=== PATIENT | female | born 1940 | race Caucasian/White ===

== ENCOUNTER 2022-01-04 16:37 | Outpatient (REF) | payer MEDICARE, SELFPAY ==
[2022-01-04 18:22] LABS: Abs Immature Grans 0.08 10^3/uL (0.0-0.06); Absolute Basophil Count 0.04 10^3/uL (0.0-0.2); Absolute Eosinophil Count 0.14 10^3/uL (0.0-0.7); Absolute Lymphocyte Count 1.03 10^3/uL (1.2-3.4); Absolute Monocyte Count 0.69 10^3/uL (0.1-0.8); Absolute Neutrophil Count 10.49 10^3/uL (1.2-6.7); Basophils % 0.3; Eosinophils % 1.1; HCT 37.5 % (36.0-46.0); HGB 12.2 g/dL (11.2-15.7); Immature Grans % 0.6; Lymphocytes % 8.3; MCH 29.6 pg (27.0-33.0); MCHC 32.5 % (32.0-36.0); MCV 91 fL (80-95); MPV 11.2 fL (8.0-11.0); Monocytes % 5.5; Neutrophils % 84.2; Platelet Count 265 10^3/uL (130-400); RBC 4.12 10^6/uL (3.93-5.22); RDW 16.1 % (11.7-14.6); RDW-SD 53.1 fL; WBC 12.46 10^3/uL (4.4-10.8)
[2022-01-04 18:30] LABS: Iron 32 ug/dL (50-170); Total Iron Binding Capacity 216 ug/dL (250-450); Transferrin Sat 15 % (15-50)
[2022-01-04 18:41] LABS: ALT 24 U/L (14-59); AST 17 U/L (15-37); Albumin 3.3 g/dL (3.4-5.0); Alkaline Phosphatase 97 U/L (46-116); Anion Gap 7.5 mmol/L (3-11); BUN 16 mg/dL (7-18); Bilirubin, Total 0.4 mg/dL (0.2-1.0); C-Reactive Protein 0.36 mg/dL (0.0-0.3); CO2 29.5 mmol/L (21.0-32.0); Calcium 9.1 mg/dL (8.5-10.1); Chloride 100 mmol/L (98-107); Estimated GFR 53.08 (mL/min/1.73m2); Glucose 255 mg/dL (74-106); Magnesium 1.6 mg/dL (1.8-2.4); NT-proBNP 364 pg/mL (<300); Potassium 4.6 mmol/L (3.5-5.1); Sodium 137 mmol/L (136-145); TSH (W/Ref FT4) 2.44 uIU/mL (0.36-3.74); Total Protein 6.8 g/dL (6.4-8.2)
[2022-01-04 19:07] LABS: Vitamin D 25 Total 26.4 ng/mL (30-100)
[2022-01-04 19:15] LABS: Bilirubin Negative (Negative); Blood Negative (Negative); Clarity Cloudy (Clear); Glucose Negative (Negative); Ketones Negative (Negative); Leukocyte Esterase Moderate (Negative); Nitrite Positive (Negative); Urobilinogen 0.2 EU/dL (Up TO 0.2); pH 5.5 (5-8)
[2022-01-04 19:16] LABS: Hemoglobin A1C 6.9 % (<5.7)
[2022-01-04 19:18] LABS: Calculated LDL 58 mg/dL (<100); Cholesterol 140 mg/dL (<200); Ferritin 212 ng/mL (8-252); Folate > 20.0 ng/mL (8.6-20.0); HDL Cholesterol 40 mg/dL (40-60); Triglyceride 210 mg/dL (<150); Vitamin B12 353 pg/mL (193-986)
[2022-01-04 19:33] LABS: Bacteria Packed HPF (Negative); C & S Indicated? C&S Done As Ordered; Crystals Negative HPF (Negative); Epithelial Cells Moderate HPF (Negative); Mucus Negative (Negative); RBC 0-2 HPF (0-2); WBC >50 HPF (0-5)
== END 2022-01-04 16:38 | disposition home or self-care (01) ==
LOC: LBN 16:37
PROVIDERS: Visit Provider Nurse Practitioner Gerontology
DX: Z02.89 Encounter for other administrative examinations; R53.83 Other fatigue; R68.89 Other general symptoms and signs; R73.09 Other abnormal glucose; D64.9 Anemia, unspecified; E55.9 Vitamin D deficiency, unspecified; R79.82 Elevated C-reactive protein (CRP); R82.998 Other abnormal findings in urine; E78.1 Pure hyperglyceridemia; R06.9 Unspecified abnormalities of breathing
CPT/HCPCS: 80053; 80061; 82306; 87077; 81003; 81015; 82607; 82728; 82746; 83036; 83540; 83550; 83735; 83880; 84443; 84550; 85025; 86140; 87086; 87186

== ENCOUNTER 2022-01-24 22:43 | Outpatient (REF) | payer MEDICARE, SELFPAY ==
[2022-01-25 00:38] LABS: Bilirubin Negative (Negative); Blood Negative (Negative); Clarity Clear (Clear); Glucose 100 mg/dL (Negative); Ketones Negative (Negative); Leukocyte Esterase Trace (Negative); Nitrite Negative (Negative); Urobilinogen 0.2 EU/dL (Up TO 0.2)
[2022-01-25 00:39] LABS: Bacteria Rare HPF (Negative); C & S Indicated? C&S Done As Ordered; Crystals Rare Amorphous HPF (Negative); Epithelial Cells Moderate HPF (Negative); Mucus Trace (Negative); RBC Negative HPF (0-2)
== END 2022-01-24 22:44 | disposition home or self-care (01) ==
LOC: LBN 22:43
PROVIDERS: Visit Provider Nurse Practitioner Gerontology
DX: F03.90 Unspecified dementia, unspecified severity, without behavioral disturbance, psychotic disturbance, mood disturbance, and anxiety (principal); R82.998 Other abnormal findings in urine
CPT/HCPCS: 87077; 81003; 81015; 87086; 87186

== ENCOUNTER 2022-02-15 15:07 | Outpatient (REF) | payer MEDICARE, SELFPAY ==
[2022-02-15 15:14] LABS: Abs Immature Grans 0.07 10^3/uL (0.0-0.06); Absolute Basophil Count 0.04 10^3/uL (0.0-0.2); Absolute Eosinophil Count 0.39 10^3/uL (0.0-0.7); Absolute Lymphocyte Count 0.83 10^3/uL (1.2-3.4); Absolute Monocyte Count 0.82 10^3/uL (0.1-0.8); Absolute Neutrophil Count 8.93 10^3/uL (1.2-6.7); Basophils % 0.4; Eosinophils % 3.5; HCT 34.4 % (36.0-46.0); Immature Grans % 0.6; Lymphocytes % 7.5; MCH 29.6 pg (27.0-33.0); MCV 93 fL (80-95); MPV 11.6 fL (8.0-11.0); Monocytes % 7.4; Neutrophils % 80.6; Platelet Count 239 10^3/uL (130-400); RBC 3.71 10^6/uL (3.93-5.22); RDW 15.3 % (11.7-14.6); RDW-SD 52.1 fL; WBC 11.08 10^3/uL (4.4-10.8)
[2022-02-15 15:26] LABS: ALT 21 U/L (14-59); AST 25 U/L (15-37); Albumin 3.3 g/dL (3.4-5.0); Alkaline Phosphatase 87 U/L (46-116); Anion Gap 6.2 mmol/L (3-11); BUN 20 mg/dL (7-18); Bilirubin, Total 0.5 mg/dL (0.2-1.0); CO2 30.8 mmol/L (21.0-32.0); Calcium 9.1 mg/dL (8.5-10.1); Chloride 98 mmol/L (98-107); Estimated GFR 56.25 (mL/min/1.73m2); Glucose 138 mg/dL (74-106); Potassium 4.7 mmol/L (3.5-5.1); Sodium 135 mmol/L (136-145); Total Protein 6.9 g/dL (6.4-8.2)
[2022-02-16 10:28] LABS: NT-proBNP 1391 pg/mL (<300)
== END 2022-02-15 15:08 | disposition home or self-care (01) ==
LOC: LBN 15:07
PROVIDERS: Visit Provider Nurse Practitioner Gerontology
DX: I11.0 Hypertensive heart disease with heart failure (principal); I50.9 Heart failure, unspecified; M62.81 Muscle weakness (generalized); D64.9 Anemia, unspecified; R68.89 Other general symptoms and signs; E11.9 Type 2 diabetes mellitus without complications
CPT/HCPCS: 80053; 83880; 85025

== ENCOUNTER 2022-02-20 12:43 | Outpatient (REF) | payer MEDICARE, SELFPAY ==
[2022-02-20 14:41] LABS: BUN 28 mg/dL (7-18); CREATININE 1.1 mg/dL (0.55-1.02); Calcium 9.2 mg/dL (8.5-10.1); Chloride 97 mmol/L (98-107); Estimated GFR 50.17 (mL/min/1.73m2); Glucose 225 mg/dL (74-106); NT-proBNP 517 pg/mL (<300); Potassium 4.7 mmol/L (3.5-5.1); Sodium 136 mmol/L (136-145)
== END 2022-02-20 12:44 | disposition home or self-care (01) ==
LOC: LBN 12:43
PROVIDERS: Visit Provider Nurse Practitioner Gerontology
DX: M62.81 Muscle weakness (generalized) (principal); I48.0 Paroxysmal atrial fibrillation; N32.81 Overactive bladder; M06.9 Rheumatoid arthritis, unspecified; N39.0 Urinary tract infection, site not specified; E11.8 Type 2 diabetes mellitus with unspecified complications; I10 Essential (primary) hypertension; F03.90 Unspecified dementia, unspecified severity, without behavioral disturbance, psychotic disturbance, mood disturbance, and anxiety; Z79.4 Long term (current) use of insulin
CPT/HCPCS: 80048; 83880

== ENCOUNTER 2022-02-26 18:03 | Outpatient (REF) | payer MEDICARE, SELFPAY ==
[2022-02-26 18:37] LABS: ALT 27 U/L (14-59); AST 24 U/L (15-37); Albumin 3.5 g/dL (3.4-5.0); Alkaline Phosphatase 103 U/L (46-116); Anion Gap 4.4 mmol/L (3-11); BUN 22 mg/dL (7-18); Bilirubin, Total 0.4 mg/dL (0.2-1.0); CO2 33.6 mmol/L (21.0-32.0); CREATININE 1.2 mg/dL (0.55-1.02); Calcium 9.4 mg/dL (8.5-10.1); Chloride 98 mmol/L (98-107); Estimated GFR 45.19 (mL/min/1.73m2); Glucose 217 mg/dL (74-106); Potassium 4.7 mmol/L (3.5-5.1); Sodium 136 mmol/L (136-145); Total Protein 7.4 g/dL (6.4-8.2)
[2022-02-26 18:52] LABS: Vitamin D 25 Total 47.5 ng/mL (30-100)
== END 2022-02-26 18:04 | disposition home or self-care (01) ==
LOC: LBN 18:03
PROVIDERS: Visit Provider Nurse Practitioner Gerontology
DX: E11.8 Type 2 diabetes mellitus with unspecified complications (principal); I10 Essential (primary) hypertension; M62.81 Muscle weakness (generalized); Z79.4 Long term (current) use of insulin
CPT/HCPCS: 80053; 82306

== ENCOUNTER 2022-03-01 06:23 | Emergency (ER) | payer MEDICARE, SELFPAY ==
--- NOTE | 2022-03-01 06:15 | DI.CT_ITS ---
Exam(s) CT HEAD CERV SPINE FACIAL WO EXAM: CT HEAD CERV SPINE FACIAL WO CLINICAL HISTORY: fell, hit face, altered, left brow swelling. TECHNIQUE: Imaging Protocol: Axial computed tomography images with coronal and sagittal reformatted images were created and reviewed COMPARISON: No exams were available for comparison FINDINGS: The examination is limited due to patient motion artifact. CT Head: Ventricles and Extra axial spaces: Normal in size and morphology for the patient's age. Hemorrhage: None. Cerebral parenchyma: No acute territorial infarct is present. There are areas of decreased attenuati on in the white matter most consistent with small vessel ischemic disease. Midline shift: None. Brainstem/Cerebellum: Normal. Calvarium: Normal. Visualized Paranasal sinuses/Mastoids: Clear. Soft Tissues: There is a large left periorbital and left forehead soft tissue hematoma. CT Face: Facial Bones: No definite fracture is noted in facial bones. Sinuses and Mastoids: Unremarkable. Globes, extraocular muscles, optic nerves and retrobulbar fat: Normal. Upper aerodigestive tract: Normal. Mandible and bilateral temporomandibular joints: Normal. Soft tissues: There is a large left periorbital and left forehead soft tissue hematoma. CT Cervical Spine: Bones: No acute fracture or subluxation. Moderate cervical spondylosis. Soft Tissues: Unremarkable. Lung Apices: Clear. IMPRESSION: 1. No acute intracranial process. 2. No acute fracture or subluxation in the cervical spine. 3. No acute facial fracture. 4. Large left periorbital and left forehead soft tissue hematoma. RADIATION DOSE DELIVERED: 2,023.62mGy.cm Total DLP DATA REPOSITORY: All CT scans at this facility are submitted to the National Radiology Data Registry (NRDR) Dose Index Registry (DIR) with the [employer] (ACR). RADIATION OPTIMIZATION: All CT scans at this facility use at least one of these dose optimization te chniques: automated exposure control; mA and/or kV adjustment per patient size (includes targeted exa ms where dose is matched to clinical indication); or iterative reconstruction.
--- NOTE | 2022-03-01 06:15 | RT.EKG_ITS ---
APPROVED REPORT Exam: Resting ECG Reason for Exam: fall vs syncope Patient Location: E HR:57 bpm ECG Measurements Heart Rate 57 AXIS TN 170 P 65 QRSd 85 QRS 33 QT 486 T 55 QTc 474 Conclusion Sinus bradycardia...rate< 60 Low voltage, precordial leads...precordial leads <1.0mV PHysician: no stemi
[2022-03-01 06:21] VITALS: BP 214/91; PULSE 54; RESP 20; TEMP 36.2; O2SAT 97
--- NOTE | 2022-03-01 06:36 | ED.GENADUL_ITS ---
Discharge Plan Disposition Patient Disposition: ICF (LEVEL 2) [facility] Condition: Stable Discharge Details Chief Complaint: Trauma Clinical Impression: Fall, Hematoma of left orbit Primary Care Provider: Unknown,Unknown ED Provider: Viral Arias Home Meds and New Rx's Prescriptions: No Action levothyroxine 100 mcg Tablet 100 mcg PO .QHS furosemide [Lasix] 20 mg Tablet 20 mg PO DAILY insulin glargine 100 unit/mL (3 mL) Insulin Pen 34 unit SUBCUT DAILY Myrbetriq 50 mg Tablet Extended Release 24 Hr 50 mg PO DAILY Discharge Instructions Additional Instructions: At this time the CT scan shows no evidence of break/fracture, or bleed. You do have a large hematoma over your left brow. Please ice this area frequently. Please monitor the area closely for any worsening of swelling or new symptoms. Please keep the patient on neurochecks for the next 24 to 48 hours to monitor closely for any change in symptomatology. If you notice any worsening of your symptoms, or any new symptoms such as vomiting, diarrhea, fever, chills, shortness of breath, chest pain, numbness, weakness, or fainting , please return immediately to the emergency department for reevaluation. Please follow up with your primary care provider as soon as possible for reassessment and reevaluation. As always, it was a pleasure participating in your medical care today. Medical Decision Making This is an 81-year-old female with a past medical history of dementia, diabetes, hypothyroidism, who does take Lasix, who resides at the [facility], who speaks Serbian and Macedonian, and is full code. She presents today after a fall. Nursing staff at the [facility] states that the patient fell forward face first and hit her face and head on the ground. There did not specify what caused the event. She has no loss of consciousness per EMS and the parents. She is not on blood thinners. She was brought to the ER for further management and evaluation. Patient has no complaints at this time. Notable swelling was present on the left eye upon arrival. Exam demonstrates notable swelling over the left brow for the upper and lower component. Unable to visualize to the left eye secondary to the notable amount of swelling. Does not appear to be evidence of clear proptosis though. Right eye is unremarkable. No other signs of significant trauma on exam. No tenderness for cervical thoracic or lumbar spine, however history is limited. C-collar was placed on the patient here in the ED. We will get CT scan of the head neck and face to evaluate for trauma. No other evidence of traumatic process on the rest of the body acutely. GCS is 15. No indication for intubation currently. 7:[address] scan results demonstrate no evidence of intracranial bleed or fracture. Notable hematoma is present over the. Patient's mental status remained stable. She responds all commands, GCS is 15. She remains ANO x1. This may be her baseline. We will continue to observe the patient for the time being and seek for further discussion with the practitioner at the [facility] for dispositioning. And 7:37 AM I spoke with Natali Sanz who is a medical provider at the [facility]. We discussed the patient's case in depth. I also spoke with the patient's son Fabrizio and discussed the case. Of note the patient is on chronic Macrobid to prevent UTIs. 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 The patient remains neurovascularly intact on my reassessment. Upon discussion with family and the medical provider the patient appears to be at her baseline. With no evidence of bleed or other significant abnormality, with laboratory work-up stable, I do feel that the patient can be discharged back to the [facility]. I had a long discussion with Natali, and the patient will be kept on neurochecks for the next 24 to 48 hours. I discussed concerning red flags that would be indicative of return and reassessment. I have extensively reviewed the treatment plan and discharge instructions with the patient and their family. I have addressed all patient concerns at this time. The patient and family was made aware of what symptoms to monitor for that would warrant a return to the emergency department. Discussed the plan with the patient and family, they demonstrate verbal understanding and agreement with our assessment and plan at this time. The documentation in this chart was dictated using Meile[employer] dictation software. Please excuse any dictation errors. FINDINGS: Brain: Diffuse involutional changes and white matter hypodensities consistent with age. These findings are most likely due to atrophy and small vessel disease. No acute hemorrhage or acute terratorial infarct. Vascular calcifications at the lower [place] of [place]. Cerebral ventricles: No gross venticulomegaly. Paranasal sinuses: No significant opacity or air fluid levels. Mastoid air cells: Mastoids: No significant abnormality. Orbital cavities: No acute abnormality. Prior operative intervention on both globes. Bones/joints: No acute fracture. Soft tissues: Moderate-sized left frontal scalp, periorbital, and left facial hematoma. IMPRESSION: 1. No acute intracranial abnormality 2. Soft tissue hematoma on the left without acutely displaced skull fracture. FINDINGS: Orbital cavities: Orbits are normal. Globes are unremarkable. Bones/joints: No acute fracture. Paranasal sinuses: Normal. No air-fluid levels. Soft tissues: Moderate-sized hematoma in the left frontal scalp, periorbital space, and left face. Dental: There may be some dental disease and carries formation in the right maxillary teeth. IMPRESSION: Soft tissue hematoma without acute fracture. FINDINGS: Bones/joints: Age appropraite degenerative changes are present without acute fracture, worrisome malalignment, or significan compression deformity. Congenitally unfused posterior arch of C1 should not be mistaken fo a r fracture. Limited retrolisthesis of C3 on C4 and C4 on C5 probably degenerative. Disc spaces: Degenerative changes multilevel central stenosis most pronounced at C2-C3 and C3- C4 where it is moderate. Spinal epidural space: No epidural fluid. Prevertebral and retropharyngeal spaces: No prevertebral soft tissue swelling. Lungs: Lung apices are normal. Vasculature: Calcified carotid artery plaques bilaterally. Follow-up non- emergent ultrasound recommended. Soft tissues: Unremarkable. IMPRESSION: Degenerative changes without acute fracture. Thank you for allowing us to participate in the care of your patient. Dictated and Authenticated by: Young Billings MD 03/01/2022 6:59 AM Eastern Time ([place] & [place]) HPI General Date/Time Provider Initiated Documentation: 03/01/22 06:27 . HPI Narrative: This is an 81-year-old female with a past medical history of dementia, diabetes, hypothyroidism, who does take Lasix, who resides at the [facility], who speaks Serbian and Macedonian, and is full code. She presents today after a fall. Nursing staff at the [facility] states that the patient fell forward face first and hit her face and head on the ground. There did not specify what caused the event. She has no loss of consciousness per EMS and the parents. She is not on blood thinners. She was brought to the ER for further management and evaluation. Patient has no complaints at this time. Notable swelling was present on the left eye upon arrival. Related Data Home Medications Medication Instructions Recorded Confirmed furosemide 20 mg tablet (Lasix) 20 mg PO DAILY 03/01/22 03/01/22 insulin glargine 100 unit/mL (3 34 unit subcut DAILY 03/01/22 03/01/22 mL) subcutaneous pen levothyroxine 100 mcg tablet 100 mcg PO .QHS 03/01/22 03/01/22 mirabegron 50 mg tablet,extended 50 mg PO DAILY 03/01/22 03/01/22 release 24 hr (Myrbetriq) Allergies Allergy/AdvReac Type Severity Reaction Status Date / Time No Known Allergies Allergy Unverified 03/01/22 06:31 General Stated Complaint: Trauma MARGARETH: 2 Review of Systems All systems reviewed & are unremarkable except as noted in HPI and below PFSH All Active Problems (Updated 03/01/22 @ 07:40 by Viral Arias DO) Fall (Acute) Hematoma of left orbit (Acute) Social History Smoking risk assessment performed?: No Exam Narrative Exam Narrative: 1.Const: Well-nourished, Well-developed, appearing stated age 2.Eyes: Unable to visualize left eye secondary to swelling. Unable to fully retract lids. Right eye demonstrates no evidence of hyphema, pupils are reactive. Left eye brow demonstrates severe swelling over the superior orbit and mild swelling over the inferior orbit. No active bleeding. 3.ENT: Atraumatic external nose and ears. Moist MM. Neck: Symmetric, trachea midline, No thyromegaly. No evidence of hemotympanum on the left or the right. No evidence of nasal septal hematoma. No evidence of cranial crepitus or raccoon eyes. Fluid drainage from the nose. 4.CVS: +S1/S2, No murmurs or gallops. Peripheral pulses 2+ and equal in all extremities. Brisk capillary refill in all extremities. 5.RESP: Unlabored respiratory effort. Clear to auscultation bilaterally. No wheezes rales or rhonchi 6.GI: Soft, Nontender/Nondistended, No hepatosplenomegaly. No guarding or rebound. 7.MSK: Normocephalic, Extremities w/o deformity or ttp. Patient was able to stand and pivot. Mild bruising over the shins, but no tenderness or deformity of all the upper or lower extremities bilaterally. No cyanosis or clubbing, Normal movement of all extremities 8.Skin: Notable bruising over the left brow, minimal small old bruises over the shins bilaterally. 9.Neuro: Patient's speech damage. ironmolder II-XII grossly intact except for the ability to evaluate the left eye. Sensation grossly intact, patient does move all 4 extremities, no clear focal neurologic deficits. 10.Psych: (AAO) x1, uncertain if this is baseline. Patient does respond to Serbian language questions To some degree. Course Vital Signs Vital signs: Vital Signs Temperature 36.2 C L 03/01/22 06:21 Pulse 54 L 03/01/22 06:21 Respiratory Rate 20 03/01/22 06:21 Blood Pressure 214/91 H 03/01/22 06:21 Pulse Oximetry 97 03/01/22 06:21 Temperature 36.2 C L 03/01/22 06:21 Temperature Source Skin 03/01/22 06:21 Pulse 54 L 03/01/22 06:21 Respiratory Rate 20 03/01/22 06:21 Respiratory Effort 03/01/22 06:21 Blood Pressure 214/91 H 03/01/22 06:21 Pulse Oximetry 97 03/01/22 06:21 Oxygen Delivery Method Room Air 03/01/22 06:21 Oxygen Flow Rate 0 03/01/22 06:21 Pain Level 8 03/01/22 06:21
[2022-03-01] MEDS: Ondansetron O.D.T. 4 MG TABEF PO (06:37)
--- NOTE | 2022-03-01 06:59 | DI.VRAD_ITS ---
PROCEDURE INFORMATION: Exam: CT Head Without Contrast Exam date and time: 03/01/2022 6:35 AM Age: 81 years old Clinical indication: Injury or trauma; Fall; Blunt trauma (contusions or hematomas) and concussion/head injury; Consciousness not specified; Eyelid and forehead and orbit/periorbital; Upper left; Bleeding/hemorrhage; Injury date: 03/01/22; Injury details: Fell, hit face, altered, left brow swelling TECHNIQUE: Imaging protocol: Computed tomography of the head without contrast. Radiation optimization: All CT scans at this facility use at least one of these dose optimization techniques: automated exposure control; mA and/or kV adjustment per patient size (includes targeted exams where dose is matched to clinical indication); or iterative reconstruction. COMPARISON: No relevant prior studies available. FINDINGS: Brain: Diffuse involutional changes and white matter hypodensities consistent with age. These findings are most likely due to atrophy and small vessel disease. No acute hemorrhage or acute terratorial infarct. Vascular calcifications at the [place] of [place]. Cerebral ventricles: No gross venticulomegaly. Paranasal sinuses: No significant opacity or air fluid levels. Mastoid air cells: Mastoids: No significant abnormality. Orbital cavities: No acute abnormality. Prior operative intervention on both globes. Bones/joints: No acute fracture. Soft tissues: Moderate-sized left frontal scalp, periorbital, and left facial hematoma. IMPRESSION: 1. No acute intracranial abnormality. 2. Soft tissue hematoma on the left without acutely displaced skull fracture. PROCEDURE INFORMATION: Exam: CT Maxillofacial Without Contrast Exam date and time: 03/01/2022 6:35 AM Age: 81 years old Clinical indication: Injury or trauma; Fall; Blunt trauma (contusions or hematomas) and concussion/head injury; Consciousness not specified; Eyelid and forehead and orbit/periorbital; Upper left; Bleeding/hemorrhage; Injury date: 03/01/22; Injury details: Fell, hit face, altered, left brow swelling TECHNIQUE: Imaging protocol: Computed tomography of the of the face without contrast. Radiation optimization: All CT scans at this facility use at least one of these dose optimization techniques: automated exposure control; mA and/or kV adjustment per patient size (includes targeted exams where dose is matched to clinical indication); or iterative reconstruction. COMPARISON: No relevant prior studies available. FINDINGS: Orbital cavities: Orbits are normal. Globes are unremarkable. Bones/joints: No acute fracture. Paranasal sinuses: Normal. No air-fluid levels. Soft tissues: Moderate-sized hematoma in the left frontal scalp, periorbital space, and left face. Dental: There may be some dental disease and carries formation in the right maxillary teeth. IMPRESSION: Soft tissue hematoma without acute fracture. PROCEDURE INFORMATION: Exam: CT Cervical Spine Without Contrast Exam date and time: 03/01/2022 6:35 AM Age: 81 years old Clinical indication: Injury or trauma; Fall; Blunt trauma (contusions or hematomas) and concussion/head injury; Consciousness not specified; Eyelid and forehead and orbit/periorbital; Upper left; Bleeding/hemorrhage; Injury date: 03/01/22; Injury details: Fell, hit face, altered, left brow swelling TECHNIQUE: Imaging protocol: Computed tomography of the cervical spine without contrast. Radiation optimization: All CT scans at this facility use at least one of these dose optimization techniques: automated exposure control; mA and/or kV adjustment per patient size (includes targeted exams where dose is matched to clinical indication); or iterative reconstruction. COMPARISON: No relevant prior studies available. FINDINGS: Bones/joints: Age appropraite degenerative changes are present without acute fracture, worrisome malalignment, or significan compression deformity. Congenitally unfused posterior arch of C1 should not be mistaken fo a r fracture. Limited retrolisthesis of C3 on C4 and C4 on C5 probably degenerative. Disc spaces: Degenerative changes multilevel central stenosis most pronounced at C2-C3 and C3-C4 where it is moderate. Spinal epidural space: No epidural fluid. Prevertebral and retropharyngeal spaces: No prevertebral soft tissue swelling. Lungs: Lung apices are normal. Vasculature: Calcified carotid artery plaques bilaterally. Follow-up non-emergent ultrasound recommended. Soft tissues: Unremarkable. IMPRESSION: Degenerative changes without acute fracture. Dictated and Authenticated by: Young Billings MD. Ordering:GEORGE Stratton MD
[2022-03-01 07:03] LABS: Abs Immature Grans 0.06 10^3/uL (0.0-0.06); Absolute Basophil Count 0.08 10^3/uL (0.0-0.2); Absolute Eosinophil Count 0.46 10^3/uL (0.0-0.7); Absolute Lymphocyte Count 2.26 10^3/uL (1.2-3.4); Basophils % 0.7; Eosinophils % 3.9; HCT 36.8 % (36.0-46.0); HGB 12.1 g/dL (11.2-15.7); Immature Grans % 0.5; Lymphocytes % 19.2; MCH 29.1 pg (27.0-33.0); MCHC 32.9 % (32.0-36.0); MCV 89 fL (80-95); MPV 10.2 fL (8.0-11.0); Monocytes % 7.1; Neutrophils % 68.6; Platelet Count 289 10^3/uL (130-400); RBC 4.16 10^6/uL (3.93-5.22); RDW-SD 45.1 fL; WBC 11.75 10^3/uL (4.4-10.8)
[2022-03-01 07:18] LABS: PTT Activated 22.1 sec (21.0-27.5); Prothrombin Time 10.3 sec (9.3-11.0)
[2022-03-01 07:22] LABS: Absolute Monocyte Count 0.83 10^3/uL (0.1-0.8); Absolute Neutrophil Count 8.06 10^3/uL (1.2-6.7)
[2022-03-01 07:32] LABS: ALT 23 U/L (14-59); AST 19 U/L (15-37); Albumin 3.3 g/dL (3.4-5.0); Alkaline Phosphatase 110 U/L (46-116); Anion Gap 6.3 mmol/L (3-11); BUN 21 mg/dL (7-18); Bilirubin, Total 0.5 mg/dL (0.2-1.0); CO2 32.7 mmol/L (21.0-32.0); CREATININE 0.9 mg/dL (0.55-1.02); Calcium 9.1 mg/dL (8.5-10.1); Chloride 100 mmol/L (98-107); Estimated GFR 63.83 (mL/min/1.73m2); Glucose 179 mg/dL (74-106); Potassium 3.5 mmol/L (3.5-5.1); Sodium 139 mmol/L (136-145); Total Protein 7.4 g/dL (6.4-8.2)
== END 2022-03-01 08:34 | disposition intermediate care facility (04) ==
PROVIDERS: Emergency Provider Student in an Organized Health Care Education/Training Program
DX: S05.12XA Contusion of eyeball and orbital tissues, left eye, initial encounter (principal); E11.9 Type 2 diabetes mellitus without complications; Z79.4 Long term (current) use of insulin; W18.30XA Fall on same level, unspecified, initial encounter; W22.8XXA Striking against or struck by other objects, initial encounter
CPT/HCPCS: 80053; 93005; 99284; 70450; 70486; 72125; 85025; 85610; 85730; 93010

== ENCOUNTER 2022-03-15 17:18 | Outpatient (REF) | payer MEDICARE, SELFPAY ==
[2022-03-15 18:15] LABS: Bilirubin Negative (Negative); Blood Negative (Negative); Clarity Sl Cloudy (Clear); Glucose Negative (Negative); Ketones Negative (Negative); Leukocyte Esterase Negative (Negative); Nitrite Negative (Negative); Specific Gravity 1.025 (1.005-1.025); Urobilinogen 0.2 EU/dL (Up TO 0.2)
== END 2022-03-15 17:19 | disposition home or self-care (01) ==
LOC: LBN 17:18
PROVIDERS: PCP Family Medicine; Visit Provider Nurse Practitioner Gerontology
DX: N39.0 Urinary tract infection, site not specified (principal); R53.83 Other fatigue
CPT/HCPCS: 81003; 87086

== ENCOUNTER 2022-03-16 16:57 | Outpatient (REF) | payer MEDICARE, SELFPAY ==
[2022-03-16 17:57] LABS: Abs Immature Grans 0.03 10^3/uL (0.0-0.06); Absolute Basophil Count 0.05 10^3/uL (0.0-0.2); Absolute Eosinophil Count 0.13 10^3/uL (0.0-0.7); Absolute Lymphocyte Count 1.14 10^3/uL (1.2-3.4); Absolute Monocyte Count 0.43 10^3/uL (0.1-0.8); Absolute Neutrophil Count 6.93 10^3/uL (1.2-6.7); Basophils % 0.6; Eosinophils % 1.5; HCT 33.8 % (36.0-46.0); HGB 10.9 g/dL (11.2-15.7); Immature Grans % 0.3; Lymphocytes % 13.1; MCH 29.9 pg (27.0-33.0); MCHC 32.2 % (32.0-36.0); MCV 93 fL (80-95); MPV 11.6 fL (8.0-11.0); Monocytes % 4.9; Neutrophils % 79.6; Platelet Count 238 10^3/uL (130-400); RBC 3.64 10^6/uL (3.93-5.22); RDW-SD 47.6 fL; WBC 8.71 10^3/uL (4.4-10.8)
[2022-03-16 18:25] LABS: ALT 24 U/L (14-59); AST 29 U/L (15-37); Albumin 3.1 g/dL (3.4-5.0); Alkaline Phosphatase 100 U/L (46-116); Anion Gap 7.6 mmol/L (3-11); BUN 22 mg/dL (7-18); Bilirubin, Total 0.2 mg/dL (0.2-1.0); CO2 31.4 mmol/L (21.0-32.0); CREATININE 1.3 mg/dL (0.55-1.02); Calcium 8.8 mg/dL (8.5-10.1); Chloride 99 mmol/L (98-107); Estimated GFR 41.06 (mL/min/1.73m2); Glucose 339 mg/dL (74-106); NT-proBNP 551 pg/mL (<300); Potassium 4.4 mmol/L (3.5-5.1); Sodium 138 mmol/L (136-145); Total Protein 6.7 g/dL (6.4-8.2)
== END 2022-03-16 16:58 | disposition home or self-care (01) ==
LOC: LBN 16:57
PROVIDERS: PCP Family Medicine; Visit Provider Nurse Practitioner Gerontology
DX: I50.20 Unspecified systolic (congestive) heart failure (principal); E03.9 Hypothyroidism, unspecified; D52.9 Folate deficiency anemia, unspecified; N39.0 Urinary tract infection, site not specified; R53.1 Weakness; E11.8 Type 2 diabetes mellitus with unspecified complications; D64.9 Anemia, unspecified
CPT/HCPCS: 80053; 83880; 85025

== ENCOUNTER 2022-03-28 16:31 | Outpatient (REF) | payer MEDICARE, SELFPAY ==
[2022-03-28 18:10] LABS: Magnesium 1.7 mg/dL (1.8-2.4); Vitamin B12 400 pg/mL (193-986)
== END 2022-03-28 16:32 | disposition home or self-care (01) ==
LOC: LBN 16:31
PROVIDERS: PCP Family Medicine; Visit Provider Nurse Practitioner Gerontology
DX: D51.9 Vitamin B12 deficiency anemia, unspecified (principal); D52.9 Folate deficiency anemia, unspecified; R68.89 Other general symptoms and signs; E78.49 Other hyperlipidemia
CPT/HCPCS: 82607; 83735

== ENCOUNTER 2022-03-30 16:41 | Outpatient (REF) | payer MEDICARE, SELFPAY ==
[2022-03-30 18:20] LABS: Bilirubin Negative (Negative); Blood Negative (Negative); Clarity Clear (Clear); Glucose Negative (Negative); Ketones Negative (Negative); Leukocyte Esterase Negative (Negative); Nitrite Negative (Negative); Specific Gravity 1.025 (1.005-1.025); Urobilinogen 0.2 EU/dL (Up TO 0.2)
== END 2022-03-30 16:42 | disposition home or self-care (01) ==
LOC: LBN 16:41
PROVIDERS: PCP Family Medicine; Visit Provider Nurse Practitioner Gerontology
DX: N39.0 Urinary tract infection, site not specified (principal); R53.1 Weakness
CPT/HCPCS: 81003; 87086

== ENCOUNTER 2022-05-15 18:10 | Outpatient (REF) | payer MEDICARE, SELFPAY ==
[2022-05-15 19:10] LABS: Abs Immature Grans 0.05 10^3/uL (0.0-0.06); Absolute Basophil Count 0.04 10^3/uL (0.0-0.2); Absolute Eosinophil Count 0.24 10^3/uL (0.0-0.7); Absolute Lymphocyte Count 1.04 10^3/uL (1.2-3.4); Absolute Monocyte Count 0.45 10^3/uL (0.1-0.8); Absolute Neutrophil Count 7.03 10^3/uL (1.2-6.7); Basophils % 0.5; Eosinophils % 2.7; HCT 32.4 % (36.0-46.0); HGB 10.4 g/dL (11.2-15.7); Immature Grans % 0.6; Lymphocytes % 11.8; MCH 28.7 pg (27.0-33.0); MCHC 32.1 % (32.0-36.0); MCV 90 fL (80-95); MPV 11.5 fL (8.0-11.0); Monocytes % 5.1; Neutrophils % 79.3; Platelet Count 253 10^3/uL (130-400); RBC 3.62 10^6/uL (3.93-5.22); RDW 14.5 % (11.7-14.6); RDW-SD 46.8 fL; WBC 8.85 10^3/uL (4.4-10.8)
[2022-05-15 19:25] LABS: ALT 33 U/L (14-59); AST 26 U/L (15-37); Albumin 3.3 g/dL (3.4-5.0); Alkaline Phosphatase 101 U/L (46-116); Anion Gap 8.6 mmol/L (3-11); BUN 22 mg/dL (7-18); Bilirubin, Total 0.3 mg/dL (0.2-1.0); CO2 28.4 mmol/L (21.0-32.0); CREATININE 1.4 mg/dL (0.55-1.02); Calcium 8.6 mg/dL (8.5-10.1); Chloride 98 mmol/L (98-107); Estimated GFR 37.56 (mL/min/1.73m2); Glucose 423 mg/dL (74-106); Magnesium 1.4 mg/dL (1.8-2.4); NT-proBNP 623 pg/mL (<300); Potassium 4.2 mmol/L (3.5-5.1); Sodium 135 mmol/L (136-145); TSH (W/Ref FT4) 7.39 uIU/mL (0.36-3.74); Total Protein 7.2 g/dL (6.4-8.2)
[2022-05-15 19:41] LABS: FREE T4 0.88 ng/dL (0.76-1.46)
== END 2022-05-15 18:11 | disposition home or self-care (01) ==
LOC: LBN 18:10
PROVIDERS: PCP Family Medicine; Visit Provider Nurse Practitioner Gerontology
DX: R68.89 Other general symptoms and signs (principal)
CPT/HCPCS: 80053; 83036; 83735; 83880; 84439; 84443; 85025

== ENCOUNTER 2022-06-05 20:06 | Outpatient (REF) | payer MEDICARE, SELFPAY ==
[2022-06-05 18:22] LABS: Abs Immature Grans 0.03 10^3/uL (0.0-0.06); Absolute Basophil Count 0.04 10^3/uL (0.0-0.2); Absolute Lymphocyte Count 1.87 10^3/uL (1.2-3.4); Absolute Monocyte Count 0.25 10^3/uL (0.1-0.8); Absolute Neutrophil Count 4.62 10^3/uL (1.2-6.7); Basophils % 0.6; Eosinophils % 5.5; HCT 31.2 % (36.0-46.0); Immature Grans % 0.4; Lymphocytes % 25.9; MCH 28.3 pg (27.0-33.0); MCHC 32.1 % (32.0-36.0); MCV 88 fL (80-95); MPV 11.2 fL (8.0-11.0); Monocytes % 3.5; Neutrophils % 64.1; Platelet Count 211 10^3/uL (130-400); RBC 3.53 10^6/uL (3.93-5.22); RDW 14.7 % (11.7-14.6); RDW-SD 46.6 fL; WBC 7.21 10^3/uL (4.4-10.8)
[2022-06-05 18:28] LABS: Bilirubin Negative (Negative); Blood Negative (Negative); Clarity Clear (Clear); Glucose Negative (Negative); Ketones Negative (Negative); Leukocyte Esterase Negative (Negative); Nitrite Negative (Negative); Specific Gravity 1.015 (1.005-1.025); Urobilinogen 0.2 EU/dL (Up TO 0.2)
[2022-06-05 18:33] LABS: Iron 52 ug/dL (50-170); Total Iron Binding Capacity 171 ug/dL (250-450); Transferrin Sat 30 % (15-50)
[2022-06-05 18:57] LABS: Vitamin D 25 Total 36.2 ng/mL (30-100)
[2022-06-05 19:00] LABS: ALT 37 U/L (14-59); AST 34 U/L (15-37); Albumin 3.1 g/dL (3.4-5.0); Alkaline Phosphatase 101 U/L (46-116); Anion Gap 4.7 mmol/L (3-11); BUN 19 mg/dL (7-18); Bilirubin, Total 0.4 mg/dL (0.2-1.0); CO2 33.3 mmol/L (21.0-32.0); CREATININE 1.1 mg/dL (0.55-1.02); Chloride 100 mmol/L (98-107); Estimated GFR 49.86 (mL/min/1.73m2); Ferritin 327 ng/mL (8-252); Glucose 124 mg/dL (74-106); Potassium 3.7 mmol/L (3.5-5.1); Sodium 138 mmol/L (136-145); TSH (W/Ref FT4) 6.23 uIU/mL (0.36-3.74); Total Protein 6.8 g/dL (6.4-8.2); Vitamin B12 377 pg/mL (193-986)
[2022-06-05 19:06] LABS: Folate > 20.0 ng/mL (8.6-20.0)
[2022-06-05 19:27] LABS: FREE T4 0.87 ng/dL (0.76-1.46); NT-proBNP 665 pg/mL (<300)
[2022-06-07 14:30] LABS: Hemoglobin A1C 8.8 % (<5.7)
== END 2022-06-05 20:07 | disposition home or self-care (01) ==
LOC: LBN 20:06
PROVIDERS: PCP Family Medicine; Visit Provider Nurse Practitioner Gerontology
DX: E11.8 Type 2 diabetes mellitus with unspecified complications (principal); E03.9 Hypothyroidism, unspecified; I50.20 Unspecified systolic (congestive) heart failure; D52.9 Folate deficiency anemia, unspecified; D51.9 Vitamin B12 deficiency anemia, unspecified; R82.998 Other abnormal findings in urine; F03.C3 Unspecified dementia, severe, with mood disturbance; E55.9 Vitamin D deficiency, unspecified
CPT/HCPCS: 80053; 82306; 87077; 81003; 82607; 82728; 82746; 83036; 83540; 83550; 83880; 84439; 84443; 85025; 87086; 87186

== ENCOUNTER 2022-07-31 16:51 | Outpatient (REF) | payer MEDICARE, SELFPAY ==
[2022-07-31 17:24] LABS: Magnesium 2.1 mg/dL (1.8-2.4)
== END 2022-07-31 16:52 | disposition home or self-care (01) ==
LOC: LBN 16:51
PROVIDERS: PCP Family Medicine; Visit Provider Nurse Practitioner Gerontology
DX: E11.9 Type 2 diabetes mellitus without complications (principal); E03.9 Hypothyroidism, unspecified; D51.9 Vitamin B12 deficiency anemia, unspecified; R68.89 Other general symptoms and signs
CPT/HCPCS: 83036; 83735; 84443

== ENCOUNTER 2022-10-29 19:05 | Outpatient (REF) | payer MEDICARE, SELFPAY ==
[2022-10-29 19:55] LABS: Abs Immature Grans 0.03 10^3/uL (0.0-0.06); Absolute Basophil Count 0.05 10^3/uL (0.0-0.2); Absolute Eosinophil Count 0.25 10^3/uL (0.0-0.7); Absolute Lymphocyte Count 1.59 10^3/uL (1.2-3.4); Absolute Monocyte Count 0.73 10^3/uL (0.1-0.8); Basophils % 0.9; Eosinophils % 4.3; HCT 28.9 % (36.0-46.0); HGB 9.4 g/dL (11.2-15.7); Immature Grans % 0.5; Lymphocytes % 27.7; MCH 30.1 pg (27.0-33.0); MCHC 32.5 % (32.0-36.0); MCV 93 fL (80-95); MPV 10.5 fL (8.0-11.0); Monocytes % 12.7; Neutrophils % 53.9; Platelet Count 219 10^3/uL (130-400); RBC 3.12 10^6/uL (3.93-5.22); RDW 15.5 % (11.7-14.6); RDW-SD 51.9 fL; WBC 5.75 10^3/uL (4.4-10.8)
[2022-10-29 20:17] LABS: ALT 20 U/L (14-59); AST 17 U/L (15-37); Alkaline Phosphatase 99 U/L (46-116); Anion Gap 6.7 mmol/L (3-11); BUN 25 mg/dL (7-18); Bilirubin, Total 0.3 mg/dL (0.2-1.0); CO2 29.3 mmol/L (21.0-32.0); CREATININE 1.2 mg/dL (0.55-1.02); Calcium 8.4 mg/dL (8.5-10.1); Chloride 102 mmol/L (98-107); Estimated GFR 44.91 (mL/min/1.73m2); Glucose 167 mg/dL (74-106); NT-proBNP 916 pg/mL (<300); Potassium 4.1 mmol/L (3.5-5.1); Sodium 138 mmol/L (136-145); Total Protein 6.3 g/dL (6.4-8.2)
[2022-10-29 20:41] LABS: Hemoglobin A1C 8.2 % (<5.7)
== END 2022-10-29 19:06 | disposition home or self-care (01) ==
LOC: LBN 19:05
PROVIDERS: PCP Family Medicine; Visit Provider Nurse Practitioner Gerontology
DX: E11.8 Type 2 diabetes mellitus with unspecified complications (principal); D51.9 Vitamin B12 deficiency anemia, unspecified; D52.9 Folate deficiency anemia, unspecified; E03.9 Hypothyroidism, unspecified; I50.20 Unspecified systolic (congestive) heart failure
CPT/HCPCS: 80053; 83036; 83880; 85025

== ENCOUNTER 2022-11-22 10:38 | Emergency (ER) | payer MEDICARE, MEDICAID, SELFPAY ==
[2022-11-22] VITALS (15 sets, daily range): BP systolic 88–121; BP diastolic 28–72; PULSE 59–74; RESP 11–18; TEMP 36.9
--- NOTE | 2022-11-22 10:50 | DI.CT_ITS ---
Exam(s) CT HEAD CERVICAL SPINE WO EXAM: CT HEAD CERVICAL SPINE WO CLINICAL HISTORY: fatigue, ams. TECHNIQUE: Imaging Protocol: Axial computed tomography images with coronal and sagittal reformatted images were created and reviewed COMPARISON: CT CT HEAD CERV SPINE FACIAL WO from 03/01/2022 FINDINGS: Head CT Ventricles and Extra axial spaces: Normal in size and morphology for the patient's age. Hemorrhage: None. Cerebral parenchyma: Atrophy, stable. No visible infarct or mass. Midline shift: None. Brainstem/Cerebellum: Normal. Calvarium: Normal. Visualized Paranasal sinuses/Mastoids: Clear. Cervical Spine CT BONES: Vertebral body heights are maintained. Alignment is normal. There is no evidence of acute frac ture. Degenerative disc changes and facet degenerative changes are seen . SOFT TISSUES: No paraspinal hematoma. The airway appears intact. No pneumothorax is seen at the lung apices. IMPRESSION: Head CT: No acute abnormality. C-spine CT: Degenerative changes, no acute abnormality. RADIATION DOSE DELIVERED: 1,573.03mGy.cm Total DLP DATA REPOSITORY: All CT scans at this facility are submitted to the National Radiology Data Registry (NRDR) Dose Index Registry (DIR) with the [employer] (ACR). RADIATION OPTIMIZATION: All CT scans at this facility use at least one of these dose optimization te chniques: automated exposure control; mA and/or kV adjustment per patient size (includes targeted exa ms where dose is matched to clinical indication); or iterative reconstruction.
--- NOTE | 2022-11-22 10:51 | DI.RAD_ITS ---
Exam(s) XR CHEST 1V IN DI DEPT EXAM: XR CHEST 1V IN DI DEPT CLINICAL HISTORY: fatigue, hypotension TECHNIQUE: 2D digital imaging was performed. COMPARISON: No exams were available for comparison FINDINGS: The exam is limited by poor pulmonary inflation and leads overlying the chest as well as patient bod y habitus. LUNGS: Grossly clear. No pleural abnormality seen. HEART: Normal size. AORTA: Normal diameter. BONES: Unremarkable for age. Soft tissues: Unremarkable. IMPRESSION: Limited exam. No acute findings. DATA REPOSITORY: RADIATION DOSE DELIVERED:
--- NOTE | 2022-11-22 10:54 | ED.GENADUL_ITS ---
Discharge Plan Disposition Patient Disposition: Home Condition: Improving Discharge Details Chief Complaint: GenMedical Clinical Impression: Fall Primary Care Provider: Atif Bustillo ED Provider: Young Sotelo Home Meds and New Rx's Prescriptions: No Action atorvastatin 40 mg Tablet 40 mg PO DAILY nitrofurantoin macrocrystal 50 mg Capsule 50 mg PO DAILY Rx Instructions: must administer with a meal/food sertraline 100 mg Tablet 200 mg PO DAILY prednisone 5 mg Tablet 5 mg PO DAILY travoprost 0.004 % Drops 1 drp ophthalmic (eye) DAILY Rx Instructions: administer in left eye for glaucoma clopidogrel 75 mg Tablet 75 mg PO DAILY quetiapine 100 mg Tablet 100 mg PO BID methotrexate sodium [Methotrexate (Anti-Rheumatic)] 2.5 mg Tablet 2.5 mg PO QWEEK Rx Instructions: given on saturday pantoprazole 40 mg Tablet,Delayed Release (Dr/Ec) 40 mg PO DAILY lisinopril 30 mg Tablet 30 mg PO DAILY docusate sodium 100 mg Capsule 200 mg PO BID folic acid 1 mg Tablet 1 mg PO DAILY mirtazapine 15 mg Tablet,Disintegrating 15 mg PO QHS timolol maleate 0.5 % Drops 1 drp OPHTHALMIC (EYE) DAILY Rx Instructions: administer in left eye for glaucoma nebivolol 5 mg Tablet 5 mg PO DAILY Systane Gel 0.4-0.3 % Drops,Gel 1 drp OPHTHALMIC (EYE) Q4H Rx Instructions: while awake magnesium oxide 400 mg magnesium Tablet 400 mg PO BID levothyroxine 100 mcg Tablet 112 mcg PO .QHS furosemide [Lasix] 20 mg Tablet 20 mg PO DAILY insulin glargine 100 unit/mL (3 mL) Insulin Pen 33 unit SUBCUT DAILY Myrbetriq 50 mg Tablet Extended Release 24 Hr 50 mg PO DAILY Discharge Instructions Instructions: Fall Prevention (ED) Medical Decision Making 82-year-old female history of diabetes hypothyroidism referred in for evaluation after possible fall 2 days ago, ecchymosis to left brow/periorbital region, cloudy/hazy left conjunctiva, no discharge, induration erythema to dorsal aspect of bilateral hands involving second third and fourth proximal phalanx and MCP joints, range of motion of digits intact, warm well perfused sensate extremities. Noted to be relatively hypotensive on arrival. Fatigued however arousable and interactive following commands. No abdominal pain nausea vomiting no chest pain or shortness of breath. Consider traumatic injury such as intracranial process from fall versus corneal abrasion versus corneal ulceration versus orbital fracture low suspicion for spinal cord injury given no neck discomfort and normal neurologic examination, consider inflammatory versus traumatic injury to bilateral hands versus viral syndrome versus tickborne illness versus less likely polyarthritis related to bacterial source such as gonococcal infection must also consider bacteremia although afebrile versus UTI versus electrolyte abnormalities. Screening labs CT head CT neck, chest x-ray, urinalysis, x-ray bilateral hands, will stain conjunctiva with tetracaine and fluorescein. Disposition pending reassessment. We will start with fluid bolus 14: 53 Labs and imaging unremarkable. Fluorescein stain of left eye negative for acute process. 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 Ecchymosis around her brow has been there for a couple of weeks per granddaughter. Patient is alert feeling much better after fluids. No signs of infection. Will be discharged back to care facility HPI General Date/Time Provider Initiated Documentation: 11/22/22 10:43 . HPI Narrative: 82-year-old female history of diabetes, hypothyroidism, presents brought in by EMS for evaluation of painful rash to bilateral hands and bruising near left ey e, unclear trauma history however collateral information from EMS states that patient fell 2 days ago. Related Data Home Medications Medication Instructions Recorded Confirmed furosemide 20 mg tablet (Lasix) 20 mg PO DAILY 03/01/22 11/22/22 insulin glargine 100 unit/mL (3 33 unit subcut DAILY 03/01/22 11/22/22 mL) subcutaneous pen levothyroxine 100 mcg tablet 112 mcg PO .QHS 03/01/22 11/22/22 mirabegron 50 mg tablet,extended 50 mg PO DAILY 03/01/22 11/22/22 release 24 hr (Myrbetriq) atorvastatin 40 mg tablet 40 mg PO DAILY 11/22/22 11/22/22 clopidogrel 75 mg tablet 75 mg PO DAILY 11/22/22 11/22/22 docusate sodium 100 mg capsule 200 mg PO BID 11/22/22 11/22/22 folic acid 1 mg tablet 1 mg PO DAILY 11/22/22 11/22/22 lisinopril 30 mg tablet 30 mg PO DAILY 11/22/22 11/22/22 magnesium oxide 400 mg PO BID 11/22/22 11/22/22 methotrexate sodium 2.5 mg tablet 2.5 mg PO QWEEK 11/22/22 11/22/22 mirtazapine 15 mg disintegrating 15 mg PO QHS 11/22/22 11/22/22 tablet nebivolol 5 mg tablet 5 mg PO DAILY 11/22/22 11/22/22 nitrofurantoin macrocrystal 50 mg 50 mg PO DAILY 11/22/22 11/22/22 capsule pantoprazole 40 mg tablet,delayed 40 mg PO DAILY 11/22/22 11/22/22 release peg 400-propylene glycol 0.4 %-0.3 1 drp ophthalmic (eye) Q4H 11/22/22 11/22/22 % eye gel drops (Systane Gel) prednisone 5 mg tablet 5 mg PO DAILY 11/22/22 11/22/22 quetiapine 100 mg tablet 100 mg PO BID 11/22/22 11/22/22 sertraline 100 mg tablet 200 mg PO DAILY 11/22/22 11/22/22 timolol maleate 0.5 % eye drops 1 drp ophthalmic (eye) DAILY 11/22/22 11/22/22 travoprost 0.004 % eye drops 1 drp ophthalmic (eye) DAILY 11/22/22 11/22/22 Allergies Allergy/AdvReac Type Severity Reaction Status Date / Time No Known Allergies Allergy Unverified 03/01/22 06:31 General Stated Complaint: GenMedical MARGARETH: 2 Review of Systems Narrative: Review of Systems Constitutional: Fatigue Eyes: Bruising your eye ENT: negative Cardiovascular: negative Respiratory: negative Gastrointestinal: negative : negative Musculoskeletal: negative Skin: Hand pain, rash Neurologic: negative Psych: negative PFSH All Active Problems (Updated 11/22/22 @ 14:54 by Young Sotelo MD) Fall (Acute) Social History Smoking/Tobacco Use Status: Never Smoking risk assessment performed?: Yes Housing: senior living Exam Narrative Exam Narrative: Physical Examination General: Fatigued, however interactive HEENT: normocephalic, subacute appearing ecchymosis to left brow/periorbital region; PERRL, EOM intact, hazy/cloudy conjunctiva left eye no discharge; no nasal discharge; moist mucous membranes, oral and pharyngeal mucosa normal, tolerating secretions Neck: supple, trachea midline; full ROM Chest: normal to inspection Respiratory: normal respiratory effort, speaking in full sentences, clear to auscultation, no wheezing, rales or rhonchi Cardiac: regular rate, regular rhythm, S1S2 intact, no murmurs rubs or gallops GI: abdomen soft, non-tender, non-distended; no palpable mass or hepatosplenomegaly Skin: Erythema and induration overlying proximal phalanges and MCP joint of second third and fourth digit of bilateral hands, no palmar rash Neuro: AAOx3, normal speech, moving all extremities Extremities: Range of motion intact flexion extension and hand sensation intact, soft compartments warm well perfused Psych: Appropriate mood and affect Course Vital Signs Vital signs: Vital Signs Temperature 36.9 C 11/22/22 10:43 Pulse 72 11/22/22 10:43 Respiratory Rate 15 11/22/22 10:43 Blood Pressure 88/28 L 11/22/22 10:43 Temperature 36.9 C 11/22/22 10:43 Temperature Source Temporal Artery Scan 11/22/22 10:43 Pulse 72 11/22/22 10:43 Respiratory Rate 15 11/22/22 10:43 Respiratory Effort Normal 11/22/22 10:51 Blood Pressure 88/28 L 11/22/22 10:43 Blood Pressure Position Supine 11/22/22 10:43 Oxygen Delivery Method Room Air 11/22/22 10:43 Oxygen Flow Rate 0 11/22/22 10:43 Lab/Test Results Lab/Test Results: 11/22/22 10:50 Blood Blood Culture - Pending 11/22/22 10:50 Blood Blood Culture - Pending
--- NOTE | 2022-11-22 11:00 | DI.RAD_ITS ---
Exam(s) XR HAND RT COMPLETE XR HAND LT COMPLETE EXAM: XR HAND LT COMPLETE CLINICAL HISTORY: swelling, redenss dorsum MCPs. TECHNIQUE: 2D digital imaging was performed. Three views. COMPARISON: CR XR HAND RT COMPLETE from 11/22/2022 FINDINGS: BONES: No acute fracture is present. No bony destructive lesion is seen. Bones appear osteoporotic. JOINTS: No dislocation present. Degenerative changes greatest at the carpal metacarpal joints. SOFT TISSUE: Swelling over the dorsal aspect of the metacarpophalangeal joints as well as fingers. V ascular calcifications.. IMPRESSION: Soft tissue swelling. No evidence of fracture. DATA REPOSITORY: RADIATION DOSE DELIVERED:
[2022-11-22 11:04] LABS: Abs Immature Grans 0.05 10^3/uL (0.0-0.06); Absolute Basophil Count 0.03 10^3/uL (0.0-0.2); Absolute Eosinophil Count 0.17 10^3/uL (0.0-0.7); Absolute Lymphocyte Count 0.85 10^3/uL (1.2-3.4); Absolute Monocyte Count 0.32 10^3/uL (0.1-0.8); Absolute Neutrophil Count 7.35 10^3/uL (1.2-6.7); Basophils % 0.3; Eosinophils % 1.9; HCT 29.3 % (36.0-46.0); HGB 9.9 g/dL (11.2-15.7); Immature Grans % 0.6; Lymphocytes % 9.7; MCH 29.6 pg (27.0-33.0); MCHC 33.8 % (32.0-36.0); MCV 88 fL (80-95); MPV 10.2 fL (8.0-11.0); Monocytes % 3.6; Neutrophils % 83.9; Platelet Count 256 10^3/uL (130-400); RBC 3.34 10^6/uL (3.93-5.22); RDW 13.4 % (11.7-14.6); RDW-SD 42.7 fL; WBC 8.77 10^3/uL (4.4-10.8)
[2022-11-22 11:06] LABS: BE (Venous) 3 mmol/L (-2-3); HCO3 (Venous) 28 mmol/L (23-28); O2 Sat (Venous) 77 %; TCO2 (Venous) 27 mmol/L (24-29); pCO2 (Venous) 47 mmHg (41-51); pH (Venous) 7.39 (7.31-7.41); pO2 (Venous) 41 mmHg
[2022-11-22 11:18] LABS: Prothrombin Time 10.4 sec (9.3-11.0)
[2022-11-22 11:32] LABS: ALT 10 U/L (14-59); AST 13 U/L (15-37); Albumin 2.9 g/dL (3.4-5.0); Alkaline Phosphatase 91 U/L (46-116); Anion Gap 9.5 mmol/L (3-11); BUN 19 mg/dL (7-18); Bilirubin, Total 0.6 mg/dL (0.2-1.0); CO2 27.5 mmol/L (21.0-32.0); CREATININE 1.4 mg/dL (0.55-1.02); Calcium 8.9 mg/dL (8.5-10.1); Chloride 98 mmol/L (98-107); Creatine Kinase 22 U/L (26-192); Estimated GFR 37.33 (mL/min/1.73m2); Glucose 256 mg/dL (74-106); Lipase 20 U/L (16-77); Magnesium 1.5 mg/dL (1.8-2.4); Potassium 4.5 mmol/L (3.5-5.1); Sodium 135 mmol/L (136-145); TSH (W/Ref FT4) 1.82 uIU/mL (0.36-3.74); Total Protein 7.7 g/dL (6.4-8.2); Troponin I < 50 ng/L (<or=60)
[2022-11-22] MEDS: Normal Saline 1,000 ML 1000 ML IV (11:36)
[2022-11-22 14:36] LABS: Bilirubin Negative (Negative); Blood Negative (Negative); Clarity Clear (Clear); Glucose Negative (Negative); Ketones Negative (Negative); Leukocyte Esterase Negative (Negative); Nitrite Negative (Negative); Urobilinogen 0.2 mg/dL (Up to 0.2); pH 5.5 (5-8)
[2022-11-22 14:56] LABS: COVID-19 PCR Negative (Negative); Influenza A PCR Negative (Negative); Influenza B PCR Negative (Negative); RSV PCR Negative (Negative)
[2022-11-22 14:57] LABS: Source Nasopharynx
[2022-11-22] MEDS: Fluorescein STRIPS 100/BOX 1 MG OP (15:11)
[2022-11-22] MEDS: Tetracaine 0.5% 4 ML BTL OP (15:11)
--- NOTE | 2022-11-22 15:17 | NUR.NOTE ---
Called report into [facility] at this time.
[2022-11-23 11:19] LABS: Lyme Ab w Rflx to Lyme Confirm Negative (Negative)
[2022-11-25 16:58] LABS: Anaplasma phagocytophilum Negative (Negative); B. miyamotoi PCR Negative (Negative); Babesia divergens/MO-1 Negative (Negative); Babesia duncani Negative (Negative); Babesia microti Negative (Negative); Ehrlichia chaffeensis Negative (Negative); Ehrlichia ewingii/canis Negative (Negative); Ehrlichia muris eauclairensis Negative (Negative)
== END 2022-11-22 15:31 | disposition home or self-care (01) ==
PROVIDERS: Emergency Provider Emergency Medicine; PCP Family Medicine
DX: R21 Rash and other nonspecific skin eruption (principal); E11.9 Type 2 diabetes mellitus without complications; E03.9 Hypothyroidism, unspecified; Z91.81 History of falling; R23.3 Spontaneous ecchymoses
CPT/HCPCS: 36410; 80053; 82550; 82805; 83690; 87040; 87637; 87798; 96360; 96361; 99284; 70450; 71045; 72125; 73130; 81003; 83735; 84443; 84484; 85025; 85610; 85730; 86618

== ENCOUNTER 2023-01-05 10:54 | Emergency (ER) | payer MEDICARE, MEDICAID, SELFPAY ==
[2023-01-05] VITALS (25 sets, daily range): BP systolic 109–160; BP diastolic 44–71; PULSE 60–77; RESP 10–18; TEMP 36.5; O2SAT 93–99
--- NOTE | 2023-01-05 11:00 | RT.EKG_ITS ---
APPROVED REPORT Exam: Resting ECG Reason for Exam: [facility] Patient Location: E HR:65 bpm ECG Measurements Heart Rate 65 AXIS DC 167 P 73 QRSd 86 QRS 52 QT 451 T 71 QTc 469 Conclusion Sinus rhythm...normal P axis, V-rate 60- 99 Low voltage, extremity and precordial leads...extremity<0.5mV, precordial<1.0mV sinus rhtyhm, normal axis, normal intervals, non ischemic
[2023-01-05 11:24] LABS: Abs Immature Grans 0.04 10^3/uL (0.0-0.06); Absolute Basophil Count 0.04 10^3/uL (0.0-0.2); Absolute Eosinophil Count 0.29 10^3/uL (0.0-0.7); Absolute Lymphocyte Count 0.81 10^3/uL (1.2-3.4); Absolute Monocyte Count 0.44 10^3/uL (0.1-0.8); Absolute Neutrophil Count 4.72 10^3/uL (1.2-6.7); Basophils % 0.6; Eosinophils % 4.6; HCT 29.4 % (36.0-46.0); HGB 9.8 g/dL (11.2-15.7); Immature Grans % 0.6; Lymphocytes % 12.8; MCH 28.6 pg (27.0-33.0); MCHC 33.3 % (32.0-36.0); MCV 86 fL (80-95); MPV 9.4 fL (8.0-11.0); Monocytes % 6.9; Neutrophils % 74.5; Platelet Count 227 10^3/uL (130-400); RBC 3.43 10^6/uL (3.93-5.22); RDW 14.4 % (11.7-14.6); RDW-SD 43.5 fL; WBC 6.34 10^3/uL (4.4-10.8)
--- NOTE | 2023-01-05 11:26 | W.ED.GENAD ---
Discharge Plan Disposition Patient Disposition: [facility] Facility(SNF) Condition: Stable Discharge Details Clinical Impression: Acute UTI, Hypomagnesemia Primary Care Provider: Atif Bustillo ED Provider: Denice Patrick [place] Meds and New Rx's Prescriptions: New levofloxacin 250 mg tablet 250 mg PO DAILY Qty: 2 0RF Continued atorvastatin 40 mg Tablet 40 mg PO DAILY sertraline 100 mg Tablet 200 mg PO DAILY prednisone 5 mg Tablet 5 mg PO DAILY travoprost 0.004 % Drops 1 drp ophthalmic (eye) DAILY Rx Instructions: administer in left eye for glaucoma clopidogrel 75 mg Tablet 75 mg PO DAILY quetiapine 100 mg Tablet 100 mg PO BID methotrexate sodium 2.5 mg Tablet 2.5 mg PO QWEEK Rx Instructions: given on saturday pantoprazole 40 mg Tablet,Delayed Release (Dr/Ec) 40 mg PO DAILY lisinopril 30 mg Tablet 30 mg PO DAILY docusate sodium 100 mg Capsule 200 mg PO BID folic acid 1 mg Tablet 1 mg PO DAILY mirtazapine 15 mg Tablet,Disintegrating 15 mg PO QHS timolol maleate 0.5 % Drops 1 drp OPHTHALMIC (EYE) DAILY Rx Instructions: administer in left eye for glaucoma nebivolol 5 mg Tablet 5 mg PO DAILY Systane Gel 0.4-0.3 % Drops,Gel 1 drp OPHTHALMIC (EYE) Q4H Rx Instructions: while awake magnesium oxide 400 mg magnesium Tablet 400 mg PO BID levothyroxine 100 mcg Tablet 112 mcg PO .QHS furosemide [Lasix] 20 mg Tablet 20 mg PO DAILY insulin glargine 100 unit/mL (3 mL) Insulin Pen 33 unit SUBCUT DAILY Myrbetriq 50 mg Tablet Extended Release 24 Hr 50 mg PO DAILY Discontinued nitrofurantoin macrocrystal 50 mg Capsule 50 mg PO DAILY Rx Instructions: must administer with a meal/food Discharge Instructions Instructions: Urinary Tract Infection in Women (ED), Hypomagnesemia (ED) Additional Instructions: Imaging of Samia's brain were reassuring with no acute bleeding. Labs are concerning for urinary tract infection. I do not see evidence of septicemia at this time. Her magnesium was slightly low and we replenished this with IV supplementation. I recommend holding off on the nitrofurantoin at this time and continuing with the 250 mg of levofloxacin for total of 3 days. Dosing was given here this morning. Please continue to encourage hydration. If you develop fever/chills, inability stay hydrated or any new/worsening symptoms please seek care urgently once again. Otherwise, please follow-up with primary care in 1 week for reevaluation. Referrals: Atif Bustillo [Primary Care Provider] - Discharge Data Discharge Date/Time-TO BE ENTERED AT DEPARTURE: 01/05/23 14:33 Medical Decision Making Patient is a pleasant 82 year old female, brought if by EMS from [facility], with c/c of AMS. EMS advised that per [facility], she has hx of dementia but acute change this AM. They check glucose which was normal, hemodynamically stable. Language line used initially during my discussion with the patient. This was stopped when patient was [id number] all questions and patient/language line were speaking over each other. She does not know where she is. [facility] does not know why she is here. She states she has no pain or complaints. Denies SAUNDERS. States she is tired, falls asleep frequently. No pain or palable fracture with scalp palpation. Left eye appears cloudy with pupilary defect, unclear if this is new or not. Will speak with staff at [facility]. She does not have pain over this eye but could be glaucoma. Lungs have diffuse crackles, considered CHF. She has no LE edema, 2+ distal pulses in all extremities. No pain with palpation of c-spine, chest, abdomen. Spoke with nursing staff. They advised that she woke and was normal this AM, had breakfast. Later, was being assisted to the bathroom and went limp 2 hrs prior to arrival. They advised this occurred during coughing fit. Then had episode of emeiss a little while later. Had clinically improved after this episode. Has hx of UTI. Bruising is from fall in November. They felt like she may have had CVA but they did not note unilateral symptoms. Rather, like I am seeing here, they noted generalized weakness and confusion. They advised that the right eye typically opens normally but left eye has not since being with them. They report hx of glaucoma but are not sure which eye or how severe. IOP 4.4, on further review, it sounds like she has had surgery to this eye. Physician that has seen her previously, advises that this appearance is baseline for her. Wide differential, considered CVA although I find this less liekly. Will obtain CT. Considered UTI. Also considered CHF with her BLE edema and crackles. Unclear what is badeline. No cough per [facility] repot to suggest pneumonia. No fever. Spoke with son, he advised he thinks this is dehydration and UTI. He advised she has been admitted for this historically. She is on Nitrofurantoin for prevention. Based on her GFR and age, I am concerned that this is not appropriate choice at this time, although it may have been when first started. Son now at bed side. He reports she chronically has BLE weakness, does not walk and has not for some time. He states she has baseline confusion. She often does not speak with staff, she has had limited interaction with nursing staff but has been answering my questions well, although sometimes confused. Labs reviewed, no leukocytosis. Baseline anemia. Magnesium low at 1.5, will replenish. BNP elevated at 500 but this is not signficant based on previous visits. Urine concerning for UTI, will give Levofloxacin, no previous micro for comparison. Spoke with nursing staff, they advised that in previous urinary micro they have, patient has grown out e.coli. Considered imaging, as this sounds to be exactly like her previous UTIs, I do not see need for this at this time. We will trial oral abx to ensure she can take these will plan to transition her back to the [facility]. Their staff is agreeable to taking her, hoping this will help encourage her taking her medications. She took it here for staff well. Patient and her son agreeable to going back as change in environment can make her more confused. Return precautions discussed. All of their qeustions and concerns were addressed, they are in agreement with this plan. HPI General Date/Time Provider Initiated Documentation: 01/05/23 11:06. Limitations to Documentation: altered mental status (unclear how changed from baseline, has hx of dementia). Information obtained by: patient, family, RN/MD (called the [facility], spoke with nursing staff), EMS and RN notes reviewed. History of Present Illness 82 year old F presents to the emergency department with the chief complaint of AMS, weakness, episode of emesis, described as similar to prior episodes (per son, she has had similar episodes in the past), with intensity rated at 1 (denies any pain at this time). Patient started experiencing this hour(s) (per [facility] staff, began this AM) Related Data Home Medications Medication Instructions Recorded Confirmed furosemide 20 mg tablet (Lasix) 20 mg PO DAILY 03/01/22 01/05/23 insulin glargine 100 unit/mL (3 33 unit subcut DAILY 03/01/22 01/05/23 mL) subcutaneous pen levothyroxine 100 mcg tablet 112 mcg PO .QHS 03/01/22 01/05/23 mirabegron 50 mg tablet,extended 50 mg PO DAILY 03/01/22 01/05/23 release 24 hr (Myrbetriq) atorvastatin 40 mg tablet 40 mg PO DAILY 11/22/22 01/05/23 clopidogrel 75 mg tablet 75 mg PO DAILY 11/22/22 01/05/23 docusate sodium 100 mg capsule 200 mg PO BID 11/22/22 01/05/23 folic acid 1 mg tablet 1 mg PO DAILY 11/22/22 01/05/23 lisinopril 30 mg tablet 30 mg PO DAILY 11/22/22 01/05/23 magnesium oxide 400 mg PO BID 11/22/22 01/05/23 methotrexate sodium 2.5 mg tablet 2.5 mg PO QWEEK 11/22/22 01/05/23 mirtazapine 15 mg disintegrating 15 mg PO QHS 11/22/22 01/05/23 tablet nebivolol 5 mg tablet 5 mg PO DAILY 11/22/22 01/05/23 pantoprazole 40 mg tablet,delayed 40 mg PO DAILY 11/22/22 01/05/23 release peg 400-propylene glycol 0.4 %-0.3 1 drp ophthalmic (eye) Q4H 11/22/22 11/22/22 % eye gel drops (Systane Gel) prednisone 5 mg tablet 5 mg PO DAILY 11/22/22 01/05/23 quetiapine 100 mg tablet 100 mg PO BID 11/22/22 01/05/23 sertraline 100 mg tablet 200 mg PO DAILY 11/22/22 01/05/23 timolol maleate 0.5 % eye drops 1 drp ophthalmic (eye) DAILY 11/22/22 01/05/23 travoprost 0.004 % eye drops 1 drp ophthalmic (eye) DAILY 11/22/22 01/05/23 levofloxacin 250 mg tablet 250 mg PO DAILY #2 tabs 01/05/23 Previous Rx's Medication Instructions Recorded levofloxacin 250 mg tablet 250 mg PO DAILY #2 tabs 01/05/23 Allergies Allergy/AdvReac Type Severity Reaction Status Date / Time No Known Allergies Allergy Unverified 03/01/22 06:31 General Stated Complaint: AMS/LOC MARGARETH: 3 Review of Systems Narrative: ROS limited secondary to pateint mental status PFSH All Active Problems (Updated 01/05/23 @ 14:04 by PALAK Quinones) Acute UTI (Acute) Hypomagnesemia (Acute) Social History Smoking/Tobacco Use Status: Never Smoking risk assessment performed?: Yes Housing: prison Exam Const General: cooperative, comfortable, no acute distress, well developed and ill appearing chronically Nutritional Appearance: overweight Orientation: alert, awake, oriented to person, not oriented to place, not oriented to time and confused HENTN Head: normal to inspection, no palpable skull fracture, normocephalic, atraumatic, no raccoon eyes and no scalp tenderness Mouth: oral mucosae normal Eyes General: appearance abnormal, both eyes (right normal, left fading ecchymosis, sunken pupil, cloudy appearing, close) Neck Neck: normal visual inspection, no lymphadenopathy and no meningeal signs Chest Chest: normal inspection of the chest and no tenderness Resp Effort & Inspection: normal respiratory effort and no respiratory distress Auscultation: crackles (diffuse, maximal at bilateral bases) and no wheezes Cardio Rate: regular rate Rhythm: regular rhythm Heart Sounds: S1 normal and S2 normal GI Inspection: normal to inspection Palpation: soft, no hepatosplenomegaly, no guarding, not rigid and nontender Back/Spine/Pelvis Back: no CVA tenderness Skin General skin exam: ecchymosis (yellowed ecchymosis left eye) Neuro General: patient alert, patient awake, not oriented x3, gait abnormal (non-ambulatory at baseline), tone abnormal and moves all extremities (weak but equal in BUE, very limited in BLE, equal bilaterally) Extrem General: no calf tenderness and edema Laterality: bilateral Course Vital Signs Vital signs: Vital Signs Temperature 36.5 C 01/05/23 11:01 Pulse 68 01/05/23 11:01 Respiratory Rate 18 01/05/23 11:01 Blood Pressure 115/71 01/05/23 11:01 Pulse Oximetry 93 01/05/23 11:01 Temperature 36.5 C 01/05/23 11:01 Temperature Source Oral 01/05/23 11:01 Pulse 68 01/05/23 11:01 Respiratory Rate 18 01/05/23 11:01 Blood Pressure 115/71 01/05/23 11:01 Blood Pressure Position Supine 01/05/23 11:01 Pulse Oximetry 93 01/05/23 11:01 Oxygen Delivery Method Room Air 01/05/23 11:01 Oxygen Flow Rate 0 01/05/23 11:01 Pain Level 0 01/05/23 11:01 Lab/Test Results Lab/Test Results: Laboratory Tests Range/Units 01/05/23 11:20 WBC (4.4-10.8) 10^3/uL 6.34 RBC (3.93-5.22) 10^6/uL 3.43 L Hgb (11.2-15.7) g/dL 9.8 L Hct (36.0-46.0) % 29.4 L MCV (80-95) fL 86 MCH (27.0-33.0) pg 28.6 MCHC (32.0-36.0) % 33.3 RDW (11.7-14.6) % 14.4 Plt Count (130-400) 10^3/uL 227 MPV (8.0-11.0) fL 9.4 Immature Gran % 0.6 Neutrophils % 74.5 Lymphocytes % 12.8 Monocytes % 6.9 Eosinophils % 4.6 Basophils % 0.6 Nucleated RBC % (0.0-0.3) % 0.0 Absolute Neutrophils (1.2-6.7) 10^3/uL 4.72 Absolute Lymphocytes (1.2-3.4) 10^3/uL 0.81 L Absolute Monocytes (0.1-0.8) 10^3/uL 0.44 Absolute Eosinophils (0.0-0.7) 10^3/uL 0.29 Absolute Basophils (0.0-0.2) 10^3/uL 0.04
[2023-01-05 11:52] LABS: ALT 14 U/L (14-59); AST 15 U/L (15-37); Albumin 2.9 g/dL (3.4-5.0); Alkaline Phosphatase 119 U/L (46-116); Anion Gap 7.7 mmol/L (3-11); BUN 7 mg/dL (7-18); Bilirubin, Total 0.5 mg/dL (0.2-1.0); CO2 28.3 mmol/L (21.0-32.0); Calcium 9.3 mg/dL (8.5-10.1); Chloride 98 mmol/L (98-107); Glucose 158 mg/dL (74-106); Magnesium 1.5 mg/dL (1.8-2.4); Potassium 4.2 mmol/L (3.5-5.1); Sodium 134 mmol/L (136-145); TSH (W/Ref FT4) 1.55 uIU/mL (0.36-3.74); Total Protein 7.4 g/dL (6.4-8.2); Troponin I < 50 ng/L (<or=60)
--- NOTE | 2023-01-05 11:58 | DI.CT_ITS ---
Exam(s) CT HEAD WO EXAM: CT HEAD WO CLINICAL HISTORY: AMS. TECHNIQUE: Imaging Protocol: Axial computed tomography images with coronal and sagittal reformatted images were created and reviewed COMPARISON: CT CT HEAD CERVICAL SPINE WO from 11/22/2022 FINDINGS: There are no skull fractures. There is no fluid in the visualized paranasal sinuses. There is no evidence of intracranial hemorrhage, mass effect, or shift of midline structures. There are no extra-axial fluid collections. The ventricles are not enlarged or shifted and there is no blo od within the ventricular system nor within the basal cisterns. Symmetrical atrophy is again noted. Ventricular size is prominent but again noted to be commensurate with the size of the overlying cortical sulci. IMPRESSION: No acute intracranial findings on this noninfused CT scan of the brain. Atrophy again noted. RADIATION DOSE DELIVERED: 662.49mGy.cm Total DLP DATA REPOSITORY: All CT scans at this facility are submitted to the National Radiology Data Registry (NRDR) Dose Index Registry (DIR) with the [employer] ([employer]). RADIATION OPTIMIZATION: All CT scans at this facility use at least one of these dose optimization te chniques: automated exposure control; mA and/or kV adjustment per patient size (includes targeted exa ms where dose is matched to clinical indication); or iterative reconstruction.
--- NOTE | 2023-01-05 12:06 | DI.RAD_ITS ---
Exam(s) XR CHEST 2V PA LATERAL EXAM: XR CHEST 2V PA LATERAL CLINICAL HISTORY: AMS. TECHNIQUE: 2D digital imaging was performed. COMPARISON: CR XR CHEST 1V IN DI DEPT from 11/22/2022 FINDINGS: 2 views: Less than optimal inspiration. Heart size is normal. The mediastinum is not widened. There increased interstitial markings throughout both lung melton which are probably exaggerated by t he suboptimal inspiratory effort. No pleural effusions. No pneumothorax. IMPRESSION: As above. Recommend nonportable PA and lateral views when clinically possible. DATA REPOSITORY: RADIATION DOSE DELIVERED:
[2023-01-05] MEDS: MAGNESIUM SULFATE 1 GM/100 ML BAG IVPB (12:11)
[2023-01-05 12:14] LABS: NT-proBNP 502 pg/mL (<300)
--- NOTE | 2023-01-05 12:19 | DI.VRAD_ITS ---
PROCEDURE INFORMATION: Exam: XR Chest Exam date and time: 01/05/2023 12:06 PM Age: 82 years old Clinical indication: Other: AMS TECHNIQUE: Imaging protocol: Radiologic exam of the chest. Views: 2 views. COMPARISON: CR XR CHEST 1V IN DI DEPT 11/22/2022 11:57 AM FINDINGS: Tubes, catheters and devices: There are electrocardiographic leads on the thorax. Lungs: The lung volumes are diminished. There is accentuation of the interstitial markings especially in the left lower lobe that could be normal at full inspiration excluding interstitial pneumonia not possible. Pleural spaces: Unremarkable. No pleural effusion. No pneumothorax. Heart/Mediastinum: The heart and aorta are normal in size and configuration. Bones/joints: Unremarkable. IMPRESSION: Hypoventilation with increase in the interstitial markings in the left lower lobe that could be normal on a standard examination in the department. Excluding left lower lobe interstitial pneumonia is not possible. Dictated and Authenticated by: Michel Huitron MD. Ordering:ALFONSO Galdamez MD
--- NOTE | 2023-01-05 12:21 | DI.VRAD_ITS ---
PROCEDURE INFORMATION: Exam: CT Head Without Contrast Exam date and time: 01/05/2023 11:59 AM Age: 82 years old Clinical indication: Altered mental status/memory loss; Other: AMS TECHNIQUE: Imaging protocol: Computed tomography of the head without contrast. Radiation optimization: All CT scans at this facility use at least one of these dose optimization techniques: automated exposure control; mA and/or kV adjustment per patient size (includes targeted exams where dose is matched to clinical indication); or iterative reconstruction. COMPARISON: CT HEAD CERVICAL SPINE WO 11/22/2022 11:48 AM FINDINGS: Brain: No evidence of acute infarct. No intraparenchymal hemorrhage. No midline shift or mass effect. No extra-axial fluid collections or hemorrhage. Cerebral ventricles: Symmetric enlargement of the lateral ventricles cisterns and sulci are unchanged. Paranasal sinuses: Visualized sinuses are unremarkable. No fluid levels. Mastoid air cells: Visualized mastoid air cells are well aerated. Bones/joints: Unremarkable. No acute fracture. Soft tissues: Unremarkable. IMPRESSION: No acute intracranial abnormality. Dictated and Authenticated by: Michel Huitron MD. Ordering:ALFONSO Galdamez MD
[2023-01-05 12:32] LABS: Bilirubin Negative (Negative); Blood Small (Negative); Clarity Cloudy (Clear); Glucose Negative (Negative); Ketones Negative (Negative); Leukocyte Esterase Large (Negative); Nitrite Negative (Negative)
[2023-01-05 12:42] LABS: WBC >50 HPF (0-5)
[2023-01-05 12:43] LABS: C & S Indicated? Yes
[2023-01-05 13:22] LABS: Lactate 1.5 mmol/L (0.6-1.4)
[2023-01-05] MEDS: Normal Saline 1,000 ML 200 ML IV (13:29)
[2023-01-05] MEDS: levoFLOXacin 250 MG TAB PO (13:43)
--- NOTE | 2023-01-07 15:19 | NUR.NOTE ---
lOOKED UP ANTIBIOTIC ON CHARTNursing Note:
== END 2023-01-05 14:33 | disposition skilled nursing facility (03) ==
PROVIDERS: Emergency Provider Physician Assistant; PCP Family Medicine
DX: R41.82 Altered mental status, unspecified (principal); E87.6 Hypokalemia; N39.0 Urinary tract infection, site not specified; R06.02 Shortness of breath; F03.90 Unspecified dementia, unspecified severity, without behavioral disturbance, psychotic disturbance, mood disturbance, and anxiety
CPT/HCPCS: 80053; 87040; 87077; 93005; 96365; 99284; 70450; 71046; 81003; 81015; 83605; 83735; 83880; 84443; 84484; 85025; 87086; 87186; 93010; J3475

== ENCOUNTER 2023-01-22 20:14 | Outpatient (REF) | payer MEDICARE, SELFPAY ==
[2023-01-22 19:21] LABS: Hemoglobin A1C 8.4 % (<5.7)
== END 2023-01-22 20:15 | disposition home or self-care (01) ==
LOC: LBN 20:14
PROVIDERS: PCP Family Medicine; Visit Provider Nurse Practitioner Gerontology
DX: E11.8 Type 2 diabetes mellitus with unspecified complications (principal)
CPT/HCPCS: 83036

== ENCOUNTER 2023-05-18 09:40 | Observation (INO) | payer MEDICARE, MEDICAID, SELFPAY ==
[2023-05-18] VITALS (119 sets, daily range): BP systolic 101–257; BP diastolic 24–172; PULSE 56–83; RESP 9–26; TEMP 36.3–37; O2SAT 94–100
--- NOTE | 2023-05-18 10:00 | RT.EKG_ITS ---
APPROVED REPORT Exam: Resting ECG Reason for Exam: weakness Patient Location: E HR:58 bpm ECG Measurements Heart Rate 58 AXIS TN 175 P 36 QRSd 81 QRS 10 QT 485 T 40 QTc 475 Conclusion Sinus bradycardia...rate< 60 Probable left atrial enlargement...P >50mS, <-0.10mV V1 sinus bradycardia, normal axis, normal intervals, non ischemic
--- NOTE | 2023-05-18 10:00 | DI.CT_ITS ---
Exam(s) CT HEAD WO EXAM: CT HEAD WO CLINICAL HISTORY: confusion. TECHNIQUE: Imaging Protocol: Axial computed tomography images with coronal and sagittal reformatted images were created and reviewed COMPARISON: CT CT HEAD WO from 01/05/2023 FINDINGS: Ventricles and Extra axial spaces: Normal in size and morphology for the patient's age. Hemorrhage: None. Cerebral parenchyma: No evidence of acute infarct or mass. Atrophy. Midline shift: None. Brainstem/Cerebellum: Normal. Calvarium: Normal. Visualized Paranasal sinuses/Mastoids: Clear. Soft Tissues: Unremarkable. IMPRESSION: No acute intracranial process. RADIATION DOSE DELIVERED: Total DLP DATA REPOSITORY: All CT scans at this facility are submitted to the National Radiology Data Registry (NRDR) Dose Index Registry (DIR) with the [employer] ([employer]). RADIATION OPTIMIZATION: All CT scans at this facility use at least one of these dose optimization te chniques: automated exposure control; mA and/or kV adjustment per patient size (includes targeted exa ms where dose is matched to clinical indication); or iterative reconstruction.
[2023-05-18 11:29] LABS: COVID-19 PCR Negative (Negative); Influenza A PCR Negative (Negative); Influenza B PCR Negative (Negative); RSV PCR Negative (Negative)
[2023-05-18 11:30] LABS: Source Nasopharynx
[2023-05-18] MEDS: Normal Saline 1,000 ML 1000 ML IV (11:32)
[2023-05-18] MEDS: Prochlorperazine 10 MG/2 ML VIAL 5 MG IVP (11:33)
[2023-05-18 11:34] LABS: Abs Immature Grans 0.09 10^3/uL (0.0-0.06); Absolute Basophil Count 0.07 10^3/uL (0.0-0.2); Absolute Eosinophil Count 0.09 10^3/uL (0.0-0.7); Absolute Lymphocyte Count 1.37 10^3/uL (1.2-3.4); Absolute Monocyte Count 0.86 10^3/uL (0.1-0.8); Basophils % 0.8; HCT 32.2 % (36.0-46.0); Lymphocytes % 15.8; MCH 28.3 pg (27.0-33.0); MCHC 34.2 % (32.0-36.0); MCV 83 fL (80-95); MPV 9.5 fL (8.0-11.0); Monocytes % 9.9; Neutrophils % 71.5; Platelet Count 385 10^3/uL (130-400); RBC 3.89 10^6/uL (3.93-5.22); RDW-SD 41.3 fL; WBC 8.68 10^3/uL (4.4-10.8)
--- NOTE | 2023-05-18 11:38 | DI.VRAD_ITS ---
PROCEDURE INFORMATION: Exam: CT Head Without Contrast Exam date and time: 05/18/2023 10:51 AM Age: 82 years old Clinical indication: Other: Confusion TECHNIQUE: Imaging protocol: Computed tomography of the head without contrast. Radiation optimization: All CT scans at this facility use at least one of these dose optimization techniques: automated exposure control; mA and/or kV adjustment per patient size (includes targeted exams where dose is matched to clinical indication); or iterative reconstruction. COMPARISON: CT HEAD WO 01/05/2023 11:59 AM FINDINGS: Brain: Atrophy. No hemorrhage. No acute white matter changes. No mass effect. Cerebral ventricles: Stable ventricular enlargement likely secondary to atrophy. Paranasal sinuses: Visualized sinuses are unremarkable. No fluid levels. Mastoid air cells: Visualized mastoid air cells are well aerated. Bones/joints: Unremarkable. No acute fracture. Soft tissues: Unremarkable. IMPRESSION: No acute intracranial abnormality. Dictated and Authenticated by: Eugene Bhakta MD. Ordering:SAUNDRA Napier MD
[2023-05-18 11:52] LABS: ALT 15 U/L (14-59); AST 13 U/L (15-37); Albumin 2.9 g/dL (3.4-5.0); Alkaline Phosphatase 109 U/L (46-116); Anion Gap 6.7 mmol/L (3-11); BUN 15 mg/dL (7-18); Bilirubin, Total 0.4 mg/dL (0.2-1.0); CO2 27.3 mmol/L (21.0-32.0); CREATININE 0.9 mg/dL (0.55-1.02); Calcium 8.9 mg/dL (8.5-10.1); Chloride 93 mmol/L (98-107); Estimated GFR 63.43 (mL/min/1.73m2); Glucose 313 mg/dL (74-106); Magnesium 1.5 mg/dL (1.8-2.4); Potassium 4.2 mmol/L (3.5-5.1); Sodium 127 mmol/L (136-145); Total Protein 8.3 g/dL (6.4-8.2); Troponin I 55 ng/L (<or=60)
[2023-05-18 12:20] LABS: Bilirubin Negative (Negative); Blood Negative (Negative); Clarity Clear (Clear); Glucose >=1000 mg/dL (Negative); Ketones Negative (Negative); Leukocyte Esterase Negative (Negative); Nitrite Negative (Negative); pH 6.5 (5-8)
[2023-05-18 12:28] LABS: Bacteria Few HPF (Negative); Epithelial Cells Few HPF (Negative)
[2023-05-18 12:29] LABS: C & S Indicated? Yes; Casts 0-2 Hyaline LPF (Negative); Crystals Negative HPF (Negative); Mucus Negative (Negative); Other Cells Few Transitional (Negative)
--- NOTE | 2023-05-18 12:45 | ED.GENADUL_ITS ---
Discharge Plan Disposition Patient Disposition: Admit to [facility] Condition: Stable Discharge Details Clinical Impression: Elevated troponin I level, Non-ST elevation CO (NSTEMI) Admit Date/Time: 05/18/23 20:04 Admit Provider: Jonny Crocker Attending Provider: Jonny Crocker Primary Care Provider: Atif Bustillo ED Provider: Ashley Zamora Discharge Data Discharge Date/Time-TO BE ENTERED AT DEPARTURE: 05/18/23 21:11 Medical Decision Making <PALAK Garcia - Last Filed: 05/20/23 15:56> 82-year-old female, alert and oriented x 2, able to follow basic commands, CT head was ordered for further evaluation which does not show evidence of acute abnormality Blood pressure was initially had a significantly widened pulse pressure and with manual assessment it was 180/60, she did not receive any of her medications aside from her Lantus today reportedly after confirming with [place] [facility], so blood pressure medications were administered, we did not have the nebivolol and this I did administer patient's lisinopril and 10 mg of hydralazine as her repeat blood pressure was actually 199/86 and while initial troponin was negative, repeat troponin was 92, EKG is nonischemic per my entire presentation, please see my attendings documentation regarding read official, will repeat an EKG and troponin and likely discharge this patient home showed her troponin remained the same or improved She remains asymptomatic, she is alert, oriented, she spoke with her son and he feels like she is at her baseline Her glucose was quite elevated initially at 313, recheck is 230 no evidence of diabetic ketoacidosis, she did have hyponatremia, suspect this is pseudohyponatremia from hyperglycemia and this is also improving with fluid hydration At this time, we will repeat a troponin at 1545 and 6 as long as this stays the same or improves, I think patient will be stable for discharge home She will need to continue on all of her prescribed medications She does have 10-20 white blood cells in her urine, she is on chronic therapy for Macrobid, I will not add additional antibiotics at this time is nitrate and leukocyte esterase are negative, we will send her urine for culture for further assessment We did use language line interpretation, Setswana as Tuvaluan is patient's second language to obtain information Fabrizio will be arriving here between 430 and 5 likely, driving up from [place] to be involved in final decision regarding disposition repeat troponin was drawn at 1545 and aspirin initiated repeat EKG non-ischemic and pt asymptomatic at time of reassessment <Ashley Zamora NP - Last Filed: 05/18/23 19:57> Medical Records Medical records narrative: 1604: Care assumed from provider (Quyen Chandler.) Please see their initial HPI, PE, and documentation. Discussed patient details and case and pending workup and disposition. Patient is hemodynamically stable, and ANO x 2 which is her reported baseline. At the time of signout blood pressure is 183/87 heart rate 60 O2 sat 99%. At the time of signout awaiting repeat troponin patient re- evaluated. Is in no acute distress, no complaints at this time. Vital signs stable, breathing eupneic. Disposition. Family member who is son and POA is also ongoing. 1623: Third troponin is more elevated at 129 which is up from 94, 1653: Patient's and son are at the bedside will discuss plan of care with patient and family. They do wish for full code status and interventions if needed. 1659: [facility] transfer center paged, for transfer for NSTEMI and to speak with cardiology transfer center states that they are currently listing for tomorrow however they will get cardiology on the phone for me. 1706: PT PTT added onto labs and stat fingerstick glucose. Patient continues to deny any chest pain she is complaining of some lower back pain which she has a chronic issue of per her family. P-BNP added onto labs, no BLE edema noted, no increased WOB. 1713: BGL 188 per staff physical therapy assistant. 1743: Dr. Grajeda with CARDIOLOGY he recommends CTA to rule out Aneurysm, he recommends further eval for HTN management. He does not recommend urgent or emergent transfer for cath at this time. He also states that if troponin continues to escalate over 300 or patient begins to become symptomatic to call and request urgent/emergent transfer. CTA chest/Abd/pelvis ordered. 1752: Will plan on speaking with hospitalist for admission. 1859: Hospitalist paged, patient returns from CT, no obvious aneurysm noted. 192: Spoke with Dr. Luke who agrees to accept patient for admission. Informed family of POC. 1926: Hospitalist at . This text was generated using Nuance dictation system, please disregard any oddities of phrase or misspellings. Imaging Data Radiologic Study: Imaging: X-Ray Radiologist's impression: TECHNIQUE: Imaging protocol: Radiologic exam of the chest. Views: 1 view. COMPARISON: CR XR CHEST 2V PA LATERAL 01/05/2023 12:06 PM FINDINGS: Lungs: Low lung volumes. No lung consolidation. Pleural spaces: Unremarkable. No pleural effusion. No pneumothorax. Heart/Mediastinum: Unremarkable. No cardiomegaly. Bones/joints: Unremarkable. IMPRESSION: No acute changes. Thank you for allowing us to participate in the care of your patient. Dictated and Authenticated by: Eugene Bhakta MD Radiologic Study #2: Imaging: CT Scan Radiologist's impression: FINDINGS: Mildly limited due to respiratory motion artifact VASCULATURE: Pulmonary arteries: No pulmonary emboli. Aorta: No aortic aneurysm. No aortic dissection. Celiac trunk and mesenteric arteries: No occlusion or significant stenosis. Renal arteries: No occlusion or significant stenosis. Right iliac arteries: No occlusion or significant stenosis. Left iliac arteries: No occlusion or significant stenosis. Lungs: Minimal subsegmental atelectasis No consolidation. No masses. Pleural spaces: Unremarkable. No pneumothorax. No pleural effusion. Heart: Coronary calcifications. No cardiomegaly. No pericardial effusion. Chronic T11 compression deformity ABDOMEN AND PELVIS: Liver: No mass. Fatty infiltration Gallbladder and bile ducts: Unremarkable. No calcified stones. No ductal dilation. Pancreas: Unremarkable. No mass. No ductal dilation. Spleen: Unremarkable. No splenomegaly. Adrenal glands: Unremarkable. No mass. Kidneys and ureters: Unremarkable. No solid mass. No hydronephrosis. Stomach and bowel: Moderate to large stool in the rectal vault No obstruction. No mucosal thickening. Appendix: No evidence of appendicitis. Intraperitoneal space: Minimal right paracolic/pararenal fluid. No free air. No significant fluid collection. Urinary bladder: Unremarkable. No mass. Reproductive: Unremarkable as visualized. Lymph nodes: Unremarkable. No enlarged lymph nodes. Bones/joints: Unremarkable. No acute fracture. Soft tissues: Unremarkable. IMPRESSION: Unremarkable CTA chest, abdomen, and pelvis. No aortic aneurysm or dissection. No hemodynamically significant stenosis Minimal fluid on the right as noted which is nonspecific Thank you for allowing us to participate in the care of your patient. Dictated and Authenticated by: Avery Diego MD Lab Data Lab results reviewed: Yes I reviewed the patient's lab results. Labs: 05/18/23 12:06 Urine - Reflex from Ua Urine Culture - Pending Laboratory Tests Range/Units 05/18/23 05/18/23 05/18/23 10:35 11:15 11:15 WBC (4.4-10.8) 10^3/uL 8.68 RBC (3.93-5.22) 10^6/uL 3.89 L Hgb (11.2-15.7) g/dL 11.0 L Hct (36.0-46.0) % 32.2 L MCV (80-95) fL 83 MCH (27.0-33.0) pg 28.3 MCHC (32.0-36.0) % 34.2 RDW (11.7-14.6) % 14.0 Plt Count (130-400) 10^3/uL 385 MPV (8.0-11.0) fL 9.5 Immature Gran % 1.0 Neutrophils % 71.5 Lymphocytes % 15.8 Monocytes % 9.9 Eosinophils % 1.0 Basophils % 0.8 Nucleated RBC % (0.0-0.3) % 0.0 Absolute Neutrophils (1.2-6.7) 10^3/uL 6.20 Absolute Lymphocytes (1.2-3.4) 10^3/uL 1.37 Absolute Monocytes (0.1-0.8) 10^3/uL 0.86 H Absolute Eosinophils (0.0-0.7) 10^3/uL 0.09 Absolute Basophils (0.0-0.2) 10^3/uL 0.07 Sodium (136-145) mmol/L 127 L Cancelled Potassium (3.5-5.1) mmol/L 4.2 Chloride (98-107) mmol/L Carbon Dioxide (21.0-32.0) mmol/L Anion Gap (3-11) mmol/L BUN (7-18) mg/dL Creatinine (0.55-1.02) mg/dL Est GFR (CKD-EPI 2020) (mL/min/1.73m2) Glucose (74-106) mg/dL Calcium (8.5-10.1) mg/dL Magnesium (1.8-2.4) mg/dL Total Bilirubin (0.2-1.0) mg/dL AST (15-37) U/L ALT (14-59) U/L Alkaline Phosphatase (46-116) U/L Troponin I (<or=60) ng/L Total Protein (6.4-8.2) g/dL Albumin (3.4-5.0) g/dL TSH (0.36-3.74) uIU/mL Urine Color (Yellow) Urine Clarity (Clear) Urine pH (5-8) Ur Specific [place] (1.005-1.025) Urine Protein (Negative) mg/dL Urine Ketones (Negative) mg/dL Urine Blood (Negative) Urine Nitrite (Negative) Urine Bilirubin (Negative) Urine Urobilinogen (Up to 0.2) mg/dL Ur Leukocyte Esterase (Negative) Urine RBC (0-2) HPF Urine WBC (0-5) HPF Ur Epithelial Cells (Negative) HPF Urine Crystals (Negative) HPF Urine Bacteria (Negative) HPF Urine Casts (Negative) LPF Urine Mucus (Negative) Urine Other (Negative) Ur Culture Indicated? Urine Glucose (Negative) mg/dL COVID-19 Source Nasopharynx SARS-CoV-2 (PCR) (Negative) Negative Influenza Type A (PCR) (Negative) Negative Influenza Type B (PCR) (Negative) Negative RSV (PCR) (Negative) Negative Range/Units 05/18/23 05/18/23 05/18/23 11:15 11:15 11:15 WBC (4.4-10.8) 10^3/uL RBC (3.93-5.22) 10^6/uL Hgb (11.2-15.7) g/dL Hct (36.0-46.0) % MCV (80-95) fL MCH (27.0-33.0) pg MCHC (32.0-36.0) % RDW (11.7-14.6) % Plt Count (130-400) 10^3/uL MPV (8.0-11.0) fL Immature Gran % Neutrophils % Lymphocytes % Monocytes % Eosinophils % Basophils % Nucleated RBC % (0.0-0.3) % Absolute Neutrophils (1.2-6.7) 10^3/uL Absolute Lymphocytes (1.2-3.4) 10^3/uL Absolute Monocytes (0.1-0.8) 10^3/uL Absolute Eosinophils (0.0-0.7) 10^3/uL Absolute Basophils (0.0-0.2) 10^3/uL Sodium (136-145) mmol/L Potassium (3.5-5.1) mmol/L Cancelled Chloride (98-107) mmol/L 93 L Cancelled Carbon Dioxide (21.0-32.0) mmol/L 27.3 Cancelled Anion Gap (3-11) mmol/L 6.7 BUN (7-18) mg/dL Creatinine (0.55-1.02) mg/dL Est GFR (CKD-EPI 2020) (mL/min/1.73m2) Glucose (74-106) mg/dL Calcium (8.5-10.1) mg/dL Magnesium (1.8-2.4) mg/dL Total Bilirubin (0.2-1.0) mg/dL AST (15-37) U/L ALT (14-59) U/L Alkaline Phosphatase (46-116) U/L Troponin I (<or=60) ng/L Total Protein (6.4-8.2) g/dL Albumin (3.4-5.0) g/dL TSH (0.36-3.74) uIU/mL Urine Color (Yellow) Urine Clarity (Clear) Urine pH (5-8) Ur Specific [place] (1.005-1.025) Urine Protein (Negative) mg/dL Urine Ketones (Negative) mg/dL Urine Blood (Negative) Urine Nitrite (Negative) Urine Bilirubin (Negative) Urine Urobilinogen (Up to 0.2) mg/dL Ur Leukocyte Esterase (Negative) Urine RBC (0-2) HPF Urine WBC (0-5) HPF Ur Epithelial Cells (Negative) HPF Urine Crystals (Negative) HPF Urine Bacteria (Negative) HPF Urine Casts (Negative) LPF Urine Mucus (Negative) Urine Other (Negative) Ur Culture Indicated? Urine Glucose (Negative) mg/dL COVID-19 Source SARS-CoV-2 (PCR) (Negative) Influenza Type A (PCR) (Negative) Influenza Type B (PCR) (Negative) RSV (PCR) (Negative) Range/Units 05/18/23 05/18/23 05/18/23 11:15 11:15 11:15 WBC (4.4-10.8) 10^3/uL RBC (3.93-5.22) 10^6/uL Hgb (11.2-15.7) g/dL Hct (36.0-46.0) % MCV (80-95) fL MCH (27.0-33.0) pg MCHC (32.0-36.0) % RDW (11.7-14.6) % Plt Count (130-400) 10^3/uL MPV (8.0-11.0) fL Immature Gran % Neutrophils % Lymphocytes % Monocytes % Eosinophils % Basophils % Nucleated RBC % (0.0-0.3) % Absolute Neutrophils (1.2-6.7) 10^3/uL Absolute Lymphocytes (1.2-3.4) 10^3/uL Absolute Monocytes (0.1-0.8) 10^3/uL Absolute Eosinophils (0.0-0.7) 10^3/uL Absolute Basophils (0.0-0.2) 10^3/uL Sodium (136-145) mmol/L Potassium (3.5-5.1) mmol/L Chloride (98-107) mmol/L Carbon Dioxide (21.0-32.0) mmol/L Anion Gap (3-11) mmol/L Cancelled BUN (7-18) mg/dL 15 Cancelled Creatinine (0.55-1.02) mg/dL 0.9 Cancelled Est GFR (CKD-EPI 2020) (mL/min/1.73m2) 63.43 Glucose (74-106) mg/dL Calcium (8.5-10.1) mg/dL Magnesium (1.8-2.4) mg/dL Total Bilirubin (0.2-1.0) mg/dL AST (15-37) U/L ALT (14-59) U/L Alkaline Phosphatase (46-116) U/L Troponin I (<or=60) ng/L Total Protein (6.4-8.2) g/dL Albumin (3.4-5.0) g/dL TSH (0.36-3.74) uIU/mL Urine Color (Yellow) Urine Clarity (Clear) Urine pH (5-8) Ur Specific [place] (1.005-1.025) Urine Protein (Negative) mg/dL Urine Ketones (Negative) mg/dL Urine Blood (Negative) Urine Nitrite (Negative) Urine Bilirubin (Negative) Urine Urobilinogen (Up to 0.2) mg/dL Ur Leukocyte Esterase (Negative) Urine RBC (0-2) HPF Urine WBC (0-5) HPF Ur Epithelial Cells (Negative) HPF Urine Crystals (Negative) HPF Urine Bacteria (Negative) HPF Urine Casts (Negative) LPF Urine Mucus (Negative) Urine Other (Negative) Ur Culture Indicated? Urine Glucose (Negative) mg/dL COVID-19 Source SARS-CoV-2 (PCR) (Negative) Influenza Type A (PCR) (Negative) Influenza Type B (PCR) (Negative) RSV (PCR) (Negative) Range/Units 05/18/23 05/18/23 05/18/23 11:15 11:15 11:15 WBC (4.4-10.8) 10^3/uL RBC (3.93-5.22) 10^6/uL Hgb (11.2-15.7) g/dL Hct (36.0-46.0) % MCV (80-95) fL MCH (27.0-33.0) pg MCHC (32.0-36.0) % RDW (11.7-14.6) % Plt Count (130-400) 10^3/uL MPV (8.0-11.0) fL Immature Gran % Neutrophils % Lymphocytes % Monocytes % Eosinophils % Basophils % Nucleated RBC % (0.0-0.3) % Absolute Neutrophils (1.2-6.7) 10^3/uL Absolute Lymphocytes (1.2-3.4) 10^3/uL Absolute Monocytes (0.1-0.8) 10^3/uL Absolute Eosinophils (0.0-0.7) 10^3/uL Absolute Basophils (0.0-0.2) 10^3/uL Sodium (136-145) mmol/L Potassium (3.5-5.1) mmol/L Chloride (98-107) mmol/L Carbon Dioxide (21.0-32.0) mmol/L Anion Gap (3-11) mmol/L BUN (7-18) mg/dL Creatinine (0.55-1.02) mg/dL Est GFR (CKD-EPI 2020) (mL/min/1.73m2) Cancelled Glucose (74-106) mg/dL 313 H Cancelled Calcium (8.5-10.1) mg/dL 8.9 Cancelled Magnesium (1.8-2.4) mg/dL 1.5 L Total Bilirubin (0.2-1.0) mg/dL AST (15-37) U/L ALT (14-59) U/L Alkaline Phosphatase (46-116) U/L Troponin I (<or=60) ng/L Total Protein (6.4-8.2) g/dL Albumin (3.4-5.0) g/dL TSH (0.36-3.74) uIU/mL Urine Color (Yellow) Urine Clarity (Clear) Urine pH (5-8) Ur Specific [place] (1.005-1.025) Urine Protein (Negative) mg/dL Urine Ketones (Negative) mg/dL Urine Blood (Negative) Urine Nitrite (Negative) Urine Bilirubin (Negative) Urine Urobilinogen (Up to 0.2) mg/dL Ur Leukocyte Esterase (Negative) Urine RBC (0-2) HPF Urine WBC (0-5) HPF Ur Epithelial Cells (Negative) HPF Urine Crystals (Negative) HPF Urine Bacteria (Negative) HPF Urine Casts (Negative) LPF Urine Mucus (Negative) Urine Other (Negative) Ur Culture Indicated? Urine Glucose (Negative) mg/dL COVID-19 Source SARS-CoV-2 (PCR) (Negative) Influenza Type A (PCR) (Negative) Influenza Type B (PCR) (Negative) RSV (PCR) (Negative) Range/Units 05/18/23 05/18/23 05/18/23 11:15 11:15 11:15 WBC (4.4-10.8) 10^3/uL RBC (3.93-5.22) 10^6/uL Hgb (11.2-15.7) g/dL Hct (36.0-46.0) % MCV (80-95) fL MCH (27.0-33.0) pg MCHC (32.0-36.0) % RDW (11.7-14.6) % Plt Count (130-400) 10^3/uL MPV (8.0-11.0) fL Immature Gran % Neutrophils % Lymphocytes % Monocytes % Eosinophils % Basophils % Nucleated RBC % (0.0-0.3) % Absolute Neutrophils (1.2-6.7) 10^3/uL Absolute Lymphocytes (1.2-3.4) 10^3/uL Absolute Monocytes (0.1-0.8) 10^3/uL Absolute Eosinophils (0.0-0.7) 10^3/uL Absolute Basophils (0.0-0.2) 10^3/uL Sodium (136-145) mmol/L Potassium (3.5-5.1) mmol/L Chloride (98-107) mmol/L Carbon Dioxide (21.0-32.0) mmol/L Anion Gap (3-11) mmol/L BUN (7-18) mg/dL Creatinine (0.55-1.02) mg/dL Est GFR (CKD-EPI 2020) (mL/min/1.73m2) Glucose (74-106) mg/dL Calcium (8.5-10.1) mg/dL Magnesium (1.8-2.4) mg/dL Cancelled Total Bilirubin (0.2-1.0) mg/dL 0.4 Cancelled AST (15-37) U/L 13 L Cancelled ALT (14-59) U/L 15 Alkaline Phosphatase (46-116) U/L Troponin I (<or=60) ng/L Total Protein (6.4-8.2) g/dL Albumin (3.4-5.0) g/dL TSH (0.36-3.74) uIU/mL Urine Color (Yellow) Urine Clarity (Clear) Urine pH (5-8) Ur Specific [place] (1.005-1.025) Urine Protein (Negative) mg/dL Urine Ketones (Negative) mg/dL Urine Blood (Negative) Urine Nitrite (Negative) Urine Bilirubin (Negative) Urine Urobilinogen (Up to 0.2) mg/dL Ur Leukocyte Esterase (Negative) Urine RBC (0-2) HPF Urine WBC (0-5) HPF Ur Epithelial Cells (Negative) HPF Urine Crystals (Negative) HPF Urine Bacteria (Negative) HPF Urine Casts (Negative) LPF Urine Mucus (Negative) Urine Other (Negative) Ur Culture Indicated? Urine Glucose (Negative) mg/dL COVID-19 Source SARS-CoV-2 (PCR) (Negative) Influenza Type A (PCR) (Negative) Influenza Type B (PCR) (Negative) RSV (PCR) (Negative) Range/Units 05/18/23 05/18/23 05/18/23 11:15 11:15 11:15 WBC (4.4-10.8) 10^3/uL RBC (3.93-5.22) 10^6/uL Hgb (11.2-15.7) g/dL Hct (36.0-46.0) % MCV (80-95) fL MCH (27.0-33.0) pg MCHC (32.0-36.0) % RDW (11.7-14.6) % Plt Count (130-400) 10^3/uL MPV (8.0-11.0) fL Immature Gran % Neutrophils % Lymphocytes % Monocytes % Eosinophils % Basophils % Nucleated RBC % (0.0-0.3) % Absolute Neutrophils (1.2-6.7) 10^3/uL Absolute Lymphocytes (1.2-3.4) 10^3/uL Absolute Monocytes (0.1-0.8) 10^3/uL Absolute Eosinophils (0.0-0.7) 10^3/uL Absolute Basophils (0.0-0.2) 10^3/uL Sodium (136-145) mmol/L Potassium (3.5-5.1) mmol/L Chloride (98-107) mmol/L Carbon Dioxide (21.0-32.0) mmol/L Anion Gap (3-11) mmol/L BUN (7-18) mg/dL Creatinine (0.55-1.02) mg/dL Est GFR (CKD-EPI 2020) (mL/min/1.73m2) Glucose (74-106) mg/dL Calcium (8.5-10.1) mg/dL Magnesium (1.8-2.4) mg/dL Total Bilirubin (0.2-1.0) mg/dL AST (15-37) U/L ALT (14-59) U/L Cancelled Alkaline Phosphatase (46-116) U/L 109 Cancelled Troponin I (<or=60) ng/L 55 Total Protein (6.4-8.2) g/dL 8.3 H Cancelled Albumin (3.4-5.0) g/dL 2.9 L TSH (0.36-3.74) uIU/mL Urine Color (Yellow) Urine Clarity (Clear) Urine pH (5-8) Ur Specific [place] (1.005-1.025) Urine Protein (Negative) mg/dL Urine Ketones (Negative) mg/dL Urine Blood (Negative) Urine Nitrite (Negative) Urine Bilirubin (Negative) Urine Urobilinogen (Up to 0.2) mg/dL Ur Leukocyte Esterase (Negative) Urine RBC (0-2) HPF Urine WBC (0-5) HPF Ur Epithelial Cells (Negative) HPF Urine Crystals (Negative) HPF Urine Bacteria (Negative) HPF Urine Casts (Negative) LPF Urine Mucus (Negative) Urine Other (Negative) Ur Culture Indicated? Urine Glucose (Negative) mg/dL COVID-19 Source SARS-CoV-2 (PCR) (Negative) Influenza Type A (PCR) (Negative) Influenza Type B (PCR) (Negative) RSV (PCR) (Negative) Range/Units 05/18/23 05/18/23 05/18/23 11:15 12:06 12:44 WBC (4.4-10.8) 10^3/uL RBC (3.93-5.22) 10^6/uL Hgb (11.2-15.7) g/dL Hct (36.0-46.0) % MCV (80-95) fL MCH (27.0-33.0) pg MCHC (32.0-36.0) % RDW (11.7-14.6) % Plt Count (130-400) 10^3/uL MPV (8.0-11.0) fL Immature Gran % Neutrophils % Lymphocytes % Monocytes % Eosinophils % Basophils % Nucleated RBC % (0.0-0.3) % Absolute Neutrophils (1.2-6.7) 10^3/uL Absolute Lymphocytes (1.2-3.4) 10^3/uL Absolute Monocytes (0.1-0.8) 10^3/uL Absolute Eosinophils (0.0-0.7) 10^3/uL Absolute Basophils (0.0-0.2) 10^3/uL Sodium (136-145) mmol/L Cancelled Potassium (3.5-5.1) mmol/L Cancelled Chloride (98-107) mmol/L Cancelled Carbon Dioxide (21.0-32.0) mmol/L Cancelled Anion Gap (3-11) mmol/L Cancelled BUN (7-18) mg/dL Cancelled Creatinine (0.55-1.02) mg/dL Cancelled Est GFR (CKD-EPI 2020) (mL/min/1.73m2) Cancelled Glucose (74-106) mg/dL Cancelled Calcium (8.5-10.1) mg/dL Cancelled Magnesium (1.8-2.4) mg/dL Total Bilirubin (0.2-1.0) mg/dL AST (15-37) U/L ALT (14-59) U/L Alkaline Phosphatase (46-116) U/L Troponin I (<or=60) ng/L Total Protein (6.4-8.2) g/dL Albumin (3.4-5.0) g/dL Cancelled TSH (0.36-3.74) uIU/mL 1.60 Urine Color (Yellow) Yellow Urine Clarity (Clear) Clear Urine pH (5-8) 6.5 Ur Specific [place] (1.005-1.025) 1.020 Urine Protein (Negative) mg/dL 100 H Urine Ketones (Negative) mg/dL Negative Urine Blood (Negative) Negative Urine Nitrite (Negative) Negative Urine Bilirubin (Negative) Negative Urine Urobilinogen (Up to 0.2) mg/dL 1.0 H Ur Leukocyte Esterase (Negative) Negative Urine RBC (0-2) HPF 5-10 H Urine WBC (0-5) HPF 10-20 H Ur Epithelial Cells (Negative) HPF Few Urine Crystals (Negative) HPF Negative Urine Bacteria (Negative) HPF Few Urine Casts (Negative) LPF 0-2 Hyaline Urine Mucus (Negative) Negative Urine Other (Negative) Few Transitional Ur Culture Indicated? Yes Urine Glucose (Negative) mg/dL >=1000 H COVID-19 Source SARS-CoV-2 (PCR) (Negative) Influenza Type A (PCR) (Negative) Influenza Type B (PCR) (Negative) RSV (PCR) (Negative) Range/Units 05/18/23 05/18/23 12:45 13:31 WBC (4.4-10.8) 10^3/uL RBC (3.93-5.22) 10^6/uL Hgb (11.2-15.7) g/dL Hct (36.0-46.0) % MCV (80-95) fL MCH (27.0-33.0) pg MCHC (32.0-36.0) % RDW (11.7-14.6) % Plt Count (130-400) 10^3/uL MPV (8.0-11.0) fL Immature Gran % Neutrophils % Lymphocytes % Monocytes % Eosinophils % Basophils % Nucleated RBC % (0.0-0.3) % Absolute Neutrophils (1.2-6.7) 10^3/uL Absolute Lymphocytes (1.2-3.4) 10^3/uL Absolute Monocytes (0.1-0.8) 10^3/uL Absolute Eosinophils (0.0-0.7) 10^3/uL Absolute Basophils (0.0-0.2) 10^3/uL Sodium (136-145) mmol/L 130 L Potassium (3.5-5.1) mmol/L 4.2 Chloride (98-107) mmol/L 95 L Carbon Dioxide (21.0-32.0) mmol/L 27.0 Anion Gap (3-11) mmol/L 8.0 BUN (7-18) mg/dL 14 Creatinine (0.55-1.02) mg/dL 0.8 Est GFR (CKD-EPI 2020) (mL/min/1.73m2) 73.06 Glucose (74-106) mg/dL 234 H Calcium (8.5-10.1) mg/dL 8.5 Magnesium (1.8-2.4) mg/dL Total Bilirubin (0.2-1.0) mg/dL AST (15-37) U/L ALT (14-59) U/L Alkaline Phosphatase (46-116) U/L Troponin I (<or=60) ng/L 94 H* Total Protein (6.4-8.2) g/dL Albumin (3.4-5.0) g/dL TSH (0.36-3.74) uIU/mL Urine Color (Yellow) Urine Clarity (Clear) Urine pH (5-8) Ur Specific [place] (1.005-1.025) Urine Protein (Negative) mg/dL Urine Ketones (Negative) mg/dL Urine Blood (Negative) Urine Nitrite (Negative) Urine Bilirubin (Negative) Urine Urobilinogen (Up to 0.2) mg/dL Ur Leukocyte Esterase (Negative) Urine RBC (0-2) HPF Urine WBC (0-5) HPF Ur Epithelial Cells (Negative) HPF Urine Crystals (Negative) HPF Urine Bacteria (Negative) HPF Urine Casts (Negative) LPF Urine Mucus (Negative) Urine Other (Negative) Ur Culture Indicated? Urine Glucose (Negative) mg/dL COVID-19 Source SARS-CoV-2 (PCR) (Negative) Influenza Type A (PCR) (Negative) Influenza Type B (PCR) (Negative) RSV (PCR) (Negative) Core Measures Measure exclusions: not indicated HPI <PALAK Garcia - Last Filed: 05/20/23 15:56> General Date/Time Provider Initiated Documentation: 05/18/23 09:56 . HPI Narrative: This 82-year-old female with history of diabetes, hypertension, hyperlipidemia presents with report of confusion this morning. When asked regarding this, patient states that she simply did not sleep last night as there was a alliance party. She states that she is hungry and would like to be discharged home. She denies any pain complaints. She denies any fever or chills. She repeatedly asked to be discharged home . Patient's son is her [employer], Fabrizio, I asked him regarding patient's baseline mentation and he states that she does have dementia and she is at her reported baseline. She denies any pain complaints, Related Data Home Medications Medication Instructions Recorded Confirmed furosemide 20 mg tablet (Lasix) 20 mg PO DAILY 03/01/22 05/18/23 insulin glargine 100 unit/mL (3 33 unit subcut DAILY 03/01/22 05/18/23 mL) subcutaneous pen mirabegron 50 mg tablet,extended 50 mg PO DAILY 03/01/22 05/18/23 release 24 hr (Myrbetriq) atorvastatin 40 mg tablet 40 mg PO DAILY 11/22/22 05/18/23 clopidogrel 75 mg tablet 75 mg PO DAILY 11/22/22 05/18/23 docusate sodium 100 mg capsule 200 mg PO BID 11/22/22 05/18/23 folic acid 1 mg tablet 1 mg PO DAILY 11/22/22 05/18/23 magnesium oxide 400 mg PO BID 11/22/22 05/18/23 methotrexate sodium 2.5 mg tablet 2.5 mg PO QWEEK 11/22/22 05/18/23 mirtazapine 15 mg disintegrating 15 mg PO QHS 11/22/22 05/18/23 tablet pantoprazole 40 mg tablet,delayed 40 mg PO DAILY 11/22/22 05/18/23 release peg 400-propylene glycol 0.4 %-0.3 1 drp ophthalmic (eye) Q4H 11/22/22 05/18/23 % eye gel drops (Systane Gel) prednisone 5 mg tablet 5 mg PO DAILY 11/22/22 05/18/23 quetiapine 100 mg tablet 100 mg PO BID 11/22/22 05/18/23 sertraline 100 mg tablet 200 mg PO DAILY 11/22/22 05/18/23 timolol maleate 0.5 % eye drops 1 drp ophthalmic (eye) DAILY 11/22/22 05/18/23 travoprost 0.004 % eye drops 1 drp ophthalmic (eye) DAILY 11/22/22 05/18/23 levofloxacin 250 mg tablet 250 mg PO DAILY #2 tabs 01/05/23 05/18/23 hydralazine 25 mg tablet 25 mg PO TID #1 tab 05/20/23 insulin aspart U-100 100 unit/mL 0 unit (0 mL) subcut 05/20/23 (3 mL) subcutaneous pen 0700,1200,1700 #0 mL levothyroxine 100 mcg tablet 112 mcg (1.12 x 100 mcg) PO .QHS 05/20/23 05/18/23 #0 tabs lisinopril 30 mg tablet 30 mg PO DAILY #0 tabs 05/20/23 05/18/23 nebivolol 10 mg tablet 10 mg PO DAILY #30 tabs 05/20/23 Previous Rx's Medication Instructions Recorded levofloxacin 250 mg tablet 250 mg PO DAILY #2 tabs 01/05/23 hydralazine 25 mg tablet 25 mg PO TID #1 tab 05/20/23 insulin aspart U-100 100 unit/mL 0 unit (0 mL) subcut 05/20/23 (3 mL) subcutaneous pen 0700,1200,1700 #0 mL levothyroxine 100 mcg tablet 112 mcg (1.12 x 100 mcg) PO .QHS 05/20/23 #0 tabs lisinopril 30 mg tablet 30 mg PO DAILY #0 tabs 05/20/23 nebivolol 10 mg tablet 10 mg PO DAILY #30 tabs 05/20/23 Allergies Allergy/AdvReac Type Severity Reaction Status Date / Time No Known Allergies Allergy Unverified 05/18/23 11:28 General Stated Complaint: AMS/LOC MARGARETH: 2 PFSH <PALAK Garcia - Last Filed: 05/20/23 15:56> All Active Problems (Updated 05/18/23 @ 20:58 by Jonny Crocker MD) Hyponatremia (Acute) Chronic UTI (Acute) Overactive bladder (Acute) Paroxysmal atrial fibrillation (Acute) Dementia (Chronic) Depression (Chronic) Hypertension (Chronic) Rheumatoid arthritis (Chronic) Diabetes (Chronic) Elevated troponin (Acute) Altered mental status (Acute) Non-ST elevation CO (NSTEMI) (Acute) Elevated troponin I level (Acute) Social History Smoking/Tobacco Use Status: Never Smoking risk assessment performed?: Yes Details: Unable to obtain Housing: [facility] Course <PALAK Garcia - Last Filed: 05/20/23 15:56> Vital Signs Vital signs: Vital Signs Temperature 36.3 C L 05/18/23 09:45 Pulse 59 L 05/18/23 09:45 Respiratory Rate 11 L 05/18/23 09:45 Blood Pressure 251/61 H 05/18/23 09:45 Pulse Oximetry 99 05/18/23 09:45 Temperature 36.3 C L 05/18/23 10:45 Temperature Source Oral 05/18/23 10:45 Pulse 57 L 05/18/23 11:43 Pulse 58 L 05/18/23 11:43 Respiratory Rate 15 05/18/23 11:43 Respiratory Effort Normal, Non-Labored 05/18/23 10:43 Respiratory Depth Normal 05/18/23 10:43 Respiratory Pattern Normal 05/18/23 10:43 Blood Pressure 182/62 H 05/18/23 12:20 Blood Pressure Mean 97 05/18/23 11:43 Blood Pressure Position Supine 05/18/23 10:45 Pulse Oximetry 97 05/18/23 11:43 Oxygen Delivery Method Room Air 05/18/23 10:45 Oxygen Flow Rate 0 05/18/23 10:45 Pain Level 0 05/18/23 10:45 Lab/Test Results Lab/Test Results: 05/18/23 12:06 Urine - Reflex from Ua Urine Culture - Pending Laboratory Tests Range/Units 05/18/23 05/18/23 05/18/23 10:35 11:15 11:15 WBC (4.4-10.8) 10^3/uL 8.68 RBC (3.93-5.22) 10^6/uL 3.89 L Hgb (11.2-15.7) g/dL 11.0 L Hct (36.0-46.0) % 32.2 L MCV (80-95) fL 83 MCH (27.0-33.0) pg 28.3 MCHC (32.0-36.0) % 34.2 RDW (11.7-14.6) % 14.0 Plt Count (130-400) 10^3/uL 385 MPV (8.0-11.0) fL 9.5 Immature Gran % 1.0 Neutrophils % 71.5 Lymphocytes % 15.8 Monocytes % 9.9 Eosinophils % 1.0 Basophils % 0.8 Nucleated RBC % (0.0-0.3) % 0.0 Absolute Neutrophils (1.2-6.7) 10^3/uL 6.20 Absolute Lymphocytes (1.2-3.4) 10^3/uL 1.37 Absolute Monocytes (0.1-0.8) 10^3/uL 0.86 H Absolute Eosinophils (0.0-0.7) 10^3/uL 0.09 Absolute Basophils (0.0-0.2) 10^3/uL 0.07 Sodium (136-145) mmol/L 127 L Cancelled Potassium (3.5-5.1) mmol/L 4.2 Chloride (98-107) mmol/L Carbon Dioxide (21.0-32.0) mmol/L Anion Gap (3-11) mmol/L BUN (7-18) mg/dL Creatinine (0.55-1.02) mg/dL Est GFR (CKD-EPI 2020) (mL/min/1.73m2) Glucose (74-106) mg/dL Calcium (8.5-10.1) mg/dL Magnesium (1.8-2.4) mg/dL Total Bilirubin (0.2-1.0) mg/dL AST (15-37) U/L ALT (14-59) U/L Alkaline Phosphatase (46-116) U/L Troponin I (<or=60) ng/L Total Protein (6.4-8.2) g/dL Albumin (3.4-5.0) g/dL TSH (0.36-3.74) uIU/mL Urine Color (Yellow) Urine Clarity (Clear) Urine pH (5-8) Ur Specific [place] (1.005-1.025) Urine Protein (Negative) mg/dL Urine Ketones (Negative) mg/dL Urine Blood (Negative) Urine Nitrite (Negative) Urine Bilirubin (Negative) Urine Urobilinogen (Up to 0.2) mg/dL Ur Leukocyte Esterase (Negative) Urine RBC (0-2) HPF Urine WBC (0-5) HPF Ur Epithelial Cells (Negative) HPF Urine Crystals (Negative) HPF Urine Bacteria (Negative) HPF Urine Casts (Negative) LPF Urine Mucus (Negative) Urine Other (Negative) Ur Culture Indicated? Urine Glucose (Negative) mg/dL COVID-19 Source Nasopharynx SARS-CoV-2 (PCR) (Negative) Negative Influenza Type A (PCR) (Negative) Negative Influenza Type B (PCR) (Negative) Negative RSV (PCR) (Negative) Negative Range/Units 05/18/23 05/18/23 05/18/23 11:15 11:15 11:15 WBC (4.4-10.8) 10^3/uL RBC (3.93-5.22) 10^6/uL Hgb (11.2-15.7) g/dL Hct (36.0-46.0) % MCV (80-95) fL MCH (27.0-33.0) pg MCHC (32.0-36.0) % RDW (11.7-14.6) % Plt Count (130-400) 10^3/uL MPV (8.0-11.0) fL Immature Gran % Neutrophils % Lymphocytes % Monocytes % Eosinophils % Basophils % Nucleated RBC % (0.0-0.3) % Absolute Neutrophils (1.2-6.7) 10^3/uL Absolute Lymphocytes (1.2-3.4) 10^3/uL Absolute Monocytes (0.1-0.8) 10^3/uL Absolute Eosinophils (0.0-0.7) 10^3/uL Absolute Basophils (0.0-0.2) 10^3/uL Sodium (136-145) mmol/L Potassium (3.5-5.1) mmol/L Cancelled Chloride (98-107) mmol/L 93 L Cancelled Carbon Dioxide (21.0-32.0) mmol/L 27.3 Cancelled Anion Gap (3-11) mmol/L 6.7 BUN (7-18) mg/dL Creatinine (0.55-1.02) mg/dL Est GFR (CKD-EPI 2020) (mL/min/1.73m2) Glucose (74-106) mg/dL Calcium (8.5-10.1) mg/dL Magnesium (1.8-2.4) mg/dL Total Bilirubin (0.2-1.0) mg/dL AST (15-37) U/L ALT (14-59) U/L Alkaline Phosphatase (46-116) U/L Troponin I (<or=60) ng/L Total Protein (6.4-8.2) g/dL Albumin (3.4-5.0) g/dL TSH (0.36-3.74) uIU/mL Urine Color (Yellow) Urine Clarity (Clear) Urine pH (5-8) Ur Specific [place] (1.005-1.025) Urine Protein (Negative) mg/dL Urine Ketones (Negative) mg/dL Urine Blood (Negative) Urine Nitrite (Negative) Urine Bilirubin (Negative) Urine Urobilinogen (Up to 0.2) mg/dL Ur Leukocyte Esterase (Negative) Urine RBC (0-2) HPF Urine WBC (0-5) HPF Ur Epithelial Cells (Negative) HPF Urine Crystals (Negative) HPF Urine Bacteria (Negative) HPF Urine Casts (Negative) LPF Urine Mucus (Negative) Urine Other (Negative) Ur Culture Indicated? Urine Glucose (Negative) mg/dL COVID-19 Source SARS-CoV-2 (PCR) (Negative) Influenza Type A (PCR) (Negative) Influenza Type B (PCR) (Negative) RSV (PCR) (Negative) Range/Units 05/18/23 05/18/23 05/18/23 11:15 11:15 11:15 WBC (4.4-10.8) 10^3/uL RBC (3.93-5.22) 10^6/uL Hgb (11.2-15.7) g/dL Hct (36.0-46.0) % MCV (80-95) fL MCH (27.0-33.0) pg MCHC (32.0-36.0) % RDW (11.7-14.6) % Plt Count (130-400) 10^3/uL MPV (8.0-11.0) fL Immature Gran % Neutrophils % Lymphocytes % Monocytes % Eosinophils % Basophils % Nucleated RBC % (0.0-0.3) % Absolute Neutrophils (1.2-6.7) 10^3/uL Absolute Lymphocytes (1.2-3.4) 10^3/uL Absolute Monocytes (0.1-0.8) 10^3/uL Absolute Eosinophils (0.0-0.7) 10^3/uL Absolute Basophils (0.0-0.2) 10^3/uL Sodium (136-145) mmol/L Potassium (3.5-5.1) mmol/L Chloride (98-107) mmol/L Carbon Dioxide (21.0-32.0) mmol/L Anion Gap (3-11) mmol/L Cancelled BUN (7-18) mg/dL 15 Cancelled Creatinine (0.55-1.02) mg/dL 0.9 Cancelled Est GFR (CKD-EPI 2020) (mL/min/1.73m2) 63.43 Glucose (74-106) mg/dL Calcium (8.5-10.1) mg/dL Magnesium (1.8-2.4) mg/dL Total Bilirubin (0.2-1.0) mg/dL AST (15-37) U/L ALT (14-59) U/L Alkaline Phosphatase (46-116) U/L Troponin I (<or=60) ng/L Total Protein (6.4-8.2) g/dL Albumin (3.4-5.0) g/dL TSH (0.36-3.74) uIU/mL Urine Color (Yellow) Urine Clarity (Clear) Urine pH (5-8) Ur Specific [place] (1.005-1.025) Urine Protein (Negative) mg/dL Urine Ketones (Negative) mg/dL Urine Blood (Negative) Urine Nitrite (Negative) Urine Bilirubin (Negative) Urine Urobilinogen (Up to 0.2) mg/dL Ur Leukocyte Esterase (Negative) Urine RBC (0-2) HPF Urine WBC (0-5) HPF Ur Epithelial Cells (Negative) HPF Urine Crystals (Negative) HPF Urine Bacteria (Negative) HPF Urine Casts (Negative) LPF Urine Mucus (Negative) Urine Other (Negative) Ur Culture Indicated? Urine Glucose (Negative) mg/dL COVID-19 Source SARS-CoV-2 (PCR) (Negative) Influenza Type A (PCR) (Negative) Influenza Type B (PCR) (Negative) RSV (PCR) (Negative) Range/Units 05/18/23 05/18/23 05/18/23 11:15 11:15 11:15 WBC (4.4-10.8) 10^3/uL RBC (3.93-5.22) 10^6/uL Hgb (11.2-15.7) g/dL Hct (36.0-46.0) % MCV (80-95) fL MCH (27.0-33.0) pg MCHC (32.0-36.0) % RDW (11.7-14.6) % Plt Count (130-400) 10^3/uL MPV (8.0-11.0) fL Immature Gran % Neutrophils % Lymphocytes % Monocytes % Eosinophils % Basophils % Nucleated RBC % (0.0-0.3) % Absolute Neutrophils (1.2-6.7) 10^3/uL Absolute Lymphocytes (1.2-3.4) 10^3/uL Absolute Monocytes (0.1-0.8) 10^3/uL Absolute Eosinophils (0.0-0.7) 10^3/uL Absolute Basophils (0.0-0.2) 10^3/uL Sodium (136-145) mmol/L Potassium (3.5-5.1) mmol/L Chloride (98-107) mmol/L Carbon Dioxide (21.0-32.0) mmol/L Anion Gap (3-11) mmol/L BUN (7-18) mg/dL Creatinine (0.55-1.02) mg/dL Est GFR (CKD-EPI 2020) (mL/min/1.73m2) Cancelled Glucose (74-106) mg/dL 313 H Cancelled Calcium (8.5-10.1) mg/dL 8.9 Cancelled Magnesium (1.8-2.4) mg/dL 1.5 L Total Bilirubin (0.2-1.0) mg/dL AST (15-37) U/L ALT (14-59) U/L Alkaline Phosphatase (46-116) U/L Troponin I (<or=60) ng/L Total Protein (6.4-8.2) g/dL Albumin (3.4-5.0) g/dL TSH (0.36-3.74) uIU/mL Urine Color (Yellow) Urine Clarity (Clear) Urine pH (5-8) Ur Specific [place] (1.005-1.025) Urine Protein (Negative) mg/dL Urine Ketones (Negative) mg/dL Urine Blood (Negative) Urine Nitrite (Negative) Urine Bilirubin (Negative) Urine Urobilinogen (Up to 0.2) mg/dL Ur Leukocyte Esterase (Negative) Urine RBC (0-2) HPF Urine WBC (0-5) HPF Ur Epithelial Cells (Negative) HPF Urine Crystals (Negative) HPF Urine Bacteria (Negative) HPF Urine Casts (Negative) LPF Urine Mucus (Negative) Urine Other (Negative) Ur Culture Indicated? Urine Glucose (Negative) mg/dL COVID-19 Source SARS-CoV-2 (PCR) (Negative) Influenza Type A (PCR) (Negative) Influenza Type B (PCR) (Negative) RSV (PCR) (Negative) Range/Units 05/18/23 05/18/23 05/18/23 11:15 11:15 11:15 WBC (4.4-10.8) 10^3/uL RBC (3.93-5.22) 10^6/uL Hgb (11.2-15.7) g/dL Hct (36.0-46.0) % MCV (80-95) fL MCH (27.0-33.0) pg MCHC (32.0-36.0) % RDW (11.7-14.6) % Plt Count (130-400) 10^3/uL MPV (8.0-11.0) fL Immature Gran % Neutrophils % Lymphocytes % Monocytes % Eosinophils % Basophils % Nucleated RBC % (0.0-0.3) % Absolute Neutrophils (1.2-6.7) 10^3/uL Absolute Lymphocytes (1.2-3.4) 10^3/uL Absolute Monocytes (0.1-0.8) 10^3/uL Absolute Eosinophils (0.0-0.7) 10^3/uL Absolute Basophils (0.0-0.2) 10^3/uL Sodium (136-145) mmol/L Potassium (3.5-5.1) mmol/L Chloride (98-107) mmol/L Carbon Dioxide (21.0-32.0) mmol/L Anion Gap (3-11) mmol/L BUN (7-18) mg/dL Creatinine (0.55-1.02) mg/dL Est GFR (CKD-EPI 2020) (mL/min/1.73m2) Glucose (74-106) mg/dL Calcium (8.5-10.1) mg/dL Magnesium (1.8-2.4) mg/dL Cancelled Total Bilirubin (0.2-1.0) mg/dL 0.4 Cancelled AST (15-37) U/L 13 L Cancelled ALT (14-59) U/L 15 Alkaline Phosphatase (46-116) U/L Troponin I (<or=60) ng/L Total Protein (6.4-8.2) g/dL Albumin (3.4-5.0) g/dL TSH (0.36-3.74) uIU/mL Urine Color (Yellow) Urine Clarity (Clear) Urine pH (5-8) Ur Specific [place] (1.005-1.025) Urine Protein (Negative) mg/dL Urine Ketones (Negative) mg/dL Urine Blood (Negative) Urine Nitrite (Negative) Urine Bilirubin (Negative) Urine Urobilinogen (Up to 0.2) mg/dL Ur Leukocyte Esterase (Negative) Urine RBC (0-2) HPF Urine WBC (0-5) HPF Ur Epithelial Cells (Negative) HPF Urine Crystals (Negative) HPF Urine Bacteria (Negative) HPF Urine Casts (Negative) LPF Urine Mucus (Negative) Urine Other (Negative) Ur Culture Indicated? Urine Glucose (Negative) mg/dL COVID-19 Source SARS-CoV-2 (PCR) (Negative) Influenza Type A (PCR) (Negative) Influenza Type B (PCR) (Negative) RSV (PCR) (Negative) Range/Units 05/18/23 05/18/23 05/18/23 11:15 11:15 11:15 WBC (4.4-10.8) 10^3/uL RBC (3.93-5.22) 10^6/uL Hgb (11.2-15.7) g/dL Hct (36.0-46.0) % MCV (80-95) fL MCH (27.0-33.0) pg MCHC (32.0-36.0) % RDW (11.7-14.6) % Plt Count (130-400) 10^3/uL MPV (8.0-11.0) fL Immature Gran % Neutrophils % Lymphocytes % Monocytes % Eosinophils % Basophils % Nucleated RBC % (0.0-0.3) % Absolute Neutrophils (1.2-6.7) 10^3/uL Absolute Lymphocytes (1.2-3.4) 10^3/uL Absolute Monocytes (0.1-0.8) 10^3/uL Absolute Eosinophils (0.0-0.7) 10^3/uL Absolute Basophils (0.0-0.2) 10^3/uL Sodium (136-145) mmol/L Potassium (3.5-5.1) mmol/L Chloride (98-107) mmol/L Carbon Dioxide (21.0-32.0) mmol/L Anion Gap (3-11) mmol/L BUN (7-18) mg/dL Creatinine (0.55-1.02) mg/dL Est GFR (CKD-EPI 2020) (mL/min/1.73m2) Glucose (74-106) mg/dL Calcium (8.5-10.1) mg/dL Magnesium (1.8-2.4) mg/dL Total Bilirubin (0.2-1.0) mg/dL AST (15-37) U/L ALT (14-59) U/L Cancelled Alkaline Phosphatase (46-116) U/L 109 Cancelled Troponin I (<or=60) ng/L 55 Total Protein (6.4-8.2) g/dL 8.3 H Cancelled Albumin (3.4-5.0) g/dL 2.9 L TSH (0.36-3.74) uIU/mL Urine Color (Yellow) Urine Clarity (Clear) Urine pH (5-8) Ur Specific [place] (1.005-1.025) Urine Protein (Negative) mg/dL Urine Ketones (Negative) mg/dL Urine Blood (Negative) Urine Nitrite (Negative) Urine Bilirubin (Negative) Urine Urobilinogen (Up to 0.2) mg/dL Ur Leukocyte Esterase (Negative) Urine RBC (0-2) HPF Urine WBC (0-5) HPF Ur Epithelial Cells (Negative) HPF Urine Crystals (Negative) HPF Urine Bacteria (Negative) HPF Urine Casts (Negative) LPF Urine Mucus (Negative) Urine Other (Negative) Ur Culture Indicated? Urine Glucose (Negative) mg/dL COVID-19 Source SARS-CoV-2 (PCR) (Negative) Influenza Type A (PCR) (Negative) Influenza Type B (PCR) (Negative) RSV (PCR) (Negative) Range/Units 05/18/23 05/18/23 11:15 12:06 WBC (4.4-10.8) 10^3/uL RBC (3.93-5.22) 10^6/uL Hgb (11.2-15.7) g/dL Hct (36.0-46.0) % MCV (80-95) fL MCH (27.0-33.0) pg MCHC (32.0-36.0) % RDW (11.7-14.6) % Plt Count (130-400) 10^3/uL MPV (8.0-11.0) fL Immature Gran % Neutrophils % Lymphocytes % Monocytes % Eosinophils % Basophils % Nucleated RBC % (0.0-0.3) % Absolute Neutrophils (1.2-6.7) 10^3/uL Absolute Lymphocytes (1.2-3.4) 10^3/uL Absolute Monocytes (0.1-0.8) 10^3/uL Absolute Eosinophils (0.0-0.7) 10^3/uL Absolute Basophils (0.0-0.2) 10^3/uL Sodium (136-145) mmol/L Potassium (3.5-5.1) mmol/L Chloride (98-107) mmol/L Carbon Dioxide (21.0-32.0) mmol/L Anion Gap (3-11) mmol/L BUN (7-18) mg/dL Creatinine (0.55-1.02) mg/dL Est GFR (CKD-EPI 2020) (mL/min/1.73m2) Glucose (74-106) mg/dL Calcium (8.5-10.1) mg/dL Magnesium (1.8-2.4) mg/dL Total Bilirubin (0.2-1.0) mg/dL AST (15-37) U/L ALT (14-59) U/L Alkaline Phosphatase (46-116) U/L Troponin I (<or=60) ng/L Total Protein (6.4-8.2) g/dL Albumin (3.4-5.0) g/dL Cancelled TSH (0.36-3.74) uIU/mL 1.60 Urine Color (Yellow) Yellow Urine Clarity (Clear) Clear Urine pH (5-8) 6.5 Ur Specific [place] (1.005-1.025) 1.020 Urine Protein (Negative) mg/dL 100 H Urine Ketones (Negative) mg/dL Negative Urine Blood (Negative) Negative Urine Nitrite (Negative) Negative Urine Bilirubin (Negative) Negative Urine Urobilinogen (Up to 0.2) mg/dL 1.0 H Ur Leukocyte Esterase (Negative) Negative Urine RBC (0-2) HPF 5-10 H Urine WBC (0-5) HPF 10-20 H Ur Epithelial Cells (Negative) HPF Few Urine Crystals (Negative) HPF Negative Urine Bacteria (Negative) HPF Few Urine Casts (Negative) LPF 0-2 Hyaline Urine Mucus (Negative) Negative Urine Other (Negative) Few Transitional Ur Culture Indicated? Yes Urine Glucose (Negative) mg/dL >=1000 H COVID-19 Source SARS-CoV-2 (PCR) (Negative) Influenza Type A (PCR) (Negative) Influenza Type B (PCR) (Negative) RSV (PCR) (Negative) Sign Out <PALAK Garcia - Last Filed: 05/20/23 15:56> Sign Out Data: Sign Out Comment: pending repeat troponin, reassessment, and disposition Last updated by Quyen Chandler PA at 05/18/23 16:01
[2023-05-18 13:13] LABS: Troponin I 94 ng/L (<or=60)
[2023-05-18] MEDS: Magnesium Oxide 400 MG TAB 800 MG PO (13:13)
[2023-05-18 13:49] LABS: BUN 14 mg/dL (7-18); CREATININE 0.8 mg/dL (0.55-1.02); Calcium 8.5 mg/dL (8.5-10.1); Chloride 95 mmol/L (98-107); Estimated GFR 73.06 (mL/min/1.73m2); Glucose 234 mg/dL (74-106); Potassium 4.2 mmol/L (3.5-5.1); Sodium 130 mmol/L (136-145)
[2023-05-18] MEDS: Lisinopril 10 MG TAB 30 MG PO (14:15)
[2023-05-18] MEDS: hydrALAZINE 20 MG/ML VIAL 10 MG IVP (14:26)
--- NOTE | 2023-05-18 15:15 | RT.EKG_ITS ---
APPROVED REPORT Exam: Resting ECG Reason for Exam: elevated troponin Patient Location: E HR:62 bpm ECG Measurements Heart Rate 62 AXIS TX 167 P 55 QRSd 84 QRS 8 QT 498 T 28 QTc 504 Conclusion Sinus rhythm...normal P axis, V-rate 60- 99 Prolonged QT interval...QTc >500mS sinus rhythm, normal axis, non ischemic
--- NOTE | 2023-05-18 15:45 | DI.RAD_ITS ---
Exam(s) XR PORTABLE CHEST AP EXAM: XR PORTABLE CHEST AP CLINICAL HISTORY: AMS TECHNIQUE: 2D digital imaging was performed. COMPARISON: CR,XR XR CHEST 2V PA LATERAL from 01/05/2023 FINDINGS: Exam limited by overlying monitoring leads. LUNGS: Interstitial changes. No focal infiltrate. No pleural abnormality seen. HEART: Normal size. AORTA: Mildly tortuous BONES: Unremarkable for age. Soft tissues: Unremarkable. IMPRESSION: No acute findings. DATA REPOSITORY: RADIATION DOSE DELIVERED:
[2023-05-18] MEDS: Aspirin 325 MG TAB PO (16:00)
--- NOTE | 2023-05-18 16:18 | DI.VRAD_ITS ---
PROCEDURE INFORMATION: Exam: XR Chest Exam date and time: 05/18/2023 4:11 PM Age: 82 years old Clinical indication: Other: AMS TECHNIQUE: Imaging protocol: Radiologic exam of the chest. Views: 1 view. COMPARISON: CR XR CHEST 2V PA LATERAL 01/05/2023 12:06 PM FINDINGS: Lungs: Low lung volumes. No lung consolidation. Pleural spaces: Unremarkable. No pleural effusion. No pneumothorax. Heart/Mediastinum: Unremarkable. No cardiomegaly. Bones/joints: Unremarkable. IMPRESSION: No acute changes. Dictated and Authenticated by: Eugene Bhakta MD. Ordering:ELIE Ramirez MD
[2023-05-18 16:23] LABS: Troponin I 129 ng/L (<or=60)
[2023-05-18 17:37] LABS: NT-proBNP 4577 pg/mL (<300)
--- NOTE | 2023-05-18 17:45 | DI.CT_ITS ---
Exam(s) CT THORAX ABD/PEL CTA EXAM: CT THORAX ABD/PEL CTA CLINICAL HISTORY: Rule out aneurysm. TECHNIQUE: Imaging Protocol: Axial CT angiography was performed with multi-slice acquisition and mu lti-planar and/or 3D reconstructions. CONTRAST MATERIAL: Intravenous: Omnipaque 350 Contrast volume:100 ml COMPARISON: No exams were available for comparison FINDINGS: CHEST: Mildly limited by respiratory motion. Pulmonary Arteries: No evidence of filling defects to suggest pulmonary emboli. Tracheobronchial tree: No bronchiectasis or mucus plugging. Mediastinum and Kirsty: No dominant adenopathy or fluid collection. Pulmonary parenchyma: Mild dependent atelectasis. No consolidation or dominant measurable mass. Pleura: No effusion. No pneumothorax. Heart: The heart is mildlydilated. Coronary artery calcifications are seen. Aorta: Thoracic aorta non-dilated. Bones: Degenerative changes. Mild T11 compression fracture. Old right T11 rib fracture. Tubes, Catheters, and Lines: None. ABDOMEN and PELVIS: Liver: Normal size. Fatty infiltration. No suspicious measurable mass. Portal, Superior Mesenteric, and Splenic Veins: Unremarkable. Gallbladder and Biliary Tract: No radiodense calculus. No biliary dilatation. Pancreas: Normal density, no abnormal calcifications or inflammatory process. Spleen: Normal. Adrenals: No masses seen. Kidneys: Normal size, contour and axis. No radiodense stones. No obstructive uropathy. No masses seen . Vasculature: Abdominal aorta non-dilated. Moderate atherosclerotic changes. Band branch vessels pat ent without significant stenosis. Bowel: Large quantity of stool in rectum. Moderate quantity of stool elsewhere. No obstruction or b owel wall thickening. Appendix is unremarkable. Peritoneal Cavity: No ascites, collection or mesenteric inflammatory response. Lymph Nodes: Within normal limits. Soft Tissues: Unremarkable. Bladder: Symmetric distention, no gross wall thickening. Reproductive Organs: Unremarkable as visualized. Lymph Nodes: Within normal limits. Bones: Degenerative changes. IMPRESSION: 1. No evidence of pulmonary embolism or other acute abnormality in the chest. No evidence of aneurys m.. 2. No acute abdominal or pelvic process. No evidence of aneurysm. RADIATION DOSE DELIVERED: Total DLP DATA REPOSITORY: All CT scans at this facility are submitted to the National Radiology Data Registry (NRDR) Dose Index Registry (DIR) with the [employer] (ACR). RADIATION OPTIMIZATION: All CT scans at this facility use at least one of these dose optimization te chniques: automated exposure control; mA and/or kV adjustment per patient size (includes targeted exa ms where dose is matched to clinical indication); or iterative reconstruction.
[2023-05-18 18:07] LABS: INR 1.1 (0.9-1.1); Lab Add On Test DONE
[2023-05-18] MEDS: Normal Saline - Diluent 50 ML VIAL IJ (18:15)
[2023-05-18] MEDS: Omnipaque 350 MG/ML 100 ML BTL IJ (18:16)
--- NOTE | 2023-05-18 19:50 | DI.VRAD_ITS ---
PROCEDURE INFORMATION: Exam: CTA Chest With Contrast CTA Abdomen and Pelvis With Contrast Exam date and time: 05/18/2023 6:26 PM Age: 82 years old Clinical indication: Screening exam; Other screening; Purpose: R/O aneursym TECHNIQUE: Imaging protocol: Computed tomographic angiography of the chest with contrast. Exam focused on the arteries. Computed tomographic angiography of the abdomen and pelvis with contrast. Exam focused on the arteries. 3D rendering (Not supervised by radiologist): MIP and/or 3D reconstructed images were created by the technologist. Contrast material: OMNIPAQUE; Contrast volume: 100 ml; Contrast route: INTRAVENOUS (IV); COMPARISON: CR XR PORTABLE CHEST AP 05/18/2023 4:11 PM FINDINGS: Mildly limited due to respiratory motion artifact VASCULATURE: Pulmonary arteries: No pulmonary emboli. Aorta: No aortic aneurysm. No aortic dissection. Celiac trunk and mesenteric arteries: No occlusion or significant stenosis. Renal arteries: No occlusion or significant stenosis. Right iliac arteries: No occlusion or significant stenosis. Left iliac arteries: No occlusion or significant stenosis. CHEST: Lungs: Minimal subsegmental atelectasis No consolidation. No masses. Pleural spaces: Unremarkable. No pneumothorax. No pleural effusion. Heart: Coronary calcifications. No cardiomegaly. No pericardial effusion. Chronic T11 compression deformity ABDOMEN AND PELVIS: Liver: No mass. Fatty infiltration Gallbladder and bile ducts: Unremarkable. No calcified stones. No ductal dilation. Pancreas: Unremarkable. No mass. No ductal dilation. Spleen: Unremarkable. No splenomegaly. Adrenal glands: Unremarkable. No mass. Kidneys and ureters: Unremarkable. No solid mass. No hydronephrosis. Stomach and bowel: Moderate to large stool in the rectal vault No obstruction. No mucosal thickening. Appendix: No evidence of appendicitis. Intraperitoneal space: Minimal right paracolic/pararenal fluid. No free air. No significant fluid collection. Urinary bladder: Unremarkable. No mass. Reproductive: Unremarkable as visualized. Lymph nodes: Unremarkable. No enlarged lymph nodes. Bones/joints: Unremarkable. No acute fracture. Soft tissues: Unremarkable. IMPRESSION: Unremarkable CTA chest, abdomen, and pelvis. No aortic aneurysm or dissection. No hemodynamically significant stenosis Minimal fluid on the right as noted which is nonspecific Dictated and Authenticated by: Avery Diego MD. Ordering:ELIE Ramirez MD
--- NOTE | 2023-05-18 20:11 | HPE_ITS ---
Date of service: 05/18/23 Time of Service: 20:11 Assessment and Plan Assessment and plan (1) Altered mental status: Start date: 05/18/23 Start time: 20:43 Status: Acute Assessment and plan: The patient is transferred from the [facility] to the ER today due to an episode of unresponsiveness and concern for altered mental status. She is primarily Upper Sorbian speaking but can speak a bit of Serbian. The son is conversing with her in Upper Sorbian and reports that she is answering our questions appropriately and is not confused. At baseline she is conversational but has severe physical limitations with being bed and wheelchair bound due to severe deconditioning. The son, Fabrizio, notes that she can be very stubborn and does not take her medications regularly. She has no active symptoms at this time. Her vital signs are normal w/ her temp being very mininally low at 36.3C. She has no leukocytosis and stable anemia. Her sodium is low which is most likely due to dehydration. Her UA is negative for LE or nitrites makes UTI less likely. Her troponis is elevated at 129 but she has no active symptoms of chest pain/palpitations. A COVID 19, Influenza and RSV panel are negative. At this time her AMS has significantly improved and I recommend we continue to observe and re-evaluate in the morning. -Cont to monitor the patient and re-evaluate labs in the AM -She seems to be back to her baseline -Follow hsTroponin repeat (2) Elevated troponin: Start date: 05/18/23 Start time: 20:52 Status: Acute Assessment and plan: Her troponin has trended upward from 55->94->129. On her HPI she has no active cardiopulmonary complaints. Her vitals are stable w/ normal heart rate, oxygen saturation and there are no signs of volume overload. Her EKG shows normal sinus rhythm without any ST/Twave deviations. On arrival her SBP was 200 which I suspect is most likely resulting in her elevated troponin. The son notes that she does not take her BP medications on a regular basis while at the [facility] -Repeat hsTrop -If her Troponin continues to increase consider Echo w/ BNP 4577 -Monitor BP (3) Diabetes: Start date: 05/18/23 Status: Chronic Assessment and plan: -Cont w/ Lantus 33 unit sq qhs -ISS w/ sliding scale (4) Rheumatoid arthritis: Start date: 05/18/23 Start time: 21:00 Status: Chronic Assessment and plan: -Cont w/ Prednisone 5mg daily -Cont w/ MTX 15mg weekly on Saturday -Recommend to follow up outpatient to see if she can discontinue Prednisone 5mg daily which would assist w/ her hyperglycemia (5) Hypertension: Start date: 05/18/23 Start time: 21:01 Status: Chronic Assessment and plan: -Cont w/ Lisinopril 30mg daily -Cont w/ Nebivolol 5mg daily -Consider prn w/ IV Hydralazine for prn >150/90 (6) Depression: Start date: 05/18/23 Start time: 21:03 Status: Chronic Assessment and plan: -Cont w/ Mirtazapine 15mg daily -Cont w/ Sertraline 200mg daily (7) Dementia: Start date: 05/18/23 Start time: 21:04 Status: Chronic Assessment and plan: -Cont w/ Seroquel 100mg bid (8) Paroxysmal atrial fibrillation: Start date: 05/18/23 Start time: 21:04 Status: Acute Assessment and plan: -She is currently in NSR -Cont w/ Plavix 75mg daily -Cont w/ Nebivolol 5mg daily for rate control (9) Overactive bladder: Start date: 05/18/23 Start time: 21:05 Status: Acute Assessment and plan: -Cont w/ [id number] daily (10) Chronic UTI: Start date: 05/18/23 Start time: 21:06 Status: Acute Assessment and plan: -On Macribid daily (11) Hyponatremia: Start date: 05/18/23 Start time: 20:58 Status: Acute Assessment and plan: Suspect this is most likely due to hypovolemia and dehydration. She does have an elevated BNP but clinically there is no evidence of volume overload -Cont w/ NS and repeat BMP in AM to follow Na History of Present Illness History of Present Illness Chief Complaint: Altered Mental Status Narrative: The patient is a 82 y/o Upper Sorbian speaking F w/ PMH dementia, DM , HTN and AFIB who is brought in from the local [facility] ([facility]) due to altered mental status. On my evaluation tonight the son and were present at the bedside. The son notes that he was called by the facility as she was not responsive and was advised that the patient was going to the ER. At baseline she is conversational in Upper Sorbian with a bit of Serbian. She is also bed bound and wheelchair bound for many years. The son notes that currently she is answering questions appropriately. She has no fever, chills or night sweats. She denies any chest pain, palpitations, coughing, wheezing or dyspnea. She has no abdominal pain, nausea, vomiting or diarrhea. She has no symptoms of dysuria or hematuria. ON her chart review she has a history of chronic UTI and is on Macrobid. 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 Review of Systems Constitutional Constitutional: Denies chills, Reports fatigue, Denies headache(s) and Reports poor appetite Eyes Eyes: Denies change in vision, Denies loss of vision and Denies eye pain ENT Ears, Nose, Mouth, and Throat: Denies abnormal hearing, Denies dysphagia, Denies dizziness, Denies otalgia, Denies headache(s), Denies neck pain and Denies sore throat Cardiovascular Cardiovascular: Denies chest pain, Denies chest pain at rest, Denies rapid heart rate, Denies irregular heart rhythm, Denies leg edema and Denies dyspnea Respiratory Respiratory: Denies cough, Denies dyspnea, Denies stridor and Denies wheezing Gastrointestinal Gastrointestinal: Denies abdominal pain, Denies hematochezia, Denies dysphagia, Denies diarrhea and Denies vomiting Genitourinary Genitourinary: Denies hematuria and Reports other (Negative hematuria) Musculoskeletal Musculoskeletal: Denies myalgias, Denies neck pain and Denies numbness Neurologic Neurologic: Denies abnormal hearing, Denies abnormal speech, Denies confusion, Denies dizziness, Denies headache(s), Denies loss of vision and Denies numbness Psychiatric Psychiatric: Denies anxiety, Denies confusion and Denies irritability Endocrine Endocrine: Reports fatigue Allergic/Immunologic Allergic/Immunologic: Denies wheezing PFSH All Active Problems (Updated 05/18/23 @ 20:58 by Jonny Crocker MD) Hyponatremia (Acute) Chronic UTI (Acute) Overactive bladder (Acute) Paroxysmal atrial fibrillation (Acute) Dementia (Chronic) Depression (Chronic) Hypertension (Chronic) Rheumatoid arthritis (Chronic) Diabetes (Chronic) Elevated troponin (Acute) Altered mental status (Acute) Non-ST elevation OK (NSTEMI) (Acute) Elevated troponin I level (Acute) Social History Smoking/Tobacco Use Status: Never Smoking risk assessment performed?: Yes Details: Unable to obtain Housing: [facility] Meds Allergies and Home Medications Allergies Allergy/AdvReac Type Severity Reaction Status Date / Time No Known Allergies Allergy Unverified 05/18/23 11:28 Home Medications Medication Instructions Recorded Confirmed Type furosemide 20 mg tablet (Lasix) 20 mg PO DAILY 03/01/22 05/18/23 History insulin glargine 100 unit/mL (3 33 unit subcut DAILY 03/01/22 05/18/23 History mL) subcutaneous pen levothyroxine 100 mcg tablet 112 mcg PO .QHS 03/01/22 05/18/23 History mirabegron 50 mg tablet,extended 50 mg PO DAILY 03/01/22 05/18/23 History release 24 hr (Myrbetriq) atorvastatin 40 mg tablet 40 mg PO DAILY 11/22/22 05/18/23 History clopidogrel 75 mg tablet 75 mg PO DAILY 11/22/22 05/18/23 History docusate sodium 100 mg capsule 200 mg PO BID 11/22/22 05/18/23 History folic acid 1 mg tablet 1 mg PO DAILY 11/22/22 05/18/23 History lisinopril 30 mg tablet 30 mg PO DAILY 11/22/22 05/18/23 History magnesium oxide 400 mg PO BID 11/22/22 05/18/23 History methotrexate sodium 2.5 mg tablet 2.5 mg PO QWEEK 11/22/22 05/18/23 History mirtazapine 15 mg disintegrating 15 mg PO QHS 11/22/22 05/18/23 History tablet nebivolol 5 mg tablet 5 mg PO DAILY 11/22/22 05/18/23 History pantoprazole 40 mg tablet,delayed 40 mg PO DAILY 11/22/22 05/18/23 History release peg 400-propylene glycol 0.4 %-0.3 1 drp ophthalmic (eye) Q4H 11/22/22 05/18/23 History % eye gel drops (Systane Gel) prednisone 5 mg tablet 5 mg PO DAILY 11/22/22 05/18/23 History quetiapine 100 mg tablet 100 mg PO BID 11/22/22 05/18/23 History sertraline 100 mg tablet 200 mg PO DAILY 11/22/22 05/18/23 History timolol maleate 0.5 % eye drops 1 drp ophthalmic (eye) DAILY 11/22/22 05/18/23 History travoprost 0.004 % eye drops 1 drp ophthalmic (eye) DAILY 11/22/22 05/18/23 History levofloxacin 250 mg tablet 250 mg PO DAILY #2 tabs 01/05/23 05/18/23 Rx Exam Const General: cooperative, comfortable, no acute distress and well developed Orientation: alert, awake, oriented to person and oriented to place Limitations: mental status not altered HENUT Head: normocephalic, atraumatic and periorbital ecchymosis (L Chronic) Ears: hearing grossly normal bilaterally and external ears normal General nose exam: external nose normal and nares normal Face and sinus: normal facial exam and face symmetric Mouth: oral mucosae normal and lip normal Eyes General: appearance normal, both eyes and all related structures (L Orbit w/ chronic ecchymoses) Neck Neck: normal visual inspection, full ROM and no lymphadenopathy Chest Chest: normal inspection of the chest and normal palpation of entire chest wall Resp Effort & Inspection: normal respiratory effort, able to speak in complete sentences, no audible wheezes, no stridor, not tachypneic, no tracheal deviation and no use of accessory muscles Cardio Rate: regular rate Rhythm: regular rhythm Heart Sounds: S1 normal and S2 normal Pulses: radial pulses present GI Inspection: normal to inspection Palpation: soft Percussion: normal to percussion Auscultation: normal bowel sounds Skin General skin exam: no rashes or lesions noted, turgor normal and ecchymosis (L chronic orbit) Neuro Speech: speech normal Motor: muscle tone normal throughout Other: RUE proximal 5/5 RUE distal 5/5 LUE proximal 5/5 LUE distal 5/5 RLE proximal 4/5 RLE distal 4/5 LLE proximal 4/5 LLE distal 4/5 Results Imaging Imaging Studies: CT Head - no acute intracranial abnormality. Stable ventricular enlargement CXR - low lung volumes but no acute changes CT Abdomen/Pelvis - unremarkable Chest CTA chest, abdomen and pelvis Labs 05/18/23 11:15 05/18/23 13:31 Labs: Laboratory Results - last 24 hr 05/18/23 05/18/23 05/18/23 10:35 11:15 11:15 WBC 8.68 RBC 3.89 L Hgb 11.0 L Hct 32.2 L MCV 83 MCH 28.3 MCHC 34.2 RDW 14.0 Plt Count 385 MPV 9.5 Immature Gran % 1.0 Neutrophils % 71.5 Lymphocytes % 15.8 Monocytes % 9.9 Eosinophils % 1.0 Basophils % 0.8 Nucleated RBC % 0.0 Absolute Neutrophils 6.20 Absolute Lymphocytes 1.37 Absolute Monocytes 0.86 H Absolute Eosinophils 0.09 Absolute Basophils 0.07 PT INR APTT Sodium 127 L Cancelled Potassium 4.2 Chloride Carbon Dioxide Anion Gap BUN Creatinine Est GFR (CKD-EPI 2020) Glucose Calcium Magnesium Total Bilirubin AST ALT Alkaline Phosphatase Troponin I NT-Pro-B Natriuret Pep Total Protein Albumin TSH Urine Color Urine Clarity Urine pH Ur Specific [place] Urine Protein Urine Ketones Urine Blood Urine Nitrite Urine Bilirubin Urine Urobilinogen Ur Leukocyte Esterase Urine RBC Urine WBC Ur Epithelial Cells Urine Crystals Urine Bacteria Urine Casts Urine Mucus Urine Other Ur Culture Indicated? Urine Glucose COVID-19 Source Nasopharynx SARS-CoV-2 (PCR) Negative Influenza Type A (PCR) Negative Influenza Type B (PCR) Negative RSV (PCR) Negative Add-On Test Request 05/18/23 05/18/23 05/18/23 11:15 11:15 11:15 WBC RBC Hgb Hct MCV MCH MCHC RDW Plt Count MPV Immature Gran % Neutrophils % Lymphocytes % Monocytes % Eosinophils % Basophils % Nucleated RBC % Absolute Neutrophils Absolute Lymphocytes Absolute Monocytes Absolute Eosinophils Absolute Basophils PT INR APTT Sodium Potassium Cancelled Chloride 93 L Cancelled Carbon Dioxide 27.3 Cancelled Anion Gap 6.7 BUN Creatinine Est GFR (CKD-EPI 2020) Glucose Calcium Magnesium Total Bilirubin AST ALT Alkaline Phosphatase Troponin I NT-Pro-B Natriuret Pep Total Protein Albumin TSH Urine Color Urine Clarity Urine pH Ur Specific [place] Urine Protein Urine Ketones Urine Blood Urine Nitrite Urine Bilirubin Urine Urobilinogen Ur Leukocyte Esterase Urine RBC Urine WBC Ur Epithelial Cells Urine Crystals Urine Bacteria Urine Casts Urine Mucus Urine Other Ur Culture Indicated? Urine Glucose COVID-19 Source SARS-CoV-2 (PCR) Influenza Type A (PCR) Influenza Type B (PCR) RSV (PCR) Add-On Test Request 05/18/23 05/18/23 05/18/23 11:15 11:15 11:15 WBC RBC Hgb Hct MCV MCH MCHC RDW Plt Count MPV Immature Gran % Neutrophils % Lymphocytes % Monocytes % Eosinophils % Basophils % Nucleated RBC % Absolute Neutrophils Absolute Lymphocytes Absolute Monocytes Absolute Eosinophils Absolute Basophils PT INR APTT Sodium Potassium Chloride Carbon Dioxide Anion Gap Cancelled BUN 15 Cancelled Creatinine 0.9 Cancelled Est GFR (CKD-EPI 2020) 63.43 Glucose Calcium Magnesium Total Bilirubin AST ALT Alkaline Phosphatase Troponin I NT-Pro-B Natriuret Pep Total Protein Albumin TSH Urine Color Urine Clarity Urine pH Ur Specific [place] Urine Protein Urine Ketones Urine Blood Urine Nitrite Urine Bilirubin Urine Urobilinogen Ur Leukocyte Esterase Urine RBC Urine WBC Ur Epithelial Cells Urine Crystals Urine Bacteria Urine Casts Urine Mucus Urine Other Ur Culture Indicated? Urine Glucose COVID-19 Source SARS-CoV-2 (PCR) Influenza Type A (PCR) Influenza Type B (PCR) RSV (PCR) Add-On Test Request 05/18/23 05/18/23 05/18/23 11:15 11:15 11:15 WBC RBC Hgb Hct MCV MCH MCHC RDW Plt Count MPV Immature Gran % Neutrophils % Lymphocytes % Monocytes % Eosinophils % Basophils % Nucleated RBC % Absolute Neutrophils Absolute Lymphocytes Absolute Monocytes Absolute Eosinophils Absolute Basophils PT INR APTT Sodium Potassium Chloride Carbon Dioxide Anion Gap BUN Creatinine Est GFR (CKD-EPI 2020) Cancelled Glucose 313 H Cancelled Calcium 8.9 Cancelled Magnesium 1.5 L Total Bilirubin AST ALT Alkaline Phosphatase Troponin I NT-Pro-B Natriuret Pep Total Protein Albumin TSH Urine Color Urine Clarity Urine pH Ur Specific [place] Urine Protein Urine Ketones Urine Blood Urine Nitrite Urine Bilirubin Urine Urobilinogen Ur Leukocyte Esterase Urine RBC Urine WBC Ur Epithelial Cells Urine Crystals Urine Bacteria Urine Casts Urine Mucus Urine Other Ur Culture Indicated? Urine Glucose COVID-19 Source SARS-CoV-2 (PCR) Influenza Type A (PCR) Influenza Type B (PCR) RSV (PCR) Add-On Test Request 05/18/23 05/18/23 05/18/23 11:15 11:15 11:15 WBC RBC Hgb Hct MCV MCH MCHC RDW Plt Count MPV Immature Gran % Neutrophils % Lymphocytes % Monocytes % Eosinophils % Basophils % Nucleated RBC % Absolute Neutrophils Absolute Lymphocytes Absolute Monocytes Absolute Eosinophils Absolute Basophils PT INR APTT Sodium Potassium Chloride Carbon Dioxide Anion Gap BUN Creatinine Est GFR (CKD-EPI 2020) Glucose Calcium Magnesium Cancelled Total Bilirubin 0.4 Cancelled AST 13 L Cancelled ALT 15 Alkaline Phosphatase Troponin I NT-Pro-B Natriuret Pep Total Protein Albumin TSH Urine Color Urine Clarity Urine pH Ur Specific [place] Urine Protein Urine Ketones Urine Blood Urine Nitrite Urine Bilirubin Urine Urobilinogen Ur Leukocyte Esterase Urine RBC Urine WBC Ur Epithelial Cells Urine Crystals Urine Bacteria Urine Casts Urine Mucus Urine Other Ur Culture Indicated? Urine Glucose COVID-19 Source SARS-CoV-2 (PCR) Influenza Type A (PCR) Influenza Type B (PCR) RSV (PCR) Add-On Test Request 05/18/23 05/18/23 05/18/23 11:15 11:15 11:15 WBC RBC Hgb Hct MCV MCH MCHC RDW Plt Count MPV Immature Gran % Neutrophils % Lymphocytes % Monocytes % Eosinophils % Basophils % Nucleated RBC % Absolute Neutrophils Absolute Lymphocytes Absolute Monocytes Absolute Eosinophils Absolute Basophils PT INR APTT Sodium Potassium Chloride Carbon Dioxide Anion Gap BUN Creatinine Est GFR (CKD-EPI 2020) Glucose Calcium Magnesium Total Bilirubin AST ALT Cancelled Alkaline Phosphatase 109 Cancelled Troponin I 55 NT-Pro-B Natriuret Pep Total Protein 8.3 H Cancelled Albumin 2.9 L TSH Urine Color Urine Clarity Urine pH Ur Specific [place] Urine Protein Urine Ketones Urine Blood Urine Nitrite Urine Bilirubin Urine Urobilinogen Ur Leukocyte Esterase Urine RBC Urine WBC Ur Epithelial Cells Urine Crystals Urine Bacteria Urine Casts Urine Mucus Urine Other Ur Culture Indicated? Urine Glucose COVID-19 Source SARS-CoV-2 (PCR) Influenza Type A (PCR) Influenza Type B (PCR) RSV (PCR) Add-On Test Request 05/18/23 05/18/23 05/18/23 11:15 12:06 12:44 WBC RBC Hgb Hct MCV MCH MCHC RDW Plt Count MPV Immature Gran % Neutrophils % Lymphocytes % Monocytes % Eosinophils % Basophils % Nucleated RBC % Absolute Neutrophils Absolute Lymphocytes Absolute Monocytes Absolute Eosinophils Absolute Basophils PT INR APTT Sodium Cancelled Potassium Cancelled Chloride Cancelled Carbon Dioxide Cancelled Anion Gap Cancelled BUN Cancelled Creatinine Cancelled Est GFR (CKD-EPI 2020) Cancelled Glucose Cancelled Calcium Cancelled Magnesium Total Bilirubin AST ALT Alkaline Phosphatase Troponin I NT-Pro-B Natriuret Pep Total Protein Albumin Cancelled TSH 1.60 Urine Color Yellow Urine Clarity Clear Urine pH 6.5 Ur Specific [place] 1.020 Urine Protein 100 H Urine Ketones Negative Urine Blood Negative Urine Nitrite Negative Urine Bilirubin Negative Urine Urobilinogen 1.0 H Ur Leukocyte Esterase Negative Urine RBC 5-10 H Urine WBC 10-20 H Ur Epithelial Cells Few Urine Crystals Negative Urine Bacteria Few Urine Casts 0-2 Hyaline Urine Mucus Negative Urine Other Few Transitional Ur Culture Indicated? Yes Urine Glucose >=1000 H COVID-19 Source SARS-CoV-2 (PCR) Influenza Type A (PCR) Influenza Type B (PCR) RSV (PCR) Add-On Test Request 05/18/23 05/18/23 05/18/23 12:45 13:31 15:53 WBC RBC Hgb Hct MCV MCH MCHC RDW Plt Count MPV Immature Gran % Neutrophils % Lymphocytes % Monocytes % Eosinophils % Basophils % Nucleated RBC % Absolute Neutrophils Absolute Lymphocytes Absolute Monocytes Absolute Eosinophils Absolute Basophils PT INR APTT Sodium 130 L Potassium 4.2 Chloride 95 L Carbon Dioxide 27.0 Anion Gap 8.0 BUN 14 Creatinine 0.8 Est GFR (CKD-EPI 2020) 73.06 Glucose 234 H Calcium 8.5 Magnesium Total Bilirubin AST ALT Alkaline Phosphatase Troponin I 94 H* 129 H* NT-Pro-B Natriuret Pep 4577 H Total Protein Albumin TSH Urine Color Urine Clarity Urine pH Ur Specific [place] Urine Protein Urine Ketones Urine Blood Urine Nitrite Urine Bilirubin Urine Urobilinogen Ur Leukocyte Esterase Urine RBC Urine WBC Ur Epithelial Cells Urine Crystals Urine Bacteria Urine Casts Urine Mucus Urine Other Ur Culture Indicated? Urine Glucose COVID-19 Source SARS-CoV-2 (PCR) Influenza Type A (PCR) Influenza Type B (PCR) RSV (PCR) Add-On Test Request 05/18/23 17:43 WBC RBC Hgb Hct MCV MCH MCHC RDW Plt Count MPV Immature Gran % Neutrophils % Lymphocytes % Monocytes % Eosinophils % Basophils % Nucleated RBC % Absolute Neutrophils Absolute Lymphocytes Absolute Monocytes Absolute Eosinophils Absolute Basophils PT 11.0 INR 1.1 APTT 23.0 L Sodium Potassium Chloride Carbon Dioxide Anion Gap BUN Creatinine Est GFR (CKD-EPI 2020) Glucose Calcium Magnesium Total Bilirubin AST ALT Alkaline Phosphatase Troponin I NT-Pro-B Natriuret Pep Total Protein Albumin TSH Urine Color Urine Clarity Urine pH Ur Specific [place] Urine Protein Urine Ketones Urine Blood Urine Nitrite Urine Bilirubin Urine Urobilinogen Ur Leukocyte Esterase Urine RBC Urine WBC Ur Epithelial Cells Urine Crystals Urine Bacteria Urine Casts Urine Mucus Urine Other Ur Culture Indicated? Urine Glucose COVID-19 Source SARS-CoV-2 (PCR) Influenza Type A (PCR) Influenza Type B (PCR) RSV (PCR) Add-On Test Request DONE Last Vital Signs Temp 36.3 C L 05/18/23 10:45 Pulse 64 05/18/23 19:46 Resp 15 05/18/23 19:50 BP 150/65 H 05/18/23 19:46 Pulse Ox 99 05/18/23 19:50 Time Spent Time spent with Patient: <40 minutes Time was spent: preparing to see the patient(eg.review tests), obtaining and/or reviewing separately otained hiistory, ordering medications,tests, procedures and indepentently interpreting results
[2023-05-18 22:15] LABS: Methotrexate <0.05 umol/L (See Note)
[2023-05-18] MEDS: Docusate Sodium 100 MG CAP 200 MG PO (22:38)
[2023-05-18] MEDS: Enoxaparin 40 MG/0.4 ML SYR SC (22:38)
[2023-05-18] MEDS: QUEtiapine 100 MG TAB PO (22:38)
[2023-05-18] MEDS: MAGNESIUM SULFATE 1 GM/100 ML BAG IVPB (22:38)
[2023-05-18] MEDS: Mirtazapine 15 MG TAB PO (22:38)
[2023-05-18] MEDS: Normal Saline 1,000 ML 100 ML IV (22:39)
[2023-05-19 03:23] VITALS: BP 159/70; PULSE 60; RESP 16; TEMP 36.7; O2SAT 97
[2023-05-19 06:42] LABS: Abs Immature Grans 0.08 10^3/uL (0.0-0.06); Absolute Basophil Count 0.04 10^3/uL (0.0-0.2); Absolute Eosinophil Count 0.19 10^3/uL (0.0-0.7); Absolute Lymphocyte Count 2.45 10^3/uL (1.2-3.4); Absolute Monocyte Count 1.11 10^3/uL (0.1-0.8); Absolute Neutrophil Count 5.21 10^3/uL (1.2-6.7); Basophils % 0.4; Eosinophils % 2.1; HCT 28.3 % (36.0-46.0); HGB 9.7 g/dL (11.2-15.7); Immature Grans % 0.9; MCH 29.2 pg (27.0-33.0); MCHC 34.3 % (32.0-36.0); MCV 85 fL (80-95); MPV 9.8 fL (8.0-11.0); Monocytes % 12.2; Neutrophils % 57.4; Platelet Count 307 10^3/uL (130-400); RBC 3.32 10^6/uL (3.93-5.22); RDW 14.6 % (11.7-14.6); RDW-SD 44.6 fL; WBC 9.08 10^3/uL (4.4-10.8)
[2023-05-19 06:54] LABS: Prothrombin Time 10.4 sec (9.1-11.1)
[2023-05-19 07:02] LABS: Anion Gap 6.1 mmol/L (3-11); BUN 15 mg/dL (7-18); CO2 28.9 mmol/L (21.0-32.0); CREATININE 0.7 mg/dL (0.55-1.02); Calcium 8.5 mg/dL (8.5-10.1); Chloride 97 mmol/L (98-107); Estimated GFR 85.76 (mL/min/1.73m2); Glucose 97 mg/dL (74-106); Potassium 3.9 mmol/L (3.5-5.1); Sodium 132 mmol/L (136-145); Troponin I < 50 ng/L (<or=60)
[2023-05-19 07:20] VITALS: BP 121/60; PULSE 61; RESP 16; TEMP 36.1; O2SAT 98
[2023-05-19] MEDS: Timolol 0.5% 5 ML BTL OP (08:14)
[2023-05-19] MEDS: Normal Saline Flush 10 ML SYR IVP (08:15)
[2023-05-19] MEDS: Docusate Sodium 100 MG CAP 200 MG PO (08:17)
[2023-05-19] MEDS: Folic Acid 1 MG TAB PO (08:17)
[2023-05-19] MEDS: QUEtiapine 100 MG TAB PO (08:17)
[2023-05-19] MEDS: Magnesium Oxide 400 MG TAB PO (08:18)
[2023-05-19] MEDS: Clopidogrel 75 MG TAB PO (08:18)
[2023-05-19] MEDS: Metoprolol 50 MG TAB PO (08:18)
[2023-05-19] MEDS: predniSONE 5 MG TAB PO (08:18)
[2023-05-19] MEDS: Sertraline 100 MG TAB 200 MG PO (08:18)
[2023-05-19] MEDS: Mirabegron 50 MG TABCR PO (08:18)
[2023-05-19 10:57] VITALS: BP 146/76; PULSE 52; RESP 17; TEMP 35.9; O2SAT 98
--- NOTE | 2023-05-19 11:29 | PGE_ITS ---
Date of Service Date of service: 05/19/23 Time of Service: 11:29 Assessment and Plan Assessment and plan (1) Altered mental status: Status: Acute Assessment and plan: at baseline with no further episodes -Cont to monitor the patient and labs -continues to be back to her baseline -Follow hsTroponin repeat (2) Elevated troponin: Status: Acute Assessment and plan: Her troponin has trended upward from 55->94->129. Continues to have no active cardiopulmonary complaints. Her vitals are stable w/ normal heart rate, oxygen saturation and there are no signs of volume overload. Her EKG shows normal sinus rhythm without any ST/Twave changes. Hypertensive presentation suspected to be etiology of elevated troponin. -Repeat hsTrop is now < 50 -consider Echo w/ BNP 4577 when available, likely will be outpatient -Monitor BP (3) Diabetes: Status: Chronic Assessment and plan: -Cont w/ Lantus 33 unit sq qhs -ISS w/ sliding scale (4) Rheumatoid arthritis: Status: Chronic Assessment and plan: -Cont w/ Prednisone 5mg daily -Cont w/ MTX 15mg weekly on Saturday -Recommend to follow up outpatient to see if she can discontinue Prednisone 5mg daily which would assist w/ her hyperglycemia (5) Hypertension: Status: Chronic Assessment and plan: -Cont w/ Lisinopril 30mg daily -Cont w/ Nebivolol 5mg daily -Consider prn w/ IV Hydralazine for prn >150/90 (6) Depression: Status: Chronic Assessment and plan: -Cont w/ Mirtazapine 15mg daily -Cont w/ Sertraline 200mg daily (7) Dementia: Status: Chronic Assessment and plan: -Cont w/ Seroquel 100mg bid (8) Paroxysmal atrial fibrillation: Status: Acute Assessment and plan: -She is currently in NSR -Cont w/ Plavix 75mg daily -Cont w/ Nebivolol 5mg daily for rate control (9) Overactive bladder: Status: Acute Assessment and plan: -Cont w/ [id number] daily (10) Chronic UTI: Status: Acute Assessment and plan: -On Macribid daily (11) Hyponatremia: Status: Acute Assessment and plan: Suspect this is most likely due to hypovolemia and dehydration. She does have an elevated BNP but clinically there is no evidence of volume overload stop NS and repeat BMP in AM to follow discussed with DR Noe Subjective Subjective Interval history since last seen: Patient denies any complaints of pain shortness of breath or other complaint. According to the son she appears at her baseline. She did refuse breakfast which she states is typical for her but she is taking her medications and pudding with no difficulty Exam Narrative Exam Narrative: Frail elderly woman appearing younger than stated age in no acute distress head is atraumatic EOMs are intact oral mucosa is moist responding with short 1 answer responses that seem appropriate. Neck full range of motion respirations even and unlabored breath sounds are diminished throughout cardiovascular regular rate and rhythm abdomen is benign extremities without edema Objective Last Vital Signs Temp 35.9 C L 05/19/23 10:57 Pulse 52 L 05/19/23 10:57 Resp 17 05/19/23 10:57 BP 146/76 H 05/19/23 10:57 Pulse Ox 98 05/19/23 10:57 Laboratory Results - last 24 hr 05/18/23 05/18/23 05/18/23 10:35 11:15 11:15 WBC 8.68 RBC 3.89 L Hgb 11.0 L Hct 32.2 L MCV 83 MCH 28.3 MCHC 34.2 RDW 14.0 Plt Count 385 MPV 9.5 Immature Gran % 1.0 Neutrophils % 71.5 Lymphocytes % 15.8 Monocytes % 9.9 Eosinophils % 1.0 Basophils % 0.8 Nucleated RBC % 0.0 Absolute Neutrophils 6.20 Absolute Lymphocytes 1.37 Absolute Monocytes 0.86 H Absolute Eosinophils 0.09 Absolute Basophils 0.07 PT INR APTT Sodium 127 L Cancelled Potassium 4.2 Chloride Carbon Dioxide Anion Gap BUN Creatinine Est GFR (CKD-EPI 2020) Glucose Calcium Magnesium Total Bilirubin AST ALT Alkaline Phosphatase Troponin I NT-Pro-B Natriuret Pep Total Protein Albumin TSH Urine Color Urine Clarity Urine pH Ur Specific Clifford Urine Protein Urine Ketones Urine Blood Urine Nitrite Urine Bilirubin Urine Urobilinogen Ur Leukocyte Esterase Urine RBC Urine WBC Ur Epithelial Cells Urine Crystals Urine Bacteria Urine Casts Urine Mucus Urine Other Ur Culture Indicated? Urine Glucose Methotrexate COVID-19 Source Nasopharynx SARS-CoV-2 (PCR) Negative Influenza Type A (PCR) Negative Influenza Type B (PCR) Negative RSV (PCR) Negative Add-On Test Request 05/18/23 05/18/23 05/18/23 11:15 11:15 11:15 WBC RBC Hgb Hct MCV MCH MCHC RDW Plt Count MPV Immature Gran % Neutrophils % Lymphocytes % Monocytes % Eosinophils % Basophils % Nucleated RBC % Absolute Neutrophils Absolute Lymphocytes Absolute Monocytes Absolute Eosinophils Absolute Basophils PT INR APTT Sodium Potassium Cancelled Chloride 93 L Cancelled Carbon Dioxide 27.3 Cancelled Anion Gap 6.7 BUN Creatinine Est GFR (CKD-EPI 2020) Glucose Calcium Magnesium Total Bilirubin AST ALT Alkaline Phosphatase Troponin I NT-Pro-B Natriuret Pep Total Protein Albumin TSH Urine Color Urine Clarity Urine pH Ur Specific Clifford Urine Protein Urine Ketones Urine Blood Urine Nitrite Urine Bilirubin Urine Urobilinogen Ur Leukocyte Esterase Urine RBC Urine WBC Ur Epithelial Cells Urine Crystals Urine Bacteria Urine Casts Urine Mucus Urine Other Ur Culture Indicated? Urine Glucose Methotrexate COVID-19 Source SARS-CoV-2 (PCR) Influenza Type A (PCR) Influenza Type B (PCR) RSV (PCR) Add-On Test Request 05/18/23 05/18/23 05/18/23 11:15 11:15 11:15 WBC RBC Hgb Hct MCV MCH MCHC RDW Plt Count MPV Immature Gran % Neutrophils % Lymphocytes % Monocytes % Eosinophils % Basophils % Nucleated RBC % Absolute Neutrophils Absolute Lymphocytes Absolute Monocytes Absolute Eosinophils Absolute Basophils PT INR APTT Sodium Potassium Chloride Carbon Dioxide Anion Gap Cancelled BUN 15 Cancelled Creatinine 0.9 Cancelled Est GFR (CKD-EPI 2020) 63.43 Glucose Calcium Magnesium Total Bilirubin AST ALT Alkaline Phosphatase Troponin I NT-Pro-B Natriuret Pep Total Protein Albumin TSH Urine Color Urine Clarity Urine pH Ur Specific Clifford Urine Protein Urine Ketones Urine Blood Urine Nitrite Urine Bilirubin Urine Urobilinogen Ur Leukocyte Esterase Urine RBC Urine WBC Ur Epithelial Cells Urine Crystals Urine Bacteria Urine Casts Urine Mucus Urine Other Ur Culture Indicated? Urine Glucose Methotrexate COVID-19 Source SARS-CoV-2 (PCR) Influenza Type A (PCR) Influenza Type B (PCR) RSV (PCR) Add-On Test Request 05/18/23 05/18/23 05/18/23 11:15 11:15 11:15 WBC RBC Hgb Hct MCV MCH MCHC RDW Plt Count MPV Immature Gran % Neutrophils % Lymphocytes % Monocytes % Eosinophils % Basophils % Nucleated RBC % Absolute Neutrophils Absolute Lymphocytes Absolute Monocytes Absolute Eosinophils Absolute Basophils PT INR APTT Sodium Potassium Chloride Carbon Dioxide Anion Gap BUN Creatinine Est GFR (CKD-EPI 2020) Cancelled Glucose 313 H Cancelled Calcium 8.9 Cancelled Magnesium 1.5 L Total Bilirubin AST ALT Alkaline Phosphatase Troponin I NT-Pro-B Natriuret Pep Total Protein Albumin TSH Urine Color Urine Clarity Urine pH Ur Specific Clifford Urine Protein Urine Ketones Urine Blood Urine Nitrite Urine Bilirubin Urine Urobilinogen Ur Leukocyte Esterase Urine RBC Urine WBC Ur Epithelial Cells Urine Crystals Urine Bacteria Urine Casts Urine Mucus Urine Other Ur Culture Indicated? Urine Glucose Methotrexate COVID-19 Source SARS-CoV-2 (PCR) Influenza Type A (PCR) Influenza Type B (PCR) RSV (PCR) Add-On Test Request 05/18/23 05/18/23 05/18/23 11:15 11:15 11:15 WBC RBC Hgb Hct MCV MCH MCHC RDW Plt Count MPV Immature Gran % Neutrophils % Lymphocytes % Monocytes % Eosinophils % Basophils % Nucleated RBC % Absolute Neutrophils Absolute Lymphocytes Absolute Monocytes Absolute Eosinophils Absolute Basophils PT INR APTT Sodium Potassium Chloride Carbon Dioxide Anion Gap BUN Creatinine Est GFR (CKD-EPI 2020) Glucose Calcium Magnesium Cancelled Total Bilirubin 0.4 Cancelled AST 13 L Cancelled ALT 15 Alkaline Phosphatase Troponin I NT-Pro-B Natriuret Pep Total Protein Albumin TSH Urine Color Urine Clarity Urine pH Ur Specific Clifford Urine Protein Urine Ketones Urine Blood Urine Nitrite Urine Bilirubin Urine Urobilinogen Ur Leukocyte Esterase Urine RBC Urine WBC Ur Epithelial Cells Urine Crystals Urine Bacteria Urine Casts Urine Mucus Urine Other Ur Culture Indicated? Urine Glucose Methotrexate COVID-19 Source SARS-CoV-2 (PCR) Influenza Type A (PCR) Influenza Type B (PCR) RSV (PCR) Add-On Test Request 05/18/23 05/18/23 05/18/23 11:15 11:15 11:15 WBC RBC Hgb Hct MCV MCH MCHC RDW Plt Count MPV Immature Gran % Neutrophils % Lymphocytes % Monocytes % Eosinophils % Basophils % Nucleated RBC % Absolute Neutrophils Absolute Lymphocytes Absolute Monocytes Absolute Eosinophils Absolute Basophils PT INR APTT Sodium Potassium Chloride Carbon Dioxide Anion Gap BUN Creatinine Est GFR (CKD-EPI 2020) Glucose Calcium Magnesium Total Bilirubin AST ALT Cancelled Alkaline Phosphatase 109 Cancelled Troponin I 55 NT-Pro-B Natriuret Pep Total Protein 8.3 H Cancelled Albumin 2.9 L TSH Urine Color Urine Clarity Urine pH Ur Specific Clifford Urine Protein Urine Ketones Urine Blood Urine Nitrite Urine Bilirubin Urine Urobilinogen Ur Leukocyte Esterase Urine RBC Urine WBC Ur Epithelial Cells Urine Crystals Urine Bacteria Urine Casts Urine Mucus Urine Other Ur Culture Indicated? Urine Glucose Methotrexate COVID-19 Source SARS-CoV-2 (PCR) Influenza Type A (PCR) Influenza Type B (PCR) RSV (PCR) Add-On Test Request 05/18/23 05/18/23 05/18/23 11:15 12:06 12:44 WBC RBC Hgb Hct MCV MCH MCHC RDW Plt Count MPV Immature Gran % Neutrophils % Lymphocytes % Monocytes % Eosinophils % Basophils % Nucleated RBC % Absolute Neutrophils Absolute Lymphocytes Absolute Monocytes Absolute Eosinophils Absolute Basophils PT INR APTT Sodium Cancelled Potassium Cancelled Chloride Cancelled Carbon Dioxide Cancelled Anion Gap Cancelled BUN Cancelled Creatinine Cancelled Est GFR (CKD-EPI 2020) Cancelled Glucose Cancelled Calcium Cancelled Magnesium Total Bilirubin AST ALT Alkaline Phosphatase Troponin I NT-Pro-B Natriuret Pep Total Protein Albumin Cancelled TSH 1.60 Urine Color Yellow Urine Clarity Clear Urine pH 6.5 Ur Specific Clifford 1.020 Urine Protein 100 H Urine Ketones Negative Urine Blood Negative Urine Nitrite Negative Urine Bilirubin Negative Urine Urobilinogen 1.0 H Ur Leukocyte Esterase Negative Urine RBC 5-10 H Urine WBC 10-20 H Ur Epithelial Cells Few Urine Crystals Negative Urine Bacteria Few Urine Casts 0-2 Hyaline Urine Mucus Negative Urine Other Few Transitional Ur Culture Indicated? Yes Urine Glucose >=1000 H Methotrexate <0.05 COVID-19 Source SARS-CoV-2 (PCR) Influenza Type A (PCR) Influenza Type B (PCR) RSV (PCR) Add-On Test Request 05/18/23 05/18/23 05/18/23 12:45 13:31 15:53 WBC RBC Hgb Hct MCV MCH MCHC RDW Plt Count MPV Immature Gran % Neutrophils % Lymphocytes % Monocytes % Eosinophils % Basophils % Nucleated RBC % Absolute Neutrophils Absolute Lymphocytes Absolute Monocytes Absolute Eosinophils Absolute Basophils PT INR APTT Sodium 130 L Potassium 4.2 Chloride 95 L Carbon Dioxide 27.0 Anion Gap 8.0 BUN 14 Creatinine 0.8 Est GFR (CKD-EPI 2020) 73.06 Glucose 234 H Calcium 8.5 Magnesium Total Bilirubin AST ALT Alkaline Phosphatase Troponin I 94 H* 129 H* NT-Pro-B Natriuret Pep 4577 H Total Protein Albumin TSH Urine Color Urine Clarity Urine pH Ur Specific Clifford Urine Protein Urine Ketones Urine Blood Urine Nitrite Urine Bilirubin Urine Urobilinogen Ur Leukocyte Esterase Urine RBC Urine WBC Ur Epithelial Cells Urine Crystals Urine Bacteria Urine Casts Urine Mucus Urine Other Ur Culture Indicated? Urine Glucose Methotrexate COVID-19 Source SARS-CoV-2 (PCR) Influenza Type A (PCR) Influenza Type B (PCR) RSV (PCR) Add-On Test Request 05/18/23 05/19/23 17:43 05:48 WBC 9.08 RBC 3.32 L Hgb 9.7 L Hct 28.3 L MCV 85 MCH 29.2 MCHC 34.3 RDW 14.6 Plt Count 307 MPV 9.8 Immature Gran % 0.9 Neutrophils % 57.4 Lymphocytes % 27.0 Monocytes % 12.2 Eosinophils % 2.1 Basophils % 0.4 Nucleated RBC % 0.0 Absolute Neutrophils 5.21 Absolute Lymphocytes 2.45 Absolute Monocytes 1.11 H Absolute Eosinophils 0.19 Absolute Basophils 0.04 PT 11.0 10.4 INR 1.1 1.0 APTT 23.0 L Sodium 132 L Potassium 3.9 Chloride 97 L Carbon Dioxide 28.9 Anion Gap 6.1 BUN 15 Creatinine 0.7 Est GFR (CKD-EPI 2020) 85.76 Glucose 97 Calcium 8.5 Magnesium Total Bilirubin AST ALT Alkaline Phosphatase Troponin I < 50 NT-Pro-B Natriuret Pep Total Protein Albumin TSH Urine Color Urine Clarity Urine pH Ur Specific Clifford Urine Protein Urine Ketones Urine Blood Urine Nitrite Urine Bilirubin Urine Urobilinogen Ur Leukocyte Esterase Urine RBC Urine WBC Ur Epithelial Cells Urine Crystals Urine Bacteria Urine Casts Urine Mucus Urine Other Ur Culture Indicated? Urine Glucose Methotrexate COVID-19 Source SARS-CoV-2 (PCR) Influenza Type A (PCR) Influenza Type B (PCR) RSV (PCR) Add-On Test Request DONE Time Spent with Patient Time Spent with Patient: 25-34 minutes Time was spent: preparing to see the patient(eg.review tests), obtaining and/or reviewing separately otained hiistory, ordering medications,tests, procedures and indepentently interpreting results
[2023-05-19] MEDS: Normal Saline 1,000 ML 100 ML IV (13:47)
--- NOTE | 2023-05-19 14:21 | PHA.REVIEW2 ---
Pharmacy Admission Review Admission Clinical Review Admission Pharmacy Review: (Updated 05/18/23 @ 20:58 by Jonny Crocker MD) Hyponatremia (Acute) Chronic UTI (Acute) Overactive bladder (Acute) Paroxysmal atrial fibrillation (Acute) Elevated troponin (Acute) Altered mental status (Acute) Non-ST elevation [place] (NSTEMI) (Acute) Elevated troponin I level (Acute) No Known Allergies Allergy (Unverified 05/18/23 11:28) Resuscitation Status Full Code Height 5 ft 1 in Weight 75.4 kg Pharmacy Admission Review Renal Dosing Renal Dosing: BUN 15 mg/dL (7-18) 05/19/23 05:48 Creatinine 0.7 mg/dL (0.55-1.02) 05/19/23 05:48 Medications needing adjustments: Reviewed (crcl ~ 39) List of meds needing interventions: currently no adjustments needed, monitor for changes in renal function/addition of new meds that may need adjusting Anticoagulation Anticoagulation: Hgb 9.7 g/dL (11.2-15.7) L 05/19/23 05:48 Hct 28.3 % (36.0-46.0) L 05/19/23 05:48 Plt Count 307 10^3/uL (130-400) 05/19/23 05:48 INR 1.0 (0.9-1.1) 05/19/23 05:48 Creatinine 0.7 mg/dL (0.55-1.02) 05/19/23 05:48 DVT Prophylaxis: Reviewed Medications: Enoxaparin (40 mg daily) Therapeutic Anticoagulation: N/A Opiate Usage Evaluate Pain Scale/Pains Meds: N/A (not on opiates) Relevant Labs Relevant Labs: Sodium 132 mmol/L (136-145) L 05/19/23 05:48 Potassium 3.9 mmol/L (3.5-5.1) 05/19/23 05:48 Chloride 97 mmol/L (98-107) L 05/19/23 05:48 Magnesium 1.5 mg/dL (1.8-2.4) L 05/18/23 11:15 Magnesium Cancelled 05/18/23 11:15 DM Control DM Control: Reviewed (sliding scale insulin w/meals + lantus) Insulin Dosing, Diabetic Medication: insulin aspart 2-18 units with meals (so far has not required any) + lantus 33 units daily Cardiac Review Cardiac Review: Troponin I < 50 ng/L (<or=60) 05/19/23 05:48 NT-Pro-B Natriuret Pep 4577 pg/mL (<300) H 05/18/23 15:53 BP, HR, EF%: Reviewed QTc Review QTc: Not Reviewed (EKG done 05/18, not yet able to view in chart) IV to PO Switch IV Medications: Reviewed (hydralazine q6h prn for elevated BP, appropriate to continue) Home Meds Home Med List reviewed: Reviewed Relevent Home Meds Not ordered & why?: takes nebivolol at home - resident of the [facility] so med is not able to be brought in, hospitalist has ordered metoprolol tartrate 50 mg BID (with prn hydralazine). Travoprost eye drops also not available, therapeutic sub to latanoprost Current Meds Current Medication Order Review: Reviewed
--- NOTE | 2023-05-19 14:51 | INITIAL_ITS ---
Date of service: 05/19/23 Time of Service: 14:51 Care Management Initial Assmt Initial Assessment REASON FOR HOSPITALIZATION:: Altered Mental Status PREVIOUS FUNCTIONAL STATUS/SOCIAL/FAMILY SUPPORTS:: Samia resides at the [facility]. Her son, Fabrizio, lives in [place], and is very supportive. Samia is dependent on the care that she receives at the [facility]. CURRENT FUNCTIONAL STATUS:: Samia was sleeping when CM attempted to meet with her. CM called her son, Fabrizio, and discussed Samia's discharge plan. Per provider, Samia will likely be ready to return to the [facility] tomorrow, after a period of observation. Fabrizio expressed concern about her high blood pressure and her high blood sugar. CM relayed these concerns to the RN CC as well as the provider; they are both being closely monitored. CM contacted the [facility] today, and spoke with Samia's RN, who stated that the [facility] will be able to take Samia back tomorrow, on , if she is medically ready. If Samia is ready to return to the [facility] tomorrow, RN supervisor food checkers and cashiers will coordinate EMS transport, and her RN will call the [facility] to inform them of the discharge and provide RN to RN report. CM will continue to follow. ADVANCE DIRECTIVES:: [facility] on file; Fabrizio listed as [facility]. Has patient been provided with info about the portal/API?: Yes Did the patient sign up for the portal?: No CODE STATUS:: Full Code INSURANCE COVERAGE / FINANCIAL ISSUES:: [facility] MCR replacement CURRENT HOME/COMMUNITY SERVICES/EQUIPMENT:: Samia resides at the [facility], where she receives all necessary care. PRIMARY CARE PHYSICIAN:: Atif Bustillo POTENTIAL DISCHARGE NEEDS:: Coordinated return to the [facility], follow up with facility provider. PATIENT/FAMILY EDUCATION NEEDS:: Review discharge instructions and limitations, discussion of self care needs including ask me three. ANTICIPATED BARRIERS TO DISCHARGE:: None. TRANSPORTATION:: Via EMS PLAN:: Anticipate Samia will return to the [facility] when medically cleared. She will transport via EMS, coordinated by CM vs RN supervisor food checkers and cashiers. She will follow up with facility providers and her discharge plan of care. CM will continue to follow. PFSH All Active Problems (Updated 05/18/23 @ 20:58 by Jonny Crocker MD) Hyponatremia (Acute) Chronic UTI (Acute) Overactive bladder (Acute) Paroxysmal atrial fibrillation (Acute) Dementia (Chronic) Depression (Chronic) Hypertension (Chronic) Rheumatoid arthritis (Chronic) Diabetes (Chronic) Elevated troponin (Acute) Altered mental status (Acute) Non-ST elevation [place] (NSTEMI) (Acute) Elevated troponin I level (Acute) Social History Smoking/Tobacco Use Status: Never Smoking risk assessment performed?: Yes Details: Unable to obtain Housing: senior living
[2023-05-19 15:04] VITALS: BP 118/70; PULSE 55; RESP 17; TEMP 36.5; O2SAT 98
[2023-05-19] MEDS: Insulin Aspart 300 UNITS/3 ML PEN SC (16:48)
[2023-05-19 19:53] VITALS: BP 167/63; PULSE 58; RESP 18; TEMP 36.3; O2SAT 97
--- NOTE | 2023-05-19 21:13 | NUR.NOTE ---
Nursing Note: Pt refused HS medications for this medical underwriter and Sarah Banks, JEY. Patient states the doctor didn't talk to her about the medications so she is not taking them. Offered to have Dr. Emerson come speak to her about medications and patient refused. SMASHER came in to get blood sugar and patient refused intervention at this time as well. Will attempt again later.
[2023-05-20 07:34] VITALS: BP 178/77; PULSE 58; RESP 16; TEMP 36; O2SAT 98
--- NOTE | 2023-05-20 11:21 | DSE_ITS ---
Date of service: 05/20/23 Time of Service: 11:21 DS: Diagnosis Discharge Diagnosis (1) Altered mental status: Status: Acute (2) Elevated troponin: Status: Acute (3) Diabetes: Status: Chronic (4) Rheumatoid arthritis: Status: Chronic (5) Hypertension: Status: Chronic (6) Depression: Status: Chronic (7) Dementia: Status: Chronic (8) Paroxysmal atrial fibrillation: Status: Acute (9) Overactive bladder: Status: Acute (10) Chronic UTI: Status: Acute (11) Hyponatremia: Status: Acute Discharge Plan Disposition Patient Disposition: Swing Bed(Skilled,SB1) Condition: Stable Discharge Details Reason For Visit: Altered Mental Status Admit Date/Time: 05/18/23 20:04 Admit Provider: Jonny Crocker Attending Provider: Jonny Crocker Primary Care Provider: Atif Bustillo Hospital Course Hospital Course: This is an 82-year-old female patient primarily Mauritian-speaking but does speak a bit of Portuguese who presented to the emergency department from the [facility] after reported episode of unresponsiveness. On arrival she was at baseline but noted to be hypertensive with a systolic of over 200. Her workup in the emergency department also did show elevated troponin which peaked at 129 and sodium level of 130. She was observed on med/surg and remained at baseline. Troponin normalized. blood pressure remained elevated at times but directed associated with medication compliance. Blood pressure should be closely monitored and hydralazine can be used as needed if found to be persistently elevated. Echocardiogram not available during hospitalization and can be considered outpatient by primary care team. she is stable, at baseline and ready for discharge back to assisted. discussed with DR Kusum Short Meds and New Rx's Prescriptions: New insulin aspart U-100 100 unit/mL (3 mL) Insulin Pen 0 unit subcut 0700,1200,1700 Qty: 0 0RF hydralazine 25 mg tablet 25 mg PO TID Qty: 1 0RF nebivolol 10 mg tablet 10 mg PO DAILY Qty: 30 0RF Continued sertraline 100 mg Tablet 200 mg PO DAILY prednisone 5 mg Tablet 5 mg PO DAILY travoprost 0.004 % Drops 1 drp ophthalmic (eye) DAILY Rx Instructions: administer in left eye for glaucoma clopidogrel 75 mg Tablet 75 mg PO DAILY quetiapine 100 mg Tablet 100 mg PO BID methotrexate sodium 2.5 mg Tablet 2.5 mg PO QWEEK Rx Instructions: given on saturday pantoprazole 40 mg Tablet,Delayed Release (Dr/Ec) 40 mg PO DAILY docusate sodium 100 mg Capsule 200 mg PO BID folic acid 1 mg Tablet 1 mg PO DAILY mirtazapine 15 mg Tablet,Disintegrating 15 mg PO QHS timolol maleate 0.5 % Drops 1 drp OPHTHALMIC (EYE) DAILY Rx Instructions: administer in left eye for glaucoma magnesium oxide 400 mg magnesium Tablet 400 mg PO BID insulin glargine 100 unit/mL (3 mL) Insulin Pen 33 unit SUBCUT DAILY Myrbetriq 50 mg Tablet Extended Release 24 Hr 50 mg PO DAILY levothyroxine 100 mcg Tablet 112 mcg PO .QHS Qty: 0 0RF lisinopril 30 mg Tablet 30 mg PO DAILY Qty: 0 0RF Discontinued nebivolol 5 mg Tablet 5 mg PO DAILY No Action atorvastatin 40 mg Tablet 40 mg PO DAILY Systane Gel 0.4-0.3 % Drops,Gel 1 drp OPHTHALMIC (EYE) Q4H Rx Instructions: while awake levofloxacin 250 mg tablet 250 mg PO DAILY Qty: 2 0RF furosemide [Lasix] 20 mg Tablet 20 mg PO DAILY Discharge Instructions Instructions: Hypertension and Diabetes (DC) Additional Instructions: check blood pressure daily and adjust medication per outpatient medical team. Some blood pressures in the hospital still remained elevated but patient was not compliant with taking all of her medications as scheduled which accounts for the high readings this should be closely monitored on the outpatient side. continue blood sugar checks 2 times daily and as needed or per outpatient team. It was thought that your elevated troponin was due to high blood pressure on arrival to the ED, further outpatient cardiac work up per primary care provider. Stand Alone Forms: Nursing Discharge Form Referrals: Atif Bustillo [Primary Care Provider] - (Please call Saturday and jonathan an appointment in the next 1-2 weeks ) Activity:: Activity as Tolerated Equipment/Supplies:: No Equipment Needed Diet:: Carb Counting Discharge Orders Discharge Orders: Discharge Order (Routine); Ordered 05/20/23 Ordered By: Marline Deleon DS: Summary Time Spent with Patient providing and/or coordinating discharge services: Greater than 30 minutes Status at Discharge Functional status at discharge: uses cane/walker Overall status at discharge: patient is progressing back to baseline Mental Status: other Speech and Movement: speech and movement normal Mood: congruent mood and other Affect: normal affect Exam Narrative Exam Narrative: Frail elderly woman appearing younger than stated age in no acute distress head is atraumatic EOMs are intact oral mucosa is moist responding with short 1 answer responses that seem appropriate. Neck full range of motion respirations even and unlabored breath sounds are diminished throughout cardiovascular regular rate and rhythm abdomen is benign extremities without edema Psych Mental Status: other Speech and Movement: speech and movement normal Mood: congruent mood and other Affect: normal affect DS: Data Vitals/I&O Vitals and I&O: Vital Signs Temperature 36.0 C L 05/20/23 07:34 Temperature Source Tympanic 05/20/23 07:34 Pulse 58 L 05/20/23 07:34 Pulse Rhythm Irregular 05/20/23 10:14 Pulse 65 05/18/23 20:30 Respiratory Rate 16 05/20/23 07:34 Respiratory Effort Normal 05/20/23 10:14 Respiratory Depth Normal 05/20/23 10:14 Respiratory Pattern Normal 05/20/23 10:14 Blood Pressure 178/77 H 05/20/23 07:34 Blood Pressure Mean 100 05/18/23 20:00 Blood Pressure Position Supine 05/18/23 10:45 Pulse Oximetry 98 05/20/23 07:34 Oxygen Delivery Method Room Air 05/20/23 07:34 Oxygen Flow Rate 0 05/20/23 07:34 Pain Level 3 05/20/23 07:34 Comment pt refused vitals. 05/19/23 23:46 Intake & Output 05/19/23 05/19/23 05/20/23 11:59 23:59 11:59 Intake Total 1100 / 1221.667 121.667 / 1221.667 0 / 0 Output Total 300 / 300 Balance 1100 / 921.667 -178.333 / 921.667 0 / 0 Intake: IV 1000 / 1021.667 21.667 / 1021.667 0 / 0 Oral 100 / 200 100 / 200 Output: Urine 300 / 300 Other: Urine Color Light Felicia Urine Appearance Clear Clear Clear Comment Checked pT and she is dry. Offered bed ceballos and commode to pT after bladder scanning pT. pT has refused both. Stool Size Moderate Stool Characteristics Soft Brown Voiding Methods Diaper Incontinent Data Completed and Pending Labs on day of discharge: Labs from last 24 hours 05/20/23 05:35 WBC Pending RBC Pending Hgb Pending Hct Pending MCV Pending MCH Pending MCHC Pending RDW Pending Plt Count Pending MPV Pending Immature Gran % Pending Neutrophils % Pending Lymphocytes % Pending Monocytes % Pending Eosinophils % Pending Basophils % Pending Absolute Neutrophils Pending Absolute Lymphocytes Pending Absolute Monocytes Pending Absolute Eosinophils Pending Absolute Basophils Pending Sodium Pending Potassium Pending Chloride Pending Carbon Dioxide Pending Anion Gap Pending BUN Pending Creatinine Pending Est GFR (CKD-EPI 2020) Pending Glucose Pending Calcium Pending Magnesium Pending PFSH All Active Problems (Updated 05/18/23 @ 20:58 by Jonny Crocker MD) Hyponatremia (Acute) Chronic UTI (Acute) Overactive bladder (Acute) Paroxysmal atrial fibrillation (Acute) Dementia (Chronic) Depression (Chronic) Hypertension (Chronic) Rheumatoid arthritis (Chronic) Diabetes (Chronic) Elevated troponin (Acute) Altered mental status (Acute) Non-ST elevation NM (NSTEMI) (Acute) Elevated troponin I level (Acute) Social History Smoking/Tobacco Use Status: Never Smoking risk assessment performed?: Yes Details: Unable to obtain Housing: assisted Time Spent with Patient Time Spent with Patient: 45-69 minutes Time was spent: preparing to see the patient(eg.review tests), obtaining and/or reviewing separately otained hiistory, ordering medications,tests, procedures, indepentently interpreting results, counseling the patient (speaking with son) and care coordination
[2023-05-20 11:23] VITALS: BP 195/70; PULSE 58; RESP 16; TEMP 36.5; O2SAT 98
[2023-05-20] MEDS: Docusate Sodium 100 MG CAP 200 MG PO (11:45)
[2023-05-20] MEDS: QUEtiapine 100 MG TAB PO (11:45)
[2023-05-20] MEDS: Mirabegron 50 MG TABCR PO (11:45)
[2023-05-20] MEDS: Folic Acid 1 MG TAB PO (11:45)
[2023-05-20] MEDS: Metoprolol 50 MG TAB PO (11:45)
[2023-05-20] MEDS: predniSONE 5 MG TAB PO (11:45)
--- NOTE | 2023-05-20 12:01 | NUR.NOTE ---
Gave report to Manuela at the [facility][1] for transfer back there. Nursing Note:
[2023-05-20] MEDS: Lisinopril 10 MG TAB 30 MG PO (12:09)
== END 2023-05-20 13:16 | disposition swing bed (61) ==
LOC: ER 20:17 → MS 21:01
PROVIDERS: Physician Assistant; Admitting Provider Student in an Organized Health Care Education/Training Program; Emergency Provider Registered Nurse Emergency; PCP Family Medicine; Visit Provider Student in an Organized Health Care Education/Training Program
DX: R41.82 Altered mental status, unspecified (principal); E87.1 Hypo-osmolality and hyponatremia; D64.9 Anemia, unspecified; R74.8 Abnormal levels of other serum enzymes; E11.9 Type 2 diabetes mellitus without complications; Z79.4 Long term (current) use of insulin; M06.9 Rheumatoid arthritis, unspecified; I10 Essential (primary) hypertension; F32.A Depression, unspecified; F03.90 Unspecified dementia, unspecified severity, without behavioral disturbance, psychotic disturbance, mood disturbance, and anxiety; I48.0 Paroxysmal atrial fibrillation
CPT/HCPCS: 00123; 36415; 36416; 71275; 80048; 80053; 82962; 87637; 93005; 96361; 96365; 96374; 96375; 99285; J1650; 70450; 71045; 74174; 81003; 81015; 83520; 83735; 83880; 84443; 84484; 85025; 85610; 85730; 87086; 93010; 99222; 99233; 99239; G0378; J0360; J0780; J1815; J3475; J3490; J7512; J8610

== ENCOUNTER 2023-05-23 20:06 | Emergency (ER) | payer MEDICARE, MEDICAID, SELFPAY ==
[2023-05-23 20:05] VITALS: PULSE 57; RESP 18; TEMP 36.7; O2SAT 98
--- NOTE | 2023-05-23 20:15 | DI.RAD_ITS ---
Exam(s) XR PELVIS AP EXAM: XR PELVIS AP CLINICAL HISTORY: fall from wheelchair. TECHNIQUE: 2D digital imaging was performed. Single AP view. COMPARISON: No exams were available for comparison FINDINGS: BONES: Exam limited by large amount of overlying stool and bowel gas. No acute fracture is present. No bony destructive lesion is seen. JOINTS: No dislocation present. No joint space narrowing is present. Mild degenerative changes in the hips. Degenerative changes also present in the SI joints. SOFT TISSUE: Vascular calcifications. IMPRESSION: No acute abnormality DATA REPOSITORY: RADIATION DOSE DELIVERED:
--- NOTE | 2023-05-23 20:15 | DI.CT_ITS ---
Exam(s) CT HEAD WO EXAM: CT HEAD WO CLINICAL HISTORY: fall from wheelchair. TECHNIQUE: Imaging Protocol: Axial computed tomography images with coronal and sagittal reformatted images were created and reviewed COMPARISON: CT CT HEAD WO from 05/18/2023 FINDINGS: Ventricles and Extra axial spaces: Unchanged in size. Hemorrhage: None. Cerebral parenchyma: No evidence of acute infarct or mass. Emyr-it-ssfpulgx atrophy. Midline shift: None. Brainstem/Cerebellum: Normal. Calvarium: Normal. Visualized Paranasal sinuses/Mastoids: Clear. Soft Tissues: Mild left periorbital swelling. IMPRESSION: No acute intracranial process. RADIATION DOSE DELIVERED: !Error Total DLP DATA REPOSITORY: All CT scans at this facility are submitted to the National Radiology Data Registry (NRDR) Dose Index Registry (DIR) with the [employer] [place] [employer] (A[employer]). RADIATION OPTIMIZATION: All CT scans at this facility use at least one of these dose optimization te chniques: automated exposure control; mA and/or kV adjustment per patient size (includes targeted exa ms where dose is matched to clinical indication); or iterative reconstruction.
--- NOTE | 2023-05-23 20:15 | DI.RAD_ITS ---
Exam(s) XR SHOULDER RT COMPLETE 2+V EXAM: XR SHOULDER RT COMPLETE 2+V CLINICAL HISTORY: fall from wheelchair. TECHNIQUE: 2D digital imaging was performed. Five views. COMPARISON: CT CT THORAX ABD/PEL CTA from 05/18/2023 CR,XR XR PORTABLE CHEST AP from 05/18/2023 FINDINGS: BONES: No acute fracture is present. No bony destructive lesion is seen. JOINTS: No dislocation present. Mild degenerative changes glenohumeral joint. SOFT TISSUE: Chronic calcification at tip of scapula. IMPRESSION: No acute abnormality. DATA REPOSITORY: RADIATION DOSE DELIVERED:
--- NOTE | 2023-05-23 20:15 | DI.RAD_ITS ---
Exam(s) XR CHEST 1V IN DI DEPT EXAM: XR CHEST 1V IN DI DEPT CLINICAL HISTORY: fall from wheelchair TECHNIQUE: 2D digital imaging was performed. COMPARISON: CR,XR XR PORTABLE CHEST AP from 05/18/2023 FINDINGS: Exam limited by poor pulmonary inflation. LUNGS: Underlying fibrotic changes. No pleural abnormality seen. HEART: Normal size. AORTA: Normal diameter. BONES: Unremarkable for age. Soft tissues: Unremarkable. IMPRESSION: No acute findings. DATA REPOSITORY: RADIATION DOSE DELIVERED:
--- NOTE | 2023-05-23 20:28 | ED.GENADUL_ITS ---
HPI General Stated Complaint: Fall/Non TraumaCriteria MARGARETH: 3 Date/Time Provider Initiated Documentation: 05/23/23 20:09. HPI Narrative: 42-year-old female presents after fall while transferring from wheelchair to chair, complaining of right shoulder pain. No loss of consciousness. However per care staff she may have hit her head. Related Data Home Medications Medication Instructions Recorded Confirmed furosemide 20 mg tablet (Lasix) 20 mg PO DAILY 03/01/22 05/23/23 insulin glargine 100 unit/mL (3 33 unit subcut DAILY 03/01/22 05/18/23 mL) subcutaneous pen mirabegron 50 mg tablet,extended 50 mg PO DAILY 03/01/22 05/23/23 release 24 hr (Myrbetriq) atorvastatin 40 mg tablet 40 mg PO DAILY 11/22/22 05/23/23 clopidogrel 75 mg tablet 75 mg PO DAILY 11/22/22 05/23/23 docusate sodium 100 mg capsule 200 mg PO BID 11/22/22 05/23/23 folic acid 1 mg tablet 1 mg PO DAILY 11/22/22 05/23/23 magnesium oxide 400 mg PO BID 11/22/22 05/23/23 methotrexate sodium 2.5 mg tablet 2.5 mg PO QWEEK 11/22/22 05/23/23 mirtazapine 15 mg disintegrating 15 mg PO QHS 11/22/22 05/23/23 tablet pantoprazole 40 mg tablet,delayed 40 mg PO DAILY 11/22/22 05/23/23 release peg 400-propylene glycol 0.4 %-0.3 1 drp ophthalmic (eye) Q4H 11/22/22 05/23/23 % eye gel drops (Systane Gel) prednisone 5 mg tablet 5 mg PO DAILY 11/22/22 05/23/23 quetiapine 100 mg tablet 100 mg PO BID 11/22/22 05/23/23 sertraline 100 mg tablet 200 mg PO DAILY 11/22/22 05/23/23 timolol maleate 0.5 % eye drops 1 drp ophthalmic (eye) DAILY 11/22/22 05/23/23 travoprost 0.004 % eye drops 1 drp ophthalmic (eye) DAILY 11/22/22 05/23/23 levofloxacin 250 mg tablet 250 mg PO DAILY #2 tabs 01/05/23 05/23/23 hydralazine 25 mg tablet 25 mg PO TID #1 tab 05/20/23 05/23/23 insulin aspart U-100 100 unit/mL 0 unit (0 mL) subcut 05/20/23 05/23/23 (3 mL) subcutaneous pen 0700,1200,1700 #0 mL levothyroxine 100 mcg tablet 112 mcg (1.12 x 100 mcg) PO .QHS 05/20/23 05/23/23 #0 tabs lisinopril 30 mg tablet 30 mg PO DAILY #0 tabs 05/20/23 05/23/23 nebivolol 10 mg tablet 10 mg PO DAILY #30 tabs 05/20/23 05/23/23 Previous Rx's Medication Instructions Recorded levofloxacin 250 mg tablet 250 mg PO DAILY #2 tabs 01/05/23 hydralazine 25 mg tablet 25 mg PO TID #1 tab 05/20/23 insulin aspart U-100 100 unit/mL 0 unit (0 mL) subcut 05/20/23 (3 mL) subcutaneous pen 0700,1200,1700 #0 mL levothyroxine 100 mcg tablet 112 mcg (1.12 x 100 mcg) PO .QHS 05/20/23 #0 tabs lisinopril 30 mg tablet 30 mg PO DAILY #0 tabs 05/20/23 nebivolol 10 mg tablet 10 mg PO DAILY #30 tabs 05/20/23 Allergies Allergy/AdvReac Type Severity Reaction Status Date / Time No Known Allergies Allergy Unverified 05/23/23 20:09 Review of Systems Narrative: Review of Systems Constitutional: negative Eyes: negative ENT: negative Cardiovascular: negative Respiratory: negative Gastrointestinal: negative : negative Musculoskeletal: Shoulder pain Skin: negative Neurologic: negative Psych: negative PFSH All Active Problems (Updated 05/23/23 @ 21:38 by Young Sotelo MD) Fall (Acute) Hyponatremia (Acute) Chronic UTI (Acute) Overactive bladder (Acute) Paroxysmal atrial fibrillation (Acute) Dementia (Chronic) Depression (Chronic) Hypertension (Chronic) Rheumatoid arthritis (Chronic) Diabetes (Chronic) Elevated troponin (Acute) Altered mental status (Acute) Non-ST elevation [place] (NSTEMI) (Acute) Elevated troponin I level (Acute) Social History Smoking/Tobacco Use Status: Never Smoking risk assessment performed?: Yes Alcohol Intake: never Details: Unable to obtain Housing: alf Exam Narrative Exam Narrative: Physical Examination General: alert, awake, cooperative, resting comfortably, no acute distress HEENT: normocephalic, atraumatic; PERRL, EOM intact, conjunctiva normal; no nasal discharge; moist mucous membranes, oral and pharyngeal mucosa normal, tolerating secretions Neck: supple, trachea midline; full ROM Chest: normal to inspection Respiratory: normal respiratory effort, speaking in full sentences Cardiac: regular rate, regular rhythm, S1S2 intact, no murmurs rubs or gallops GI: abdomen soft, non-tender, non-distended; no palpable mass or hepatosplenomegaly Skin: no lesions, rashes or trauma appreciated Neuro: Interactive following commands no deficits Extremities: Pelvis stable, moving all extremities, no deficits, no deformity step-off or crepitus. Warm well-perfused extremities. Course Vital Signs Vital signs: Vital Signs Temperature 36.7 C 05/23/23 20:05 Pulse 57 L 05/23/23 20:05 Respiratory Rate 18 05/23/23 20:05 Pulse Oximetry 98 05/23/23 20:05 Temperature 36.7 C 05/23/23 20:05 Temperature Source Oral 05/23/23 20:05 Pulse 57 L 05/23/23 20:05 Respiratory Rate 18 05/23/23 20:05 Respiratory Effort Normal 05/23/23 20:09 Blood Pressure Position Supine 05/23/23 20:05 Pulse Oximetry 98 05/23/23 20:05 Oxygen Delivery Method Room Air 05/23/23 20:05 Oxygen Flow Rate 0 05/23/23 20:05 Medical Decision Making 2-year-old female presents after fall while transferring from wheelchair to chair, complaining of right shoulder discomfort. Per collateral information she may have hit her head although there was no loss of consciousness. No deformity step-off or crepitus on examination, patient is neurologically intact interactive following commands. Hemodynamically stable. No respiratory symptoms. Pelvis stable. Consider contusion versus proximal humerus fracture versus less likely dislocation. Given patient's age and unclear full mechanism of injury will obtain CT head, screening chest x-ray, x-ray pelvis, x-ray right shoulder. 21: 38 imaging unremarkable. Patient resting comfortably. Quality:[facility] Related Social Needs: No Data to Display Discharge Plan Disposition Patient Disposition: Home Condition: Improving Discharge Details Chief Complaint: Fall/Non TraumaCriteria Clinical Impression: Fall Primary Care Provider: Atif Bustillo ED Provider: Young Sotelo Home Meds and New Rx's Prescriptions: No Action atorvastatin 40 mg Tablet 40 mg PO DAILY sertraline 100 mg Tablet 200 mg PO DAILY prednisone 5 mg Tablet 5 mg PO DAILY travoprost 0.004 % Drops 1 drp ophthalmic (eye) DAILY Rx Instructions: administer in left eye for glaucoma clopidogrel 75 mg Tablet 75 mg PO DAILY quetiapine 100 mg Tablet 100 mg PO BID methotrexate sodium 2.5 mg Tablet 2.5 mg PO QWEEK Rx Instructions: given on saturday pantoprazole 40 mg Tablet,Delayed Release (Dr/Ec) 40 mg PO DAILY docusate sodium 100 mg Capsule 200 mg PO BID folic acid 1 mg Tablet 1 mg PO DAILY mirtazapine 15 mg Tablet,Disintegrating 15 mg PO QHS timolol maleate 0.5 % Drops 1 drp OPHTHALMIC (EYE) DAILY Rx Instructions: administer in left eye for glaucoma Systane Gel 0.4-0.3 % Drops,Gel 1 drp OPHTHALMIC (EYE) Q4H Rx Instructions: while awake magnesium oxide 400 mg magnesium Tablet 400 mg PO BID levofloxacin 250 mg tablet 250 mg PO DAILY Qty: 2 0RF furosemide [Lasix] 20 mg Tablet 20 mg PO DAILY insulin glargine 100 unit/mL (3 mL) Insulin Pen 33 unit SUBCUT DAILY Myrbetriq 50 mg Tablet Extended Release 24 Hr 50 mg PO DAILY insulin aspart U-100 100 unit/mL (3 mL) Insulin Pen 0 unit subcut 0700,1200,1700 Qty: 0 0RF levothyroxine 100 mcg Tablet 112 mcg PO .QHS Qty: 0 0RF hydralazine 25 mg tablet 25 mg PO TID Qty: 1 0RF nebivolol 10 mg tablet 10 mg PO DAILY Qty: 30 0RF lisinopril 30 mg Tablet 30 mg PO DAILY Qty: 0 0RF Discharge Instructions Instructions: Fall Prevention (ED)
[2023-05-23 21:24] VITALS: PULSE 52; RESP 12; O2SAT 97
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
[2023-05-23 21:27] VITALS: BP 178/52; PULSE 52; RESP 18; O2SAT 99
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
[2023-05-23 22:09] VITALS: PULSE 51; RESP 18; O2SAT 98
== END 2023-05-23 22:31 | disposition home or self-care (01) ==
PROVIDERS: Emergency Provider Emergency Medicine; PCP Family Medicine
DX: M25.511 Pain in right shoulder (principal); W05.0XXA Fall from non-moving wheelchair, initial encounter; Y92.129 Unspecified place in nursing home as the place of occurrence of the external cause
CPT/HCPCS: 99284; 70450; 71045; 72170; 73030; 99283

== ENCOUNTER → 2023-06-19 01:09 | Outpatient (CLI) | payer MEDICARE, MEDICAID, SELFPAY ==
--- NOTE | 2023-06-19 14:26 | DI.RAD_ITS ---
Exam(s) XR LUMBAR SPINE COMPLETE EXAM: XR LUMBAR SPINE COMPLETE CLINICAL HISTORY: S/P FALL, NEW ONSET BACK PAIN. TECHNIQUE: 2D digital imaging was performed of the lumbar spine. Seven images were obtained. AP, l ateral, right oblique, left oblique and L5-S1 spot views were obtained. COMPARISON: CT CT THORAX ABD/PEL CTA from 05/18/2023 FINDINGS: BONES: There is new mild compression of the superior endplate of L1 which was not present on the CT s can from 05/18/2023. The remaining vertebral body heights in the lumbar spine are well maintained. The bones are osteopenic. Degenerative facet arthropathy seen in the lower lumbar spine. DISKS: There is disc space narrowing at L4-5 and L5-S1. There is a vacuum disc at L4-L5. ALIGNMENT: Lumbar spinal alignment is within normal limits. No spondylolysis or spondylolisthesis. SOFT TISSUE: Extensive vascular calcification is present. There is a moderate amount of stool in the colon suggesting constipation. IMPRESSION: 1. New mild superior endplate compression of L1 since 05/18/2023. (Less than 10 percent). 2. Multilevel degenerative changes in the lumbar spine. 3. Constipation. DATA REPOSITORY: RADIATION DOSE DELIVERED:
--- NOTE | 2023-06-19 14:26 | DI.RAD_ITS ---
Exam(s) XR THORACIC SPINE COMPLETE EXAM: XR THORACIC SPINE COMPLETE CLINICAL HISTORY: S/P FALL, NEW ONSET BACK PAIN. TECHNIQUE: 2D digital imaging was performed of the thoracic spine. Three views were obtained. AP, swimmer's and lateral views were obtained. COMPARISON: CR,XR XR PORTABLE CHEST AP from 05/18/2023 CR,XR XR CHEST 1V IN DI DEPT from 05/23/2023 FINDINGS: BONES: There is an old T11 compression fracture deformity. The bones are osteopenic. No new ronan itzel fracture is seen. The vertebral bodies and posterior elements are unremarkable. DISKS:Alignment is within normal limits. Degenerative changes are seen throughout the thoracic spine. SOFT TISSUE: Visualized lungs are clear. IMPRESSION: Stable T11 compression fracture deformity. No acute abnormality. DATA REPOSITORY: RADIATION DOSE DELIVERED:
== END ==
PROVIDERS: PCP Family Medicine; Visit Provider Nurse Practitioner Gerontology
DX: S22.089A Unspecified fracture of T11-T12 vertebra, initial encounter for closed fracture (principal); K59.00 Constipation, unspecified; M47.816 Spondylosis without myelopathy or radiculopathy, lumbar region; S32.019A Unspecified fracture of first lumbar vertebra, initial encounter for closed fracture; W19.XXXA Unspecified fall, initial encounter
CPT/HCPCS: 72072; 72110

== ENCOUNTER 2023-08-27 17:58 | Outpatient (REF) | payer MEDICARE, MEDICAID, SELFPAY ==
[2023-08-27 19:17] LABS: ALT 15 U/L (14-59); AST 15 U/L (15-37); Albumin 3.3 g/dL (3.4-5.0); Alkaline Phosphatase 131 U/L (46-116); Anion Gap 9.7 mmol/L (3-11); BUN 17 mg/dL (7-18); Bilirubin, Total 0.3 mg/dL (0.2-1.0); CO2 26.3 mmol/L (21.0-32.0); CREATININE 0.9 mg/dL (0.55-1.02); Calcium 8.6 mg/dL (8.5-10.1); Chloride 92 mmol/L (98-107); Estimated GFR 63.04 (mL/min/1.73m2); Glucose 115 mg/dL (74-106); Hemoglobin A1C 7.2 % (<5.7); Potassium 5.1 mmol/L (3.5-5.1); Sodium 128 mmol/L (136-145); TSH (W/Ref FT4) 13.69 uIU/mL (0.36-3.74); Total Protein 7.2 g/dL (6.4-8.2)
[2023-08-27 19:34] LABS: FREE T4 0.73 ng/dL (0.76-1.46)
== END 2023-08-27 17:59 | disposition home or self-care (01) ==
LOC: LBN 17:58
PROVIDERS: PCP Family Medicine; Visit Provider Nurse Practitioner Gerontology
DX: E11.8 Type 2 diabetes mellitus with unspecified complications (principal); F03.90 Unspecified dementia, unspecified severity, without behavioral disturbance, psychotic disturbance, mood disturbance, and anxiety; G89.4 Chronic pain syndrome; E83.42 Hypomagnesemia
CPT/HCPCS: 80053; 83036; 83735; 84439; 84443

== ENCOUNTER 2023-09-29 20:50 | Emergency (ER) | payer MEDICARE, MEDICAID, SELFPAY ==
[2023-09-29] VITALS (21 sets, daily range): BP systolic 140–211; BP diastolic 45–96; PULSE 61–70; RESP 14; TEMP 36.6; O2SAT 96–100
--- NOTE | 2023-09-29 21:00 | DI.CT_ITS ---
Exam(s) CT HEAD CERVICAL SPINE WO EXAM: CT HEAD CERVICAL SPINE WO CLINICAL HISTORY: fall, on plavix, unreliable. TECHNIQUE: Imaging Protocol: Axial computed tomography images with coronal and sagittal reformatted images were created and reviewed COMPARISON: CT CT HEAD CERVICAL SPINE WO from 11/22/[address] HEAD WO from 01/05/[address] HEAD WO from 05/18/[address] HEAD WO from 05/23/2023 FINDINGS: The examination is limited due to patient motion artifact. CT Head: Ventricles and Extra axial spaces: Normal in size and morphology for the patient's age. Hemorrhage: None. Cerebral parenchyma: There are areas of decreased attenuation in the white matter most consistent wit h chronic microvascular ischemic disease. Midline shift: None. Brainstem/Cerebellum: Normal. Calvarium: Normal. Visualized Paranasal sinuses/Mastoids: Clear. Soft Tissues: Unremarkable. CT Cervical Spine: Bones: No acute fracture or subluxation. There are degenerative changes seen in the cervical spine. There is straightening of the normal cervical lordosis. This may be due to muscle spasm or patient p ositioning. There is stable alignment of the C1-C2 junction compared to the prior examinations. Soft Tissues: Unremarkable. Lung Apices: Clear. IMPRESSION: 1. No acute intracranial process. 2. No acute fracture or subluxation in the cervical spine. RADIATION DOSE DELIVERED: 1,449.53mGy.cm Total DLP DATA REPOSITORY: All CT scans at this facility are submitted to the National Radiology Data Registry (NRDR) Dose Index Registry (DIR) with the [employer] (A[employer]). RADIATION OPTIMIZATION: All CT scans at this facility use at least one of these dose optimization te chniques: automated exposure control; mA and/or kV adjustment per patient size (includes targeted exa ms where dose is matched to clinical indication); or iterative reconstruction.
--- NOTE | 2023-09-29 21:11 | W.ED.GENAD ---
Discharge Plan Discharge Details Chief Complaint: Trauma Primary Care Provider: Atif Bustillo ED Provider: Viral Laura Home Meds and New Rx's Prescriptions: No Action sertraline 100 mg Tablet 100 mg PO DAILY prednisone 5 mg Tablet 5 mg PO DAILY travoprost 0.004 % Drops 1 drp ophthalmic (eye) DAILY Rx Instructions: administer in left eye for glaucoma clopidogrel 75 mg Tablet 75 mg PO DAILY methotrexate sodium 2.5 mg Tablet 2.5 mg PO QWEEK Rx Instructions: given on saturday pantoprazole 40 mg Tablet,Delayed Release (Dr/Ec) 40 mg PO DAILY mirtazapine 15 mg Tablet,Disintegrating 15 mg PO QHS timolol maleate 0.5 % Drops 1 drp OPHTHALMIC (EYE) DAILY Rx Instructions: administer in left eye for glaucoma Systane Gel 0.4-0.3 % Drops,Gel 1 drp OPHTHALMIC (EYE) Q4H Rx Instructions: while awake acetaminophen 500 mg tablet 1,000 mg PO TID PRN bisacodyl [Dulcolax (bisacodyl)] 5 mg tablet,delayed release (DR/EC) 5 mg PO BID nitrofurantoin 50 mg capsule 50 mg PO .qd quetiapine 25 mg tablet 75 mg PO QHS cyclobenzaprine 5 mg tablet 5 mg PO BID levothyroxine 100 mcg Tablet 125 mcg PO .QHS mirabegron [Myrbetriq] 50 mg Tablet Extended Release 24 Hr 50 mg PO DAILY lisinopril 30 mg Tablet 30 mg PO DAILY Qty: 0 0RF HPI General Date/Time Provider Initiated Documentation: 09/29/23 20:56. HPI Narrative: 83 year-old female presents to ED today by EMS with a chief complaint of fall with headstrike on Plavix at the [facility] in [place]- has bruising to face, likely multiple falls over time with onset unknown- most recent one today. Quality described as unable to describe- severe dementia, no radiation to facial droop, fever, tachycardia, abdominal rigidty. Severity is described as unable to quantify. Palliating factors include nothing specific. Provoking factors include nothing specific. Events leading up to the incident/Associated Symptoms: Patient is FULL CODE. Patient not anticoagulated, is on DAPT therapy. Related Data Home Medications Medication Instructions Recorded Confirmed mirabegron 50 mg tablet,extended 50 mg PO DAILY 03/01/22 09/29/23 release 24 hr (Myrbetriq) clopidogrel 75 mg tablet 75 mg PO DAILY 11/22/22 09/29/23 methotrexate sodium 2.5 mg tablet 2.5 mg PO QWEEK 11/22/22 09/29/23 mirtazapine 15 mg disintegrating 15 mg PO QHS 11/22/22 09/29/23 tablet pantoprazole 40 mg tablet,delayed 40 mg PO DAILY 11/22/22 09/29/23 release peg 400-propylene glycol 0.4 %-0.3 1 drp ophthalmic (eye) Q4H 11/22/22 09/29/23 % eye gel drops (Systane Gel) prednisone 5 mg tablet 5 mg PO DAILY 11/22/22 09/29/23 sertraline 100 mg tablet 100 mg PO DAILY 11/22/22 09/29/23 timolol maleate 0.5 % eye drops 1 drp ophthalmic (eye) DAILY 11/22/22 09/29/23 travoprost 0.004 % eye drops 1 drp ophthalmic (eye) DAILY 11/22/22 09/29/23 lisinopril 30 mg tablet 30 mg PO DAILY #0 tabs 05/20/23 09/29/23 acetaminophen 500 mg tablet 1,000 mg PO TID PRN 09/29/23 09/29/23 bisacodyl 5 mg tablet,delayed 5 mg PO BID 09/29/23 09/29/23 release (Dulcolax (bisacodyl)) cyclobenzaprine 5 mg tablet 5 mg PO BID 09/29/23 09/29/23 levothyroxine 100 mcg tablet 125 mcg PO .QHS 09/29/23 09/29/23 nitrofurantoin 50 mg capsule 50 mg PO .qd 09/29/23 09/29/23 quetiapine 25 mg tablet 75 mg PO QHS 09/29/23 09/29/23 Previous Rx's Medication Instructions Recorded lisinopril 30 mg tablet 30 mg PO DAILY #0 tabs 05/20/23 Allergies Allergy/AdvReac Type Severity Reaction Status Date / Time No Known Allergies Allergy Unverified 05/23/23 20:09 General Stated Complaint: Trauma MARGARETH: 3 Review of Systems All systems reviewed & are unremarkable except as noted in HPI and below Exam Narrative Exam Narrative: GENERAL APPEARANCE: Well-nourished, non-toxic, awake and alert, atraumatic, no acute distress. SKIN: Warm, pink, dry, irregular 3cm wound above the R eye, smaller dried scalp abrasion posterior scalp HEAD: Normocephalic, no Walter's sign, no large scalp hematomas, +periorbital ecchymosis bilaterally, normal hair distribution for gender/age. EYES: Pupils PERRLA, EOMs intact without nystagmus, normal conjunctiva, no exudates on lids/lashes- has likely chronic change to L cornea, rough appearance, no globe rupture ENT: Nares patent, no circumoral cyanosis, able to range jaw NECK: Supple, trachea midline, painless cervical ROM, no midline vertebral crepitus/step-offs. LUNGS/CHEST: Lungs CTA bilaterally- no rhonchi/rales/wheezes diffusely, non-labored respirations, normal A/P diameter, symmetrical expansion, no chest wall deformity, no flail segment, no paradoxical motion HEART (CV/PV): Regular rate and rhythm without murmur, no peripheral edema, no JVD. ABDOMEN: Soft, non-distended, no guarding, no tenderness, no ecchymosis. MSK: Normal ROM, no swelling/deformity to bilateral UEs or LEs, moving all extremities without weakness, no cyanosis, spine midline without tenderness, normal curvature. NEURO: Mental Status severe dementia, knows name- no other events/dates/places No facial droop, no forehead involvement. Motor: No focal weakness - strength 5/5 in bilateral UEs and LEs, proximal and distal, symmetric. Sensory: sensation intact to light touch globally. Gait NT. PSYCH: euthymic, cooperative, pleasant, appropriate speech Course Vital Signs Vital signs: Vital Signs Temperature 36.6 C 09/29/23 20:49 Pulse 62 09/29/23 20:49 Respiratory Rate 14 09/29/23 20:49 Blood Pressure 208/80 H 09/29/23 20:49 Pulse Oximetry 100 09/29/23 20:49 Temperature 36.6 C 09/29/23 20:49 Temperature Source Oral 09/29/23 20:49 Pulse 62 09/29/23 20:49 Respiratory Rate 14 09/29/23 20:49 Blood Pressure 208/80 H 09/29/23 20:49 Blood Pressure Position Supine 09/29/23 20:49 Pulse Oximetry 100 09/29/23 20:49 Oxygen Delivery Method Room Air 09/29/23 20:49 Oxygen Flow Rate 0 09/29/23 20:49 Procedures Laceration Laceration 1: Site: face Side (If applicable): right Size (cm): 3 Description: irregular and clean Local Anesthetic: Lidocaine 1% Amount of anesthesia used (mL): 4 Pre-repair: wound explored, irrigated extensively and deep structures intact Skin layer closed with: nylon Size (cm): 6-0 Number of sutures: 4 Technique: simple, interrupted Medical Decision Making This dictation utilizes [id number] dictation software and may contain unedited grammatical errors. 83 y/o F presents to ED today with a chief complaint of multiple falls at SNF, severe dementia- impossible historian- staff state no LOC- patient is acting her baseline, suffered a R eyebrow laceration but appears to have various bruises from prior falls to face. Patients' medical history: Hyponatremia, atrial fibrillation, dementia, hypertension, history of [place], diabetes. Family and social history: lives at SNF, cannot provide other history. Pertinent exam findings / vital signs include 3 cm laceration above right eye, periorbital ecchymosis, no vertebral tenderness, no tenderness to palpation of the thorax or abdomen, no apparent pain response to hip palpation. HTN too 208/80 on arrival- rechecking by manual Differential / pathologies of concern include intracranial hemorrhage, concussion, debility, laceration, electrolyte derangement, cardiac cause of fall. Diagnostic studies of: -CBC, CMP, Serial Trop I, BNP, UA, Magnesium, TSH, Lactate, CRP/ESR, VBG, Lipase, EKG, CT Head and C-spine wo Contrast, Portable CXR -CBC shows no leukocytosis, baseline anemia -CRP mildly elevated at 1.75, ESR mildly elevated at 46 -Lactate 1.6, do not suspect sepsis -Magnesium mildly low at 1.6 will replete -BNP slightly elevated at 720 -Initial troponin negative, rpt trop pending 0015 -Lipase within normal limits -EKG shows sinus rhythm with low voltage, P waves followed by narrow complex QRS with normal axis, no ST changes of ischemia, normal QT QTc -CT Head & C-Spine show no ICH by my read, signed out with official read pending Interventions of: -Suture repair of laceration #4 sutures 6-0 ethilon. -Consulted with Hospitalist Dr. Emerson prior to shift change, chronic issues no likely admisison warranted for hyponatremia of 128. ED Course/Assessment/Plan: 83-year-old female sent from the [facility] for fall with head strike, had a laceration that was repaired by myself with 4 sutures of 6-0 Ethilon. Her EKG shows sinus rhythm, her initial troponin is negative repeat is pending at time of signout, she has mild low magnesium which I repleted, markers of sepsis not elevated no leukocytosis, baseline anemia, chronic hyponatremia. No likely admittable diagnosis per consult with hospitalist, patient signed out to oncoming provider Dr. Arias at shift change. Findings not consistent with intracranial hemorrhage, alteration from baseline, severe electrolyte abnormality, trauma criteria. Disposition of Multiple Falls, Facial Laceration. Patient verbalized understanding of the plan and return to ED criteria and engaged in shared decision making. Medical Records Medical records reviewed: Yes I reviewed the patient's medical records. Imaging Data Radiologic Study: Attestation: I personally reviewed and interpreted this imaging study as follows: Imaging: CT Scan My impression: No ICH Radiologic Study #2: Imaging: X-Ray My impression: Pending at sign-out Lab Data Lab results reviewed: Yes I reviewed the patient's lab results. Labs: Laboratory Tests Range/Units 09/29/23 21:15 WBC (4.4-10.8) 10^3/uL 8.03 RBC (3.93-5.22) 10^6/uL 3.53 L Hgb (11.2-15.7) g/dL 10.8 L Hct (36.0-46.0) % 31.4 L MCV (80-95) fL 89 MCH (27.0-33.0) pg 30.6 MCHC (32.0-36.0) % 34.4 RDW (11.7-14.6) % 13.9 Plt Count (130-400) 10^3/uL 375 MPV (8.0-11.0) fL Immature Gran % % 1.0 Neutrophils % % 67.4 Lymphocytes % % 17.1 Monocytes % % 9.7 Eosinophils % % 4.2 Basophils % % 0.6 Nucleated RBC % (0.0-0.3) % 0.0 Absolute Neutrophils (1.2-6.7) 10^3/uL 5.41 Absolute Lymphocytes (1.2-3.4) 10^3/uL 1.37 Absolute Monocytes (0.1-0.8) 10^3/uL 0.78 Absolute Eosinophils (0.0-0.7) 10^3/uL 0.34 Absolute Basophils (0.0-0.2) 10^3/uL 0.05 ESR (0-30) mm/hr 46 H VBG pH (7.31-7.41) 7.40 VBG pCO2 (41-51) mmHg 47 VBG pO2 mmHg 42 VBG HCO3 (23-28) mmol/L 29 H VBG Total CO2 (24-29) mmol/L 27 VBG O2 Saturation % 76 VBG Base Excess (-2-3) mmol/L 4 H VBG Lactate (0.6-1.4) mmol/L 1.6 H Sodium (136-145) mmol/L 128 L Potassium (3.5-5.1) mmol/L 4.4 Chloride (98-107) mmol/L 91 L Carbon Dioxide (21.0-32.0) mmol/L 28.5 Anion Gap (3-11) mmol/L 8.5 BUN (7-18) mg/dL 11 Creatinine (0.55-1.02) mg/dL 0.9 Est GFR (CKD-EPI 2020) (mL/min/1.73m2) 63.04 Glucose (74-106) mg/dL 139 H Calcium (8.5-10.1) mg/dL 9.1 Magnesium (1.8-2.4) mg/dL 1.6 L Total Bilirubin (0.2-1.0) mg/dL 0.4 AST (15-37) U/L 17 ALT (14-59) U/L 17 Alkaline Phosphatase (46-116) U/L 115 Troponin I (< or =60) ng/L < 50 C-Reactive Protein (<or=0.5) mg/dL 1.75 H NT-Pro-B Natriuret Pep (<300) pg/mL 720 H Total Protein (6.4-8.2) g/dL 8.0 Albumin (3.4-5.0) g/dL 3.3 L Lipase (16-77) U/L 20 Quality:SDOH Health Related Social Needs: No Data to Display PFSH All Active Problems (Updated 06/23/23 @ 00:03 by GABRIEL LEE) Hyponatremia (Acute) Chronic UTI (Acute) Overactive bladder (Acute) Paroxysmal atrial fibrillation (Acute) Dementia (Chronic) Depression (Chronic) Hypertension (Chronic) Rheumatoid arthritis (Chronic) Diabetes (Chronic) Elevated troponin (Acute) Altered mental status (Acute) Non-ST elevation [place] (NSTEMI) (Acute) Elevated troponin I level (Acute) Social History Smoking/Tobacco Use Status: Never Smoking risk assessment performed?: Yes Alcohol Intake: never Details: Unable to obtain [facility] Sign Out Sign Out Data: Sign Out Comment: 83-year-old female suffered a fall with head strike while at SNF, has some bruising to the face, had a laceration above the right eyebrow that was repaired by suture, CT of the head and C-spine showed no intracranial hemorrhage, patient has no pain response to other palpation diffusely. Has chronic hyponatremia, low magnesium that was repleted, mildly elevated BNP, EKG shows sinus rhythm, initial troponin negative. Consulted with hospitalist Dr. Emerson who does not see a reason for admission at this time. Patient signed out to oncoming provider Dr. Arias at shift change with repeat troponin pending for 12:15 AM Last updated by Viral Laura PA at 09/29/23 23:05
[2023-09-29 21:29] LABS: BE (Venous) 4 mmol/L (-2-3); HCO3 (Venous) 29 mmol/L (23-28); O2 Sat (Venous) 76 %; TCO2 (Venous) 27 mmol/L (24-29); pCO2 (Venous) 47 mmHg (41-51); pO2 (Venous) 42 mmHg
[2023-09-29 21:31] LABS: Lactate 1.6 mmol/L (0.6-1.4)
[2023-09-29 21:34] LABS: Abs Immature Grans 0.08 10^3/uL (0.0-0.06); Absolute Basophil Count 0.05 10^3/uL (0.0-0.2); Absolute Eosinophil Count 0.34 10^3/uL (0.0-0.7); Absolute Lymphocyte Count 1.37 10^3/uL (1.2-3.4); Absolute Monocyte Count 0.78 10^3/uL (0.1-0.8); Absolute Neutrophil Count 5.41 10^3/uL (1.2-6.7); Basophils % 0.6 %; Eosinophils % 4.2 %; HCT 31.4 % (36.0-46.0); HGB 10.8 g/dL (11.2-15.7); Lymphocytes % 17.1 %; MCH 30.6 pg (27.0-33.0); MCHC 34.4 % (32.0-36.0); MCV 89 fL (80-95); Monocytes % 9.7 %; Neutrophils % 67.4 %; RBC 3.53 10^6/uL (3.93-5.22); RDW 13.9 % (11.7-14.6); RDW-SD 44.8 fL; WBC 8.03 10^3/uL (4.4-10.8)
[2023-09-29 21:36] LABS: ESR 46 mm/hr (0-30)
[2023-09-29 21:54] LABS: Platelet Count 375 10^3/uL (130-400)
[2023-09-29] MEDS: Lidocaine/Epinephri/Tetracaine Topical Gel 3 ML TP (21:57)
[2023-09-29 22:02] LABS: ALT 17 U/L (14-59); AST 17 U/L (15-37); Albumin 3.3 g/dL (3.4-5.0); Alkaline Phosphatase 115 U/L (46-116); Anion Gap 8.5 mmol/L (3-11); BUN 11 mg/dL (7-18); Bilirubin, Total 0.4 mg/dL (0.2-1.0); C-Reactive Protein 1.75 mg/dL (<or=0.5); CO2 28.5 mmol/L (21.0-32.0); CREATININE 0.9 mg/dL (0.55-1.02); Calcium 9.1 mg/dL (8.5-10.1); Chloride 91 mmol/L (98-107); Estimated GFR 63.04 (mL/min/1.73m2); Glucose 139 mg/dL (74-106); Lipase 20 U/L (16-77); Magnesium 1.6 mg/dL (1.8-2.4); NT-proBNP 720 pg/mL (<300); Potassium 4.4 mmol/L (3.5-5.1); Sodium 128 mmol/L (136-145); Troponin I < 50 ng/L (< or =60)
--- NOTE | 2023-09-29 22:30 | RT.EKG_ITS ---
APPROVED REPORT Exam: Resting ECG Reason for Exam: fall Patient Location: E HR:62 bpm ECG Measurements Heart Rate 62 AXIS NE 184 P 53 QRSd 83 QRS 22 QT 433 T 38 QTc 441 Conclusion Sinus rhythm...normal P axis, V-rate 60- 99 Low voltage, extremity leads...all extremity leads <0.5mV Physician: no stemi
--- NOTE | 2023-09-29 22:30 | DI.RAD_ITS ---
Exam(s) XR PORTABLE CHEST AP EXAM: XR PORTABLE CHEST AP CLINICAL HISTORY: elevated BNP TECHNIQUE: 2D digital imaging was performed of the chest. One image was obtained. An AP view was ob tained. COMPARISON: CR,XR XR PORTABLE CHEST AP from 05/18/2023 FINDINGS: There is poor inspiration. This does result in crowding of the pulmonary vasculature. MEDIASTINUM: Normal. HEART: Normal. PULMONARY VASCULATURE: Normal. LUNGS: No focal consolidating infiltrates are seen. PLEURAL SPACE: No pleural effusion or pneumothorax. BONE:Within normal limits for the patient's age. OTHER FINDINGS:Normal. IMPRESSION: Within the limits of the examination, no acute pulmonary process is seen. DATA REPOSITORY: RADIATION DOSE DELIVERED:
[2023-09-29] MEDS: MAGNESIUM SULFATE 2 GM/50 ML BAG IVINF (23:08)
--- NOTE | 2023-09-29 23:09 | NUR.NOTE ---
Dressed wound over right eye with telfa and paper tape, FPJ
--- NOTE | 2023-09-29 23:17 | DI.VRAD_ITS ---
PROCEDURE INFORMATION: Exam: CT Head Without Contrast Exam date and time: 09/29/2023 9:46 PM Age: 83 years old Clinical indication: Other: Fall, on plavix, unreliable TECHNIQUE: Imaging protocol: Computed tomography of the head without contrast. COMPARISON: CT HEAD WO 05/23/2023 8:56 PM FINDINGS: Brain: There is stable significant generalized cerebral atrophy. No intracranial mass, hemorrhage or evidence of acute ischemia. Cerebral ventricles: No ventriculomegaly. Paranasal sinuses: Visualized sinuses are unremarkable. No fluid levels. Mastoid air cells: Visualized mastoid air cells are well aerated. Bones: Unremarkable. No acute fracture. Soft tissues: Mild right frontal scalp swelling. IMPRESSION: No acute intracranial abnormality PROCEDURE INFORMATION: Exam: CT Cervical Spine Without Contrast Exam date and time: 09/29/2023 9:46 PM Age: 83 years old Clinical indication: Other: Fall, on plavix, unreliable TECHNIQUE: Imaging protocol: Computed tomography of the cervical spine without contrast. COMPARISON: CT HEAD WO 05/23/2023 8:56 PM FINDINGS: Bones: There is stable anterolisthesis of C1. Osseous alignment is otherwise normal. Multilevel degenerative disc changes noted, most severe at C3-C4, C4-C5 and C5-C6. No acute fracture. Lungs: Lung apices are normal. Soft tissues: Unremarkable. IMPRESSION: No acute fracture. Stable anterolisthesis of C1 and multilevel degenerative changes noted. Dictated and Authenticated by: Lawrence Cobian MD. Ordering:RON Stratton MD
--- NOTE | 2023-09-29 23:30 | W.EDPROG ---
Date of service: 09/29/23 Time of Service: 23:30 Medical Decision Making Patient was signed out to me pending reassessment and CT imaging results. CT scan of the head neck is negative for acute process. Chest x-ray negative for acute process. Patient remains stable and at baseline. On reassessment she is actively swearing at nursing staff, and demanding to be discharged. Sutures are in place. Repeat electrolytes were ordered and patient's sodium has improved after 500 cc fluid bolus. Sodium currently 130. She does have chronic hyponatremia. Patient otherwise stable. No signs of acute life-threatening etiology at this time. Patient will be discharged back to the [facility]. I have extensively reviewed the treatment plan and discharge instructions with the patient. I have addressed all patient concerns at this time. The patient was made aware of what symptoms to monitor for that would warrant a return to the emergency department. Discussed the plan with the patient, they demonstrate verbal understanding and agreement with our assessment and plan at this time. The documentation in this chart was dictated using [employer] dictation software. Please excuse any dictation errors. FINDINGS: Lungs: Lung volumes are low with crowding of the pulmonary vasculature. No acute pulmonary consolidation. Pleural spaces: Unremarkable. No pleural effusion. No pneumothorax. Heart/Mediastinum: Unremarkable. No cardiomegaly. Bones/joints: Mild degenerative changes of the spine and shoulders. No acute fracture. IMPRESSION: No acute interval change Thank you for allowing us to participate in the care of your patient. Dictated and Authenticated by: Lawrence Cobian MD 09/30/2023 12:38 AM Eastern Time ([place] & [place]) FINDINGS: Brain: There is stable significant generalized cerebral atrophy. No intracranial mass, hemorrhage or evidence of acute ischemia. Cerebral ventricles: No ventriculomegaly. Paranasal sinuses: Visualized sinuses are unremarkable. No fluid levels. Mastoid air cells: Visualized mastoid air cells are well aerated. Bones: Unremarkable. No acute fracture. Soft tissues: Mild right frontal scalp swelling. IMPRESSION: No acute intracranial abnormality PROCEDURE INFORMATION: Exam: CT Cervical Spine Without Contrast Exam date and time: 09/29/2023 9:46 PM Age: 83 years old Clinical indication: Other: Fall, on plavix, unreliable Imaging protocol: Computed tomography of the cervical spine without contrast. COMPARISON: CT HEAD WO 05/23/2023 8:56 PM FINDINGS: Bones: There is stable anterolisthesis of C1. Osseous alignment is otherwise normal. Multilevel degenerative disc changes noted, most severe at C3-C4, C4-C5 and C5-C6. No acute fracture. Lungs: Lung apices are normal. Soft tissues: Unremarkable. IMPRESSION: No acute fracture. Stable anterolisthesis of C1 and multilevel degenerative changes noted. Thank you for allowing us to participate in the care of your patient. Dictated and Authenticated by: Lawrence Cobian MD 09/29/2023 11:17 PM Eastern Time ([place] & [place]) Quality:[facility] Health Related Social Needs: No Data to Display Sign Out Sign Out Data: Sign Out Comment: 83-year-old female suffered a fall with head strike while at SNF, has some bruising to the face, had a laceration above the right eyebrow that was repaired by suture, CT of the head and C-spine showed no intracranial hemorrhage, patient has no pain response to other palpation diffusely. Has chronic hyponatremia, low magnesium that was repleted, mildly elevated BNP, EKG shows sinus rhythm, initial troponin negative. Consulted with hospitalist Dr. Emerson who does not see a reason for admission at this time. Patient signed out to oncoming provider Dr. Arias at shift change with repeat troponin pending for 12:15 AM Last updated by Viral Laura PA at 09/29/23 23:05 Discharge Plan Disposition Patient Disposition: Home Condition: Good Discharge Details Chief Complaint: Trauma Clinical Impression: Acute UTI, Fall, Laceration of scalp, Chronic hyponatremia Primary Care Provider: Atif Bustillo ED Provider: Viral Arias Home Meds and New Rx's Prescriptions: No Action sertraline 100 mg Tablet 100 mg PO DAILY prednisone 5 mg Tablet 5 mg PO DAILY travoprost 0.004 % Drops 1 drp ophthalmic (eye) DAILY Rx Instructions: administer in left eye for glaucoma clopidogrel 75 mg Tablet 75 mg PO DAILY methotrexate sodium 2.5 mg Tablet 2.5 mg PO QWEEK Rx Instructions: given on saturday pantoprazole 40 mg Tablet,Delayed Release (Dr/Ec) 40 mg PO DAILY mirtazapine 15 mg Tablet,Disintegrating 15 mg PO QHS timolol maleate 0.5 % Drops 1 drp OPHTHALMIC (EYE) DAILY Rx Instructions: administer in left eye for glaucoma Systane Gel 0.4-0.3 % Drops,Gel 1 drp OPHTHALMIC (EYE) Q4H Rx Instructions: while awake acetaminophen 500 mg tablet 1,000 mg PO TID PRN bisacodyl [Dulcolax (bisacodyl)] 5 mg tablet,delayed release (DR/EC) 5 mg PO BID nitrofurantoin 50 mg capsule 50 mg PO .qd quetiapine 25 mg tablet 75 mg PO QHS cyclobenzaprine 5 mg tablet 5 mg PO BID levothyroxine 100 mcg Tablet 125 mcg PO .QHS mirabegron [Myrbetriq] 50 mg Tablet Extended Release 24 Hr 50 mg PO DAILY lisinopril 30 mg Tablet 30 mg PO DAILY Qty: 0 0RF Discharge Instructions Instructions: Care For Your Stitches (ED) Additional Instructions: You did have a mild urinary tract infection. You have been given the single dose treatment of fosfomycin for this. Please have your sutures removed in the next 7 to 10 days. Please keep the area clean and dry. Monitor closely for any redness, drainage or discharge. For nonabsorbable sutures, please return in 7 to 10 days to have the wound reassessed and the sutures removed. If you come back to the emergency department here it will be free of charge for the suture removal. For long-term scar cosmesis, please make sure to avoid any sun to the area for the next year. Apply moisturizer or vitamin E to the area twice daily for the next 12 months for the best chance of wound/scar medication. Please take a daily multivitamin as well as this can help in wound healing. If you notice any worsening of your symptoms, or any new symptoms such as vomiting, diarrhea, fever, chills, shortness of breath, chest pain, numbness, weakness, or fainting , please return immediately to the emergency department for reevaluation. Please follow up with your primary care provider as soon as possible for reassessment and reevaluation. As always, it was a pleasure participating in your medical care today. Referrals: Atif Bustillo [Primary Care Provider] -
[2023-09-29] MEDS: Normal Saline 500 ML IV (23:37)
[2023-09-30] VITALS (20 sets, daily range): BP systolic 167–193; BP diastolic 41–150; PULSE 61–129; RESP 16; O2SAT 97–100
--- NOTE | 2023-09-30 00:40 | DI.VRAD_ITS ---
PROCEDURE INFORMATION: Exam: XR Chest Exam date and time: 09/29/2023 11:03 PM Age: 83 years old Clinical indication: Other: Elevated bnp TECHNIQUE: Imaging protocol: Radiologic exam of the chest. Views: 1 view. COMPARISON: CR XR CHEST 1V IN DI DEPT 05/23/2023 9:13 PM FINDINGS: Lungs: Lung volumes are low with crowding of the pulmonary vasculature. No acute pulmonary consolidation. Pleural spaces: Unremarkable. No pleural effusion. No pneumothorax. Heart/Mediastinum: Unremarkable. No cardiomegaly. Bones/joints: Mild degenerative changes of the spine and shoulders. No acute fracture. IMPRESSION: No acute interval change Dictated and Authenticated by: Lawrence Cobian MD. Ordering:RON Stratton MD
[2023-09-30 00:42] LABS: Troponin I < 50 ng/L (< or =60)
[2023-09-30 01:01] LABS: Bilirubin Negative (Negative); Blood Negative (Negative); Clarity Clear (Clear); Glucose Negative (Negative); Ketones Negative (Negative); Leukocyte Esterase Small (Negative); Nitrite Negative (Negative); Specific Gravity 1.015 (1.005-1.025)
[2023-09-30 01:10] LABS: Bacteria Few HPF (Negative); C & S Indicated? Yes; Crystals Negative HPF (Negative); Epithelial Cells Rare HPF (Negative); Mucus Negative (Negative); Other Cells Rare Transitional (Negative); RBC 0-2 HPF (0-2)
[2023-09-30] MEDS: Fosfomycin Tromethamine 3 GM PACKET PO (01:19)
[2023-09-30 01:25] LABS: Anion Gap 7.1 mmol/L (3-11); BUN 11 mg/dL (7-18); CO2 27.9 mmol/L (21.0-32.0); CREATININE 0.7 mg/dL (0.55-1.02); Calcium 8.8 mg/dL (8.5-10.1); Chloride 95 mmol/L (98-107); Estimated GFR 85.23 (mL/min/1.73m2); Glucose 135 mg/dL (74-106); Potassium 4.2 mmol/L (3.5-5.1); Sodium 130 mmol/L (136-145)
== END 2023-09-30 02:27 | disposition home or self-care (01) ==
PROVIDERS: Physician Assistant; Emergency Provider Student in an Organized Health Care Education/Training Program; PCP Family Medicine
DX: S00.01XA Abrasion of scalp, initial encounter (principal); S01.111A Laceration without foreign body of right eyelid and periocular area, initial encounter; S00.11XA Contusion of right eyelid and periocular area, initial encounter; S00.12XA Contusion of left eyelid and periocular area, initial encounter; E87.1 Hypo-osmolality and hyponatremia; N39.0 Urinary tract infection, site not specified; I48.0 Paroxysmal atrial fibrillation; I10 Essential (primary) hypertension; I25.2 Old myocardial infarction; E11.9 Type 2 diabetes mellitus without complications; F03.C0 Unspecified dementia, severe, without behavioral disturbance, psychotic disturbance, mood disturbance, and anxiety; W01.198A Fall on same level from slipping, tripping and stumbling with subsequent striking against other object, initial encounter; Y93.89 Activity, other specified; Y92.098 Other place in other non-institutional residence as the place of occurrence of the external cause; Z79.01 Long term (current) use of anticoagulants; Z79.899 Other long term (current) drug therapy
CPT/HCPCS: 00123; 12013; 80048; 80053; 82805; 83690; 85652; 93005; 96365; 96366; 99285; 70450; 71045; 72125; 81003; 81015; 83605; 83735; 83880; 84484; 85025; 86140; 87086; 93010; 99284; J3475; J3490

== ENCOUNTER 2023-10-29 13:18 | Inpatient (IN) | payer MEDICARE, MEDICAID, SELFPAY ==
[2023-10-29] VITALS (133 sets, daily range): BP systolic 49–216; BP diastolic 15–152; PULSE 0–93; RESP 11–33; TEMP 36.6; O2SAT 89–100
--- NOTE | 2023-10-29 13:15 | RT.EKG_ITS ---
APPROVED REPORT Exam: Resting ECG Reason for Exam: unresponsive Patient Location: E HR:59 bpm ECG Measurements Heart Rate 59 AXIS NJ 182 P 76 QRSd 82 QRS 30 QT 472 T 75 QTc 467 Conclusion Sinus bradycardia...rate< 60 Low voltage, precordial leads...precordial leads <1.0mV sinus bradycardua, normal xis, normal intervals, non ishcmeic
--- NOTE | 2023-10-29 13:15 | DI.CT_ITS ---
Exam(s) CT HEAD WO EXAM: CT HEAD WO CLINICAL HISTORY: ams. TECHNIQUE: Imaging Protocol: Axial computed tomography images with coronal and sagittal reformatted images were created and reviewed COMPARISON: CT CT HEAD WO from 05/23/[address] HEAD CERVICAL SPINE WO from 09/29/2023 FINDINGS: The examination is limited due to patient motion artifact. Ventricles and Extra axial spaces: Normal in size and morphology for the patient's age. Hemorrhage: None. Cerebral parenchyma: There are areas of decreased attenuation in the white matter consistent with chr onic microvascular ischemic disease. Midline shift: None. Brainstem/Cerebellum: Normal. Calvarium: Normal. Visualized Paranasal sinuses/Mastoids: Clear. Soft Tissues: Unremarkable. IMPRESSION: 1. There is patient motion artifact. 2. No acute intracranial process. RADIATION DOSE DELIVERED: 721.81mGy.cm Total DLP DATA REPOSITORY: All CT scans at this facility are submitted to the National Radiology Data Registry (NRDR) Dose Index Registry (DIR) with the [employer] (ACR). RADIATION OPTIMIZATION: All CT scans at this facility use at least one of these dose optimization te chniques: automated exposure control; mA and/or kV adjustment per patient size (includes targeted exa ms where dose is matched to clinical indication); or iterative reconstruction.
[2023-10-29] MEDS: Norepinephrine in D5W 8 MG/250 ML BAG 9.375 MG IV (13:20)
--- NOTE | 2023-10-29 13:31 | W.ED.GENAD ---
Discharge Plan Disposition Patient Disposition: Admit to [facility] Condition: Stable Discharge Details Chief Complaint: AMS/LOC Clinical Impression: Acute hypotension, Altered mental status Primary Care Provider: Atif Bustillo ED Provider: Young Sotelo Home Meds and New Rx's Prescriptions: No Action sertraline 100 mg Tablet 100 mg PO DAILY prednisone 5 mg Tablet 5 mg PO DAILY travoprost 0.004 % Drops 1 drp ophthalmic (eye) DAILY Rx Instructions: administer in left eye for glaucoma clopidogrel 75 mg Tablet 75 mg PO DAILY methotrexate sodium 2.5 mg Tablet 2.5 mg PO QWEEK Rx Instructions: given on saturday pantoprazole 40 mg Tablet,Delayed Release (Dr/Ec) 40 mg PO DAILY mirtazapine 15 mg Tablet,Disintegrating 15 mg PO QHS timolol maleate 0.5 % Drops 1 drp OPHTHALMIC (EYE) DAILY Rx Instructions: administer in left eye for glaucoma Systane Gel 0.4-0.3 % Drops,Gel 1 drp OPHTHALMIC (EYE) Q4H Rx Instructions: while awake acetaminophen 500 mg tablet 1,000 mg PO TID PRN bisacodyl [Dulcolax (bisacodyl)] 5 mg tablet,delayed release (DR/EC) 5 mg PO BID nitrofurantoin 50 mg capsule 50 mg PO .qd quetiapine 25 mg tablet 75 mg PO QHS cyclobenzaprine 5 mg tablet 5 mg PO BID levothyroxine 100 mcg Tablet 125 mcg PO .QHS mirabegron [Myrbetriq] 50 mg Tablet Extended Release 24 Hr 50 mg PO DAILY lisinopril 30 mg Tablet 30 mg PO DAILY Qty: 0 0RF Trulicity 0.75 mg/0.5 mL pen injector 0.75 mg subcut QWEEK clonidine [Fjkuwoxb-HPN-0] 0.1 mg/24 hr patch weekly 1 patch transdermal QWEEK insulin lispro 100 unit/mL solution Patient Comments: Inject 3 unit subcutaneously single dose nebivolol [Bystolic] 10 mg tablet 10 mg PO DAILY folic acid 1 mg tablet 1 mg PO DAILY HPI General Date/Time Provider Initiated Documentation: 10/29/23 13:21. HPI Narrative: 83-year-old female brought in by EMS from the [facility] for evaluation of altered mental status was found less responsive by staff around 11 AM found to be bradycardic and hypotensive by EMS as low as 40/23 with a heart rate in the 50s, patient was given 2 doses of push dose epinephrine with BPs improving to the low 100s and heart rate in the 60s, patient minimally responsive on arrival Related Data Home Medications Medication Instructions Recorded Confirmed mirabegron 50 mg tablet,extended 50 mg PO DAILY 03/01/22 10/29/23 release 24 hr (Myrbetriq) clopidogrel 75 mg tablet 75 mg PO DAILY 11/22/22 10/29/23 methotrexate sodium 2.5 mg tablet 2.5 mg PO QWEEK 11/22/22 10/29/23 mirtazapine 15 mg disintegrating 15 mg PO QHS 11/22/22 10/29/23 tablet pantoprazole 40 mg tablet,delayed 40 mg PO DAILY 11/22/22 10/29/23 release peg 400-propylene glycol 0.4 %-0.3 1 drp ophthalmic (eye) Q4H 11/22/22 10/29/23 % eye gel drops (Systane Gel) prednisone 5 mg tablet 5 mg PO DAILY 11/22/22 10/29/23 sertraline 100 mg tablet 100 mg PO DAILY 11/22/22 10/29/23 timolol maleate 0.5 % eye drops 1 drp ophthalmic (eye) DAILY 11/22/22 10/29/23 travoprost 0.004 % eye drops 1 drp ophthalmic (eye) DAILY 11/22/22 10/29/23 lisinopril 30 mg tablet 30 mg PO DAILY #0 tabs 05/20/23 10/29/23 acetaminophen 500 mg tablet 1,000 mg PO TID PRN 09/29/23 10/29/23 bisacodyl 5 mg tablet,delayed 5 mg PO BID 09/29/23 10/29/23 release (Dulcolax (bisacodyl)) cyclobenzaprine 5 mg tablet 5 mg PO BID 09/29/23 10/29/23 levothyroxine 100 mcg tablet 125 mcg PO .QHS 09/29/23 10/29/23 nitrofurantoin 50 mg capsule 50 mg PO .qd 09/29/23 10/29/23 quetiapine 25 mg tablet 75 mg PO QHS 09/29/23 10/29/23 clonidine 0.1 mg/24 hr weekly 1 patch transdermal QWEEK 10/29/23 10/29/23 transdermal patch (Dnjrzcuh-EAO-6) dulaglutide 0.75 mg/0.5 mL 0.75 mg subcut QWEEK 10/29/23 10/29/23 subcutaneous pen injector (Trulicity) folic acid 1 mg tablet 1 mg PO DAILY 10/29/23 10/29/23 insulin lispro 100 unit/mL 10/29/23 subcutaneous solution nebivolol 10 mg tablet (Bystolic) 10 mg PO DAILY 10/29/23 10/29/23 Previous Rx's Medication Instructions Recorded lisinopril 30 mg tablet 30 mg PO DAILY #0 tabs 05/20/23 Allergies Allergy/AdvReac Type Severity Reaction Status Date / Time No Known Allergies Allergy Unverified 05/23/23 20:09 General Stated Complaint: AMS/LOC MARGARETH: 1 Review of Systems Narrative: Review of Systems Constitutional: Decreased responsiveness Eyes: negative ENT: negative Cardiovascular: negative Respiratory: negative Gastrointestinal: negative : negative Musculoskeletal: negative Skin: negative Neurologic: negative Psych: negative Exam Narrative Exam Narrative: Physical Examination General: Lethargic, somnolent HEENT: normocephalic, atraumatic; PERRL, EOM intact, conjunctiva normal; no nasal discharge; dry oral mucosa Neck: supple, trachea midline; full ROM Chest: normal to inspection Respiratory: normal respiratory effort, speaking in full sentences, clear to auscultation, no wheezing, rales or rhonchi Cardiac: Bradycardia, regular rhythm, S1S2 intact, no murmurs rubs or gallops GI: abdomen soft, non-tender, non-distended; no palpable mass or hepatosplenomegaly; green liquid stool Skin: Pale and dry Neuro: Somnolent, not opening eyes spontaneously, responding with quiet moaning voice, localizes to pain, GCS 10 Extremities: No peripheral edema Course Vital Signs Vital signs: Vital Signs Pulse 57 L 10/29/23 13:10 Respiratory Rate 18 10/29/23 13:10 Blood Pressure 53/31 L 10/29/23 13:10 Pulse Oximetry 98 10/29/23 13:10 Pulse 57 L 10/29/23 13:10 Respiratory Rate 18 10/29/23 13:10 Blood Pressure 53/31 L 10/29/23 13:10 Pulse Oximetry 98 10/29/23 13:10 Oxygen Delivery Method Room Air 10/29/23 13:10 Oxygen Flow Rate 0 10/29/23 13:10 Procedures Central Line Placement Right IJ: Time Out Performed: Yes Patient Placed on Monitor/Pulse Ox: Yes MD Prep: mask, gown and gloves Central Line Prep: Chlorhexidine scrub Local Anesthetic: Lidocaine 1% Amount of anesthesia used (mL): 2 Ultrasound Used for Placement: Yes Central Line Lumen Inserted: triple Post Procedure: good blood return, all ports aspirated, flushed, capped and sutured in place with 2-0 silk Post Procedure X-Ray: tip of catheter in good position Patient Tolerated Procedure: well Medical Decision Making 83-year-old female brought in by EMS from the [facility] for hypotension bradycardia and altered mental status noted around 11 AM, patient somnolent, hypotensive to 50/30, bradycardic to 57, appears dry and pale, patient moved to stretcher, placed on pads, IV access obtained, peripheral norepinephrine started at 7 mcg/min, IV bolus of crystalloid has been initiated, empiric antibiotics vancomycin and cefepime have been ordered, as well as head CT and CT abdomen pelvis as patient was tender on abdominal examination and had green loose stool on examination. Kwno catheter has been placed. Patient tolerating secretions, saturating 98% on room air, normal respirations. Patient appears volume depleted muscles consider septic shock versus cardiogenic shock. Given loose stool and abdominal pain consider colitis, C. difficile colitis versus appendicitis or cholecystitis was also consider UTI versus viral illness must also consider dehydration and electrolyte derangement. Lower suspicion for intracranial process such as ICH or CVA however given age antiplatelet agent and altered mental status will obtain CT head as well, portable chest x-ray, bedside ultrasound showing no pericardial effusion, IJ largely collapsed compatible with intravascular depletion once fluid hydration has been underway and peripheral pressors have taken effect will attempt IJ triple-lumen central line admission to ICU likely pending results and reassessment 16: 31 right IJ triple-lumen placed for central access, patient has responded positively to norepinephrine drip currently down titrating given pressures in the 120s, coloration and mentation greatly improved, NG tube placed given evidence of bowel distention on CT as well as vomiting at bedside, patient feeling more comfortable, crystalloid bolus is completed, likely component of underlying dehydration, pending cultures will continue antibiotics, consider right perihilar infiltrate on portable chest x-ray, family at bedside goals of care discussion with grandchildren confirmed that patient is full code and that her son is [employer] to make any medical decisions regarding end-of-life care Quality:SDOH Health Related Social Needs: No Data to Display PFSH All Active Problems (Updated 10/29/23 @ 16:33 by Young Sotelo MD) Altered mental status (Acute) Acute hypotension (Acute) Chronic hyponatremia (Acute) Laceration of scalp (Acute) Fall (Acute) Acute UTI (Acute) Hyponatremia (Acute) Chronic UTI (Acute) Overactive bladder (Acute) Paroxysmal atrial fibrillation (Acute) Dementia (Chronic) Depression (Chronic) Hypertension (Chronic) Rheumatoid arthritis (Chronic) Diabetes (Chronic) Elevated troponin (Acute) Altered mental status (Acute) Non-ST elevation [place] (NSTEMI) (Acute) Elevated troponin I level (Acute) Social History Smoking/Tobacco Use Status: Never Smoking risk assessment performed?: Yes Alcohol Intake: never Details: Unable to obtain Housing: jail
[2023-10-29 13:32] LABS: BE (Venous) -2 mmol/L (-2-3); HCO3 (Venous) 22 mmol/L (23-28); O2 Sat (Venous) 95 %; TCO2 (Venous) 20 mmol/L (24-29); pCO2 (Venous) 32 mmHg (41-51); pH (Venous) 7.45 (7.31-7.41); pO2 (Venous) 66 mmHg
[2023-10-29 13:36] LABS: Abs Immature Grans 0.07 10^3/uL (0.0-0.06); Absolute Basophil Count 0.05 10^3/uL (0.0-0.2); Absolute Eosinophil Count 0.18 10^3/uL (0.0-0.7); Absolute Lymphocyte Count 2.04 10^3/uL (1.2-3.4); Absolute Monocyte Count 0.62 10^3/uL (0.1-0.8); Absolute Neutrophil Count 6.61 10^3/uL (1.2-6.7); Basophils % 0.5 %; Eosinophils % 1.9 %; HCT 35.2 % (36.0-46.0); HGB 12.2 g/dL (11.2-15.7); Immature Grans % 0.7 %; Lymphocytes % 21.3 %; MCH 30.3 pg (27.0-33.0); MCHC 34.7 % (32.0-36.0); MCV 87 fL (80-95); MPV 9.3 fL (8.0-11.0); Monocytes % 6.5 %; Neutrophils % 69.1 %; Platelet Count 386 10^3/uL (130-400); RBC 4.03 10^6/uL (3.93-5.22); RDW-SD 43.8 fL; WBC 9.57 10^3/uL (4.4-10.8)
[2023-10-29] MEDS: Normal Saline 1,000 ML 1000 ML IV (13:40)
[2023-10-29 14:07] LABS: Bilirubin Negative (Negative); Blood Negative (Negative); Clarity Clear (Clear); Glucose Negative (Negative); Ketones Negative (Negative); Leukocyte Esterase Negative (Negative); Nitrite Negative (Negative); Urobilinogen 0.2 mg/dL (Up to 0.2)
--- NOTE | 2023-10-29 14:07 | DI.RAD_ITS ---
Exam(s) XR PORTABLE CHEST AP EXAM: XR PORTABLE CHEST AP CLINICAL HISTORY: ams, hypotension TECHNIQUE: 2D digital imaging was performed of the chest. One image was obtained. An AP view was ob tained. COMPARISON: CR,XR XR PORTABLE CHEST AP from 09/29/2023 FINDINGS: Examination is limited secondary to overlying monitoring equipment. MEDIASTINUM: Normal. HEART: Normal. PULMONARY VASCULATURE: Normal. LUNGS: No focal consolidating infiltrates are seen. PLEURAL SPACE: No pleural effusion or pneumothorax. BONE:Within normal limits for the patient's age. OTHER FINDINGS:Normal. IMPRESSION: No acute pulmonary findings. DATA REPOSITORY: RADIATION DOSE DELIVERED:
[2023-10-29] MEDS: CEFEPIME 2 GM in Normal Saline 100 ML IVPB ×2 (14:08→21:29)
[2023-10-29 14:12] LABS: *AMPHETAMINES SCREEN URINE Negative (Negative); *BARBITURATES SCREEN URINE Negative (Negative); *BENZODIAZEPINES SCREEN URINE Negative (Negative); Cannabinoids THC Negative (Negative); Cocaine Screen,Urine Negative (Negative); METHADONE URINE SCREEN Negative (Negative); OPIATES URINE SCREEN Negative (Negative)
[2023-10-29 14:13] LABS: ALT 11 U/L (14-59); AST 13 U/L (15-37); Albumin 2.9 g/dL (3.4-5.0); Alkaline Phosphatase 125 U/L (46-116); Anion Gap 9.8 mmol/L (3-11); BUN 15 mg/dL (7-18); Bilirubin, Total 0.6 mg/dL (0.2-1.0); CO2 23.2 mmol/L (21.0-32.0); CREATININE 1.2 mg/dL (0.55-1.02); Calcium 8.9 mg/dL (8.5-10.1); Chloride 96 mmol/L (98-107); Creatine Kinase 50 U/L (26-192); Estimated GFR 44.64 (mL/min/1.73m2); Glucose 262 mg/dL (74-106); Lipase 35 U/L (16-77); Magnesium 1.9 mg/dL (1.8-2.4); NT-proBNP 1696 pg/mL (<300); Potassium 4.7 mmol/L (3.5-5.1); Sodium 129 mmol/L (136-145); Total Protein 6.9 g/dL (6.4-8.2)
[2023-10-29 14:13] LABS: PTT Activated 20.9 sec (23.6-32.8); Prothrombin Time 10.4 sec (9.1-11.1)
[2023-10-29 14:16] LABS: Tricyclic Antidepressants Negative (Negative)
[2023-10-29 14:25] LABS: Troponin I < 50 ng/L (< or =60)
[2023-10-29 14:26] LABS: Acetaminophen 6 ug/mL (10-30); Salicylate 5.5 mg/dL (<2.8)
[2023-10-29 14:29] LABS: ETHANOL BLOOD < 3.0 mg/dL (<10)
[2023-10-29 14:31] LABS: COVID-19 PCR Negative (Negative); Influenza A PCR Negative (Negative); Influenza B PCR Negative (Negative); RSV PCR Negative (Negative)
[2023-10-29 14:34] LABS: Source Nasopharynx
[2023-10-29] MEDS: VANCOMYCIN/WATER (PEG) 1.5 GM/300 ML BAG IVPB (14:38)
[2023-10-29 14:46] LABS: C Diff PCR Negative (Negative)
[2023-10-29 14:52] LABS: FREE T4 0.92 ng/dL (0.76-1.46)
--- NOTE | 2023-10-29 15:15 | DI.RAD_ITS ---
Exam(s) XR CHEST 1V IN DI DEPT EXAM: XR CHEST 1V IN DI DEPT CLINICAL HISTORY: post right IJ placement. TECHNIQUE: 2D digital imaging was performed. COMPARISON: No exams were available for comparison FINDINGS: Single AP portable view. Chest leads and cardiac pads again noted. Heart size is upper normal. The mediastinum is not widened. There has been interval placement of a right jugular central line. Its distal tip is in good positio n in the SVC. No pneumothorax. Lungs are hypoventilated but there are no obvious infiltrates nor pl eural effusions. No obvious pulmonary edema. No obvious pneumothorax. No fractures. IMPRESSION: Satisfactory position of the newly placed right jugular central line. Mild increased markings in the lung melton probably related to hypoaeration. Recommend nonportable P A and lateral views when clinically possible. DATA REPOSITORY: RADIATION DOSE DELIVERED:
[2023-10-29] MEDS: Normal Saline - Diluent 50 ML VIAL IJ (15:25)
[2023-10-29] MEDS: Omnipaque 350 MG/ML 500 ML BTL-Imaging package 100 ML IJ (15:27)
--- NOTE | 2023-10-29 15:44 | DI.CT_ITS ---
Exam(s) CT ABDOMEN PELVIS W EXAM: CT ABDOMEN PELVIS W CLINICAL HISTORY: abd pain, hypotension, ams TECHNIQUE: Imaging Protocol: Axial computed tomography images with coronal and sagittal reformatted images were created and reviewed. CONTRAST MATERIAL: Intravenous: Omnipaque 350 Contrast volume:100 mL Oral: No COMPARISON: CT CT THORAX ABD/PEL CTA from 05/18/2023 FINDINGS: Patient motion artifact. ABDOMEN: Lung Bases: There is a small hiatal hernia. Liver: Normal density. No measurable mass. Portal, Superior Mesenteric, and Splenic Veins: Unremarkable. Gallbladder and Biliary Tract: No radiodense calculus or dilation. Pancreas: Normal density, no abnormal calcifications or inflammatory process. Spleen: Normal. Adrenals: No masses seen. Kidneys: Normal size, contour and axis. No radiodense stones or obstructive uropathy. There hypodensi ties in the kidneys. No follow-up is recommended. Abdominal Aorta: Abdominal portion non-dilated. Atherosclerotic calcification is present. Bowel: There is a large amount of stool seen in the colon particularly the rectum suggesting fecal im paction. There is no evidence of bowel wall thickening or bowel obstruction. There is no evidence o f appendicitis. There is thickening of the wall of the distal stomach. This may be due to underdist ention versus gastritis. Peritoneal Cavity: A small amount of pelvic ascites. No free air. Lymph Nodes: Within normal limits. Bones: Within normal limits for the patient's age. Soft Tissues: Small fat containing umbilical hernia. PELVIS: Bladder: The urinary bladder is decompressed. There is a Kwon catheter in place Reproductive Organs: Unremarkable as visualized. Lymph Nodes: Within normal limits. Bones: Multilevel degenerative changes in the lumbar spine resulting in marked central spinal canal s tenosis at L3-4, L4-5 and L5-S1. Bilateral neural foraminal stenosis is also seen at these levels. IMPRESSION: 1. A large amount of stool in the rectum suggesting fecal impaction. 2. Bowel wall thickening seen in the distal stomach. This may be due to underdistention versus gastr itis. Please correlate clinically. 3. Small amount of free fluid in the pelvis. No pneumoperitoneum. 4. Degenerative changes in the lower lumbar spine resulting in central spinal canal and neural forami nal stenosis. RADIATION DOSE DELIVERED: 1,391mGy.cm Total DLP DATA REPOSITORY: All CT scans at this facility are submitted to the National Radiology Data Registry (NRDR) Dose Index Registry (DIR) with the [employer] (ACR). RADIATION OPTIMIZATION: All CT scans at this facility use at least one of these dose optimization te chniques: automated exposure control; mA and/or kV adjustment per patient size (includes targeted exa ms where dose is matched to clinical indication); or iterative reconstruction.
[2023-10-29 17:26] LABS: Troponin I < 50 ng/L (< or =60)
--- NOTE | 2023-10-29 19:01 | W.PC.ACHO ---
Registration Status: REG ER Primary Language: Preferred Language: ED Information & Data Chief Complaint AMS/LOC 10/29/23 14:00 Chief Complaint AMS/LOC 10/29/23 13:38 Triage Note Pt [facility] from [place], [facility], 10/29/23 13:10 unresponsive to voice or painful stimuli. Bradycardic and hypotensive, 40/23 HR 50s. Full code. 0.1 epi x2 enroute. post epi BP 100s systolic, HR 60s. 18g R wrist. Most Recent Vital Signs Pulse 74 10/29/23 18:47 Pulse 80 10/29/23 18:50 Respiratory Rate 17 10/29/23 18:50 Respiratory Effort Normal, Non-Labored 10/29/23 14:00 Blood Pressure 161/55 H 10/29/23 18:47 Blood Pressure Mean 91 10/29/23 18:47 Pulse Oximetry 97 10/29/23 18:50 Respiratory End-tidal CO2 39 10/29/23 14:46 Oxygen Delivery Method Room Air 10/29/23 13:10 Oxygen Flow Rate 0 10/29/23 13:10 Comment epi at 7 10/29/23 17:46 Allergies No Known Allergies Allergy (Unverified 05/23/23 20:09) Precautions Isolation Standard precaution 10/29/23 14:00 Active Medications Generic Name Dose Route Start Last Admin Trade Name Freq PRN Reason Stop Dose Admin Norepinephrine Bitartrate 8 mg in 250 mls @ 9.375 mls/hr 10/29/23 13:30 10/29/23 18:46 IV 7 mcg/min INFUSION TALAT 13.125 mls/hr Titration Protocol 5 MCG/MIN Iohexol 100 ml 10/29/23 15:30 10/29/23 15:27 Omnipaque 350 Mg/Ml 500 Ml Btl-Imaging Package IJ 11/28/23 23:59 100 ml DIRECTED TALAT Administration Sodium Chloride 50 ml 10/29/23 15:30 10/29/23 15:25 Normal Saline - Diluent 50 Ml Vial IJ 50 ml .FOR DI USE TALAT Administration IV IV Catheter Type [Left Forearm Peripheral IV ] IV Catheter Type [Right Peripheral IV Antecubital] IV Catheter Type [Right Wrist] Peripheral IV IV Catheter Gauge [Left 18 Forearm] IV Catheter Gauge [Right 18 Antecubital] IV Catheter Gauge [Right Wrist 18 ] Diet Orders Category Date Time Status Diabetes Consistent CHO/Heart Healthy [DIET] Nutrition 10/30/23 Breakfast Ordered Diagnostics 10/29/23 10/29/23 10/29/23 Range/Units 17:00 13:46 13:41 WBC (4.4-10.8) 10^3/uL RBC (3.93-5.22) 10^6/uL Hgb (11.2-15.7) g/dL Hct (36.0-46.0) % MCV (80-95) fL MCH (27.0-33.0) pg MCHC (32.0-36.0) % RDW (11.7-14.6) % Plt Count (130-400) 10^3/uL MPV (8.0-11.0) fL Immature Gran % % Neutrophils % % Lymphocytes % % Monocytes % % Eosinophils % % Basophils % % Nucleated RBC % (0.0-0.3) % Absolute Neutrophils (1.2-6.7) 10^3/uL Absolute Lymphocytes (1.2-3.4) 10^3/uL Absolute Monocytes (0.1-0.8) 10^3/uL Absolute Eosinophils (0.0-0.7) 10^3/uL Absolute Basophils (0.0-0.2) 10^3/uL PT 10.4 (9.1-11.1) sec INR 1.0 (0.9-1.1) APTT 20.9 L (23.6-32.8) sec VBG pH (7.31-7.41) VBG pCO2 (41-51) mmHg VBG pO2 mmHg VBG HCO3 (23-28) mmol/L VBG Total CO2 (24-29) mmol/L VBG O2 Saturation % VBG Base Excess (-2-3) mmol/L Sodium (136-145) mmol/L Potassium (3.5-5.1) mmol/L Chloride (98-107) mmol/L Carbon Dioxide (21.0-32.0) mmol/L Anion Gap (3-11) mmol/L BUN (7-18) mg/dL Creatinine (0.55-1.02) mg/dL Est GFR (CKD-EPI 2020) (mL/min/1.73m2) Glucose (74-106) mg/dL Calcium (8.5-10.1) mg/dL Magnesium (1.8-2.4) mg/dL Total Bilirubin (0.2-1.0) mg/dL AST (15-37) U/L ALT (14-59) U/L Alkaline Phosphatase (46-116) U/L Creatine Kinase (26-192) U/L Troponin I < 50 (< or =60) ng/L NT-Pro-B Natriuret Pep (<300) pg/mL Total Protein (6.4-8.2) g/dL Albumin (3.4-5.0) g/dL Lipase (16-77) U/L TSH (0.36-3.74) uIU/mL Free T4 (0.76-1.46) ng/dL Urine Color Yellow (Yellow) Urine Clarity Clear (Clear) Urine pH 7.0 (5-8) Ur Specific [place] 1.010 (1.005-1.025) Urine Protein Negative (Neg-Trace) mg/dL Urine Ketones Negative (Negative) mg/dL Urine Blood Negative (Negative) Urine Nitrite Negative (Negative) Urine Bilirubin Negative (Negative) Urine Urobilinogen 0.2 (Up to 0.2) mg/dL Ur Leukocyte Esterase Negative (Negative) Urine Glucose Negative (Negative) mg/dL Stl C.difficile Tox PCR Negative (Negative) Salicylates 5.5 (<2.8) mg/dL Urine Opiates Screen Negative (Negative) Urine Methadone Screen Negative (Negative) Acetaminophen 6 (10-30) ug/mL Ur Barbiturates Screen Negative (Negative) Ur Tricyclics Screen Negative (Negative) Ur Amphetamines Screen Negative (Negative) U Benzodiazepines Scrn Negative (Negative) Urine Cocaine Screen Negative (Negative) Ur THC Screen Negative (Negative) Ethyl Alcohol (<10) mg/dL COVID-19 Source Nasopharynx SARS-CoV-2 (PCR) Negative (Negative) Influenza Type A (PCR) Negative (Negative) Influenza Type B (PCR) Negative (Negative) RSV (PCR) Negative (Negative) 10/29/23 Range/Units 13:22 WBC 9.57 (4.4-10.8) 10^3/uL RBC 4.03 (3.93-5.22) 10^6/uL Hgb 12.2 (11.2-15.7) g/dL Hct 35.2 L (36.0-46.0) % MCV 87 (80-95) fL MCH 30.3 (27.0-33.0) pg MCHC 34.7 (32.0-36.0) % RDW 14.0 (11.7-14.6) % Plt Count 386 (130-400) 10^3/uL MPV 9.3 (8.0-11.0) fL Immature Gran % 0.7 % Neutrophils % 69.1 % Lymphocytes % 21.3 % Monocytes % 6.5 % Eosinophils % 1.9 % Basophils % 0.5 % Nucleated RBC % 0.0 (0.0-0.3) % Absolute Neutrophils 6.61 (1.2-6.7) 10^3/uL Absolute Lymphocytes 2.04 (1.2-3.4) 10^3/uL Absolute Monocytes 0.62 (0.1-0.8) 10^3/uL Absolute Eosinophils 0.18 (0.0-0.7) 10^3/uL Absolute Basophils 0.05 (0.0-0.2) 10^3/uL PT (9.1-11.1) sec INR (0.9-1.1) APTT (23.6-32.8) sec VBG pH 7.45 H (7.31-7.41) VBG pCO2 32 L (41-51) mmHg VBG pO2 66 mmHg VBG HCO3 22 L (23-28) mmol/L VBG Total CO2 20 L (24-29) mmol/L VBG O2 Saturation 95 % VBG Base Excess -2 (-2-3) mmol/L Sodium 129 L (136-145) mmol/L Potassium 4.7 (3.5-5.1) mmol/L Chloride 96 L (98-107) mmol/L Carbon Dioxide 23.2 (21.0-32.0) mmol/L Anion Gap 9.8 (3-11) mmol/L BUN 15 (7-18) mg/dL Creatinine 1.2 H (0.55-1.02) mg/dL Est GFR (CKD-EPI 2020) 44.64 (mL/min/1.73m2) Glucose 262 H (74-106) mg/dL Calcium 8.9 (8.5-10.1) mg/dL Magnesium 1.9 (1.8-2.4) mg/dL Total Bilirubin 0.6 (0.2-1.0) mg/dL AST 13 L (15-37) U/L ALT 11 L (14-59) U/L Alkaline Phosphatase 125 H (46-116) U/L Creatine Kinase 50 (26-192) U/L Troponin I < 50 (< or =60) ng/L NT-Pro-B Natriuret Pep 1696 H (<300) pg/mL Total Protein 6.9 (6.4-8.2) g/dL Albumin 2.9 L (3.4-5.0) g/dL Lipase 35 (16-77) U/L TSH 4.70 H (0.36-3.74) uIU/mL Free T4 0.92 (0.76-1.46) ng/dL Urine Color (Yellow) Urine Clarity (Clear) Urine pH (5-8) Ur Specific [place] (1.005-1.025) Urine Protein (Neg-Trace) mg/dL Urine Ketones (Negative) mg/dL Urine Blood (Negative) Urine Nitrite (Negative) Urine Bilirubin (Negative) Urine Urobilinogen (Up to 0.2) mg/dL Ur Leukocyte Esterase (Negative) Urine Glucose (Negative) mg/dL Stl C.difficile Tox PCR (Negative) Salicylates (<2.8) mg/dL Urine Opiates Screen (Negative) Urine Methadone Screen (Negative) Acetaminophen (10-30) ug/mL Ur Barbiturates Screen (Negative) Ur Tricyclics Screen (Negative) Ur Amphetamines Screen (Negative) U Benzodiazepines Scrn (Negative) Urine Cocaine Screen (Negative) Ur THC Screen (Negative) Ethyl Alcohol < 3.0 (<10) mg/dL COVID-19 Source SARS-CoV-2 (PCR) (Negative) Influenza Type A (PCR) (Negative) Influenza Type B (PCR) (Negative) RSV (PCR) (Negative) [id number] Documentation Fingerstick Glucose Start: 10/29/23 13:21 Freq: .Stat Status: Active Protocol: Activity Type Activity Date Activity User E-sign Co-sign Detail Recorded Client Recorded Date Recorded By Document 10/29/23 13:21 GABRIEL DAMADDISON(3) [id number] 10/29/23 13:31 GABRIEL ROSA(4) Intake and Output - 24 Hour Total 10/29/23 13:03 thru 10/29/23 18:46 Intake Total 1464.407 Balance 1464.407 Weight 71.8 kg Intake: IV 1464.407 Falls Risk Assessment History of Falls Previous History 10/29/23 13:09 Contributing Factors Confusion,Unstable, 10/29/23 13:09 Impairments Ambulatory Aids Uses ambulatory device 10/29/23 13:09 Tubes/Lines None 10/29/23 13:09 Gait Evaluation W/no contributing factors 10/29/23 13:09 Cognition Cognitive impairment 10/29/23 13:09 Fall Total Score 64 10/29/23 13:09 Level of Risk High Risk 10/29/23 13:09 Problems (Last Reviewed 05/18/23 @ 20:20 by Jonny Crocker MD) Altered mental status (Acute) Acute hypotension (Acute) v v v v v v v v v Sending and/or Receiving Nurses: Please use comment section below to note any information pertinent to the patient hand-off not included above. Information / Comments: Report received from: Jyoti Houston RN all ?'s answers
--- NOTE | 2023-10-29 19:11 | HPE_ITS ---
Date of service: 10/29/23 Time of Service: 19:11 Assessment and Plan Assessment and plan (1) Acute hypotension: Status: Acute Assessment and plan: Found hypotensive and bradycardic. No WBC, not acidodic. No signs of focal infection. Responded to 2 liters of fluid but still has required norepinephrine in ED, admit to ICU I agree with covering with broad spectrum antibiotics for sepsis. Getting lactate, CRP, procal to assess for systemic inflammation She is on chronic steroid and at risk for adrenal insufficiency. She has chronic low sodium and K+ on higher end. Cortisol is a send out, will just start hydrocortisone. BNaP is elevated and h/o CAD, but no active ischemia and not fluid overloaded clinically, I don't think this is cardiogenic shock. Get echo. Admitted to ICU. (2) Altered mental status: Status: Acute Assessment and plan: Improved with improvement in hypotension. Continue to monitor. (3) Chronic hyponatremia: Status: Acute Assessment and plan: not severe, may be worse with low BP, follow. (4) Rheumatoid arthritis: Status: Chronic Assessment and plan: No active disease. Holding methotrexate, giving hydrocortisone as above. (5) Diabetes: Status: Chronic Assessment and plan: On GLP-1 and some insulin as outpatient. Given conservative basal insulin and meal time per outpatient regimen. (6) Impacted stool in intestine: Status: Acute Assessment and plan: Imaging and nl WBC does not suggest ischemia. Gettign CRP as well. Work on bowel regimen. This may have been stress that triggered an adrenal crisis and her presenation even in absence of infection. (7) DVT prophylaxis: Status: Acute Assessment and plan: h/o pAFib but not on anticoagulation. Use LMWH. History of Present Illness History of Present Illness Chief Complaint: depressed mental status, hypotension at SNF Narrative: 83 yo F with history of type 2 DM, CAD, RA on methotrexate and prednisone, recurrent UTIs on nitrofurantoin, CAD who was found during routine rounds at the [facility] to be unresponsive around 11am. She was bradycardic in the 40s with BP as low as 40/23 per EMS. Given 2 doses of epinephrine in the field. She is unable to give additional history. Latesha at bedside, hadn't seen her in weeks. No report of recent infection or medicaiton change. Review of Systems Unobtainable due to mental status PFSH All Active Problems DVT prophylaxis (Acute) Impacted stool in intestine (Acute) Septic shock (Acute) Altered mental status (Acute) Acute hypotension (Acute) Chronic hyponatremia (Acute) Laceration of scalp (Acute) Fall (Acute) Acute UTI (Acute) Hyponatremia (Acute) Chronic UTI (Acute) Overactive bladder (Acute) Paroxysmal atrial fibrillation (Acute) Dementia (Chronic) Depression (Chronic) Hypertension (Chronic) Rheumatoid arthritis (Chronic) Diabetes (Chronic) Elevated troponin (Acute) Altered mental status (Acute) Non-ST elevation VT (NSTEMI) (Acute) Elevated troponin I level (Acute) Social History (Updated 10/29/23 @ 19:41 by Margarito Randolph) Smoking/Tobacco Use Status: Never Smoking risk assessment performed?: Yes Alcohol Intake: never Substance use type: does not use Details: Unable to obtain Housing: group home Additional Social history: From [place], [place] speaker. Has lived in [facility] for the past year after stopped walking. and son in [facility] Allergies and Home Medications Allergies Allergy/AdvReac Type Severity Reaction Status Date / Time No Known Allergies Allergy Unverified 05/23/23 20:09 Home Medications Medication Instructions Recorded Confirmed Type mirabegron 50 mg tablet,extended 50 mg PO DAILY 03/01/22 10/29/23 History release 24 hr (Myrbetriq) clopidogrel 75 mg tablet 75 mg PO DAILY 11/22/22 10/29/23 History methotrexate sodium 2.5 mg tablet 2.5 mg PO QWEEK 11/22/22 10/29/23 History mirtazapine 15 mg disintegrating 15 mg PO QHS 11/22/22 10/29/23 History tablet pantoprazole 40 mg tablet,delayed 40 mg PO DAILY 11/22/22 10/29/23 History release peg 400-propylene glycol 0.4 %-0.3 1 drp ophthalmic (eye) Q4H 11/22/22 10/29/23 History % eye gel drops (Systane Gel) prednisone 5 mg tablet 5 mg PO DAILY 11/22/22 10/29/23 History sertraline 100 mg tablet 100 mg PO DAILY 11/22/22 10/29/23 History timolol maleate 0.5 % eye drops 1 drp ophthalmic (eye) DAILY 11/22/22 10/29/23 History travoprost 0.004 % eye drops 1 drp ophthalmic (eye) DAILY 11/22/22 10/29/23 History lisinopril 30 mg tablet 30 mg PO DAILY #0 tabs 05/20/23 10/29/23 Rx acetaminophen 500 mg tablet 1,000 mg PO TID PRN 09/29/23 10/29/23 History bisacodyl 5 mg tablet,delayed 5 mg PO BID 09/29/23 10/29/23 History release (Dulcolax (bisacodyl)) cyclobenzaprine 5 mg tablet 5 mg PO BID 09/29/23 10/29/23 History levothyroxine 100 mcg tablet 125 mcg PO .QHS 09/29/23 10/29/23 History nitrofurantoin 50 mg capsule 50 mg PO .qd 09/29/23 10/29/23 History quetiapine 25 mg tablet 75 mg PO QHS 09/29/23 10/29/23 History clonidine 0.1 mg/24 hr weekly 1 patch transdermal QWEEK 10/29/23 10/29/23 History transdermal patch ([id number]) dulaglutide 0.75 mg/0.5 mL 0.75 mg subcut QWEEK 10/29/23 10/29/23 History subcutaneous pen injector (Trulicity) folic acid 1 mg tablet 1 mg PO DAILY 10/29/23 10/29/23 History insulin lispro 100 unit/mL 3 unit subcut AC & HS 10/29/23 10/29/23 History subcutaneous solution nebivolol 10 mg tablet (Bystolic) 10 mg PO DAILY 10/29/23 10/29/23 History Results Imaging Chest x-ray: report reviewed (No acute pulmonary findings. Repeat with central line in place.) and image reviewed Abdomen CT scan report/results: r eport reviewed (1. A large amount of stool in the rectum suggesting fecal impaction. 2. Bowel wall thickening seen in the distal stomach. This may be due to underdistention versus gastritis. Please correlate clinically.) CT scan - pelvis: report reviewed (3. Small amount of free fluid in the pelvis. No pneumoperitoneum. 4. Degenerative changes in the lower lumbar spine resulting in central spinal canal and neural foraminal stenosis.) EKG: report reviewed and image reviewed (sinus bradycardia 58, nl axis, no ischemic ST-T changes) I maging Studies: Head CT: 1. There is patient motion artifact. 2. No acute intracranial process. Labs 10/29/23 13:22 10/29/23 13:22 Labs: Laboratory Results - last 24 hr 10/29/23 10/29/23 10/29/23 13:22 13:41 13:46 WBC 9.57 RBC 4.03 Hgb 12.2 Hct 35.2 L MCV 87 MCH 30.3 MCHC 34.7 RDW 14.0 Plt Count 386 MPV 9.3 Immature Gran % 0.7 Neutrophils % 69.1 Lymphocytes % 21.3 Monocytes % 6.5 Eosinophils % 1.9 Basophils % 0.5 Nucleated RBC % 0.0 Absolute Neutrophils 6.61 Absolute Lymphocytes 2.04 Absolute Monocytes 0.62 Absolute Eosinophils 0.18 Absolute Basophils 0.05 PT 10.4 INR 1.0 APTT 20.9 L VBG pH 7.45 H VBG pCO2 32 L VBG pO2 66 VBG HCO3 22 L VBG Total CO2 20 L VBG O2 Saturation 95 VBG Base Excess -2 Sodium 129 L Potassium 4.7 Chloride 96 L Carbon Dioxide 23.2 Anion Gap 9.8 BUN 15 Creatinine 1.2 H Est GFR (CKD-EPI 2020) 44.64 Glucose 262 H Calcium 8.9 Magnesium 1.9 Total Bilirubin 0.6 AST 13 L ALT 11 L Alkaline Phosphatase 125 H Creatine Kinase 50 Troponin I < 50 NT-Pro-B Natriuret Pep 1696 H Total Protein 6.9 Albumin 2.9 L Lipase 35 TSH 4.70 H Free T4 0.92 Urine Color Yellow Urine Clarity Clear Urine pH 7.0 Ur Specific [place] 1.010 Urine Protein Negative Urine Ketones Negative Urine Blood Negative Urine Nitrite Negative Urine Bilirubin Negative Urine Urobilinogen 0.2 Ur Leukocyte Esterase Negative Urine Glucose Negative Stl C.difficile Tox PCR Negative Salicylates 5.5 Urine Opiates Screen Negative Urine Methadone Screen Negative Acetaminophen 6 Ur Barbiturates Screen Negative Ur Tricyclics Screen Negative Ur Amphetamines Screen Negative U Benzodiazepines Scrn Negative Urine Cocaine Screen Negative Ur THC Screen Negative Ethyl Alcohol < 3.0 COVID-19 Source Nasopharynx SARS-CoV-2 (PCR) Negative Influenza Type A (PCR) Negative Influenza Type B (PCR) Negative RSV (PCR) Negative 10/29/23 17:00 WBC RBC Hgb Hct MCV MCH MCHC RDW Plt Count MPV Immature Gran % Neutrophils % Lymphocytes % Monocytes % Eosinophils % Basophils % Nucleated RBC % Absolute Neutrophils Absolute Lymphocytes Absolute Monocytes Absolute Eosinophils Absolute Basophils PT INR APTT VBG pH VBG pCO2 VBG pO2 VBG HCO3 VBG Total CO2 VBG O2 Saturation VBG Base Excess Sodium Potassium Chloride Carbon Dioxide Anion Gap BUN Creatinine Est GFR (CKD-EPI 2020) Glucose Calcium Magnesium Total Bilirubin AST ALT Alkaline Phosphatase Creatine Kinase Troponin I < 50 NT-Pro-B Natriuret Pep Total Protein Albumin Lipase TSH Free T4 Urine Color Urine Clarity Urine pH Ur Specific [place] Urine Protein Urine Ketones Urine Blood Urine Nitrite Urine Bilirubin Urine Urobilinogen Ur Leukocyte Esterase Urine Glucose Stl C.difficile Tox PCR Salicylates Urine Opiates Screen Urine Methadone Screen Acetaminophen Ur Barbiturates Screen Ur Tricyclics Screen Ur Amphetamines Screen U Benzodiazepines Scrn Urine Cocaine Screen Ur THC Screen Ethyl Alcohol COVID-19 Source SARS-CoV-2 (PCR) Influenza Type A (PCR) Influenza Type B (PCR) RSV (PCR) Last Vital Signs Pulse 74 10/29/23 18:47 Resp 17 10/29/23 18:50 BP 161/55 H 10/29/23 18:47 Pulse Ox 97 10/29/23 18:50 Time Spent Time spent with Patient: >75 minutes Time was spent: preparing to see the patient(eg.review tests), obtaining and/or reviewing separately otained hiistory, ordering medications,tests, procedures, referring, communicating with other health career advisor, indepentently interpreting results, counseling the patient and care coordination
[2023-10-29 19:42] LABS: Lactate 2.6 mmol/L (0.6-1.4)
[2023-10-29 19:52] LABS: C-Reactive Protein 1.78 mg/dL (<or=0.5)
[2023-10-29 20:21] LABS: Procalcitonin 17.4 ng/mL
[2023-10-29 20:25] LABS: Hemoglobin A1C 6.6 % (<5.7)
[2023-10-29] MEDS: ACETAMINOPHEN 1,000 MG/100 ML BTL 400 MG IVPB (20:58)
[2023-10-29] MEDS: Mirtazapine 15 MG TAB PO (20:59)
[2023-10-29] MEDS: Levothyroxine 100 MCG TAB PO (21:00)
[2023-10-29] MEDS: Bisacodyl 5 MG TABEC PO (21:00)
[2023-10-29] MEDS: Enoxaparin 40 MG/0.4 ML SYR SC (21:02)
[2023-10-29] MEDS: Hydrocortisone SOD SUC. 100 MG VIAL IVP (21:02)
[2023-10-29] MEDS: Refresh PLUS Eye Drops 0.4ml OP (21:02)
[2023-10-29] MEDS: Levothyroxine 25 MCG TAB PO (21:26)
[2023-10-29] MEDS: QUEtiapine 25 MG TAB 75 MG PO (21:26)
[2023-10-29] MEDS: Insulin Glargine 300 UNITS/3 ML PEN 15 UNITS SC (21:40)
--- NOTE | 2023-10-29 22:15 | DI.RAD_ITS ---
Exam(s) XR PORTABLE CHEST AP POST LINE EXAM: XR PORTABLE CHEST AP POST LINE CLINICAL HISTORY: gastric tube placement. TECHNIQUE: 2D digital imaging was performed. COMPARISON: CR XR CHEST 1V IN DI DEPT from 10/29/2023 FINDINGS: Single AP portable view. NG tube is now noted in the stomach with distal tip in the gastric fundus and the stomach is not dist ended. Distal tip of right jugular central line remains in good position in the SVC. Heart size is upper normal. The mediastinum is not widened. Increased interstitial markings both lungs again noted which is probably exaggerated by less than opt imal inspiratory effort. There are no pleural effusions. No pneumothorax. IMPRESSION: NG tube is in the stomach. Its distal tip is in the fundus. The stomach is decompressed. DATA REPOSITORY: RADIATION DOSE DELIVERED:
--- NOTE | 2023-10-29 23:08 | DI.VRAD_ITS ---
PROCEDURE INFORMATION: Exam: XR Chest Exam date and time: 10/29/2023 10:32 PM Age: 83 years old Clinical indication: Device placement; Ng tube; Patient HX: Gastric tube placement confirmation TECHNIQUE: Imaging protocol: Radiologic exam of the chest. Views: 1 view. COMPARISON: CR XR CHEST 1V IN DI DEPT 10/29/2023 3:49 PM FINDINGS: Tubes, catheters and devices: Right central venous catheter tip overlies superior vena cava. NG tube tip overlies stomach. Lungs: Unremarkable. No consolidation. Pleural spaces: Unremarkable. No pleural effusion. No pneumothorax. Heart/Mediastinum: Unremarkable. No cardiomegaly. Bones/joints: Unremarkable. IMPRESSION: No acute findings. Dictated and Authenticated by: Les Brito MD. Ordering:RIOS Srivastava MD
[2023-10-30] VITALS (40 sets, daily range): BP systolic 100–185; BP diastolic 37–120; PULSE 57–92; RESP 10–24; TEMP 36.5–37.4; O2SAT 95–100
[2023-10-30] MEDS: Refresh PLUS Eye Drops 0.4ml OP ×5 (00:53→21:31)
--- NOTE | 2023-10-30 03:30 | DI.RAD_ITS ---
Exam(s) XR PORTABLE CHEST AP POST LINE EXAM: XR PORTABLE CHEST AP POST LINE CLINICAL HISTORY: NG tube placment (pulled back). TECHNIQUE: 2D digital imaging was performed. COMPARISON: CR,XR XR PORTABLE CHEST AP POST LINE from 10/29/2023 FINDINGS: Single AP portable view. Distal tip of NG tube is left of center. Probably within the gastric fundus. Stomach is not distend ed. Distal tip of the right jugular central line is in the lower SVC. Heart size is upper normal. The mediastinum is not widened. There appears to be increased markings in left lower lobe posterior basal segment. Visualized right lung base clear. No pleural effusions. IMPRESSION: Left lower lobe infiltrate. Distal tip of the NG tube is most probably within the gastric fundus. DATA REPOSITORY: RADIATION DOSE DELIVERED:
[2023-10-30] MEDS: ACETAMINOPHEN 1,000 MG/100 ML BTL 400 MG IVPB ×3 (03:48→20:34)
[2023-10-30] MEDS: Hydrocortisone SOD SUC. 100 MG VIAL IVP (03:48)
[2023-10-30] MEDS: Polyethylene Glycol 3350 17 GM PACKET (03:48)
--- NOTE | 2023-10-30 04:13 | DI.VRAD_ITS ---
PROCEDURE INFORMATION: Exam: XR Chest Exam date and time: 10/30/2023 3:50 AM Age: 83 years old Clinical indication: Device placement; Patient HX: Ng tube placment (pulled back) TECHNIQUE: Imaging protocol: Radiologic exam of the chest. Views: 1 view. COMPARISON: CR XR PORTABLE CHEST AP POST LINE 10/29/2023 10:32 PM FINDINGS: Tubes, catheters and devices: Enteric tube traverses midline with catheter tip and side port subdiaphragmatic, projecting within the left upper quadrant. Lungs: Bibasilar scarring/atelectasis. Pleural spaces: Unremarkable. No pleural effusion. No pneumothorax. Heart/Mediastinum: Unremarkable. No cardiomegaly. Bones/joints: Severe degenerative change of the visualized osseous structures. Gastrointestinal tract: Nonspecific air dilated short-segment loops of bowel, nonobstructive in appearance. IMPRESSION: 1. Enteric tube as above. 2. Remainder of the exam appears stable from 10/29/2023. Dictated and Authenticated by: Abhishek Foss MD. Ordering:RIOS Srivastava MD
[2023-10-30] MEDS: Normal Saline 1,000 ML 100 ML IV ×2 (04:15→15:00)
[2023-10-30] MEDS: CEFEPIME 2 GM in Normal Saline 100 ML IVPB ×2 (05:31→18:05)
[2023-10-30 05:43] LABS: Abs Immature Grans 0.32 10^3/uL (0.0-0.06); Absolute Eosinophil Count 0.07 10^3/uL (0.0-0.7); Basophils % 0.3 %; Eosinophils % 0.2 %; HCT 35.9 % (36.0-46.0); HGB 12.1 g/dL (11.2-15.7); Immature Grans % 0.9 %; Lymphocytes % 1.3 %; MCH 30.3 pg (27.0-33.0); MCHC 33.7 % (32.0-36.0); MCV 90 fL (80-95); MPV 9.3 fL (8.0-11.0); Monocytes % 1.1 %; Neutrophils % 96.2 %; Platelet Count 323 10^3/uL (130-400); RBC 3.99 10^6/uL (3.93-5.22); RDW-SD 45.7 fL
[2023-10-30 05:56] LABS: Anion Gap 11.7 mmol/L (3-11); BUN 27 mg/dL (7-18); CO2 20.3 mmol/L (21.0-32.0); CREATININE 1.6 mg/dL (0.55-1.02); Calcium 8.2 mg/dL (8.5-10.1); Chloride 96 mmol/L (98-107); Estimated GFR 31.61 (mL/min/1.73m2); Glucose 305 mg/dL (74-106); Potassium 5.7 mmol/L (3.5-5.1); Sodium 128 mmol/L (136-145)
[2023-10-30 05:58] LABS: Absolute Lymphocyte Count 0.45 10^3/uL (1.2-3.4); Absolute Monocyte Count 0.38 10^3/uL (0.1-0.8); Absolute Neutrophil Count 33.22 10^3/uL (1.2-6.7)
[2023-10-30 06:00] LABS: WBC 34.53 10^3/uL (4.4-10.8)
[2023-10-30 06:01] LABS: Vancomycin, Random 20.4 ug/mL
[2023-10-30 06:03] LABS: Diff Comment Diff Reviewed; RBC Morphology Normal
[2023-10-30] MEDS: Normal Saline 250 ML 500 ML IV (06:33)
[2023-10-30] MEDS: Timolol 0.5% 5 ML BTL OP (08:25)
[2023-10-30] MEDS: Folic Acid 1 MG TAB PO (08:25)
[2023-10-30] MEDS: predniSONE 5 MG TAB PO (08:25)
[2023-10-30] MEDS: Sertraline 100 MG TAB PO (08:26)
[2023-10-30] MEDS: Clopidogrel 75 MG TAB PO (08:26)
--- NOTE | 2023-10-30 08:44 | PGE_ITS ---
Date of Service Date of service: 10/30/23 Time of Service: 08:44 Assessment and Plan Assessment and plan (1) Acute hypotension: Status: Acute Assessment and plan: Found hypotensive and bradycardic. No WBC initially, not acidodic. No signs of focal infection, imaging and exam c/w stool impaction Responded to 2 liters of fluid but still has required norepinephrine in ED, a dmit to ICU, tapered off norepi soon after admission Poor urine output and increase Cr this morning, giving additional fluids. Inflammatory labs are concerning, continue broad spectrum antibiotics for sepsis. She is on chronic steroid and at risk for adrenal insufficiency. She has chronic low sodium and K+ on higher end. Started on hydrocortisone for possible adrenal crisis. BNaP is elevated and h/o CAD, but no active ischemia and not fluid overloaded clinically, I don't think this is cardiogenic shock. Echo pending this morning. (2) Impacted stool in intestine: Status: Acute Assessment and plan: Imaging and nl WBC at admission did not suggest ischemia, but inflammatory zaira ers quite elevated and now WBC up (after steroids) She is having loose stools around the impaction, get FOB and c dificile Continue NGT and bowel regimen for now, ask for surgery input. This may have been stress that triggered an adrenal crisis and her presenation even in absence of infection. (3) Hyperkalemia: Status: Acute Assessment and plan: In setting of worse renal function. She was getting fluids, but still clinically dry. Additional boluses of 500ml x 2 this morning. Monitor u/a, goodwin in place (4) Altered mental status: Status: Acute Assessment and plan: Improved with improvement in hypotension but baseline dementia, pain appears to be impacting this morning. Continue to monitor. (5) Chronic hyponatremia: Status: Acute Assessment and plan: not severe, may be worse with low BP, follow. (6) Rheumatoid arthritis: Status: Chronic Assessment and plan: No active disease. Holding methotrexate, giving hydrocortisone as above. (7) Diabetes: Status: Chronic Assessment and plan: On GLP-1 and some insulin as outpatient. A1c is below goal. For now, continue conservative basal insulin and low dose ISS. (8) DVT prophylaxis: Status: Acute Assessment and plan: h/o pAFib but not on anticoagulation. Use LMWH. Subjective Subjective Patient reports: denies vomiting or fever Interval history since last seen: Off norepinephrine at 8pm Still leaking watery stool overnight, no solid BM despite enema, PEG via NGT overnight Additional bolus 500ml NS this morning with low urine output Exam Narrative Exam Narrative: Gen: Alert, appears uncomfortable, moaning. follows commands (in Ghanaian) but not vocal otherwise. HEENT: MM dry, op benign, no JVD evident Lungs: clear laterally, normal effort CV: RRR, no murmur Abd: hypoactive, softly distended, tender in LLQ, no rebound ext: warm, no cyanosis or edema. Objective Last Vital Signs Temp 36.8 C 10/30/23 04:35 Pulse 70 10/30/23 06:12 Resp 13 10/30/23 06:12 BP 128/74 10/30/23 06:12 Pulse Ox 99 10/30/23 06:12 Laboratory Results - last 24 hr 10/29/23 10/29/23 10/29/23 13:22 13:41 13:46 WBC 9.57 RBC 4.03 Hgb 12.2 Hct 35.2 L MCV 87 MCH 30.3 MCHC 34.7 RDW 14.0 Plt Count 386 MPV 9.3 Immature Gran % 0.7 Neutrophils % 69.1 Lymphocytes % 21.3 Monocytes % 6.5 Eosinophils % 1.9 Basophils % 0.5 Nucleated RBC % 0.0 Absolute Neutrophils 6.61 Absolute Lymphocytes 2.04 Absolute Monocytes 0.62 Absolute Eosinophils 0.18 Absolute Basophils 0.05 RBC Morphology PT 10.4 INR 1.0 APTT 20.9 L VBG pH 7.45 H VBG pCO2 32 L VBG pO2 66 VBG HCO3 22 L VBG Total CO2 20 L VBG O2 Saturation 95 VBG Base Excess -2 VBG Lactate Sodium 129 L Potassium 4.7 Chloride 96 L Carbon Dioxide 23.2 Anion Gap 9.8 BUN 15 Creatinine 1.2 H Est GFR (CKD-EPI 2020) 44.64 Glucose 262 H Hemoglobin A1c 6.6 H Calcium 8.9 Magnesium 1.9 Total Bilirubin 0.6 AST 13 L ALT 11 L Alkaline Phosphatase 125 H Creatine Kinase 50 Troponin I < 50 C-Reactive Protein NT-Pro-B Natriuret Pep 1696 H Total Protein 6.9 Albumin 2.9 L Lipase 35 Procalcitonin TSH 4.70 H Free T4 0.92 Urine Color Yellow Urine Clarity Clear Urine pH 7.0 Ur Specific [place] 1.010 Urine Protein Negative Urine Ketones Negative Urine Blood Negative Urine Nitrite Negative Urine Bilirubin Negative Urine Urobilinogen 0.2 Ur Leukocyte Esterase Negative Urine Glucose Negative Stl C.difficile Tox PCR Negative Random Vancomycin Salicylates 5.5 Urine Opiates Screen Negative Urine Methadone Screen Negative Acetaminophen 6 Ur Barbiturates Screen Negative Ur Tricyclics Screen Negative Ur Amphetamines Screen Negative U Benzodiazepines Scrn Negative Urine Cocaine Screen Negative Ur THC Screen Negative Ethyl Alcohol < 3.0 COVID-19 Source Nasopharynx SARS-CoV-2 (PCR) Negative Influenza Type A (PCR) Negative Influenza Type B (PCR) Negative RSV (PCR) Negative 10/29/23 10/29/23 10/30/23 17:00 19:35 05:15 WBC 34.53 H* RBC 3.99 Hgb 12.1 Hct 35.9 L MCV 90 MCH 30.3 MCHC 33.7 RDW 14.0 Plt Count 323 MPV 9.3 Immature Gran % 0.9 Neutrophils % 96.2 Lymphocytes % 1.3 Monocytes % 1.1 Eosinophils % 0.2 Basophils % 0.3 Nucleated RBC % 0.0 Absolute Neutrophils 33.22 H Absolute Lymphocytes 0.45 L Absolute Monocytes 0.38 Absolute Eosinophils 0.07 Absolute Basophils 0.10 RBC Morphology Normal PT INR APTT VBG pH VBG pCO2 VBG pO2 VBG HCO3 VBG Total CO2 VBG O2 Saturation VBG Base Excess VBG Lactate 2.6 H* Sodium 128 L Potassium 5.7 H D Chloride 96 L Carbon Dioxide 20.3 L Anion Gap 11.7 H BUN 27 H Creatinine 1.6 H Est GFR (CKD-EPI 2020) 31.61 Glucose 305 H Hemoglobin A1c Calcium 8.2 L Magnesium Total Bilirubin AST ALT Alkaline Phosphatase Creatine Kinase Troponin I < 50 C-Reactive Protein 1.78 H NT-Pro-B Natriuret Pep Total Protein Albumin Lipase Procalcitonin 17.4 TSH Free T4 Urine Color Urine Clarity Urine pH Ur Specific [place] Urine Protein Urine Ketones Urine Blood Urine Nitrite Urine Bilirubin Urine Urobilinogen Ur Leukocyte Esterase Urine Glucose Stl C.difficile Tox PCR Random Vancomycin 20.4 Salicylates Urine Opiates Screen Urine Methadone Screen Acetaminophen Ur Barbiturates Screen Ur Tricyclics Screen Ur Amphetamines Screen U Benzodiazepines Scrn Urine Cocaine Screen Ur THC Screen Ethyl Alcohol COVID-19 Source SARS-CoV-2 (PCR) Influenza Type A (PCR) Influenza Type B (PCR) RSV (PCR) Time Spent with Patient Time Spent with Patient: >50 minutes Time was spent: preparing to see the patient(eg.review tests), obtaining and/or reviewing separately otained hiistory, ordering medications,tests, procedures, referring, communicating with other health child day care center worker, indepentently interpreting results, counseling the patient and care coordination
[2023-10-30] MEDS: Bisacodyl 10 MG SUPP PR (08:49)
--- NOTE | 2023-10-30 08:52 | INITIAL_ITS ---
Date of service: 10/30/23 Time of Service: 08:53 Care Management Initial Assmt Initial Assessment Reason for Hospitalization: hypotension Functional Status/Living Situation Patient Presentation: Samia was lying in bed asleep when attempted to meet with her. She has been very confused today and speaks and understands very little Romanian. Samia resides at the [facility] in [place] and is bedridden at baseline and also has dementia. She requires assistance with ADLs but she is able to feed herself. Samia has 3 children and is . Town of Residence: [place] Resides with: Other (SNF) Significant Other/Family: Local Caregiver/Guardian: lives at the [facility] Employment Status: Unemployed Instrumental Activities of Daily Living (ADLs): Requires support (resides in a SNF and requires total care) Medications Medication Management: No Issues/Barriers identified Advance Directives Advance Directives: Do you have an Advance Directive: N 03/01/22 13:19 AD On File at [facility]: N 03/01/22 13:19 Date Asked 10/29/23 10/29/23 13:21 AD Date Reviewed COLST On File at [facility] Yes 05/18/23 20:17 COLST Date Scanned 05/03/22 09/29/23 21:24 Code Status Resuscitation Status Full Code Portal Pt does not currently have a portal and education provided: No Insurance Coverage/Financial Issues Insurance: [facility] Medicare Replacement ACO Member: No Care Team Visit Care Team Role Provider Type Atif Bustillo Primary Care Provider OSTEOPATHIC DOCTOR Belen Sanchez MD Other Providers NON-[facility] STAFF PHYSICIAN PALAK Khan Other Providers PHYSICIANS ASSISTANT Manolo You MD Other Providers CONSULTING PHYSICIAN Shady Christensen, DO Other Providers CONSULTING PHYSICIAN Agustin Sheth MD Other Providers [facility] STAFF PHYSICIAN Zaki Joy Other Providers CONSULTING PHYSICIAN Chaitanya De Leon MD Other Providers CONSULTING PHYSICIAN Ana Tyson, DO Other Providers OSTEOPATHIC DOCTOR Suni Espinal, DO Other Providers CONSULTING PHYSICIAN Jose Lema MD Other Providers CONSULTING PHYSICIAN Sung Cortes, DO Other Providers CONSULTING PHYSICIAN Sunshine Aguillon Other Providers NON-[facility] STAFF PHYSICIAN Paul Shea MD Other Providers [facility] STAFF PHYSICIAN Alison Moran, DO Other Providers OSTEOPATHIC DOCTOR Brett Conner, DO Other Providers OSTEOPATHIC DOCTOR Mary Elias MD Other Providers [facility] STAFF PHYSICIAN Young Sotelo MD Emergency Provider [facility] STAFF PHYSICIAN Margarito Randolph Admit Provider [facility] STAFF PHYSICIAN Attending Provider Discharge Potential Discharge Needs: Other (return to [facility]) Anticipated Barriers to Discharge: None Identified Patient/Family Education Needs: Review discharge instructions, discuss Ask Me Three Transportation: RCT Plan: Anticipate Samia will return to the [facility] when she is medically cleared for discharge. She will follow up with the facility providers and plan of care and transport via EMS coordinated by CM. CM will follow and assess for discharge needs. PFSH All Active Problems (Updated 10/30/23 @ 09:10 by Margarito Randolph) Hyperkalemia (Acute) DVT prophylaxis (Acute) Impacted stool in intestine (Acute) Septic shock (Acute) Altered mental status (Acute) Acute hypotension (Acute) Chronic hyponatremia (Acute) Laceration of scalp (Acute) Fall (Acute) Acute UTI (Acute) Hyponatremia (Acute) Chronic UTI (Acute) Overactive bladder (Acute) Paroxysmal atrial fibrillation (Acute) Dementia (Chronic) Depression (Chronic) Hypertension (Chronic) Rheumatoid arthritis (Chronic) Diabetes (Chronic) Elevated troponin (Acute) Altered mental status (Acute) Non-ST elevation SD (NSTEMI) (Acute) Elevated troponin I level (Acute) Social History (Updated 10/29/23 @ 19:41 by Margarito Randolph) Smoking/Tobacco Use Status: Never Smoking risk assessment performed?: Yes Alcohol Intake: never Substance use type: does not use Details: Unable to obtain Housing: senior living Additional Social history: From [place], Turkmen speaker. Has lived in [facility] for the past year after stopped walking. and son in [facility] SDOH(Care Management) Screening Will the Patient Participate in the Screening?: Unable to obtain Social Determinants of Health Comments(SDOH Details): lives in senior living
[2023-10-30] MEDS: Lactated Ringers 500 ML IV ×2 (09:15→20:33)
[2023-10-30] MEDS: Insulin Aspart 300 UNITS/3 ML PEN SC ×3 (09:21→22:00)
--- NOTE | 2023-10-30 09:55 | W.SURGCON ---
Date of service: 10/30/23 Time of Service: 09:55 [facility] All Active Problems (Updated 10/30/23 @ 09:10 by Margarito Randolph) Hyperkalemia (Acute) DVT prophylaxis (Acute) Impacted stool in intestine (Acute) Septic shock (Acute) Altered mental status (Acute) Acute hypotension (Acute) Chronic hyponatremia (Acute) Laceration of scalp (Acute) Fall (Acute) Acute UTI (Acute) Hyponatremia (Acute) Chronic UTI (Acute) Overactive bladder (Acute) Paroxysmal atrial fibrillation (Acute) Dementia (Chronic) Depression (Chronic) Hypertension (Chronic) Rheumatoid arthritis (Chronic) Diabetes (Chronic) Elevated troponin (Acute) Altered mental status (Acute) Non-ST elevation PA (NSTEMI) (Acute) Elevated troponin I level (Acute) Social History (Updated 10/29/23 @ 19:41 by Margarito Randolph) Smoking/Tobacco Use Status: Never Smoking risk assessment performed?: Yes Alcohol Intake: never Substance use type: does not use Details: Unable to obtain Housing: shelter Additional Social history: From [place], Urdu speaker. Has lived in [facility] for the past year after stopped walking. and son in [facility] Results Last Vital Signs Temp 98.2 F 10/30/23 04:35 Pulse 70 10/30/23 06:12 Resp 13 10/30/23 06:12 BP 128/74 10/30/23 06:12 Pulse Ox 99 10/30/23 06:12 Labs 10/30/23 05:15 10/30/23 05:15 Labs: Laboratory Results - last 24 hr 10/29/23 10/29/23 10/29/23 13:22 13:41 13:46 WBC 9.57 RBC 4.03 Hgb 12.2 Hct 35.2 L MCV 87 MCH 30.3 MCHC 34.7 RDW 14.0 Plt Count 386 MPV 9.3 Immature Gran % 0.7 Neutrophils % 69.1 Lymphocytes % 21.3 Monocytes % 6.5 Eosinophils % 1.9 Basophils % 0.5 Nucleated RBC % 0.0 Absolute Neutrophils 6.61 Absolute Lymphocytes 2.04 Absolute Monocytes 0.62 Absolute Eosinophils 0.18 Absolute Basophils 0.05 RBC Morphology PT 10.4 INR 1.0 APTT 20.9 L VBG pH 7.45 H VBG pCO2 32 L VBG pO2 66 VBG HCO3 22 L VBG Total CO2 20 L VBG O2 Saturation 95 VBG Base Excess -2 VBG Lactate Sodium 129 L Potassium 4.7 Chloride 96 L Carbon Dioxide 23.2 Anion Gap 9.8 BUN 15 Creatinine 1.2 H Est GFR (CKD-EPI 2020) 44.64 Glucose 262 H Hemoglobin A1c 6.6 H Calcium 8.9 Magnesium 1.9 Total Bilirubin 0.6 AST 13 L ALT 11 L Alkaline Phosphatase 125 H Creatine Kinase 50 Troponin I < 50 C-Reactive Protein NT-Pro-B Natriuret Pep 1696 H Total Protein 6.9 Albumin 2.9 L Lipase 35 Procalcitonin TSH 4.70 H Free T4 0.92 Urine Color Yellow Urine Clarity Clear Urine pH 7.0 Ur Specific [place] 1.010 Urine Protein Negative Urine Ketones Negative Urine Blood Negative Urine Nitrite Negative Urine Bilirubin Negative Urine Urobilinogen 0.2 Ur Leukocyte Esterase Negative Urine Glucose Negative Stl C.difficile Tox PCR Negative Random Vancomycin Salicylates 5.5 Urine Opiates Screen Negative Urine Methadone Screen Negative Acetaminophen 6 Ur Barbiturates Screen Negative Ur Tricyclics Screen Negative Ur Amphetamines Screen Negative U Benzodiazepines Scrn Negative Urine Cocaine Screen Negative Ur THC Screen Negative Ethyl Alcohol < 3.0 COVID-19 Source Nasopharynx SARS-CoV-2 (PCR) Negative Influenza Type A (PCR) Negative Influenza Type B (PCR) Negative RSV (PCR) Negative 10/29/23 10/29/23 10/30/23 17:00 19:35 05:15 WBC 34.53 H* RBC 3.99 Hgb 12.1 Hct 35.9 L MCV 90 MCH 30.3 MCHC 33.7 RDW 14.0 Plt Count 323 MPV 9.3 Immature Gran % 0.9 Neutrophils % 96.2 Lymphocytes % 1.3 Monocytes % 1.1 Eosinophils % 0.2 Basophils % 0.3 Nucleated RBC % 0.0 Absolute Neutrophils 33.22 H Absolute Lymphocytes 0.45 L Absolute Monocytes 0.38 Absolute Eosinophils 0.07 Absolute Basophils 0.10 RBC Morphology Normal PT INR APTT VBG pH VBG pCO2 VBG pO2 VBG HCO3 VBG Total CO2 VBG O2 Saturation VBG Base Excess VBG Lactate 2.6 H* Sodium 128 L Potassium 5.7 H D Chloride 96 L Carbon Dioxide 20.3 L Anion Gap 11.7 H BUN 27 H Creatinine 1.6 H Est GFR (CKD-EPI 2020) 31.61 Glucose 305 H Hemoglobin A1c Calcium 8.2 L Magnesium Total Bilirubin AST ALT Alkaline Phosphatase Creatine Kinase Troponin I < 50 C-Reactive Protein 1.78 H NT-Pro-B Natriuret Pep Total Protein Albumin Lipase Procalcitonin 17.4 TSH Free T4 Urine Color Urine Clarity Urine pH Ur Specific [place] Urine Protein Urine Ketones Urine Blood Urine Nitrite Urine Bilirubin Urine Urobilinogen Ur Leukocyte Esterase Urine Glucose Stl C.difficile Tox PCR Random Vancomycin 20.4 Salicylates Urine Opiates Screen Urine Methadone Screen Acetaminophen Ur Barbiturates Screen Ur Tricyclics Screen Ur Amphetamines Screen U Benzodiazepines Scrn Urine Cocaine Screen Ur THC Screen Ethyl Alcohol COVID-19 Source SARS-CoV-2 (PCR) Influenza Type A (PCR) Influenza Type B (PCR) RSV (PCR)
[2023-10-30 10:45] LABS: Bilirubin Small (Negative); Blood Trace-intact (Negative); Clarity Sl Cloudy (Clear); Glucose Negative (Negative); Ketones 15 mg/dL (Negative); Leukocyte Esterase Negative (Negative); Nitrite Negative (Negative); Specific Gravity 1.015 (1.005-1.025); Urobilinogen 0.2 mg/dL (Up to 0.2)
[2023-10-30] MEDS: Hydrocortisone SOD SUC. 100 MG VIAL 50 MG IVP ×3 (10:45→22:40)
[2023-10-30] MEDS: metroNIDAZOLE 500 MG/100 ML BAG 100 MG IVPB ×3 (10:45→22:41)
[2023-10-30] MEDS: Normal Saline Flush 10 ML SYR ×3 (10:46→15:33)
[2023-10-30 10:58] LABS: Epithelial Cells Rare HPF (Negative); WBC 0-2 HPF (0-5)
[2023-10-30 10:59] LABS: Bacteria Few HPF (Negative); C & S Indicated? No; Casts 0-2 Fine Granular LPF (Negative); Crystals Negative HPF (Negative); Mucus Trace (Negative)
--- NOTE | 2023-10-30 11:20 | W.SURGCON ---
Date of service: 10/30/23 Time of Service: 11:20 Assessment and Plan Assessment and plan (1) Impacted stool in intestine: Status: Acute Assessment and plan: (a) Will begin Dulcolax/Fleets regimen (b) Will order flat and decubitus abdominal plain films for the morning, 10/30 (c) Abdomen is quiet. Bowel function should return with improved medical status and stimulation (d) CT Scan showed stool burden, but no abscess formation and no pneumoperitoneum. (e) Leukocytosis. WBC 9,500 --> 34,500. (Legit vs lab error?) Follow trend. Shady Christensen D.O. History of Present Illness History of Present Illness Chief Complaint: Fecal impaction Narrative: 83 y/o female patient from [facility] presented with hypotension and unresponsiveness. Being treated for sepsis. Found to have a large stool burden in the colon. General Surgery service consulted regarding fecal impaction. Review of Systems Narrative: Patient unable to give history. Constitutional Comments: long term patient [facility] All Active Problems (Updated 10/30/23 @ 09:10 by Margarito Randolph) Hyperkalemia (Acute) DVT prophylaxis (Acute) Impacted stool in intestine (Acute) Septic shock (Acute) Altered mental status (Acute) Acute hypotension (Acute) Chronic hyponatremia (Acute) Laceration of scalp (Acute) Fall (Acute) Acute UTI (Acute) Hyponatremia (Acute) Chronic UTI (Acute) Overactive bladder (Acute) Paroxysmal atrial fibrillation (Acute) Dementia (Chronic) Depression (Chronic) Hypertension (Chronic) Rheumatoid arthritis (Chronic) Diabetes (Chronic) Elevated troponin (Acute) Altered mental status (Acute) Non-ST elevation [place] (NSTEMI) (Acute) Elevated troponin I level (Acute) Social History (Updated 10/29/23 @ 19:41 by Margarito Randolph) Smoking/Tobacco Use Status: Never Smoking risk assessment performed?: Yes Alcohol Intake: never Substance use type: does not use Details: Unable to obtain Housing: [facility] Additional Social history: From [place], Gabonese speaker. Has lived in [facility] for the past year after stopped walking. and son in [facility] Exam Narrative Exam Narrative: Examined in ICU bed, semi-Fowlers position Const Other: Denies abdominal pain (dolor) Eyes Other: Non-icteric GI Other: Soft, non-tender, quiet. There is no guarding and no rebound. Other: Rectal vault empty. Extrem Other: There is no calf pain. Results Last Vital Signs Temp 97.7 F 10/30/23 10:00 Pulse 70 10/30/23 06:12 Resp 13 10/30/23 06:12 BP 128/74 10/30/23 06:12 Pulse Ox 99 10/30/23 06:12 Labs 10/30/23 05:15 10/30/23 05:15 Labs: Laboratory Results - last 24 hr 10/29/23 10/29/23 10/29/23 13:22 13:41 13:46 WBC 9.57 RBC 4.03 Hgb 12.2 Hct 35.2 L MCV 87 MCH 30.3 MCHC 34.7 RDW 14.0 Plt Count 386 MPV 9.3 Immature Gran % 0.7 Neutrophils % 69.1 Lymphocytes % 21.3 Monocytes % 6.5 Eosinophils % 1.9 Basophils % 0.5 Nucleated RBC % 0.0 Absolute Neutrophils 6.61 Absolute Lymphocytes 2.04 Absolute Monocytes 0.62 Absolute Eosinophils 0.18 Absolute Basophils 0.05 RBC Morphology PT 10.4 INR 1.0 APTT 20.9 L VBG pH 7.45 H VBG pCO2 32 L VBG pO2 66 VBG HCO3 22 L VBG Total CO2 20 L VBG O2 Saturation 95 VBG Base Excess -2 VBG Lactate Sodium 129 L Potassium 4.7 Chloride 96 L Carbon Dioxide 23.2 Anion Gap 9.8 BUN 15 Creatinine 1.2 H Est GFR (CKD-EPI 2020) 44.64 Glucose 262 H Hemoglobin A1c 6.6 H Calcium 8.9 Magnesium 1.9 Total Bilirubin 0.6 AST 13 L ALT 11 L Alkaline Phosphatase 125 H Creatine Kinase 50 Troponin I < 50 C-Reactive Protein NT-Pro-B Natriuret Pep 1696 H Total Protein 6.9 Albumin 2.9 L Lipase 35 Procalcitonin TSH 4.70 H Free T4 0.92 Urine Color Yellow Urine Clarity Clear Urine pH 7.0 Ur Specific [place] 1.010 Urine Protein Negative Urine Ketones Negative Urine Blood Negative Urine Nitrite Negative Urine Bilirubin Negative Urine Urobilinogen 0.2 Ur Leukocyte Esterase Negative Urine RBC Urine WBC Ur Epithelial Cells Urine Crystals Urine Bacteria Urine Casts Urine Mucus Ur Culture Indicated? Urine Glucose Negative Stl C.difficile Tox PCR Negative Random Vancomycin Salicylates 5.5 Urine Opiates Screen Negative Urine Methadone Screen Negative Acetaminophen 6 Ur Barbiturates Screen Negative Ur Tricyclics Screen Negative Ur Amphetamines Screen Negative U Benzodiazepines Scrn Negative Urine Cocaine Screen Negative Ur THC Screen Negative Ethyl Alcohol < 3.0 COVID-19 Source Nasopharynx SARS-CoV-2 (PCR) Negative Influenza Type A (PCR) Negative Influenza Type B (PCR) Negative RSV (PCR) Negative 10/29/23 10/29/23 10/30/23 17:00 19:35 05:15 WBC 34.53 H* RBC 3.99 Hgb 12.1 Hct 35.9 L MCV 90 MCH 30.3 MCHC 33.7 RDW 14.0 Plt Count 323 MPV 9.3 Immature Gran % 0.9 Neutrophils % 96.2 Lymphocytes % 1.3 Monocytes % 1.1 Eosinophils % 0.2 Basophils % 0.3 Nucleated RBC % 0.0 Absolute Neutrophils 33.22 H Absolute Lymphocytes 0.45 L Absolute Monocytes 0.38 Absolute Eosinophils 0.07 Absolute Basophils 0.10 RBC Morphology Normal PT INR APTT VBG pH VBG pCO2 VBG pO2 VBG HCO3 VBG Total CO2 VBG O2 Saturation VBG Base Excess VBG Lactate 2.6 H* Sodium 128 L Potassium 5.7 H D Chloride 96 L Carbon Dioxide 20.3 L Anion Gap 11.7 H BUN 27 H Creatinine 1.6 H Est GFR (CKD-EPI 2020) 31.61 Glucose 305 H Hemoglobin A1c Calcium 8.2 L Magnesium Total Bilirubin AST ALT Alkaline Phosphatase Creatine Kinase Troponin I < 50 C-Reactive Protein 1.78 H NT-Pro-B Natriuret Pep Total Protein Albumin Lipase Procalcitonin 17.4 TSH Free T4 Urine Color Urine Clarity Urine pH Ur Specific [place] Urine Protein Urine Ketones Urine Blood Urine Nitrite Urine Bilirubin Urine Urobilinogen Ur Leukocyte Esterase Urine RBC Urine WBC Ur Epithelial Cells Urine Crystals Urine Bacteria Urine Casts Urine Mucus Ur Culture Indicated? Urine Glucose Stl C.difficile Tox PCR Random Vancomycin 20.4 Salicylates Urine Opiates Screen Urine Methadone Screen Acetaminophen Ur Barbiturates Screen Ur Tricyclics Screen Ur Amphetamines Screen U Benzodiazepines Scrn Urine Cocaine Screen Ur THC Screen Ethyl Alcohol COVID-19 Source SARS-CoV-2 (PCR) Influenza Type A (PCR) Influenza Type B (PCR) RSV (PCR) 10/30/23 10:23 WBC RBC Hgb Hct MCV MCH MCHC RDW Plt Count MPV Immature Gran % Neutrophils % Lymphocytes % Monocytes % Eosinophils % Basophils % Nucleated RBC % Absolute Neutrophils Absolute Lymphocytes Absolute Monocytes Absolute Eosinophils Absolute Basophils RBC Morphology PT INR APTT VBG pH VBG pCO2 VBG pO2 VBG HCO3 VBG Total CO2 VBG O2 Saturation VBG Base Excess VBG Lactate Sodium Potassium Chloride Carbon Dioxide Anion Gap BUN Creatinine Est GFR (CKD-EPI 2020) Glucose Hemoglobin A1c Calcium Magnesium Total Bilirubin AST ALT Alkaline Phosphatase Creatine Kinase Troponin I C-Reactive Protein NT-Pro-B Natriuret Pep Total Protein Albumin Lipase Procalcitonin TSH Free T4 Urine Color [place] Urine Clarity Sl Cloudy Urine pH 5.0 Ur Specific [place] 1.015 Urine Protein 30 H Urine Ketones 15 H Urine Blood Trace-intact H Urine Nitrite Negative Urine Bilirubin Small H Urine Urobilinogen 0.2 Ur Leukocyte Esterase Negative Urine RBC 3-5 H Urine WBC 0-2 Ur Epithelial Cells Rare Urine Crystals Negative Urine Bacteria Few Urine Casts 0-2 Fine Granular Urine Mucus Trace Ur Culture Indicated? No Urine Glucose Negative Stl C.difficile Tox PCR Random Vancomycin Salicylates Urine Opiates Screen Urine Methadone Screen Acetaminophen Ur Barbiturates Screen Ur Tricyclics Screen Ur Amphetamines Screen U Benzodiazepines Scrn Urine Cocaine Screen Ur THC Screen Ethyl Alcohol COVID-19 Source SARS-CoV-2 (PCR) Influenza Type A (PCR) Influenza Type B (PCR) RSV (PCR) Imaging Abdomen CT scan report/results: report reviewed
[2023-10-30 12:35] LABS: Vancomycin, Trough 15.2 ug/mL (10.0-20.0)
[2023-10-30] MEDS: MORPHine 2 MG/ML SYR IVP (14:21)
[2023-10-30] MEDS: VANCOMYCIN/WATER (PEG) 750 MG/150 ML BAG 150 MG IVPB (14:22)
[2023-10-30] MEDS: Na Phosphate Enema-Adult 133 ML BTL PR ×3 (14:23→14:24)
[2023-10-30 15:54] LABS: Anion Gap 12.2 mmol/L (3-11); BUN 30 mg/dL (7-18); CO2 19.8 mmol/L (21.0-32.0); CREATININE 1.5 mg/dL (0.55-1.02); Calcium 7.8 mg/dL (8.5-10.1); Chloride 101 mmol/L (98-107); Estimated GFR 34.15 (mL/min/1.73m2); Glucose 199 mg/dL (74-106); Potassium 4.7 mmol/L (3.5-5.1); Sodium 133 mmol/L (136-145)
[2023-10-30] MEDS: Travoprost 0.004% Ophth Sol 2.5 ML BTL OP (21:33)
[2023-10-30] MEDS: Levothyroxine 25 MCG TAB PO (21:34)
[2023-10-30] MEDS: Mirtazapine 15 MG TAB PO (21:34)
[2023-10-30] MEDS: Bisacodyl 5 MG TABEC PO (21:34)
[2023-10-30] MEDS: QUEtiapine 25 MG TAB 75 MG PO (21:34)
[2023-10-30] MEDS: Levothyroxine 100 MCG TAB PO (21:34)
[2023-10-30] MEDS: Enoxaparin 30 MG/0.3 ML SYR SC (21:35)
[2023-10-30] MEDS: Insulin Glargine 300 UNITS/3 ML PEN 15 UNITS SC (22:01)
[2023-10-30] MEDS: Normal Saline Flush 10 ML SYR IVP (22:42)
[2023-10-31] VITALS (50 sets, daily range): BP systolic 120–200; BP diastolic 43–138; PULSE 67–155; RESP 8–26; TEMP 36.7–37.7; O2SAT 95–99
[2023-10-31] MEDS: Refresh PLUS Eye Drops 0.4ml OP ×7 (01:38→23:40)
[2023-10-31] MEDS: ACETAMINOPHEN 1,000 MG/100 ML BTL 100 MG IVPB (04:10)
[2023-10-31] MEDS: Hydrocortisone SOD SUC. 100 MG VIAL 50 MG IVP ×4 (04:20→22:26)
[2023-10-31] MEDS: metroNIDAZOLE 500 MG/100 ML BAG 100 MG IVPB ×4 (04:20→22:25)
[2023-10-31] MEDS: Normal Saline 1,000 ML 100 ML IV ×2 (06:00→21:34)
[2023-10-31] MEDS: CEFEPIME 2 GM in Normal Saline 100 ML IVPB ×2 (06:00→17:55)
[2023-10-31] MEDS: Folic Acid 1 MG TAB PO (08:00)
[2023-10-31] MEDS: Clopidogrel 75 MG TAB PO (08:00)
[2023-10-31] MEDS: Sertraline 100 MG TAB PO (08:00)
--- NOTE | 2023-10-31 08:30 | DI.RAD_ITS ---
Exam(s) XR ABDOMEN FLAT UPRIGHT EXAM: 2D digital imaging was performed. CLINICAL HISTORY: fecal impaction/ ileus. COMPARISON: CT CT ABDOMEN PELVIS W from 10/29/2023 TECHNIQUE: Supine and semi upright views of the abdomen was performed. Four images were obtained. FINDINGS: LUNG BASES: Clear. BOWEL GAS PATTERN: Nondistended. There is a small to moderate amount of stool seen in the colon. The stool is primarily in the right colon and a small amount of seen in the rectum. FREE AIR: None. CALCIFICATIONS: Extensive atherosclerotic calcification is present. OSSEOUS STRUCTURES: Normal for age. There is again seen an L1 compression fracture deformity. OTHER FINDINGS: The tip of the enteric tube is situated within the stomach. IMPRESSION: No evidence of an acute abdomen. DATA REPOSITORY: RADIATION DOSE DELIVERED:
[2023-10-31 10:20] LABS: ALT 8 U/L (14-59); AST 16 U/L (15-37); Albumin 1.9 g/dL (3.4-5.0); Alkaline Phosphatase 68 U/L (46-116); Anion Gap 12.5 mmol/L (3-11); BUN 30 mg/dL (7-18); Bilirubin, Total 0.5 mg/dL (0.2-1.0); CO2 20.5 mmol/L (21.0-32.0); CREATININE 1.1 mg/dL (0.55-1.02); Calcium 7.8 mg/dL (8.5-10.1); Chloride 102 mmol/L (98-107); Estimated GFR 49.55 (mL/min/1.73m2); Glucose 100 mg/dL (74-106); Potassium 3.5 mmol/L (3.5-5.1); Sodium 135 mmol/L (136-145); Total Protein 5.4 g/dL (6.4-8.2)
[2023-10-31 10:45] LABS: Absolute Basophil Count 0.02 10^3/uL (0.0-0.2); Basophils % 0.1 %; HGB 9.1 g/dL (11.2-15.7); MCHC 33.7 % (32.0-36.0); MCV 89 fL (80-95); MPV 9.3 fL (8.0-11.0); Platelet Count 242 10^3/uL (130-400); RBC 3.03 10^6/uL (3.93-5.22); RDW 14.4 % (11.7-14.6); RDW-SD 46.3 fL; WBC 18.43 10^3/uL (4.4-10.8)
[2023-10-31 10:46] LABS: Abs Immature Grans 0.16 10^3/uL (0.0-0.06); Absolute Lymphocyte Count 0.56 10^3/uL (1.2-3.4); Absolute Monocyte Count 0.19 10^3/uL (0.1-0.8); Immature Grans % 0.9 %
[2023-10-31] MEDS: Timolol 0.5% 5 ML BTL OP (11:17)
--- NOTE | 2023-10-31 12:10 | W.PM.PROGNOT ---
Date of Service Date of service: 10/31/23 Time of Service: 12:10 Assessment and Plan Assessment and plan (1) Acute hypotension: Status: Acute Assessment and plan: Initially was diagnosed by the E.D. as septic shock however, no urine or blood cultures were done. She remains on cefepime and vancomycin for unclear reasons. Per my review of her labs and her imaging. she had WBC of 9570 on admission that madeline to 34,000 yesterday and have since declined to 18,400. She may have become septic from stercocolitis from her stool impaction. I will get blood and urine cultures even though she is on antibiotics but doubt that this will revealing. CT abdomen and pelvis demonstrated large amount of stool in the colon particularly in the rectum indicating impaction w/ some free fluid in the abdomen. No abscess or perforation. She has been chronically on prednisone 5 mg for her RA and she was appropriately put on hydrocortisone along w/ the norepinephrine drip she was started in the E.D. NE was quickly weaned off and her BP has been stable since. Serial CXR have been done for RIJ CVP and NG placement. Initially her CXR did not show any infiltrates however on one of her CXR there was a reading of developing LLL posterior basilar segment infiltrate (see CXR 10/29/[address] Riley) I will check urine for strep antigen, obtain blood cultures and get MRSA screen. If MRSA is negative then I think we can stop the vancomycin. Cefepime will cover both enteric pathogens as well as pulmonary organisms. If she had been septic then this might have been from gut transmigration from fecal impaction Critical care time spent interviewing and examining the patient, reviewing studies, discussing case with patient's nurse and consulting physicians was 60 minutes (2) Impacted stool in intestine: Status: Acute Assessment and plan: repeat KUB this morning shows some persistent stool primarily on the right colon; I will have nursing resume enemas and give her some mag citrate per her NG. (3) Hyperkalemia: Status: Resolved Assessment and plan: resolved, K 3.5 today, creatinine down to 1.1 from initial 1.6. I have reduced her NS IVF rate but have not dc since she will be getting enemas and mag citrate and is still not taking PO. continue to monitor labs (4) Altered mental status: Status: Acute Assessment and plan: mental status apparently did improve somewhat w/ resolution of her hypotension and her improvement in her electrolytes. however family is still concerned and she is not following commands nor does not seem to recognize; I will repeat her CT as she has had a number of falls and has left frontal hematoma. will get CTA to r/o CVA. I explained to family that w/ her dementia and w/ the hypotension and electrolyte changes, that elderly patient's can be encephalopathic for a few days until all is corrected. (5) Chronic hyponatremia: Status: Chronic Assessment and plan: her serum sodium at outpatient has fluctuated but seems to be between 125 and 130 most of the time. (6) Rheumatoid arthritis: Status: Chronic Assessment and plan: No active disease. Holding methotrexate, giving hydrocortisone as above. (7) Diabetes: Status: Chronic Assessment and plan: On GLP-1 and some insulin as outpatient. A1c is below goal. For now, continue conservative basal insulin and low dose ISS. (8) DVT prophylaxis: Status: Acute Assessment and plan: h/o pAFib but not on anticoagulation. Use LMWH. Subjective Subjective Interval history since last seen: Patient's hypotension has resolved. She has been off N.E. for over 24h, she remains on NS IVF and hydrocortisone. She is still non-communicative even w/ her family. she did open her eyes and look at them when I asked them to aske her questions and ask her granddaughter to request the patient to try to follow commands, while she did open her eyes to her name she did not seem to follow their commands nor attempt to acknowledge them other than to look at them and then look at me. 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 Exam Narrative Exam Narrative: Elderly right handed woman who does not speak any A[place]i. She does open her eyes to noxious stimulation as well as persistent calling of her name but does not consistently follow commands Left eye w/ some yellowish drainage, right eye, full EOMI and PERRLA, anicteric, left forehead w/ brusing over left orbital ridge and restorationism No facial asymmetry, NG remains in place Lungs: clear anteriorly w/ diminshed breath sounds at the bases bilaterally Heart: RRR, rhythm sinus Abdomen: soft, nondistended, she does not seem to be tender to palpation Extremities: no edema, feet warm, no cyanosis, pedal pulses intact, Babinski upgoing on left, inconclusive on the right; she seems to move both feet to noxious stimulation; hands she has weak hand grasps but does not consistently respond to commands in terms of raising her arms off the bed or squeeze when asked to. I think her hand grapss are more reflexive. Tone is intact in her arms. Objective Last Vital Signs Temp 36.8 C 10/31/23 11:37 Pulse 79 10/31/23 04:44 Resp 18 10/31/23 04:44 BP 146/90 H 10/31/23 04:44 Pulse Ox 97 10/31/23 04:44 Laboratory Results - last 24 hr 10/30/23 10/30/23 10/30/23 11:45 14:00 15:00 WBC RBC Hgb Hct MCV MCH MCHC RDW Plt Count MPV Immature Gran % Neutrophils % Lymphocytes % Monocytes % Eosinophils % Basophils % Nucleated RBC % Absolute Neutrophils Absolute Lymphocytes Absolute Monocytes Absolute Eosinophils Absolute Basophils Sodium 133 L Potassium 4.7 D Chloride 101 Carbon Dioxide 19.8 L Anion Gap 12.2 H BUN 30 H Creatinine 1.5 H Est GFR (CKD-EPI 2020) 34.15 Glucose 199 H Calcium 7.8 L Total Bilirubin AST ALT Alkaline Phosphatase Total Protein Albumin Stl C.difficile Tox PCR TNP Vancomycin Trough 15.2 Random Vancomycin 10/31/23 05:25 WBC 18.43 H RBC 3.03 L Hgb 9.1 L D Hct 27.0 L MCV 89 MCH 30.0 MCHC 33.7 RDW 14.4 Plt Count 242 MPV 9.3 Immature Gran % 0.9 Neutrophils % 95.0 Lymphocytes % 3.0 Monocytes % 1.0 Eosinophils % 0.0 Basophils % 0.1 Nucleated RBC % 0.0 Absolute Neutrophils 17.50 H Absolute Lymphocytes 0.56 L Absolute Monocytes 0.19 Absolute Eosinophils 0.00 Absolute Basophils 0.02 Sodium 135 L Potassium 3.5 D Chloride 102 Carbon Dioxide 20.5 L Anion Gap 12.5 H BUN 30 H Creatinine 1.1 H Est GFR (CKD-EPI 2020) 49.55 Glucose 100 Calcium 7.8 L Total Bilirubin 0.5 AST 16 ALT 8 L Alkaline Phosphatase 68 Total Protein 5.4 L Albumin 1.9 L Stl C.difficile Tox PCR Vancomycin Trough Random Vancomycin 18.0 Time Spent with Patient Time Spent with Patient: >50 minutes Time was spent: preparing to see the patient(eg.review tests), ordering medications,tests, procedures, referring, communicating with other health vision care associate, indepentently interpreting results, counseling the patient (Family including granddaughter and ) and care coordination
--- NOTE | 2023-10-31 12:14 | CMPROGNOTE_ITS ---
Date of service: 10/31/23 Time of Service: 12:14 Care Management Progress Note Progress Note Text Progress Note Text: Samia was lying in bed when CM met with her. She remains confused and is unable to follow directions. Per family, she may also not able to recognize them. Clinically, Samia is a little better. Her WBC is down to 18.43 from 34.53 yesterday. She is no longer hypotensive and is off the norepinephrine drip. In fact she has been hypertensive today with SBP between 140s and 190s. Medication adjustments are being made. No clear source of sepsis has been identified, although she has been found to be fecally impacted and, per provider, she may have stercocolitis. This is being treated with enemas. Samia remains ICU level of care. Discharge Potential Discharge Needs: PCP F/U Appt Anticipated Barriers to Discharge: Medical Status Patient/Family Education Needs: Review discharge instructions, discuss Ask Me Three Transportation: RCT Plan: Samia will likely be transferred back to [facility] when medically cleared. She will follow up with facility providers and plan of care and transport via EMS coordinated by CM. CM will folllow and continue to assess for discharge needs. SDOH(Care Management) Screening Will the Patient Participate in the Screening?: Unable to obtain Social Determinants of Health Comments(SDOH Details): [facility]
[2023-10-31] MEDS: ACETAMINOPHEN 1,000 MG/100 ML BTL 400 MG IVPB ×2 (12:44→20:17)
[2023-10-31] MEDS: MORPHine 2 MG/ML SYR IVP (13:00)
--- NOTE | 2023-10-31 14:05 | DI.CT_ITS ---
Exam(s) CT BRAIN NECK CTA EXAM: CT BRAIN NECK CTA CLINICAL HISTORY: acute mental status change; r/o CVA. TECHNIQUE: Imaging Protocol: Axial CT angiography was performed with multi-slice acquisition and mu lti-planar and/or 3D reconstructions. CONTRAST MATERIAL: Intravenous: Omnipaque 350 contrast volume:85 mL COMPARISON: CT CT HEAD CERVICAL SPINE WO from 11/22/[address] HEAD WO from 05/23/[address] HEAD CERVICAL SPINE WO from 09/29/[address] ABDOMEN PELVIS W from 10/29/[address] HEAD WO from 10/29/2023 FINDINGS: CT Head W/O and W: Ventricles and Extra axial spaces: Normal in size and morphology for the patient's age. Hemorrhage: None. Cerebral parenchyma: No evidence of an acute territorial infarct. No mass effect is identified. Midline shift: None. Brainstem/Cerebellum: Normal. Calvarium: Normal. Visualized Paranasal sinuses/Mastoids: Clear. Soft Tissues: Unremarkable. Enhancement: Unremarkable. CTA Neck W: Common Carotid: Right: No dissection, occlusion or significant stenosis. Left: No dissection, occlusion or significant stenosis. External Carotid: Right: No occlusion or significant stenosis. Left: No occlusion or significant stenosis. Internal Carotid: Right: No dissection, occlusion or significant stenosis. Left: No dissection, occlusion or significant stenosis. Vertebral Artery: Right: No dissection, occlusion or significant stenosis. Left: No dissection, occlusion or significant stenosis. Lung Apices: No focal infiltrates are present. There is soft tissue seen in the left and posterior a spect of the trachea near the region of the thoracic inlet. This may represent aspiration material/m ucosal secretions. This area was normal on the CT scan from 09/29/2023. Soft tissue mass is consider ed less likely. Bones: Within normal limits for the patient's age. C1-C2 alignment is unchanged. Soft Tissues: The proximal aspect of a nasogastric tube is visualized. Thyroid gland: Unremarkable. CTA Brain W: Internal Carotid Arteries: Dense atherosclerotic calcification of the internal carotid arteries is no maurizio. There is moderate narrowing of the right internal carotid artery just proximal to the cavernous portion. No occlusion is seen. Anterior Cerebral Arteries: Right: No aneurysm, occlusion or significant stenosis. There is an absent right A1 segment. The rig ht anterior cerebral artery receives its flow via the anterior communicating artery. Left: No aneurysm, occlusion or significant stenosis. Middle Cerebral Arteries: Right: No aneurysm, occlusion or significant stenosis. Left: No aneurysm, occlusion or significant stenosis. Posterior Cerebral Arteries: Right: No aneurysm, occlusion or significant stenosis. Left: No aneurysm, occlusion or significant stenosis. Vertebral Arteries: Right: No aneurysm, occlusion or significant stenosis. Left: No aneurysm, occlusion or significant stenosis. There is mild narrowing of the distal left zia tebral artery. Basilar Artery: No aneurysm, occlusion or significant stenosis. IMPRESSION: 1. Atherosclerotic calcification is present. No significant stenosis or occlusion. 2. No acute intracranial process. 3. Moderate narrowing of the distal right internal carotid artery as described above. 4. Absent right A1 segment which is a normal variant. The right anterior cerebral artery receives it s blood flow via the communicating artery. RADIATION DOSE DELIVERED: Total DLP DATA REPOSITORY: All CT scans at this facility are submitted to the National Radiology Data Registry (NRDR) Dose Index Registry (DIR) with the [employer] (ACR). RADIATION OPTIMIZATION: All CT scans at this facility use at least one of these dose optimization te chniques: automated exposure control; mA and/or kV adjustment per patient size (includes targeted exa ms where dose is matched to clinical indication); or iterative reconstruction.
[2023-10-31] MEDS: Omnipaque 350 MG/ML 500 ML BTL-Imaging package 100 ML IJ (14:11)
[2023-10-31] MEDS: Normal Saline - Diluent 50 ML VIAL IJ (14:14)
--- NOTE | 2023-10-31 14:21 | DI.RAD_ITS ---
Exam(s) XR PORTABLE CHEST AP EXAM: XR PORTABLE CHEST AP CLINICAL HISTORY: r/o pneumonia. TECHNIQUE: 2D digital imaging was performed. COMPARISON: CR,XR XR PORTABLE CHEST AP POST LINE from 10/30/2023 FINDINGS: Single AP portable view. Distal tip of the right jugular central line remains in good position in the lower SVC and an NG tube is again noted with distal tip in the fundus of the stomach. Heart size is upper normal. The mediastinum is not widened. Increasing interstitial infiltrates seen throughout the lungs and there is also some confluent infilt rate in the left lower lobe retrocardiac region, similar to yesterday. No obvious pleural effusions. No pneumothorax. No obvious fractures. IMPRESSION: No improvement in the appearance of the lung melton as described above. DATA REPOSITORY: RADIATION DOSE DELIVERED:
--- NOTE | 2023-10-31 14:29 | W.NUTRFU ---
Date of service: 10/31/23 Time of Service: 14:29 Nutrition Note NOTE: Pt is 83yo female from the [facility] with history of dementia. Found to be septic and recent impression is recent stool impaction could have led to stercocolitis. Her PMH is significant for chronic UTI, Depression, HTN, Diabetes. Pt currently inappropriate for any diet assessment/diabetes education due to altered mental status. A1C was 6.6% 2 days ago with recent history revealing 6.9-9.0 the last 2.5 years. FBG was 100 this morning. Gucose managed with 15u insulin glargine and sensitive ss of insulin aspart [id number]. Weight stable over the last month but showing ~5kg wt loss over the last 6 months. Will monitor glucose trends and po intake/wt once pt is not longer npo. Time Spent in Nutritional Counseling and Treatment: 0
[2023-10-31 14:35] LABS: Bilirubin Negative (Negative); Blood Small (Negative); Clarity Clear (Clear); Glucose Negative (Negative); Ketones Negative (Negative); Leukocyte Esterase Negative (Negative); Nitrite Negative (Negative); Urobilinogen 0.2 mg/dL (Up to 0.2); pH 5.5 (5-8)
--- NOTE | 2023-10-31 14:36 | PHA.REVIEW2 ---
Pharmacy Admission Review Admission Clinical Review Admission Pharmacy Review: DVT prophylaxis (Acute) Impacted stool in intestine (Acute) Altered mental status (Acute) Acute hypotension (Acute) No Known Allergies Allergy (Unverified 05/23/23 20:09) Resuscitation Status Full Code Height 5 ft Weight 70.2 kg Pharmacy Admission Review Renal Dosing Renal Dosing: BUN 30 mg/dL (7-18) H 10/31/23 05:25 Creatinine 1.1 mg/dL (0.55-1.02) H 10/31/23 05:25 Medications needing adjustments: Intervened (CrCl 33.24 mL/min, SCr decreased from 1.5) List of meds needing interventions: CrCl improved, changed enoxaparin from 30mg daily to 40mg daily Anticoagulation Anticoagulation: Hgb 9.1 g/dL (11.2-15.7) L D 10/31/23 05:25 Hct 27.0 % (36.0-46.0) L 10/31/23 05:25 Plt Count 242 10^3/uL (130-400) 10/31/23 05:25 INR 1.0 (0.9-1.1) 10/29/23 13:41 Creatinine 1.1 mg/dL (0.55-1.02) H 10/31/23 05:25 DVT Prophylaxis: Intervened (Changed dose per improved renal function as mentioned above) Medications: Enoxaparin (40mg daily) Opiate Usage Evaluate Pain Scale/Pains Meds: Reviewed (PRN IV morphine, 2 doses given so far) Relevant Labs Relevant Labs: Sodium 135 mmol/L (136-145) L 10/31/23 05:25 Potassium 3.5 mmol/L (3.5-5.1) D 10/31/23 05:25 Chloride 102 mmol/L (98-107) 10/31/23 05:25 Magnesium 1.9 mg/dL (1.8-2.4) 10/29/23 13:22 C-Reactive Protein 1.78 mg/dL (<or=0.5) H 10/29/23 19:35 Electrolytes, C-Reactive P, ESR: Reviewed (Na increased from 133) DM Control DM Control: Glucose 100 mg/dL (74-106) 10/31/23 05:25 Hemoglobin A1c 6.6 % (<5.7) H 10/29/23 13:22 Finger Stick Blood Glucose 103 1035 Finger Stick Blood Glucose 103 0752 Finger Stick Blood Glucose 103 0752 DM Control: Reviewed Insulin Dosing, Diabetic Medication: Has order for SS insulin and 15 units of glargine at bedtime. SS insulin frequency currently q6h, patient currently NPO. Switch to AC/HS once PO intake improved. Cardiac Review Cardiac Review: Troponin I < 50 ng/L (< or =60) 10/29/23 17:00 NT-Pro-B Natriuret Pep 1696 pg/mL (<300) H 10/29/23 13:22 Blood Pressure 183/58 1329 Blood Pressure 183/58 1301 Blood Pressure 193/54 1101 Blood Pressure 143/93 0958 Blood Pressure 161/84 0927 Blood Pressure 191/68 0843 Blood Pressure 192/82 0735 Blood Pressure 185/81 0703 Blood Pressure 180/98 0702 Blood Pressure 142/82 0601 BP, HR, EF%: Reviewed (BP 183/58, HR WNL, RR 11) QTc Review QTc: Reviewed (EKG report pending, last EKG from 09/29/23 with QTc of 441) IV to PO Switch IV Medications: Reviewed (NPO) Home Meds Home Med List reviewed: Intervened Relevent Home Meds Not ordered & why?: Clonidine patch, cyclobenzaprine, Trulicity (on hold per H+P), methotrexate (on hold per H+P), nebivolol, pantoprazole, prednisone and nitrofurantoin Reached out to provider regarding missing home meds, waiting to hear back Current Meds Current Medication Order Review: Reviewed Pharmacy Antibiotic Review Relevant Labs: WBC 18.43 10^3/uL (4.4-10.8) H 10/31/23 05:25 Procalcitonin 17.4 ng/mL 10/29/23 19:35 Temperature 36.8 C Temperature 37.1 C Temperature 37.0 C Temperature 36.7 C Temperature 37.0 C Comments: Patient is on cefepime, metronidazole and vancomycin, day 2 for septic shock. Vancomycin random level of 18 from today at 0525, continue dose of 750mg q24h for predicted AUC of 452 and trough of 12.9. WBC decreased from 34.53. Blood and urine cultures are pending, taken after antibiotics were started.
[2023-10-31] MEDS: Magnesium Citrate 300 ML BTL NG (14:41)
[2023-10-31] MEDS: VANCOMYCIN/WATER (PEG) 750 MG/150 ML BAG 150 MG IVPB (14:41)
[2023-10-31 14:42] LABS: Bacteria Negative HPF (Negative); C & S Indicated? C&S Done As Ordered; Casts Negative LPF (Negative); Crystals Negative HPF (Negative); Epithelial Cells Rare HPF (Negative); Mucus Negative (Negative); RBC 0-2 HPF (0-2); WBC 0-2 HPF (0-5)
[2023-10-31 15:35] LABS: MRSA PCR Negative (Negative)
[2023-10-31] MEDS: Normal Saline Flush 10 ML SYR IVP ×2 (16:02→23:42)
--- NOTE | 2023-10-31 19:16 | DI.VRAD_ITS ---
PROCEDURE INFORMATION: Exam: CTA Head Without And With Contrast, Arteriography Exam date and time: 10/31/2023 1:56 PM Age: 83 years old Clinical indication: Other: Acute mental status change; R/O CVA TECHNIQUE: Imaging protocol: Computed tomographic angiography of the head without and with contrast. Exam focused on the arteries. 3D rendering (Not supervised by radiologist): MIP and/or 3D reconstructed images were created by the technologist. Contrast material: OMNIPAQUE; Contrast volume: 85 ml; Contrast route: INTRAVENOUS (IV); COMPARISON: CT HEAD WO 10/29/2023 3:36 PM FINDINGS: ANTERIOR CIRCULATION: Right internal carotid artery: Intracranial segment is patent with no significant stenosis or occlusion. No aneurysm. Right middle cerebral artery: No occlusion or significant stenosis. No aneurysm. Right anterior cerebral artery: No occlusion or significant stenosis. No aneurysm. Left internal carotid artery: Intracranial segment is patent with no significant stenosis. No aneurysm. Left middle cerebral artery: No occlusion or significant stenosis. No aneurysm. Left anterior cerebral artery: No occlusion or significant stenosis. No aneurysm. POSTERIOR CIRCULATION: Right vertebral artery: No occlusion or significant stenosis. No aneurysm. Left vertebral artery: No occlusion or significant stenosis. No aneurysm. Basilar artery: No occlusion or significant stenosis. No aneurysm. Right posterior cerebral artery: No occlusion or significant stenosis. No aneurysm. Left posterior cerebral artery: No occlusion or significant stenosis. No aneurysm. HEAD: Brain: There is no acute intracranial hemorrhage, mass effect or midline shift. No large acute territorial infarct identified. There are patchy regions of hypodensity in the periventricular and subcortical white matter, likely on the basis of chronic microvascular ischemic disease. Cerebral ventricles: The ventricles and sulci are prominent in size, which is at least in part due to global cerebral volume loss. Bones: Unremarkable. No acute fracture. Paranasal sinuses: Visualized sinuses are normal. No fluid levels. Mastoid air cells: Visualized mastoids are normal. No mastoid effusion. Soft tissues: Unremarkable. IMPRESSION: 1. No acute intracranial hemorrhage, mass effect or midline shift. 2. No arterial occlusion or significant stenosis. PROCEDURE INFORMATION: Exam: CTA Neck Without And With Contrast Exam date and time: 10/31/2023 1:56 PM Age: 83 years old Clinical indication: Acute mental status change; R/O CVA TECHNIQUE: Imaging protocol: Computed tomographic angiography of the neck without and with contrast. Exam focused on the cervical segments of the vasculature. 3D rendering (Not supervised by radiologist): MIP and/or 3D reconstructed images were created by the technologist. Contrast material: OMNIPAQUE; Contrast volume: 85 ml; Contrast route: INTRAVENOUS (IV); COMPARISON: CT HEAD CERVICAL SPINE WO 09/29/2023 9:46 PM FINDINGS: Right common carotid artery: No stenosis. No dissection or occlusion. Right internal carotid artery: No stenosis of the extracranial segment. No dissection or occlusion. Atherosclerotic plaque noted at the bifurcation. Right external carotid artery: No occlusion or stenosis of the origin. Left common carotid artery: No stenosis. No dissection or occlusion. Left internal carotid artery: No stenosis of the extracranial segment. No dissection or occlusion. Atherosclerotic plaque at the bilateral carotid bifurcations without hemodynamically significant stenosis. Left external carotid artery: No occlusion or stenosis of the origin. Right vertebral artery: No stenosis. No dissection or occlusion. Left vertebral artery: No stenosis. No dissection or occlusion. Soft tissues: There is a lobulated region of soft tissue within the left aspect of the trachea (image 26, series 11, possibly mucosal secretions versus aspiration. Bones/joints: No acute fracture. Lungs: Incidentally noted are ground-glass opacities in the right greater than left lung melton with associated atelectasis. IMPRESSION: 1. No stenosis or occlusion. 2. Lobulated region of soft tissue in the trachea, possibly mucosal secretions versus aspiration. Clinical correlation recommended. Direct visualization may be considered to exclude any suspicious lesion in this region. REFERENCES: NASCET CRITERIA. The degree of stenosis in the cervical segment of the internal carotid artery is based on NASCET criteria. Normal is no stenosis. Mild is less than 50% stenosis. Moderate is 50-69% stenosis. Severe is 70% to 99% stenosis. Total occlusion is no detectable patent lumen. Dictated and Authenticated by: Lynn Carter MD. Ordering:[facility] Gustavo Monique MD
[2023-10-31] MEDS: Levothyroxine 100 MCG TAB PO (20:18)
[2023-10-31] MEDS: Levothyroxine 25 MCG TAB PO (20:18)
[2023-10-31] MEDS: Bisacodyl 5 MG TABEC PO (20:18)
[2023-10-31] MEDS: Enoxaparin 40 MG/0.4 ML SYR SC (20:21)
[2023-10-31] MEDS: Travoprost 0.004% Ophth Sol 2.5 ML BTL OP (20:21)
[2023-10-31] MEDS: Insulin Glargine 300 UNITS/3 ML PEN 15 UNITS SC (20:54)
[2023-11-01] VITALS (65 sets, daily range): BP systolic 122–204; BP diastolic 46–121; PULSE 58–187; RESP 8–23; TEMP 37–37.5; O2SAT 95–99
--- NOTE | 2023-11-01 | DI.CT_ITS ---
Exam(s) CT CHEST PE ABD PELVIS W EXAM: CT CHEST PE ABD PELVIS W CLINICAL HISTORY: abdomial pain, dyspnea. TECHNIQUE: Imaging Protocol: Axial CT angiography was performed with multi-slice acquisition and mu lti-planar and/or 3D reconstructions. CONTRAST MATERIAL: Intravenous: Omnipaque 350contrast volume:100 mL COMPARISON: CT CT THORAX ABD/PEL CTA from 05/18/[address] ABDOMEN PELVIS W from 10/29/[address] BRAIN NECK CTA from 10/31/2023 FINDINGS: The examination is limited due to patient motion artifact. CHEST: Tracheobronchial tree: Patent where visualized. Pulmonary parenchyma: There is linear scarring in the right upper lobe. There are no focal consolida ting infiltrates present. Mild dependent atelectatic changes are seen in the lung bases. Pulmonary Arteries: There is limited evaluation of the distal pulmonary arteries secondary to patient motion artifact. No large central pulmonary embolus is seen. Mediastinum and Kirsty: No dominant adenopathy or fluid collection. The esophagus is unremarkable. The enteric tube passes into the stomach. Pleura: No effusion or pneumothorax. Heart: Cardiomegaly. Coronary artery calcifications are present. No pericardial effusion. Aorta: Thoracic aorta non-dilated. No evidence of dissection. Atherosclerotic calcification is prese nt. Bones: Within normal limits for the patient's age. Old healed rib fractures are present. There is an old T11 compression fracture deformity. There is again seen a compression fracture deformity of L1 which appears subacute. Soft tissues: Unremarkable. Tubes, Catheters, and Lines: The enteric tube is seen in the stomach in good position. ABDOMEN: Liver: Normal density. No measurable mass. Portal, Superior Mesenteric, and Splenic Veins: Unremarkable. Gallbladder and Biliary Tract: Gallbladder is markedly distended. No stones are seen. No biliary du ctal dilatation is present. Pancreas: There is mild atrophy of the pancreas. Spleen: Normal. Adrenals: No masses seen. Kidneys: Normal size, contour and axis. No radiodense stones or obstructive uropathy. There is a simp le cyst in the right kidney. No follow-up is recommended. Abdominal Aorta: Abdominal portion non-dilated. Atherosclerotic calcification is present. Bowel: No obstruction or bowel wall thickening. No evidence of appendicitis. Peritoneal Cavity: There is a small amount of perihepatic and perisplenic ascites. No free air. Lymph Nodes: Within normal limits. Bones: Within normal limits for the patient's age. Soft Tissues: There is now infiltration of the soft tissues anterior to the sacrum. PELVIS: Bladder: There is a Kwon catheter in the decompressed urinary bladder. There is a small amount of a ir in the urinary bladder likely from reflecting catheterization. Reproductive Organs: There is a stable 3 cm left adnexal cyst. Nonemergent pelvic ultrasound should be considered in this postmenopausal patient. Lymph Nodes: Within normal limits. Bones: Within normal limits. IMPRESSION: 1. Within the limits of the examination, no central pulmonary embolus is seen. 2. No evidence of thoracic aortic dissection or aneurysm. 3. Old T11 stable compression deformity. Stable subacute L1 compression fracture deformity. 4. Interval development of a small amount of abdominal ascites and edema in the presacral space. 5. Distended gallbladder with higher density material layering in the gallbladder. This was not pres ent on the prior examination and likely reflects excreted contrast material from the CT scan from 10/18. Sludge cannot be entirely excluded. No stones are present. RADIATION DOSE DELIVERED: Total DLP DATA REPOSITORY: All CT scans at this facility are submitted to the National Radiology Data Registry (NRDR) Dose Index Registry (DIR) with the [employer] (ACR). RADIATION OPTIMIZATION: All CT scans at this facility use at least one of these dose optimization te chniques: automated exposure control; mA and/or kV adjustment per patient size (includes targeted exa ms where dose is matched to clinical indication); or iterative reconstruction.
--- NOTE | 2023-11-01 | DI.RAD_ITS ---
Exam(s) XR ABDOMEN FLAT PLATE EXAM: XR ABDOMEN FLAT PLATE CLINICAL HISTORY: constipation. TECHNIQUE: 2D digital imaging was performed. COMPARISON: CR XR ABDOMEN FLAT UPRIGHT from 10/31/2023 FINDINGS: AP view of the abdomen-pelvis Distal tip of NG tube is in the gastric fundus. The stomach is not distended. There are air-filled and mildly dilated bowel loops in the central abdomen again noted. Peripherally there is air throughout the colon. IMPRESSION: There does not appear to be a high-grade bowel obstruction. DATA REPOSITORY: RADIATION DOSE DELIVERED:
[2023-11-01] MEDS: Hydrocortisone SOD SUC. 100 MG VIAL 50 MG IVP ×4 (03:56→22:07)
[2023-11-01] MEDS: ACETAMINOPHEN 1,000 MG/100 ML BTL 400 MG IVPB ×3 (03:58→20:07)
[2023-11-01] MEDS: Normal Saline Flush 10 ML SYR IVP ×9 (04:03→22:06)
[2023-11-01] MEDS: Refresh PLUS Eye Drops 0.4ml OP ×5 (04:04→20:15)
[2023-11-01] MEDS: metroNIDAZOLE 500 MG/100 ML BAG 100 MG IVPB (04:13)
[2023-11-01] MEDS: MORPHine 2 MG/ML SYR IVP ×3 (04:17→22:06)
--- NOTE | 2023-11-01 05:00 | RT.EKG_ITS ---
APPROVED REPORT Exam: Resting ECG Reason for Exam: rhythm change Patient Location: I HR:128 bpm ECG Measurements Heart Rate 128 AXIS [place] [id number] P [id number] QRSd 79 QRS -14 QT 254 T 194 QTc 371 Conclusion Atrial fibrillation...? atrial activity Low voltage, precordial leads...precordial leads <1.0mV Repolarization abnormality, prob rate related...ST dep, T neg, tachycardia
[2023-11-01] MEDS: dilTIAZem 25 MG/5 ML VIAL 10 MG IVP (05:53)
[2023-11-01] MEDS: CEFEPIME 2 GM in Normal Saline 100 ML IVPB ×2 (06:30→20:14)
[2023-11-01 07:19] LABS: Abs Immature Grans 0.45 10^3/uL (0.0-0.06); Absolute Monocyte Count 0.12 10^3/uL (0.1-0.8); Basophils % 0.2 %; HCT 31.7 % (36.0-46.0); Immature Grans % 1.9 %; Lymphocytes % 4.3 %; MCHC 34.7 % (32.0-36.0); MCV 86 fL (80-95); MPV 9.3 fL (8.0-11.0); Monocytes % 0.5 %; Neutrophils % 93.1 %; Platelet Count 280 10^3/uL (130-400); RBC 3.67 10^6/uL (3.93-5.22); RDW-SD 43.7 fL; WBC 23.27 10^3/uL (4.4-10.8)
[2023-11-01 07:20] LABS: Absolute Basophil Count 0.05 10^3/uL (0.0-0.2); Absolute Neutrophil Count 21.66 10^3/uL (1.2-6.7)
[2023-11-01 07:33] LABS: Diff Comment Agrees w/ Instrument; RBC Morphology Normal
[2023-11-01 07:43] LABS: ALT 12 U/L (14-59); AST 25 U/L (15-37); Albumin 2.5 g/dL (3.4-5.0); Alkaline Phosphatase 86 U/L (46-116); Anion Gap 12.2 mmol/L (3-11); BUN 20 mg/dL (7-18); Bilirubin, Total 0.6 mg/dL (0.2-1.0); C-Reactive Protein 8.08 mg/dL (<or=0.5); CO2 23.8 mmol/L (21.0-32.0); CREATININE 0.8 mg/dL (0.55-1.02); Calcium 8.1 mg/dL (8.5-10.1); Chloride 97 mmol/L (98-107); Estimated GFR 72.61 (mL/min/1.73m2); Glucose 64 mg/dL (74-106); Sodium 133 mmol/L (136-145); Total Protein 6.7 g/dL (6.4-8.2)
[2023-11-01] MEDS: Timolol 0.5% 5 ML BTL OP (07:59)
[2023-11-01] MEDS: Clopidogrel 75 MG TAB PO (08:01)
[2023-11-01] MEDS: Sertraline 100 MG TAB PO (08:01)
[2023-11-01] MEDS: Mirabegron 25 MG TABCR PO (08:01)
[2023-11-01] MEDS: dilTIAZem 30 MG TAB NG ×3 (08:01→20:15)
[2023-11-01] MEDS: Bisacodyl 5 MG TABEC PO ×2 (08:01→20:16)
[2023-11-01] MEDS: Folic Acid 1 MG TAB PO (08:01)
[2023-11-01 08:04] LABS: Potassium 2.4 mmol/L (3.5-5.1)
--- NOTE | 2023-11-01 08:10 | CMPROGNOTE_ITS ---
Date of service: 11/01/23 Time of Service: 08:10 Care Management Progress Note Progress Note Text Progress Note Text: Samia remains ICU level of care. She is still not communicating but has been opening her eyes and looking around. Samia went into atrial fibrillation with RVR and was treated with Diltiazem. She initially responded but went back into afib. Samia remains a full code; her COLST form was completed by her son in 05/10. Discharge Potential Discharge Needs: PCP F/U Appt Anticipated Barriers to Discharge: Medical Status Patient/Family Education Needs: Review discharge instructions, discuss Ask Me Three Transportation: EMS Plan: Samia will likely be transferred back to [facility] when medically cleared. She will follow up with facility providers and plan of care and transport via EMS coordinated by CM. CM will folllow and continue to assess for discharge needs. SDOH(Care Management) Screening Will the Patient Participate in the Screening?: Unable to obtain Social Determinants of Health Comments(SDOH Details): lives in skilled nursing
[2023-11-01] MEDS: Potassium Chloride Liquid 20 MEQ PKT 40 MEQ NG (08:32)
[2023-11-01] MEDS: DOXYCYCLINE 100 MG in Normal Saline 100 ML IVPB ×2 (08:33→20:15)
[2023-11-01] MEDS: POTASSIUM CHLORIDE 20 MEQ/100 ML BAG 50 MEQ IVINF ×2 (08:33→10:49)
[2023-11-01] MEDS: dilTIAZem 25 MG/5 ML VIAL 20 MG IVP (08:47)
--- NOTE | 2023-11-01 08:55 | PGE_ITS ---
Date of Service Date of service: 11/01/23 Time of Service: 08:55 Assessment and Plan Assessment and plan (1) Impacted stool in intestine: Status: Acute Assessment and plan: NG drainage is diminishing, will repeat her KUB, hopefully we can dc her NG today and if her attentiveness improves, trial of clear liquids. if NG continues to put out then will leave in place. proceed w/ nutritional consult. I will have nursing give her miralax on scheduled basis along w/ metamucil if there is no obstruction on her KUB Critical care time spent interviewing and examining the patient, reviewing studies, discussing case with patient's nurse and consulting physicians was 45 minutes (2) Acute hypotension: Status: Resolved Assessment and plan: initially suspected from sepsis, however no urine or blood cultures were done on admission. I did order them yesterday. She was initially on norepinephrine from the E.D. but was quickly weaned off after admission and was put on hydrocortisone for empiric coverage for adrenal insufficiency. She is chronically on prednisone 5 mg daily for RA. she remains on hydrocortisone 50 mg IV Q6h. I will continue this for another 24 hours then begin to wean. (3) Adrenal insufficiency: Status: Suspected Assessment and plan: suspected but no random cortisol was done and no cosyntropin study was done. However, her hypotension resolved quickly after getting on hydrocortisone. will continue hydrocortisone for another 24 h then wean off to her prednisone (4) Pneumonia: Status: Acute Assessment and plan: continue cefepime and doxycycline added but may be able to down grade to ceftriaxone and doxycycline. attempt sputum if she is able to produce. awaiting blood and urine cultures but doubt this will be helpful as she already had been on antibiotics for nearly 48h before this was obtained. She is not hypoxemic and is not having any respiratory distress. I would encourage nursing to use foreign language instructor to try to communicate w/ her and encourage her w/ cough and deep breathing and get her out of bed. Qualifiers: Pneumonia type: aspiration pneumonia Laterality: bilateral Lung location: lower lobe of lung Aspiration pneumonia type: due to gastric secretions Qualified Code(s): J69.0 - Pneumonitis due to inhalation of food and vomit (5) Hypokalemia due to excessive gastrointestinal loss of potassium: Status: Acute Assessment and plan: initially had hyperkalemia w/ JUAN JOSÉ on admission but now has low K 2.4 , checking repeat Mg level and giving her both iv and enteral potassium replacement (6) Hyperkalemia: Status: Resolved Assessment and plan: initially had hyperkalemia which resolved and now she has significant hypokalemia probably from all of her enemas and NG output. currently getting iv and NG replacement (7) Altered mental status: Status: Acute Assessment and plan: mental status seems to be objectively improving i.e. she now spontaneously looks at people, opens her eyes when she hears people and track people w/ her eyes. nursing tried using a linguist to communicate w/ her this morning but this was not successful. I think that this is a metabolic encephalopathy d/t her e lectrolytes, adrenal insufficiency, hypotension, +/- infection. CTA of her head did not show any acute cerebral pathology i.e. no stroke, bleed, intracranial pressure and no acute occlusion of her cervical or cerebral vessels. Qualifiers: Altered mental status type: delirium Qualified Code(s): R41.0 - Disorientation, unspecified (8) Dementia: Status: Chronic Assessment and plan: seroquel and her mirtazapine had to be held last night d/t her menatl status change. I would continue to hold for now but once she is more interactive then she may need to go back on these. Qualifiers: Dementia type: Alzheimer's Dementia severity: moderate Dementia behavioral or psychological symptom: without behavioral, psychotic, or mood disturbance or anxiety Alzheimer's disease onset: unspecified onset Qualified Code(s): G30.9 - Alzheimer's disease, unspecified; F02.B0 - Dementia in other diseases classified elsewhere, moderate, without behavioral disturbance, psychotic disturbance, mood disturbance, and anxiety (9) Chronic hyponatremia: Status: Chronic Assessment and plan: improving. will dc her saline infusion now as she is getting a little volume overloaded (10) Rheumatoid arthritis: Status: Chronic Assessment and plan: No active disease. Holding methotrexate, giving hydrocortisone as above. Qualifiers: Rheumatoid arthritis location: multiple sites Rheumatoid factor presence: unspecified presence Qualified Code(s): M06.9 - Rheumatoid arthritis, unspecified (11) Diabetes: Status: Chronic Assessment and plan: On GLP-1 and some insulin as outpatient. A1c is below goal.dc Lantus, glucose only 62 this morning. will monitor glucose q6h w/ low dose sliding scale novolog but raise the threshold for coverage to avoid hypoglycemia. once she begins to eat, then will resume some low dose lantus and adjust her sliding scale. Qualifiers: Diabetes mellitus type: type 2 Diabetes mellitus correction insulin use: without correction use Diabetes mellitus complication status: without complication Qualified Code(s): E11.9 - Type 2 diabetes mellitus without complications (12) DVT prophylaxis: Status: Acute Assessment and plan: h/o pAFib but not on anticoagulation. Use LMWH. Subjective Subjective Interval history since last seen: Patient is still non-communicative but she opens her eyes spontaneously and looks at people around the room. Early this morning she went into afib w/ RVR and was given bolus of diltiazem w/ good response but has since gone into rapid rate again. Exam Narrative Exam Narrative: Samia is awake, opens her eyes spontaneously and when she is called by her name but d/t her language barrier and/or her dementia we can not determine her ability to follow commands She looks around the room and tracks voices w/ her eyes There is no facial asymmetry Lungs: clear anteriorly but w/ bibasilar rales posteriorly; no rhonchi or wheezing Heart: irregularly irregular, tachycardic but now slowing down after given iv diltiazem Abdomen: soft, nondistended, active bowel sounds present, she does not seem to be tender to palpation Extremities: no pitting edema of her feet or legs; hands seem to have a trace of edema Objective Last Vital Signs Temp 37.0 C 11/01/23 07:44 Pulse 133 H 11/01/23 08:47 Resp 10 L 11/01/23 07:44 BP 158/74 H 11/01/23 08:47 Pulse Ox 97 11/01/23 07:00 Laboratory Results - last 24 hr 10/31/23 10/31/23 11/01/23 05:25 13:16 05:30 WBC 18.43 H 23.27 H RBC 3.03 L 3.67 L Hgb 9.1 L D 11.0 L Hct 27.0 L 31.7 L MCV 89 86 MCH 30.0 30.0 MCHC 33.7 34.7 RDW 14.4 14.0 Plt Count 242 280 MPV 9.3 9.3 Immature Gran % 0.9 1.9 Neutrophils % 95.0 93.1 Lymphocytes % 3.0 4.3 Monocytes % 1.0 0.5 Eosinophils % 0.0 0.0 Basophils % 0.1 0.2 Nucleated RBC % 0.0 0.0 Absolute Neutrophils 17.50 H 21.66 H Absolute Lymphocytes 0.56 L 1.00 L Absolute Monocytes 0.19 0.12 Absolute Eosinophils 0.00 0.00 Absolute Basophils 0.02 0.05 RBC Morphology Normal Sodium 135 L 133 L Potassium 3.5 D 2.4 L* D Chloride 102 97 L Carbon Dioxide 20.5 L 23.8 Anion Gap 12.5 H 12.2 H BUN 30 H 20 H Creatinine 1.1 H 0.8 Est GFR (CKD-EPI 2020) 49.55 72.61 Glucose 100 64 L Calcium 7.8 L 8.1 L Total Bilirubin 0.5 0.6 AST 16 25 ALT 8 L 12 L Alkaline Phosphatase 68 86 C-Reactive Protein 8.08 H Total Protein 5.4 L 6.7 Albumin 1.9 L 2.5 L Procalcitonin 20.0 Urine Color Yellow Urine Clarity Clear Urine pH 5.5 Ur Specific [place] 1.020 Urine Protein Negative Urine Ketones Negative Urine Blood Small H Urine Nitrite Negative Urine Bilirubin Negative Urine Urobilinogen 0.2 Ur Leukocyte Esterase Negative Urine RBC 0-2 Urine WBC 0-2 Ur Epithelial Cells Rare Urine Crystals Negative Urine Bacteria Negative Urine Casts Negative Urine Mucus Negative Ur Culture Indicated? C&S Done As Ordered Urine Glucose Negative Random Vancomycin 18.0 MRSA (TEM-PCR) Negative Objective Narrative Objective Narrative: NG had 350 mL output total yesterday but today has had only about 50 mL since midnight. Time Spent with Patient Time Spent with Patient: 35-49 minutes Time was spent: preparing to see the patient(eg.review tests), ordering medications,tests, procedures, referring, communicating with other health child caregiver private home, indepentently interpreting results and care coordination
[2023-11-01] MEDS: dilTIAZem 125 MG in Normal Saline 100 ML IV (09:21)
[2023-11-01 10:21] LABS: Lab Add On Test DONE
[2023-11-01 10:34] LABS: Magnesium 1.6 mg/dL (1.8-2.4); PHOSPHORUS 2.9 mg/dL (2.6-4.7)
--- NOTE | 2023-11-01 10:45 | RT.EKG_ITS ---
APPROVED REPORT Exam: Resting ECG Reason for Exam: converted from afib to sinus rhythm Patient Location: I HR:71 bpm ECG Measurements Heart Rate 71 AXIS [place] 166 P 66 QRSd 88 QRS -3 QT 457 T 24 QTc 497 Conclusion Sinus rhythm...normal P axis, V-rate 50- 99 Low voltage, precordial leads...precordial leads <1.0mV Consider anterior infarct...Q >30mS in V2-V5
--- NOTE | 2023-11-01 14:28 | PT.INNT ---
PT Notes Visit Reasons: Septic shock Utilizing contracted [place] educational sign language interpreter Trina online, PT spoke with as patient is not able to appropriately respond at this time to questions. was informed that an order for physical therapy was made by the hospitalist and I came to initiate an evaluation, he was asked if he was okay with me proceeding with the assessment. responded that he does not want to take part in the decision-making, that his son is at the forefront of managing care for his . When asked whether he would be okay with asking the son later when he comes here for a visit whether he is okay with PT services, patient said that his son just had back surgery, is recuperating, and will not be able to come visit. added that he does not want to make any decisions on doing physical therapy at the moment. He also requested that the whole exchange of conversation not be publicized nor televised. It was reiterated to him that everything is confidential and that the use of a computing device was just so we could avail of online full time staff interpreter to better facilitate communication for today's session. Will await decision from son on doing physical therapy. CM and referring MD will be apprised of this conversation.
[2023-11-01 15:33] LABS: Anion Gap 8.1 mmol/L (3-11); BUN 23 mg/dL (7-18); CO2 24.9 mmol/L (21.0-32.0); CREATININE 0.8 mg/dL (0.55-1.02); Calcium 8.2 mg/dL (8.5-10.1); Chloride 99 mmol/L (98-107); Estimated GFR 72.61 (mL/min/1.73m2); Glucose 79 mg/dL (74-106); Sodium 132 mmol/L (136-145)
[2023-11-01 15:36] LABS: Potassium 3.9 mmol/L (3.5-5.1)
[2023-11-01] MEDS: Breeza Beverage 473 ML BTL PO ×2 (15:51→15:52)
[2023-11-01] MEDS: Omnipaque 350 MG/ML 50 ML BTL IJ (16:01)
--- NOTE | 2023-11-01 16:02 | TELEFU_ITS ---
Date of service: 11/01/23 Time of Service: 16:02 Nutrition Note NOTE: Received consult request today regarding evaluation and tx of malnutrition. With fecal impaction and non-responsive state she was found in at the longterm prior to admission, it is obvious that pt's po intake has not been adequate over at least the last week. she has also been npo status for >48 hours this admission already. Weight today (69.3kg) is about 6.4kg less than from May of this year, which is ~8% drop in body weight x 6months. She has lost 4% of her bodyweight over the last 4 days per nursing weight assessments. Due to language barrier/state of alertness and lack of family present, did not perform nutrition focused physical exam. Estimated nutrition needs: 1272kcals (REEx1.2AF), 68-82g protein (1-1.2g/kg) and 1272mL fluid. Nutrition diagnosis: Severe Malnutrition (E43) in the context of acute injury/illness related recent AMS, GI impaction, PNA on top of chronic health concerns and required npo status - as evidenced by >2% loss of body weight x1 week, meeting <75% of her estimated needs for at least the last 5 days (NPO for 2+ days and poor intake prior to admission) and mild edema per nursing note of generalized trace edema and 3+ on L arm. Intervention: Suggest considering TPN for nutrition if NPO status is expected to extend to help prevent further malnutrition. Monitoring: will monitor for resumption of po intake or TPN order for mix and rate recommendations. Time Spent in Nutritional Counseling and Treatment: 10 min
[2023-11-01 19:08] LABS: Legionella Ag Detection Urine Negative (Negative)
[2023-11-01] MEDS: Omnipaque 350 MG/ML 100 ML BTL IJ (19:27)
[2023-11-01] MEDS: Normal Saline - Diluent 50 ML VIAL IJ (19:28)
[2023-11-01] MEDS: Enoxaparin 40 MG/0.4 ML SYR SC (20:15)
[2023-11-01] MEDS: Travoprost 0.004% Ophth Sol 2.5 ML BTL OP (20:15)
[2023-11-01] MEDS: Levothyroxine 100 MCG TAB PO (20:16)
[2023-11-01] MEDS: Levothyroxine 25 MCG TAB PO (20:16)
[2023-11-01] MEDS: Bisacodyl 10 MG SUPP PR (20:16)
--- NOTE | 2023-11-01 20:19 | DI.VRAD_ITS ---
PROCEDURE INFORMATION: Exam: CTA Chest With Contrast CTA Abdomen and Pelvis With Contrast Exam date and time: 11/01/2023 7:27 PM Age: 83 years old Clinical indication: Other: Abdomial pain, dyspnea; Difficulty breathing or dyspnea TECHNIQUE: Imaging protocol: Computed tomographic angiography of the chest with contrast. Exam focused on the arteries. Computed tomographic angiography of the abdomen and pelvis with contrast. Exam focused on the arteries. 3D rendering (Not supervised by radiologist): MIP and/or 3D reconstructed images were created by the technologist. Contrast material: OMNI 350; Contrast volume: 100 ml; Contrast route: INTRAVENOUS (IV); Other contrast: Oral, omni 350 , 946; COMPARISON: CT THORAX ABD/PEL CTA 05/18/2023 6:26 PM FINDINGS: Tubes, catheters and devices: Nasogastric tube tip in the stomach. VASCULATURE: Pulmonary arteries: Motion artifact distally. No main to segmental pulmonary artery emboli. Aorta: No aortic aneurysm. No aortic dissection. Celiac trunk and mesenteric arteries: Atherosclerosis without occlusion or significant stenosis. Renal arteries: Atherosclerosis without occlusion or significant stenosis. Right iliac arteries: Atherosclerosis without occlusion or significant stenosis. Left iliac arteries: Atherosclerosis without occlusion or significant stenosis. CHEST: Lungs: Motion artifact in the lungs. Scattered mild hyperinflation, microatelectasis and probable minor scarring. Subcentimeter right-sided nodule. Follow-up as per institutional protocol. Pleural spaces: No pneumothorax. No pleural effusion. Heart: Moderate cardiomegaly, similar to prior. ABDOMEN AND PELVIS: Liver: No mass. Gallbladder and bile ducts: Distended gallbladder containing sludge or excreted contrast material without calcified stones or definite wall thickening on CT . No significant biliary dilation or radiopaque stones in the biliary tree. Pancreas: No mass. No ductal dilation. Spleen: No splenomegaly. Adrenal glands: No mass. Kidneys and ureters: No renal masses or hydronephrosis bilaterally. Stomach and bowel: Motion artifact without acute appearing pathology in small bowel or colon. Appendix: No evidence of appendicitis. Intraperitoneal space: New small abdominal and trace bilateral paracolic gutter free fluid. Urinary bladder: Kwon catheter in a decompressed urinary bladder. Reproductive: 3 cm cystic structure in the left adnexa should be worked up with ultrasound when appropriate given postmenopausal age. Normal CT appearance of the uterus. Lymph nodes: No enlarged lymph nodes. Bones/joints: Moderate presacral edema appears non collected. Transitional lumbosacral anatomy, normal variant. Multifocal chronic bony pathology. Chronic T10 deformity. New moderate biconcave loss of height at L1 is likely acute or subacute without retropulsion. Soft tissues: Unremarkable. IMPRESSION: 1. Motion artifact distally. No main to segmental pulmonary artery emboli. 2. New moderate biconcave loss of height at L1 is likely acute or subacute without retropulsion. 3. Nasogastric tube tip in the stomach. 4. New small abdominal and trace bilateral paracolic gutter free fluid. 5. Distended gallbladder containing sludge or excreted contrast material without calcified stones or definite wall thickening on CT . This could be due to biliary colic or NPO status. This could be further worked up with ultrasound if clinically indicated. 6. Kwon catheter in a decompressed urinary bladder. Dictated and Authenticated by: Shandra Green MD. [facility] Gustavo Monique MD
[2023-11-01] MEDS: Metoprolol 5 MG/5 ML VIAL IVP (22:44)
[2023-11-01] MEDS: MAGNESIUM SULFATE 4 GM/100 ML BAG IVINF (23:26)
--- NOTE | 2023-11-01 23:30 | RT.EKG_ITS ---
APPROVED REPORT Exam: Resting ECG Reason for Exam: Conversion to Sinus Rhythm @ 2319 Patient Location: I HR:61 bpm ECG Measurements Heart Rate 61 AXIS [place] 154 P 43 QRSd 93 QRS 5 QT 493 T 29 QTc 497 Conclusion Sinus rhythm...normal P axis, V-rate 50- 99 Low voltage, precordial leads...precordial leads <1.0mV Borderline prolonged QT interval...QTc >485mS
[2023-11-02] VITALS (44 sets, daily range): BP systolic 112–206; BP diastolic 33–147; PULSE 56–78; RESP 8–19; TEMP 36.3–37.1; O2SAT 96–99
[2023-11-02] MEDS: Refresh PLUS Eye Drops 0.4ml OP ×6 (00:03→20:05)
[2023-11-02] MEDS: ACETAMINOPHEN 1,000 MG/100 ML BTL 400 MG IVPB ×3 (03:26→20:09)
[2023-11-02] MEDS: Hydrocortisone SOD SUC. 100 MG VIAL 50 MG IVP ×3 (03:27→20:06)
[2023-11-02] MEDS: Normal Saline 500 ML IV (03:59)
[2023-11-02] MEDS: CEFEPIME 2 GM in Normal Saline 100 ML IVPB ×2 (05:13→18:25)
[2023-11-02 06:34] LABS: HCT 30.3 % (36.0-46.0); HGB 10.2 g/dL (11.2-15.7); MCH 29.7 pg (27.0-33.0); MCHC 33.7 % (32.0-36.0); MCV 88 fL (80-95); MPV 9.3 fL (8.0-11.0); Platelet Count 257 10^3/uL (130-400); RBC 3.44 10^6/uL (3.93-5.22); RDW 14.1 % (11.7-14.6); RDW-SD 45.2 fL; WBC 16.19 10^3/uL (4.4-10.8)
[2023-11-02 07:01] LABS: ALT 10 U/L (14-59); AST 21 U/L (15-37); Albumin 2.3 g/dL (3.4-5.0); Alkaline Phosphatase 74 U/L (46-116); Anion Gap 13.6 mmol/L (3-11); BUN 24 mg/dL (7-18); Bilirubin, Total 0.6 mg/dL (0.2-1.0); CO2 22.4 mmol/L (21.0-32.0); CREATININE 0.9 mg/dL (0.55-1.02); Chloride 97 mmol/L (98-107); Estimated GFR 63.04 (mL/min/1.73m2); Glucose 120 mg/dL (74-106); Potassium 3.1 mmol/L (3.5-5.1); Sodium 133 mmol/L (136-145); Total Protein 6.1 g/dL (6.4-8.2)
[2023-11-02 07:18] LABS: Absolute Lymphocyte Count 0.97 10^3/uL (1.2-3.4); Absolute Neutrophil Count 15.22 10^3/uL (1.2-6.7); Diff Comment Manual Differential
[2023-11-02 07:19] LABS: Anisocytosis 1+
[2023-11-02] MEDS: Normal Saline Flush 10 ML SYR IVP ×3 (08:06→20:09)
[2023-11-02] MEDS: DOXYCYCLINE 100 MG in Normal Saline 100 ML IVPB (08:06)
[2023-11-02] MEDS: Timolol 0.5% 5 ML BTL OP (08:07)
[2023-11-02] MEDS: Bisacodyl 5 MG TABEC PO (08:08)
[2023-11-02] MEDS: dilTIAZem 30 MG TAB NG ×2 (08:08→14:34)
[2023-11-02] MEDS: Folic Acid 1 MG TAB PO (08:09)
[2023-11-02] MEDS: Clopidogrel 75 MG TAB PO (08:09)
[2023-11-02] MEDS: Mirabegron 25 MG TABCR PO (08:09)
[2023-11-02] MEDS: Sertraline 100 MG TAB PO (08:09)
[2023-11-02 08:10] LABS: Lab Add On Test DONE
[2023-11-02 08:19] LABS: Magnesium 2.8 mg/dL (1.8-2.4)
[2023-11-02] MEDS: POTASSIUM CHLORIDE 20 MEQ/100 ML BAG 50 MEQ IVINF ×2 (08:23→10:02)
--- NOTE | 2023-11-02 09:28 | PGE_ITS ---
Date of Service Date of service: 11/02/23 Time of Service: 09:28 Assessment and Plan Assessment and plan (1) Impacted stool in intestine: Status: Acute Assessment and plan: NG output has markedly diminished. 100 mL total yesterday, only [address] abdomen/pelvis: distended gallbladder w/ sludge but no biliary obstruction, stones or wall thickening; pancreatic duct is not dilated, no other GI pathology, no obstruction, so I think the bowel impaction has been resolved. She presented initially w/ normal WBC on admission at 9500 and by 10/29 her WBC were up to 35,000 but has been declining since and is now at 16,000. The thought initially was she was in septic shock as she was requiring vasopressors on admission but this was quickly weaned off after she was treated w/ fluids and hydrocortisone (thought to have AI from being on prednisone for her RA). In retrospect, I think she was getting septic either from stercocolitis or from her GB. Irregardless she is improving, has been hemodynamically stable since 10/29 and of NE since then, her leukocytosis is improving and her encephalopathy is improving. Cefepime d#5 (begun 10/28), she also had been on vancomycin (10/28 -10/30) but I dc this after negative MRSA screen. I did briefly have her on doxycycline as it was thought she may have pneumonia but none seen CTA chest. I would continue the cefepime for total of 7-10 days or until inflammatory markers have resolved. note her procalcitonin was high yesterday at 20, I would continue cefepime for at least another two to 3 day and repeat her markers. She may need further evaluation of her GB. she is not the best candidate for cholecystectomy but we do not have hard evidence that she had acute cholecystitis at time of her admission. I will discuss w/ Dr. Shea our options for further evaluation and treatment, i.e. HIDA scan, MRCP, consider bilary tube drainage, etc. For now she seems to be responding to antibiotics. I would like a trial of feedings of clears once her NG is out. Critical care time spent interviewing and examining the patient, reviewing studies, discussing case with patient's nurse and consulting physicians was 50 minutes (2) Acute hypotension: Status: Resolved Assessment and plan: initially unclear source for sepsis and unfortunately no one obtained cultures on admission but see my discussion above. Her hypotension resolved w/ fluids and hydrocortisone. I will start to wean her off the iv hydrocortisone and if t olerating PO then put her back on prednisone for her RA. (3) Adrenal insufficiency: Status: Suspected Assessment and plan: suspected but no random cortisol was done and no cosyntropin study was done. However, her hypotension resolved quickly after getting on hydrocortisone. will continue hydrocortisone but begin wean. (4) Pneumonia: Status: Ruled-out Assessment and plan: initially suspected based on her follow up CXR and the fact she had emesis on admission and concern for aspiration but she has not been hypoxic and CT did not show infiltrates. doxycycline dc'ed, continue cefepime for bowel pathogens. Qualifiers: Pneumonia type: aspiration pneumonia Aspiration pneumonia type: due to gastric secretions Laterality: bilateral Lung location: lower lobe of lung Qualified Code(s): J69.0 - Pneumonitis due to inhalation of food and vomit (5) Hypokalemia due to excessive gastrointestinal loss of potassium: Status: Acute Assessment and plan: initially had hyperkalemia w/ JUAN JOSÉ on admission now 3.1 (up from 2.4 yesterday), continue iv and po supplementation. (6) Hyperkalemia: Status: Resolved Assessment and plan: initially had hyperkalemia which resolved and now she has significant hypokalemia probably from all of her enemas and NG output. currently getting iv and NG replacement (7) Altered mental status: Status: Acute Assessment and plan: mental status still not back to her baseline but improved. I think this was metabolic encephalopathy from her infection and hyponatremia. multiple CT head were done as she had some falls at the skilled nursing and has small bruising over her left frontal area however no ICH or SAH was seen on initial CT and repeat CTA head also negative for bleed or any CVA or occlusive disease. Will get MRI brain on Saturday to r/o stroke but clinically does not appear to be CVA. Qualifiers: Altered mental status type: delirium Qualified Code(s): R41.0 - Disorientation, unspecified (8) Dementia: Status: Chronic Assessment and plan: Seroquel and mirtazapine were held since evening of 10/30 d/t decreased LOC but now can resume. Qualifiers: Dementia type: Alzheimer's Alzheimer's disease onset: unspecified onset Dementia severity: moderate Dementia behavioral or psychological symptom: without behavioral, psychotic, or mood disturbance or anxiety Qualified Code(s): G30.9 - Alzheimer's disease, unspecified; F02.B0 - Dementia in other diseases classified elsewhere, moderate, without behavioral disturbance, psychotic disturbance, mood disturbance, and anxiety (9) Chronic hyponatremia: Status: Chronic Assessment and plan: improving. saline dc yesterday. Sodium stable at 133. (10) Rheumatoid arthritis: Status: Chronic Assessment and plan: No active disease. Holding methotrexate, giving hydrocortisone as above. Qualifiers: Rheumatoid arthritis location: multiple sites Rheumatoid factor presence: unspecified presence Qualified Code(s): M06.9 - Rheumatoid arthritis, unspecified (11) Diabetes: Status: Chronic Assessment and plan: On GLP-1 and some insulin as outpatient. A1c is below goal. Lantus dc yesterday d/t low glucose readings in the morning. continue w/ glucose checks q6h w/ low dose sliding scale per novolog. glucose overnight ran from 88 to 101 and she has not needs insulin supplement. I did raise threshold for coverage to >180. Qualifiers: Diabetes mellitus type: type 2 Diabetes mellitus termite technician insulin use: without long-term use Diabetes mellitus complication status: without complication Qualified Code(s): E11.9 - Type 2 diabetes mellitus without complications (12) DVT prophylaxis: Status: Acute Assessment and plan: h/o pAFib but not on anticoagulation. Use LMWH. Subjective Subjective Interval history since last seen: Patient went back into afib yesterday and required diltiazem drip but responded to lopressor 5 mg IVP and came out of afib back into NSR since 2318. she had been on Bystolic at the skilled nursing. I will add lopressor to her treatment regimen then wean off the oral diltizaem. Samia is more awake today and seems to recognize her family but still not verbalizing. Exam Narrative Exam Narrative: Samia is awake, looks at people about the room, she tends to grind her teeth at times. She seems track people w/ her eyes. She has no facial asymmetry She moves all 4 extremities but she does not follow commands Lungs: clear Heart: RRR Abdomen: soft, nontender, nondistended, active bowel sounds Extremities: slight edema in left arm over distal humerus/antecubital site, bruising over antecubitus, slight edema in both hands. left arm is soft Lower extremities: no pitting pedal or pretibial edema Objective Last Vital Signs Temp 36.5 C 11/02/23 07:16 Pulse 66 11/02/23 06:02 Resp 18 11/02/23 07:16 BP 148/80 H 11/02/23 08:29 Pulse Ox 98 11/02/23 07:16 Laboratory Results - last 24 hr 11/01/23 11/01/23 11/02/23 05:30 15:10 05:45 WBC 16.19 H RBC 3.44 L Hgb 10.2 L Hct 30.3 L MCV 88 MCH 29.7 MCHC 33.7 RDW 14.1 Plt Count 257 MPV 9.3 Immature Gran % See Differential Neutrophils % 94.0 Lymphocytes % 6.0 Monocytes % 0.0 Eosinophils % 0.0 Basophils % 0.0 Nucleated RBC % 0.0 Absolute Neutrophils 15.22 H Absolute Lymphocytes 0.97 L Absolute Monocytes 0.00 L Absolute Eosinophils 0.00 Absolute Basophils 0.00 RBC Morphology See Below Anisocytosis 1+ Sodium 132 L 133 L Potassium 3.9 D 3.1 L Chloride 99 97 L Carbon Dioxide 24.9 22.4 Anion Gap 8.1 13.6 H BUN 23 H 24 H Creatinine 0.8 0.9 Est GFR (CKD-EPI 2020) 72.61 63.04 Glucose 79 120 H Calcium 8.2 L 8.0 L Phosphorus 2.9 Magnesium 1.6 L 2.8 H Total Bilirubin 0.6 AST 21 ALT 10 L Alkaline Phosphatase 74 Total Protein 6.1 L Albumin 2.3 L Add-On Test Request DONE 11/02/23 Unknown WBC RBC Hgb Hct MCV MCH MCHC RDW Plt Count MPV Immature Gran % Neutrophils % Lymphocytes % Monocytes % Eosinophils % Basophils % Nucleated RBC % Absolute Neutrophils Absolute Lymphocytes Absolute Monocytes Absolute Eosinophils Absolute Basophils RBC Morphology Anisocytosis Sodium Potassium Chloride Carbon Dioxide Anion Gap BUN Creatinine Est GFR (CKD-EPI 2020) Glucose Calcium Phosphorus Magnesium Total Bilirubin AST ALT Alkaline Phosphatase Total Protein Albumin Add-On Test Request DONE Time Spent with Patient Time Spent with Patient: >50 minutes Time was spent: preparing to see the patient(eg.review tests), ordering medications,tests, procedures, referring, communicating with other health memory care program resident, indepentently interpreting results, counseling the patient (Family including granddaughter and ) and care coordination
--- NOTE | 2023-11-02 10:23 | IN_ITS ---
PT Notes Visit Reasons: Septic shock Inpatient Physical Therapy Evaluation Date: [] Referring Doctor: [] PT Orders: PT CONSULT: [] Precautions: [] Patient Profile/Admitting Diagnosis: 83 yo F with history of type 2 DM, CAD, RA on methotrexate and prednisone, recurrent UTIs on nitrofurantoin, CAD who was found during routine rounds at the [facility] to be unresponsive. She was admitted to acute care for management of septic shock, pneumonia, impacted stool in the intestine. PT orders received 11/01/23, however consent was unable to be obtained by family. Consent received in interim, and family agreeable to PT consultation today. Social History/Home Situation: Patient resides at the [facility]. At baseline, she is able to transfer to chair with Steady Lift and assistance from staff. Was communicative approx 1 week ago, per nursing. Equipment Owned/DME: resides in [facility] facility Subjective: Evaluation was assisted by soundscriber mechanic, as Samia is Faroese- speaking. Objective: General Observation: Resting in bed with multiple lines, NG tube, and Kwon catheter. Heel-ron pads in place for skin protection, with pillows placed appropriately for pressure relief. Mental Status: Samia demonstrates good eye contact, and is able to turn head so see therapist in response to her name. Does not respond to verbal commands during length of session. Pain: unable to assess verbally. Patient does not respond to passive movements with physiological pain responses. Vital Signs: monitored by nursing throughout PROM: Right Upper Extremity: Shoulder flexion 95*. ER 20*. IR allows hand to abdomen. Elbow flexion 10-100*. Tolerates passive hand opening. Left Upper Extremity: Shoulder flexion 80*. ER 20*. IR allows hand to abdomen. E lbow flexion 0-100*. Tolerates passive hand opening. Right Lower Extremity: Hip flexion 95*. Knee motion 0-100*. Ankle DF allows 5*. Left Lower Extremity: Hip flexion 95*. Knee motion 0-100*. Ankle DF allows 5*. Strength: Samia does not demonstrate any volitional movement outside of turning head and opening eyes. Limbs flaccid during ROM assessment. Sensation: unable to assess Bed Mobility/Transfers: supine - sit: max A x 2. Able to sit with max A x 1, min A x 1 x 2 minutes. Unable to demonstrate any meaningful weight bearing through UEs with hand placement to bed for facilitation of support. sit-supine: max A x 3 Gait: unable Balance: Static Sitting: Unable Dynamic Sitting: Unable Static Standing: Unable Dynamic Standing: Unable Special Tests: Mobility Limitations Standardized Measure [facility] AM-PAC 6 clicks Basic Mobility Inpatient Short Form: Raw Score: 0 CMS Score: 100% imairment Informed Consent/Education: Patient instructed in purpose of PT consult and plan of care. Utilized airplane flight attendant supervisor for session. Treatment: Initial Evaluation: 90439 Therapeutic Exericses: 31035 Performed PROM to the following: ankle PF/DF hip and knee flexion elbow extension shoulder flexion hand opening Assessment: Patient is an 83 year old female referred to physical therapy services for mobility assessment. Patient presents with severe impairments in cognition and communication, with inability to meaningfully participate in PT intervention. Per nursing, her mobility was significantly better, although not independent, as of last week. She'll benefit from PT intervention for PROM to prevent contracture during management of acute medical issues, with continued attempts at improving participation in transfers as she improves medically. If her ability to participate does not significantly improve, PT intervention will not be further indicated, and treatment will instead focus on training family in care and providing recommendations to customer support coordinator at the [facility]. She currently demonstrates the following impairment level findings: 1. non-communicative 2. unable to follow single-step commands 3. unable to assess strength 4. altered mental status Impairments are contributing to the following functional limitations: 1. unable to participate in transfers 2. unable to demonstrate volitional movement 3. dependent for all ADLs and bed mobility Patient is assessed as High 94543 complexity based on the following: History: As above Examination: Limited in all functional mobility. Dependent for all bed mobility, transfers and ADLs Presentation: unstable Decision Making: high complexity Goals: Goals X1 week 1. Supine-Sit : mod A x 2 2. Sit-Supine : mod A x 2 3. Sit-Stand : mod A x 2 with Steady Lift 4. Stand-Sit : mod A x 2 with Steady Lift 5. Bed-Chair : mod A x 2 with Steady Lift 6. Chair-Bed : mod A x 2 with Steady Lift Plan of Care/Treatment Plan: 1-2x/day, 7 days/week x 1 week. Plan of care has been reviewed with the TRENCHER DRIVER providing the service under Physical Therapy direction. Initiate Physical Therapy intervention for strengthening, bed mobility, transfers, gait, stairs, balance training, use of assistive device. DISCHARGE RECOMMENDATIONS: [] SNF for continued rehabilitation versus Reporting Analyst Care TREATMENT CODE/TIME: 97900, 11244 ([id number]) Diana Ramos, PT, DPT [facility] Please sign an return this page within 30 days if you agree with the above POC. Thank you! Physician Signature Date [facility] All Active Problems (Updated 11/02/23 @ 10:09 by Kayden Chen MD) Hypokalemia due to excessive gastrointestinal loss of potassium (Acute) DVT prophylaxis (Acute) Impacted stool in intestine (Acute) Septic shock (Acute) Altered mental status (Acute) Chronic hyponatremia (Chronic) Hyponatremia (Acute) Chronic UTI (Acute) Overactive bladder (Acute) Paroxysmal atrial fibrillation (Acute) Dementia (Chronic) Depression (Chronic) Hypertension (Chronic) Rheumatoid arthritis (Chronic) Diabetes (Chronic) Elevated troponin (Acute) Altered mental status (Acute) Non-ST elevation MD (NSTEMI) (Acute) Elevated troponin I level (Acute)
[2023-11-02] MEDS: Psyllium PKT 1 EACH NG (10:38)
[2023-11-02] MEDS: Polyethylene Glycol 3350 17 GM PACKET PO (11:41)
[2023-11-02] MEDS: Metoprolol 25 MG TAB NG (11:41)
--- NOTE | 2023-11-02 13:00 | PGE_ITS ---
Date of Service Date of service: 11/02/23 Time of Service: 10:45 Assessment and Plan Assessment and plan (1) Gallbladder anomaly: Status: Acute Assessment and plan: 83 yo woman who is acutely, on chronically, ill. Unclear etiology and her mental status is certainly in question. She seems HD stable all things considered. A distended GB is a non-specific finding that is meaningless in the absence of clinical concern. She has a non-tender abdomen and other than her mental state, she seems to be improving by report. A formal US of her GB could be considered on Saturday, but only if clinically indicated at that time. I would not recommend it routinely. The patient is not a surgical candidate in her condition. Unclear what the goals of care are, but if there has not been yet, a family discussion on goals and code status should be discussed. In the hypothetical situation that she does develop cholecystitis and intervention was desired, she would need a cholecystostomy tube. But again, I don't think that is the clinical picture here today. Surgery signing off at this time. I recommend pulling her NG tube and allowing her sips of ice and clear liquids and see how she tolerates. An aggressive bowel regimen oral should be performed as well if she'll take PO. Subjective Subjective Interval history since last seen: Followed up on CT scan last night. No significant findings . . . distended gallbladder Attempted to converse with patient in Thai. She refuses. Though responds to voice and opens eyes, she does not speak. Exam Narrative Exam Narrative: Gen: Elderly, debilitated and weak. Does not appear uncomfortable. Neuro: Opens eyes to command, follows movement with eyes, does not speak or answer questions PSych: Uncertain, but possibly a component of refusal to speak rather than inability. Abdomen: Soft, nondistended and nontender. Specifically no tenderness in the RUQ or epigastrium Objective Last Vital Signs Temp 97.7 F 11/02/23 07:16 Pulse 71 11/02/23 10:01 Resp 13 11/02/23 10:01 BP 146/127 H 11/02/23 10:01 Pulse Ox 98 11/02/23 10:01 Laboratory Results - last 24 hr 11/01/23 11/02/23 11/02/23 15:10 05:45 Unknown WBC 16.19 H RBC 3.44 L Hgb 10.2 L Hct 30.3 L MCV 88 MCH 29.7 MCHC 33.7 RDW 14.1 Plt Count 257 MPV 9.3 Immature Gran % See Differential Neutrophils % 94.0 Lymphocytes % 6.0 Monocytes % 0.0 Eosinophils % 0.0 Basophils % 0.0 Nucleated RBC % 0.0 Absolute Neutrophils 15.22 H Absolute Lymphocytes 0.97 L Absolute Monocytes 0.00 L Absolute Eosinophils 0.00 Absolute Basophils 0.00 RBC Morphology See Below Anisocytosis 1+ Sodium 132 L 133 L Potassium 3.9 D 3.1 L Chloride 99 97 L Carbon Dioxide 24.9 22.4 Anion Gap 8.1 13.6 H BUN 23 H 24 H Creatinine 0.8 0.9 Est GFR (CKD-EPI 2020) 72.61 63.04 Glucose 79 120 H Calcium 8.2 L 8.0 L Magnesium 2.8 H Total Bilirubin 0.6 AST 21 ALT 10 L Alkaline Phosphatase 74 Total Protein 6.1 L Albumin 2.3 L Add-On Test Request DONE Time Spent with Patient Time Spent with Patient: 25-34 minutes Time was spent: preparing to see the patient(eg.review tests), obtaining and/or reviewing separately otained hiistory, referring, communicating with other health nurse care manager, indepentently interpreting results and care coordination
[2023-11-02] MEDS: Metoprolol 25 MG TAB PO (17:45)
[2023-11-02] MEDS: Enoxaparin 40 MG/0.4 ML SYR SC (20:06)
[2023-11-02] MEDS: MORPHine 2 MG/ML SYR IVP (20:07)
[2023-11-02] MEDS: Travoprost 0.004% Ophth Sol 2.5 ML BTL OP (20:32)
[2023-11-02] MEDS: Metoprolol 5 MG/5 ML VIAL IVP ×2 (20:58→23:02)
[2023-11-02] MEDS: MORPHine 2 MG/ML SYR 4 MG IVP (23:07)
[2023-11-03] VITALS (35 sets, daily range): BP systolic 128–211; BP diastolic 48–92; PULSE 53–86; RESP 7–26; TEMP 35.9–36.9; O2SAT 93–99
[2023-11-03] MEDS: Metoprolol 5 MG/5 ML VIAL IVP ×2 (02:34→23:01)
[2023-11-03] MEDS: Hydrocortisone SOD SUC. 100 MG VIAL 50 MG IVP (04:11)
[2023-11-03] MEDS: ACETAMINOPHEN 1,000 MG/100 ML BTL 400 MG IVPB ×3 (04:12→22:12)
[2023-11-03] MEDS: MORPHine 2 MG/ML SYR 4 MG IVP (04:13)
[2023-11-03] MEDS: Normal Saline Flush 10 ML SYR IVP ×2 (05:51→08:31)
[2023-11-03] MEDS: CEFEPIME 2 GM in Normal Saline 100 ML IVPB ×2 (05:52→17:27)
[2023-11-03 06:52] LABS: Abs Immature Grans 0.05 10^3/uL (0.0-0.06); Absolute Basophil Count 0.01 10^3/uL (0.0-0.2); Absolute Lymphocyte Count 0.89 10^3/uL (1.2-3.4); Absolute Monocyte Count 0.17 10^3/uL (0.1-0.8); Absolute Neutrophil Count 7.86 10^3/uL (1.2-6.7); Basophils % 0.1 %; HCT 24.8 % (36.0-46.0); HGB 8.4 g/dL (11.2-15.7); Immature Grans % 0.6 %; Lymphocytes % 9.9 %; MCH 30.3 pg (27.0-33.0); MCHC 33.9 % (32.0-36.0); MCV 90 fL (80-95); MPV 9.2 fL (8.0-11.0); Monocytes % 1.9 %; Neutrophils % 87.5 %; Platelet Count 172 10^3/uL (130-400); RBC 2.77 10^6/uL (3.93-5.22); RDW 14.2 % (11.7-14.6); RDW-SD 45.7 fL; WBC 8.98 10^3/uL (4.4-10.8)
[2023-11-03 07:07] LABS: ALT 7 U/L (14-59); AST 16 U/L (15-37); Albumin 1.9 g/dL (3.4-5.0); Alkaline Phosphatase 68 U/L (46-116); Anion Gap 11.6 mmol/L (3-11); BUN 29 mg/dL (7-18); Bilirubin, Total 0.5 mg/dL (0.2-1.0); CO2 23.4 mmol/L (21.0-32.0); CREATININE 0.9 mg/dL (0.55-1.02); Calcium 7.7 mg/dL (8.5-10.1); Chloride 99 mmol/L (98-107); Estimated GFR 63.04 (mL/min/1.73m2); Glucose 163 mg/dL (74-106); Magnesium 1.8 mg/dL (1.8-2.4); Potassium 3.2 mmol/L (3.5-5.1); Sodium 134 mmol/L (136-145); Total Protein 5.2 g/dL (6.4-8.2)
[2023-11-03 07:25] LABS: Procalcitonin 6.3 ng/mL
[2023-11-03] MEDS: Folic Acid 1 MG TAB PO (07:49)
[2023-11-03] MEDS: Mirabegron 25 MG TABCR PO (07:49)
[2023-11-03] MEDS: Bisacodyl 5 MG TABEC PO (07:49)
[2023-11-03] MEDS: Clopidogrel 75 MG TAB PO (07:49)
[2023-11-03] MEDS: Sertraline 100 MG TAB PO (07:49)
[2023-11-03] MEDS: Refresh PLUS Eye Drops 0.4ml OP ×4 (07:50→22:54)
[2023-11-03] MEDS: Timolol 0.5% 5 ML BTL OP (07:50)
[2023-11-03] MEDS: dilTIAZem 30 MG TAB NG ×2 (07:52→15:19)
[2023-11-03] MEDS: Pantoprazole 40 MG VIAL IVP (08:29)
[2023-11-03] MEDS: POTASSIUM CHLORIDE 20 MEQ/100 ML BAG 50 MEQ IVINF ×2 (08:30→12:33)
--- NOTE | 2023-11-03 09:50 | PGE_ITS ---
Date of Service Date of service: 11/03/23 Time of Service: 09:50 Assessment and Plan Assessment and plan (1) Impacted stool in intestine: Status: Acute Assessment and plan: stool impaction has resolved as per CT scan findings. Now trying to get adequate stool softeners and laxatives in her to prevent impaction again. I think she was septic from either stercocolitis or possible her gall bladder given her findings on her CT scan. See Dr. Sheth note from yesterday regarding surgical input Cefepime d#6 (begun 10/28), she also had been on vancomycin (10/28 -10/30) but I dc this after negative MRSA screen. I did briefly have her on doxycycline as it was thought she may have pneumonia but none seen CTA chest. I would continue the cefepime for total of 7-10 days or until inflammatory markers have resolved. note her procalcitonin was high yesterday at 20, I would continue cefepime for at least another two to 3 day and repeat her markers. I will request PRODUCT ENGINEERING MANAGER consult regarding her swallowing but her nurse today has been working w/ her and indicated some success in getting her to take her pills yesterday w/ some pudding. Her granddaughter indicated that she prefers yogurt so we will trial her on some foods but hold off if any coughing or choking after attempts. Patient is hemodynamically and respiratory stable, will transfer out of MICU status to floor status, continue telescope operator for now d/t PAF. Professional time spent interviewing and examining patient, discussion of goals of care with hospital team (care management, nursing and consulting adi montoya) was 45 minutes. (2) Paroxysmal atrial fibrillation: Status: Acute Assessment and plan: patient has hx of frequent falls at the [facility], therefore not a good candidate for terminal operations manager anticoagulation. currently on lopressor 25 mg QID and diltiazem 30 mg TID and she remains in NSR now. she did require iv diltiazem earlier in her hospitalization but has been stable past two days. (3) Adrenal insufficiency: Status: Suspected Assessment and plan: suspected but no random cortisol was done and no cosyntropin study was done. However, her hypotension resolved quickly after getting on hydrocortisone. will continue hydrocortisone but begin wean. decrease dose and frequency of hydrocortisone to 25 mg IV Q8h today then tomorrow if she is reliably taking her po meds then can switch to prednisone. (4) Hypokalemia due to excessive gastrointestinal loss of potassium: Status: Acute Assessment and plan: initially had hyperkalemia w/ JUAN JOSÉ on admission now 3.1 (up from 2.4 yesterday), continue iv and po supplementation. (5) Altered mental status: Status: Acute Assessment and plan: mental status continues to improve, likely cause is metabolic encephalopathy superimposed on her dementia, CTA head did not show CVA or occlusive disease. I will get MRI tomorrow to confirm that she did not suffer CVA during her time of her critical illness, but she is not showing any focal deficits. Qualifiers: Altered mental status type: delirium Qualified Code(s): R41.0 - Disorientation, unspecified (6) Dementia: Status: Chronic Assessment and plan: Seroquel and mirtazapine were held since evening of 10/30 d/t decreased LOC but now can resume. Qualifiers: Dementia type: Alzheimer's Alzheimer's disease onset: unspecified onset Dementia severity: moderate Dementia behavioral or psychological symptom: without behavioral, psychotic, or mood disturbance or anxiety Qualified Code(s): G30.9 - Alzheimer's disease, unspecified; F02.B0 - Dementia in other diseases classified elsewhere, moderate, without behavioral disturbance, psychotic disturbance, mood disturbance, and anxiety (7) Chronic hyponatremia: Status: Chronic Assessment and plan: improving. saline dc yesterday. Sodium stable at 133. (8) Rheumatoid arthritis: Status: Chronic Assessment and plan: No active disease. Holding methotrexate, giving hydrocortisone as above. Qualifiers: Rheumatoid arthritis location: multiple sites Rheumatoid factor presence: unspecified presence Qualified Code(s): M06.9 - Rheumatoid arthritis, unspecified (9) Diabetes: Status: Chronic Assessment and plan: On GLP-1 and some insulin as outpatient. A1c is below goal. Lantus was stopped couple days ago d/t low glucose readings in the morning. Glucose now ranging 120 to 179 overnight, continue w/ low dose sliding scale novolog. when she is taking more nutrition orally then can adjust her insulin coverage. Qualifiers: Diabetes mellitus type: type 2 Diabetes mellitus custodial insulin use: without terminal operations manager use Diabetes mellitus complication status: without complication Qualified Code(s): E11.9 - Type 2 diabetes mellitus without complications (10) DVT prophylaxis: Status: Acute Assessment and plan: h/o pAFib but not on anticoagulation. Use LMWH. Subjective Subjective Interval history since last seen: Patient is more alert today and in addition to responding to her name by looking at people in the room, she voiced a response to her family saying good morning to her and granddaughter. per nursing, they were able to get her meds in her yesterday w/ some pudding but awake overnight monitor could not get her meds in her so it has been hit/miss on her metoprolol and diltiazem. Exam Narrative Exam Narrative: Elderly female who had her eyes closed when I entered the room but when I called her name she opened her eyes and looked at me but was nonverbal until her family came in and spoke w/ her. Lungs: some coarse rhonchi at both bases anteriorly and posteriorly Heart: regular, rhythm sinus rate in the 60's per telemetry Abdomen: soft, nontender, nondistended Objective Last Vital Signs Temp 36.0 C L 11/03/23 07:10 Pulse 65 11/03/23 07:10 Resp 10 L 11/03/23 07:10 BP 183/65 H 11/03/23 07:10 Pulse Ox 99 11/03/23 07:10 Laboratory Results - last 24 hr 11/03/23 05:29 WBC 8.98 RBC 2.77 L Hgb 8.4 L Hct 24.8 L MCV 90 MCH 30.3 MCHC 33.9 RDW 14.2 Plt Count 172 MPV 9.2 Immature Gran % 0.6 Neutrophils % 87.5 Lymphocytes % 9.9 Monocytes % 1.9 Eosinophils % 0.0 Basophils % 0.1 Nucleated RBC % 0.0 Absolute Neutrophils 7.86 H Absolute Lymphocytes 0.89 L Absolute Monocytes 0.17 Absolute Eosinophils 0.00 Absolute Basophils 0.01 Sodium 134 L Potassium 3.2 L Chloride 99 Carbon Dioxide 23.4 Anion Gap 11.6 H BUN 29 H Creatinine 0.9 Est GFR (CKD-EPI 2020) 63.04 Glucose 163 H Calcium 7.7 L Magnesium 1.8 Total Bilirubin 0.5 AST 16 ALT 7 L Alkaline Phosphatase 68 Total Protein 5.2 L Albumin 1.9 L Procalcitonin 6.3 Time Spent with Patient Time Spent with Patient: 35-49 minutes Time was spent: preparing to see the patient(eg.review tests), ordering medications,tests, procedures, referring, communicating with other health property caretaker, indepentently interpreting results, counseling the patient and care coordination
[2023-11-03] MEDS: Lisinopril 20 MG TAB PO (11:46)
[2023-11-03] MEDS: Metoprolol 25 MG TAB PO ×2 (11:47→17:16)
[2023-11-03] MEDS: Hydrocortisone SOD SUC. 100 MG VIAL 25 MG IVP ×2 (11:47→22:19)
--- NOTE | 2023-11-03 11:58 | PTTR_ITS ---
Date of service: 11/03/23 Time of Service: 11:10 PT Notes Visit Reasons: Septic shock Inpatient Physical Therapy Treatment Note [facility] Date: 11/03/2023 PRECAUTIONS: Fall, standard SUBJECTIVE: Did not respond verbally to my questions or request but did nod yes when asked if she likes music. Was listening to music on TV when I asked. Was able to occasionally sift her eyes and turn her head if asked to look at some thing. OBJECTIVE: ? PAIN: Did ask several times if she had pain with movement of arms or legs, did not respond. Vitals: Monitored by nursing staff. ? Therapeutic Exercises ([id number]): Direct one-on-one instruction in therapeutic exercises to develop strength, endurance, range of motion and flexibility. Had been informed by nursing staff that Samia had been responsive to her family prior to my arrive, but unable to get response verbally or with request of any active movement of arms or legs. Continues to be flaccid with all attempted movement, including gripping of hands. ? Exercises - All activities were performed in supine. ? PROM with ankle PF/DF x 10 reps, supine hip flexion/ext x 10 reps, supine knee flexion/ ext x 10 reps, shoulder flex to 80 degrees x 10 reps , shoulder abd/adduction x 10 reps, elbow flexion/ ext x 10 reps and digit flex/ extension of hands x 10 reps. Attempted to have patient roll both left and right with assist, but no active movement was given. ASSESSMENT:? Did not feel safe to attempt transfer supine to sit with patient, due to only noting active movement at neck and eyes. This was discussed with nurse and supervising PT. PLAN: Will continue with current POC. If more responsive tomorrow hope to try sit to stand transfers. TREATMENT CODE/TIME: [id number], 11:10 to 11:25 (15')
[2023-11-03] MEDS: Insulin Aspart 300 UNITS/3 ML PEN SC ×2 (12:18→17:03)
[2023-11-03] MEDS: Lactated Ringers 1,000 ML 75 ML IV (14:03)
[2023-11-03 16:49] LABS: Streptococcus Pneumoniae Ag, U Negative (Negative)
[2023-11-03] MEDS: Enoxaparin 40 MG/0.4 ML SYR SC (22:52)
[2023-11-03] MEDS: Travoprost 0.004% Ophth Sol 2.5 ML BTL OP (22:54)
[2023-11-04] VITALS (28 sets, daily range): BP systolic 142–210; BP diastolic 58–108; PULSE 65–140; RESP 11–20; TEMP 35.6–36.7; O2SAT 96–100
[2023-11-04] MEDS: Metoprolol 5 MG/5 ML VIAL IVP ×5 (01:51→15:16)
[2023-11-04] MEDS: Normal Saline Flush 10 ML SYR IVP ×15 (01:55→23:01)
[2023-11-04] MEDS: hydrALAZINE 20 MG/ML VIAL 10 MG IVP (03:07)
[2023-11-04] MEDS: CEFEPIME 2 GM in Normal Saline 100 ML IVPB ×2 (05:52→17:56)
[2023-11-04] MEDS: Hydrocortisone SOD SUC. 100 MG VIAL 25 MG IVP ×3 (05:52→22:02)
[2023-11-04] MEDS: ACETAMINOPHEN 1,000 MG/100 ML BTL 400 MG IVPB ×3 (06:09→21:57)
[2023-11-04 06:37] LABS: Abs Immature Grans 0.26 10^3/uL (0.0-0.06); Absolute Basophil Count 0.04 10^3/uL (0.0-0.2); Absolute Eosinophil Count 0.02 10^3/uL (0.0-0.7); Basophils % 0.2 %; Eosinophils % 0.1 %; HCT 27.6 % (36.0-46.0); HGB 9.3 g/dL (11.2-15.7); Immature Grans % 1.2 %; Lymphocytes % 5.4 %; MCH 29.7 pg (27.0-33.0); MCHC 33.7 % (32.0-36.0); MCV 88 fL (80-95); MPV 9.1 fL (8.0-11.0); Monocytes % 1.7 %; Neutrophils % 91.4 %; Platelet Count 161 10^3/uL (130-400); RBC 3.13 10^6/uL (3.93-5.22); RDW 14.1 % (11.7-14.6); RDW-SD 44.9 fL; WBC 20.82 10^3/uL (4.4-10.8)
[2023-11-04 06:40] LABS: Absolute Lymphocyte Count 1.12 10^3/uL (1.2-3.4); Absolute Monocyte Count 0.35 10^3/uL (0.1-0.8); Absolute Neutrophil Count 19.03 10^3/uL (1.2-6.7)
[2023-11-04] MEDS: Lactated Ringers 1,000 ML 50 ML IV (06:53)
[2023-11-04 06:55] LABS: ALT 10 U/L (14-59); AST 15 U/L (15-37); Albumin 2.2 g/dL (3.4-5.0); Alkaline Phosphatase 77 U/L (46-116); Anion Gap 13.5 mmol/L (3-11); BUN 26 mg/dL (7-18); Bilirubin, Total 0.6 mg/dL (0.2-1.0); CO2 21.5 mmol/L (21.0-32.0); CREATININE 0.8 mg/dL (0.55-1.02); Calcium 8.1 mg/dL (8.5-10.1); Chloride 101 mmol/L (98-107); Estimated GFR 72.61 (mL/min/1.73m2); Glucose 216 mg/dL (74-106); Magnesium 1.5 mg/dL (1.8-2.4); Sodium 136 mmol/L (136-145); Total Protein 5.8 g/dL (6.4-8.2)
[2023-11-04 06:58] LABS: Potassium 2.9 mmol/L (3.5-5.1)
[2023-11-04] MEDS: Pantoprazole 40 MG VIAL IVP (07:42)
[2023-11-04] MEDS: Refresh PLUS Eye Drops 0.4ml OP ×3 (07:43→22:11)
[2023-11-04] MEDS: MORPHine 2 MG/ML SYR 4 MG IVP (07:59)
--- NOTE | 2023-11-04 08:22 | NUR.NOTE ---
Pt hypertensive this am, gave 5mg IV push metoprolol per orders with no improvement to BP. Per ICU nurses, pt responded to pain control previously, 4mg morphine IV push given with some decrease in BP down to 183/62, HR 64. Reported to hospitalist. Nursing Note:
--- NOTE | 2023-11-04 09:22 | CMPROGNOTE_ITS ---
Date of service: 11/04/23 Time of Service: 09:22 Care Management Progress Note Progress Note Text Progress Note Text: Samia has been transferred out of the ICU onto the Medical Surgical unit. She is more hemodynamically stable, however she is still not communicating verbally. Staff who know her from [facility], have stated that she is definitely not at her baseline in terms of mentation. Normally she is very verbal, in Italian, about communicating her needs. At this point she just stares and does not talk.Samia's son Fabrizio and her met with Kena from Palliative Care today to discuss code status and goals of care. Samia is a full code and the family does not want to make any changes at this time. They want to do everything that can be done to get her better. They also mentioned to Kena that they would prefer transferring Samia to a different facility, closer to their home in [place], [place]. CM will explain to the family that Samia will need to return to the [facility] and arrange transfer from there. CM can assist with sending referrals but when Samia is ready for discharge she will need to be discharged back to the [facility]. Discharge Potential Discharge Needs: PCP F/U Appt and Other (SNF) Anticipated Barriers to Discharge: Medical Status Patient/Family Education Needs: Review discharge instructions, discuss Ask Me Three Transportation: RCT (RCT vs EMS) RCT Transportation: Wheel chair van Plan: Samia will likely be transferred back to [facility] when medically cleared. She will follow up with facility providers and plan of care and transport via EMS coordinated by CM. CM will folllow and continue to assess for discharge needs. SDOH(Care Management) Screening Will the Patient Participate in the Screening?: Unable to obtain Social Determinants of Health Comments(SDOH Details): lives in jail
[2023-11-04] MEDS: Insulin Aspart 300 UNITS/3 ML PEN SC ×3 (09:26→17:55)
[2023-11-04] MEDS: Timolol 0.5% 5 ML BTL OP (09:29)
--- NOTE | 2023-11-04 11:12 | W.SPSTE ---
Date of service: 11/04/23 Time of Service: 10:50 Subjective Clinical (Bedside) Swallow Evaluation Speech Language Pathology Referred by: Dr Chen Referral Type: Clinical Swallow Evaluation Reason for Referral/HPI: Samia Forrester is an 83 yo German-speaking woman who was admitted on 10/30/23 after being found unresponsive at her care facility/[facility]. She has a history of dementia and is bedridden at baseline. Current diet order is for L4 Puree/L2 mildly thick, though very limited PO intake, NPO per nursing today due to somnolence. MRI pending; Palliative care order pending. PROFESSOR OF SPECIAL EDUCATION IMPRESSIONS & RECOMMENDATIONS: Patient presents with suspected severe oral pharyngeal dysphagia. Following oral care, PO trials were attempted with both small ice cubes and 1/4 tsp water via spoon. Samia opened her eyes and mouth though did not demonstrate any lingual movement/initiation to take the bolus despite multiple attempts/placement in oral cavity. Bolus removed manually/with suction. Family present (/grand daughter) during visit, translating to patient to encourage PO. Education provided to patient re: PROFESSOR OF SPECIAL EDUCATION findings and recommendations for STRICT NPO at this time, including non-oral meds. Will continue to re-assess daily. FURTHER PROFESSOR OF SPECIAL EDUCATION SERVICES: Patient to be followed while on unit. Upon Discharge- to be determined pending course of care; recommend PROFESSOR OF SPECIAL EDUCATION services at [facility] Recommendations: STRICT NPO Non-oral medications STRICT Aspiration precautions Frequent oral care q4 hours with suction prn HOB elevated at least 30 degrees at all times Consider TPN per nutrition assessment Palliative Care referral pending for determination of goals of care (Patient is full code) SUBJECTIVE: Patient received lethargic, minimally responsive. Opening eyes intermittently to name. Pain Reported? Unable to rate pain Baseline Swallow Function: Unable to report PO Trials Assessed: Ice chips IDDSI 0 Thin Liquids via 1/4 tsp Oral Mechanism Examination: Dentition is sparse, poor quality. Oral mucosa is pink. Cranial Nerve Assessment: Unable to fully assess. Opens mouth with prompting but no lingual initiation with PO introduction with bolus removed Oral Phase Findings: Absent bolus manipulation/A-P transport Pharyngeal Phase Findings: Unable to assess ASSESSMENT: Further PROFESSOR OF SPECIAL EDUCATION Services indicated. Patient to be followed while on unit. Recommendation at Discharge:To be determined; PROFESSOR OF SPECIAL EDUCATION Services at [facility] Education Provided to: Nursing, Family, Physician Topics Addressed: PROFESSOR OF SPECIAL EDUCATION findings, POC PLAN: Frequency: 5x/week for 1-2 weeks; Daily re-assessment while NPO Goals: [facility] Goals: Patient will remain free from aspiration-related illness, malnutrition, and dehydration. Short Term Goals: Patient will tolerate PO trials for consideration of diet initiation without overt s/s aspiration across 2/2 visits. PROFESSOR OF SPECIAL EDUCATION CPT Code: 73838 Clinical Swallowing Evaluation TOTAL TIME: 4286-9531, 20 Minutes
[2023-11-04] MEDS: dilTIAZem 25 MG/5 ML VIAL 10 MG IVP ×3 (11:27→17:26)
[2023-11-04] MEDS: POTASSIUM CHLORIDE 10 MEQ/100 ML BAG 100 MEQ IVINF (11:33)
--- NOTE | 2023-11-04 12:00 | RT.EKG_ITS ---
APPROVED REPORT Exam: Resting ECG Reason for Exam: rhythm change Patient Location: I HR:128 bpm ECG Measurements Heart Rate 128 AXIS SC [id number] P [id number] QRSd 75 QRS -20 QT 369 T 186 QTc 539 Conclusion Atrial flutter...A-rate 272 Inferior infarct, age indeterminate...Q>35mS, T neg, II III aVF Anterior infarct, old...Q >40mS, abnormal ST-T, V2-V5 Lateral leads are also involved...lat Q or ST-T abnormalities Prolonged QT interval...QTc >500mS
--- NOTE | 2023-11-04 16:05 | DI.MRI_ITS ---
Exam(s) MR BRAIN WO EXAM: MR BRAIN WO CLINICAL HISTORY: encephalopathy, dementia, r/o CVA TECHNIQUE: Multiplanar multisequence MRI of the brain was performed. COMPARISON: CT CT HEAD CERV SPINE FACIAL WO from 03/01/[address] BRAIN NECK CTA from 10/31/2023 FINDINGS: VENTRICLES AND EXTRA AXIAL SPACES: Mildly enlarged, stable appearance.. MIDLINE SHIFT: None. CEREBRAL PARENCHYMA: No focus of restricted diffusion to suggest acute infarct. No space-occupying le itzel identified. Moderate atrophy consistent with the patient's age. No significant foci of high sig nal in the white matter . HEMORRHAGE: None. BRAINSTEM/CEREBELLUM: Normal. VISUALIZED PARANASAL SINUSES/MASTOIDS:Clear. Vasculature: Normal flow void. PITUITARY GLAND: Unremarkable. ORBITS: Unremarkable. IMPRESSION: No acute abnormality. DATA REPOSITORY:
--- NOTE | 2023-11-04 16:12 | W.PALLCONSUL ---
Date of service: 11/04/23 Time of Service: 14:00 History of Present Illness Narrative: Mrs. 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 ED workup with electrolyte abnormalities, received fluids and empiric cefepime and vancomycin, central line placed, was started on norepinephrine drip and transferred to ICU. She has been off norepinephrine drip since October 29. NG tube placed after evidence of bowel distention with stool impaction with no effect from enemas, surgical consult placed for concerns with gallbladder. Over the weekend she was transferred out of ICU. WBC trending down. Impacted stool resolved as of November 02. Scheduled for MRI today, has been pushed back due to development of A-fib with AVR, started on diltiazem. MEDICATION RECONCILIATION TECHNICIAN consult today strict n.p.o., documented weight loss 4% in 4 days, recommending TPN for nutrition while n.p.o., will continue to follow daily. Surgical consult plan for ultrasound today, she is not a surgical candidate at this time Per staff: Concerns for pain with jaw clenching, given morphine 4 mg with no effect. Increased heart rate concerns, now more controlled with diltiazem. She has been a total care assist, has not been eating, n.p.o. visiting daily at bedside, Divehi-speaking. He does not understand what has been going on, defers to son for decision-making and healthcare conversations. Do anything to keep her alive per son/HCA Fabrizio: Samia and her moved from [place] to in , after retired they moved back to [place], in 2020 it became too hard for them to care for themselves there and they [place] back [place] the [place] with Fabrizio. They were unable to safely care for her in home, she relocated to a retirement 2 years ago. Initially she was agitated, however lately she has been more calm, concerns with her giving up . This acute change no one saw coming. Her last bowel movement was reported on October 26, she was always eating a lot especially when has been around, averaging 2 meals per day up until time of admission. -They are aware that she was so sick last week, they were wondering if she would on Saturday, however now they are saying she is doing better. They are aware that there are some concerns with life-sustaining treatment, including CPR, however they are adamant this is a family decision and want healthcare professionals to help provide guidance. At this time they would want all life-sustaining measures performed, including feeding tubes, even if there is no chance that she will regain ability to eat and swallow on her own -Historically client has had concerns with care received at the [facility], not seeing eye to eye with professionals wanting DNR status -Has assistance from children regarding care choices, want to make choices as family, with healthcare guidance, only if it was determined if no chance of survival with a consider changing CODE STATUS or treatment preferences Assessment and Plan Assessment and plan (1) Gallbladder anomaly: Status: Acute Assessment and plan: Consider ultrasound, not surgical candidate at this time Surgery no longer following Recommend aggressive bowel regimen (2) Adrenal insufficiency: Status: Suspected (3) Impacted stool in intestine: Status: Acute Assessment and plan: Surgery recommend aggressive bowel regimen, NG tube removed after output diminished, no obstruction on CT, resolved Continue to monitor (4) Altered mental status: Status: Acute Assessment and plan: Unclear Qualifiers: Altered mental status type: delirium Qualified Code(s): R41.0 - Disorientation, unspecified (5) Dementia: Status: Chronic Assessment and plan: Bedbound at baseline, dependent all ADLs minus eating at baseline Need for further follow-up and review of disease progression with family as appropriate Qualifiers: Dementia type: Alzheimer's Alzheimer's disease onset: unspecified onset Dementia severity: moderate Dementia behavioral or psychological symptom: without behavioral, psychotic, or mood disturbance or anxiety Qualified Code(s): G30.9 - Alzheimer's disease, unspecified; F02.B0 - Dementia in other diseases classified elsewhere, moderate, without behavioral disturbance, psychotic disturbance, mood disturbance, and anxiety (6) Rheumatoid arthritis: Status: Chronic Assessment and plan: Consider restarting home medications as appropriate Premedicate with any personal care Qualifiers: Rheumatoid arthritis location: multiple sites Rheumatoid factor presence: unspecified presence Qualified Code(s): M06.9 - Rheumatoid arthritis, unspecified (7) Lives in retirement: Status: Acute Assessment and plan: With plans for discharge home to retirement. Family preference to relocate to closer retirement: [place], [place], or any retirement that may be closer to them even if in [place]. They live in [place], [place] Will need assistance from CM (8) Decreased oral intake: Status: Acute Assessment and plan: Reviewed current concerns with n.p.o. status and MEDICATION RECONCILIATION TECHNICIAN evaluation today. Preference for placing feeding tube, with NG preferred versus G-tube. Even if it is not likely will regain ability to eat or drink. Fabrizio would appreciate MEDICATION RECONCILIATION TECHNICIAN conversation at tomorrow's visit, reviewed MEDICATION RECONCILIATION TECHNICIAN daily following and reassessing for oral intake and review of feeding tube recommendations based on current oral status (9) ACP (advance care planning): Status: Acute Assessment and plan: - Reviewed care plan to include all life-sustaining treatment, including feeding tube, preference for NG versus G-tube for easier removal. Would consider full-time long-term feeding tube if unable to regain ability to eat and drink. - Reviewed care preferences of life-sustaining treatment, including CPR if her heart were to stop. Decisions are made as a family and they are determined to continue hoping for a miracle, if it is determined that she is dying, they will let go and consider a DNR, however they would want strong indication and guidance from healthcare professionals. -Reviewed plan for discharge to retirement, preferences for relocating to alternative as above - Reviewed palliative care and role in-quality of life and decision making goals. Fabrizio is aware they need to talk about long-term and hypothetical situations regarding mom's care and he is open to having these; Spent 20 minutes minutes with ACP (10) Palliative care encounter: Status: Acute Assessment and plan: PC will continue to follow closely, follow-up Saturday or or sooner as needed Review of Systems Narrative: Unobtainable due to mental condition As per HPI PFSH All Active Problems (Updated 11/04/23 @ 16:39 by Kena Martinez NP) Palliative care encounter (Acute) Decreased oral intake (Acute) Lives in retirement (Acute) ACP (advance care planning) (Acute) Gallbladder anomaly (Acute) Hypokalemia due to excessive gastrointestinal loss of potassium (Acute) DVT prophylaxis (Acute) Impacted stool in intestine (Acute) Septic shock (Acute) Altered mental status (Acute) Chronic hyponatremia (Chronic) Hyponatremia (Acute) Chronic UTI (Acute) Overactive bladder (Acute) Paroxysmal atrial fibrillation (Acute) Dementia (Chronic) Depression (Chronic) Hypertension (Chronic) Rheumatoid arthritis (Chronic) Diabetes (Chronic) Elevated troponin (Acute) Altered mental status (Acute) Non-ST elevation MA (NSTEMI) (Acute) Elevated troponin I level (Acute) Social History Smoking/Tobacco Use Status: Never Smoking risk assessment performed?: Yes Alcohol Intake: never Substance use type: does not use Details: Unable to obtain Housing: retirement Additional Social history: From [place], Divehi speaker. Has lived in [facility] for the past year after stopped walking. and son in [facility] Exam Narrative Exam Narrative: General: Older adult female, lying in bed throughout visit, eyes closed, does not engage Respirations: Even and unlabored, no audible wheeze no cough Skin: No rashes or lesions, did not conduct full skin exam Neuro: Does not open eyes, does not engage with staff Results Last Vital Signs Temp 97.0 F L 11/04/23 16:10 Pulse 120 H 11/04/23 16:10 Resp 18 11/04/23 16:10 BP 181/102 H 11/04/23 16:10 Pulse Ox 100 11/04/23 16:10 Labs 11/04/23 06:24 11/04/23 06:24 Labs: Laboratory Results - last 24 hr 10/31/23 11/01/23 11/04/23 13:16 11:15 06:24 WBC 20.82 H RBC 3.13 L Hgb 9.3 L Hct 27.6 L MCV 88 MCH 29.7 MCHC 33.7 RDW 14.1 Plt Count 161 MPV 9.1 Immature Gran % 1.2 Neutrophils % 91.4 Lymphocytes % 5.4 Monocytes % 1.7 Eosinophils % 0.1 Basophils % 0.2 Nucleated RBC % 0.0 Absolute Neutrophils 19.03 H Absolute Lymphocytes 1.12 L Absolute Monocytes 0.35 Absolute Eosinophils 0.02 Absolute Basophils 0.04 Sodium 136 Potassium 2.9 L* Chloride 101 Carbon Dioxide 21.5 Anion Gap 13.5 H BUN 26 H Creatinine 0.8 Est GFR (CKD-EPI 2020) 72.61 Glucose 216 H Calcium 8.1 L Magnesium 1.5 L Total Bilirubin 0.6 AST 15 ALT 10 L Alkaline Phosphatase 77 Total Protein 5.8 L Albumin 2.2 L Urine Legionella Ag Negative Ur Strep pneumoniae Ag Negative
--- NOTE | 2023-11-04 16:55 | PGE_ITS ---
Date of Service Date of service: 11/04/23 Time of Service: 16:55 Assessment and Plan Assessment and plan (1) Impacted stool in intestine: Status: Acute Assessment and plan: -stool impaction has resolved as per CT scan findings. -Now trying to get adequate stool softeners and laxatives in her to prevent impaction again. -patient was likely septic from either stercocolitis or possible her gall bladder given her findings on her CT scan. -See Dr. Sheth note from 11/01 regarding surgical input -Cefepime d#7 (begun 10/28), she also had been on vancomycin (10/28 -10/30) but was DCed after negative MRSA screen. -continue the cefepime for total of 7-10 days or until inflammatory markers have resolved -ELECTRICAL LINEWORKER has seen patient and rec strict NPO as she has severe oral pharyngeal dysphagia -will follow-up progress with ELECTRICAL LINEWORKER -family discussion with Palliative Care today (please see Palliative note for complete details); -family continues to want everything done for the patient, including her being Full Code and the potential for a feeding tube, even if she has no possibility of ever being able to eat or swallow on her own again -They also stated that if the patient were to significantly decline, they would consider resending DNR status at that time. However they are adamant that they would want to make that decision as a family, with close healthcare guidance, and only if it was determined that she has no chance of survival (2) Paroxysmal atrial fibrillation: Status: Acute Assessment and plan: -patient has hx of [facility], therefore not a good candidate for remote computer terminal operator anticoagulation. -had been on currently on lopressor 25 mg QID and diltiazem 30 mg TID, both of which are held as patient is NPO -HR increased AM 11/03 to 120's, responded to IV dilt 5mg, but needed additional 5mg dose -now on 20mg dilt Q6hr, will continue to monitor HR and increase scheduled dilt as needed (3) Adrenal insufficiency: Status: Suspected Assessment and plan: -suspected but no random cortisol was done and no cosyntropin study was done. -However, her hypotension resolved quickly after getting on hydrocortisone. -will continue hydrocortisone but begin wean. -decrease dose and frequency of hydrocortisone to 25 mg IV Q8h on 11/02 -was planning to transition to PO prednisone, but given NPO status will continue IV 25mg Q6hr (4) Hypokalemia due to excessive gastrointestinal loss of potassium: Status: Acute Assessment and plan: -initially had hyperkalemia w/ JUAN JOSÉ on admission -2.9 AM 11/03, 20mEq IV replacement ordered -f/u AM BMP (5) Altered mental status: Status: Acute Assessment and plan: -mental status appears to be unchanged as compared to previous day -likely cause is metabolic encephalopathy superimposed on her dementia, CTA head did not show CVA or occlusive disease. -MRI also with any acute findings Qualifiers: Altered mental status type: delirium Qualified Code(s): R41.0 - Disorientation, unspecified (6) Dementia: Status: Chronic Assessment and plan: -Seroquel and mirtazapine were held since evening of 10/30 d/t decreased LOC but now can resume. Qualifiers: Alzheimer's disease onset: unspecified onset Dementia behavioral or psychological symptom: without behavioral, psychotic, or mood disturbance or anxiety Dementia severity: moderate Dementia type: Alzheimer's Qualified Code(s): G30.9 - Alzheimer's disease, unspecified; F02.B0 - Dementia in other diseases classified elsewhere, moderate, without behavioral disturbance, psychotic disturbance, mood disturbance, and anxiety (7) Chronic hyponatremia: Status: Chronic Assessment and plan: -improved s/p IVF (8) Rheumatoid arthritis: Status: Chronic Assessment and plan: -No active disease. -Holding methotrexate, giving hydrocortisone as above. Qualifiers: Rheumatoid arthritis location: multiple sites Rheumatoid factor presence: unspecified presence Qualified Code(s): M06.9 - Rheumatoid arthritis, unspecified (9) Diabetes: Status: Chronic Assessment and plan: -On GLP-1 and some insulin as outpatient. -A1c is below goal. -Lantus was stopped couple days ago d/t low glucose readings in the morning. -SSI Q6hr now that patient is strict NPO Qualifiers: Diabetes mellitus complication status: without complication Diabetes mellitus care home insulin use: without remote computer terminal operator use Diabetes mellitus type: type 2 Qualified Code(s): E11.9 - Type 2 diabetes mellitus without complications (10) DVT prophylaxis: Status: Acute Assessment and plan: -h/o pAFib but not on anticoagulation. Use LMWH. Subjective Subjective Interval history since last seen: Patient appears to be about the same as pervious day. She opens her eyes to verbal stimuli and will look around the room. She does not appear to be in any acute distress. Exam Narrative Exam Narrative: chronically ill appearing older female laying in bed in no acute distress, awakens to verbal stimuli but does not speak, heart irregularly irregular with rates to the 120's, lungs CTAB, abdomen soft, non-tender, non-distended Objective Last Vital Signs Temp 98.1 F 11/04/23 16:52 Pulse 119 H 11/04/23 16:52 Resp 16 11/04/23 16:52 BP 164/87 H 11/04/23 16:52 Pulse Ox 100 11/04/23 16:52 Laboratory Results - last 24 hr 10/31/23 11/01/23 11/04/23 13:16 11:15 06:24 WBC 20.82 H RBC 3.13 L Hgb 9.3 L Hct 27.6 L MCV 88 MCH 29.7 MCHC 33.7 RDW 14.1 Plt Count 161 MPV 9.1 Immature Gran % 1.2 Neutrophils % 91.4 Lymphocytes % 5.4 Monocytes % 1.7 Eosinophils % 0.1 Basophils % 0.2 Nucleated RBC % 0.0 Absolute Neutrophils 19.03 H Absolute Lymphocytes 1.12 L Absolute Monocytes 0.35 Absolute Eosinophils 0.02 Absolute Basophils 0.04 Sodium 136 Potassium 2.9 L* Chloride 101 Carbon Dioxide 21.5 Anion Gap 13.5 H BUN 26 H Creatinine 0.8 Est GFR (CKD-EPI 2020) 72.61 Glucose 216 H Calcium 8.1 L Magnesium 1.5 L Total Bilirubin 0.6 AST 15 ALT 10 L Alkaline Phosphatase 77 Total Protein 5.8 L Albumin 2.2 L Urine Legionella Ag Negative Ur Strep pneumoniae Ag Negative Time Spent with Patient Time Spent with Patient: >50 minutes Time was spent: preparing to see the patient(eg.review tests), obtaining and/or reviewing separately otained hiistory, ordering medications,tests, procedures, referring, communicating with other health field care manager, indepentently interpreting results, counseling the patient and care coordination
[2023-11-04] MEDS: MAGNESIUM SULFATE 2 GM/50 ML BAG IVINF (17:35)
[2023-11-04] MEDS: Enoxaparin 40 MG/0.4 ML SYR SC (19:51)
[2023-11-04] MEDS: Travoprost 0.004% Ophth Sol 2.5 ML BTL OP (22:10)
[2023-11-04] MEDS: dilTIAZem 25 MG/5 ML VIAL 20 MG IVP (23:01)
[2023-11-05] VITALS (12 sets, daily range): BP systolic 150–210; BP diastolic 62–91; PULSE 71–125; RESP 11–20; TEMP 35.6–37.4; O2SAT 94–100
[2023-11-05] MEDS: Insulin Aspart 300 UNITS/3 ML PEN SC ×4 (00:13→18:01)
[2023-11-05] MEDS: Refresh PLUS Eye Drops 0.4ml OP ×5 (00:18→22:07)
[2023-11-05] MEDS: Bisacodyl 10 MG SUPP PR (02:04)
[2023-11-05] MEDS: Lactated Ringers 1,000 ML 50 ML IV (03:53)
[2023-11-05] MEDS: CEFEPIME 2 GM in Normal Saline 100 ML IVPB ×2 (05:21→18:01)
[2023-11-05] MEDS: Normal Saline Flush 10 ML SYR IVP ×7 (05:27→18:25)
[2023-11-05] MEDS: ACETAMINOPHEN 1,000 MG/100 ML BTL 400 MG IVPB ×3 (05:27→21:59)
[2023-11-05] MEDS: Hydrocortisone SOD SUC. 100 MG VIAL 25 MG IVP ×3 (05:29→22:06)
[2023-11-05] MEDS: dilTIAZem 25 MG/5 ML VIAL 20 MG IVP ×3 (05:32→18:24)
[2023-11-05] MEDS: Timolol 0.5% 5 ML BTL OP (08:39)
[2023-11-05] MEDS: Pantoprazole 40 MG VIAL IVP (08:39)
[2023-11-05 08:42] LABS: Abs Immature Grans 0.15 10^3/uL (0.0-0.06); Absolute Basophil Count 0.02 10^3/uL (0.0-0.2); Absolute Eosinophil Count 0.01 10^3/uL (0.0-0.7); Absolute Lymphocyte Count 0.71 10^3/uL (1.2-3.4); Absolute Monocyte Count 0.29 10^3/uL (0.1-0.8); Absolute Neutrophil Count 9.15 10^3/uL (1.2-6.7); Basophils % 0.2 %; Eosinophils % 0.1 %; HGB 8.5 g/dL (11.2-15.7); Immature Grans % 1.5 %; Lymphocytes % 6.9 %; MCH 30.1 pg (27.0-33.0); MCV 89 fL (80-95); MPV 9.7 fL (8.0-11.0); Monocytes % 2.8 %; Neutrophils % 88.5 %; Platelet Count 157 10^3/uL (130-400); RBC 2.82 10^6/uL (3.93-5.22); RDW 14.2 % (11.7-14.6); RDW-SD 45.4 fL; WBC 10.33 10^3/uL (4.4-10.8)
[2023-11-05 08:47] LABS: Anion Gap 10.4 mmol/L (3-11); BUN 24 mg/dL (7-18); CO2 25.6 mmol/L (21.0-32.0); CREATININE 0.7 mg/dL (0.55-1.02); Calcium 7.7 mg/dL (8.5-10.1); Chloride 102 mmol/L (98-107); Estimated GFR 85.23 (mL/min/1.73m2); Glucose 172 mg/dL (74-106); Sodium 138 mmol/L (136-145)
[2023-11-05 08:53] LABS: Potassium 2.5 mmol/L (3.5-5.1)
--- NOTE | 2023-11-05 09:29 | CMPROGNOTE_ITS ---
Date of service: 11/05/23 Time of Service: 09:29 Care Management Progress Note Progress Note Text Progress Note Text: Samia was lying in bed with her eyes closed when CM met with her. She did not respond when spoken to except for a slight movement of her eyelids. This is consistent with her recent responses to attempts at communication. Samia remains a full code and consideration is being given to insertion of a G-tube as she is NPO and unable to swallow. Her family continues to desire a do everything approach to Samia's healthcare. CM will follow. Discharge Potential Discharge Needs: Other (return to SNF) Anticipated Barriers to Discharge: Medical Status Patient/Family Education Needs: Review discharge instructions, discuss Ask Me Three Transportation: RCT (RCT vs EMS) Plan: Samia will likely be transferred back to [facility] when medically cleared. She will follow up with facility providers and plan of care and transport via EMS coordinated by CM. CM will continue to assess for discharge needs. SDOH(Care Management) Screening Will the Patient Participate in the Screening?: Unable to obtain Social Determinants of Health Comments(SDOH Details): lives in prison
[2023-11-05 09:34] LABS: Lab Add On Test DONE
[2023-11-05 09:49] LABS: Magnesium 1.8 mg/dL (1.8-2.4)
[2023-11-05] MEDS: POTASSIUM CHLORIDE 10 MEQ/100 ML BAG 100 MEQ IVINF ×4 (09:50→13:06)
--- NOTE | 2023-11-05 12:24 | TELEFU_ITS ---
Date of service: 11/05/23 Time of Service: 12:24 Nutrition Note NOTE: Mrs Forrester has been NPO over the last 5 days with a brief window, trialing a puree diet with mildly thick liquids which was unsuccessful and is now strict NPO status. Per provider, family is considering PEG tube placement for long- term feeding but would like nutrition intervention while considering/waiting for placement. While family is making long-term decisions and/or awaiting PEG tube placement, Mrs. Forrester would benefit greatly from either enteral feedings or TPN. I would suggest it an easier option to consider TPN at this time due to central line access is already available and TPN would be better tolerated. However, enteral feeding via NG tube placement should be considered if decision making/PEG tube placement has potential to be delayed as Mrs Forrester would benefit from using her GI tract JULITO. Per previous nutrition note her estimated energy needs are 1272kcals and 68-82g protein, 1272mL fluid Recommend 4.25%AA/10%D Clinimix, 20% 250mL bag lipids, vitamins, minerals and trace elements run continuously at 63mL per hour as goal. Start at 30mL per hour and increase rate 5mL per hour [id number] until goal reached. Goal rate provides 1271kcals, 64g protein and 50g lipid. Time Spent in Nutritional Counseling and Treatment: 0
--- NOTE | 2023-11-05 12:41 | SPP_ITS ---
Date of service: 11/05/23 Time of Service: 12:41 Hema Gracia was contacted at bedside this date. She appeared somnolent but roused to voice. Attempting to perform oral care but patient with clenched jaw, not able/willing to open fully to allow oral care. Nursing reports successful swab without clamping earlier this date and was able to apply oral moisturizing gel. During this session, patient responded x1 (nodded) when asked if she wanted more ice in Ethiopian. Objective/Assessment/Plan Objective Treatment Techniques & Outcomes: Positioning: HOB raised to ~80 degrees for PO trials. Respiratory status: Some wet breath sounds and baseline wet cough x1 prior to oral care/PO trials. PO Trials Assessed: Ice chips x3 IDDSI 0 Thin Liquids via 1/4 tsp x1 Oral Phase Findings: Weak, but notably improved bolus manipulation/A-P transport Open mouth posture during swallow and during oral manipulation phase Pharyngeal Phase Findings: Severely delayed, but palpable and audible pharyngeal initiation Good but sluggish hyo-laryngeal motility during swallow. Consistent weak, wet cough with both ice chips and water, before and after swallow initiation. Assessment Some modest improvements in overall swallow status over previous date, notably improved oral manipulation and swallow initiation this date, though continues with consistent s/sx aspiration even with most conservative PO trials. Not ready to initiate PO diet at this time. Care team and family to continue to discuss options for alternative nutrition given poor PO intake for several days and strict NPO status at this time. Patient to be followed while on unit. Upon Discharge- to be determined pending course of care; recommend MITER SAW OPERATOR services at detention Diet Recommendations: STRICT NPO Non-oral medications STRICT Aspiration precautions Frequent oral care q4 hours with suction prn HOB elevated at least 30 degrees at all times Consider alternative means of nutrition pending patient/family goals of care. Plan Plan: Frequency: 5x/week for 1-2 weeks; Daily re-assessment while NPO Goals: Wireless Field Technician Goals: Patient will remain free from aspiration-related illness, malnutrition, and dehydration. Short Term Goals: Patient will tolerate PO trials for consideration of diet initiation without overt s/s aspiration across 2/2 visits. Time spent: 25 minutes (12:20-12:45)
--- NOTE | 2023-11-05 13:30 | RT.EKG_ITS ---
APPROVED REPORT Exam: Resting ECG Reason for Exam: A-Zaheer converted to NSR @ 0535 Patient Location: I HR:77 bpm ECG Measurements Heart Rate 77 AXIS [place] 138 P 51 QRSd 77 QRS 0 QT 482 T 18 QTc 546 Conclusion Sinus rhythm...normal P axis, V-rate 50- 99 Anterior infarct, age indeterminate...Q >35mS, T neg, in V2-V5 Prolonged QT interval...QTc >500mS
--- NOTE | 2023-11-05 14:02 | PGE_ITS ---
Date of Service Date of service: 11/05/23 Time of Service: 14:03 Assessment and Plan Assessment and plan (1) Impacted stool in intestine: Status: Acute Assessment and plan: -stool impaction has resolved as per CT scan findings. -Now trying to get adequate stool softeners and laxatives in her to prevent impaction again. -patient was likely septic from either stercocolitis or possible her gall bladder given her findings on her CT scan. -See Dr. Sheth note from 11/01 regarding surgical input -Cefepime d#8 (begun 10/28), she also had been on vancomycin (10/28 -10/30) but was DCed after negative MRSA screen. -continue the cefepime for total of 7-10 days or until inflammatory markers have resolved -discussed with Dr. Sheth of General Surgery who stated that after a meeting with family tomorrow he could possible place PEG tube as early as tomorrow afternoon -BAGGER AND STOCK HANDLER HELPER on 11/03 recommended strict NPO as patient was unable to initiate swallow -reevaluation on 11/04 and patient did show some improvement, but remains NPO -I asked BAGGER AND STOCK HANDLER HELPER to reach out to Dr. Sheth directly to discuss patients progress and potential timing/need for PEG tube -also consult Nutrition -family discussion with Palliative Care today (please see Palliative note for complete details); -family continues to want everything done for the patient, including her being Full Code and the potential for a feeding tube, even if she has no possibility of ever being able to eat or swallow on her own again -They also stated that if the patient were to significantly decline, they would consider resending DNR status at that time. However they are adamant that they would want to make that decision as a family, with close healthcare guidance, and only if it was determined that she has no chance of survival (2) Paroxysmal atrial fibrillation: Status: Acute Assessment and plan: -patient has hx of frequent falls at the intermediate, therefore not a good candidate for senior living anticoagulation. -had been on currently on lopressor 25 mg QID and diltiazem 30 mg TID, both of which are held as patient is NPO -HR increased AM 11/03 to 120's, responded to IV dilt 5mg, but needed additional 5mg dose -now on 20mg dilt Q6hr, will continue to monitor HR and increase scheduled dilt as needed (3) Adrenal insufficiency: Status: Suspected Assessment and plan: -suspected but no random cortisol was done and no cosyntropin study was done. -However, her hypotension resolved quickly after getting on hydrocortisone. -will continue hydrocortisone but begin wean. -decrease dose and frequency of hydrocortisone to 25 mg IV Q8h on 11/02 -was planning to transition to PO prednisone, but given NPO status will continue IV 25mg Q6hr (4) Hypokalemia due to excessive gastrointestinal loss of potassium: Status: Acute Assessment and plan: -initially had hyperkalemia w/ JUAN JOSÉ on admission -2.9 AM 11/03, 20mEq IV replacement ordered -2.5 AM 11/04, 40mEq IV replacement ordered -f/u AMP BMP (5) Altered mental status: Status: Acute Assessment and plan: -mental status appears to be unchanged as compared to previous day -likely cause is metabolic encephalopathy superimposed on her dementia, CTA head did not show CVA or occlusive disease. -MRI also with any acute findings Qualifiers: Altered mental status type: delirium Qualified Code(s): R41.0 - Disorientation, unspecified (6) Dementia: Status: Chronic Assessment and plan: -Seroquel and mirtazapine were held since evening of 10/30 d/t decreased LOC but now can resume. Qualifiers: Dementia type: Alzheimer's Alzheimer's disease onset: unspecified onset Dementia severity: moderate Dementia behavioral or psychological symptom: without behavioral, psychotic, or mood disturbance or anxiety Qualified Code(s): G30.9 - Alzheimer's disease, unspecified; F02.B0 - Dementia in other diseases classified elsewhere, moderate, without behavioral disturbance, psychotic disturbance, mood disturbance, and anxiety (7) Chronic hyponatremia: Status: Chronic Assessment and plan: -improved s/p IVF (8) Rheumatoid arthritis: Status: Chronic Assessment and plan: -No active disease. -Holding methotrexate, giving hydrocortisone as above. Qualifiers: Rheumatoid arthritis location: multiple sites Rheumatoid factor presence: unspecified presence Qualified Code(s): M06.9 - Rheumatoid arthritis, unspecified (9) Diabetes: Status: Chronic Assessment and plan: -On GLP-1 and some insulin as outpatient. -A1c is below goal. -Lantus was stopped couple days ago d/t low glucose readings in the morning. -SSI Q6hr now that patient is strict NPO Qualifiers: Diabetes mellitus type: type 2 Diabetes mellitus intermediate accountant insulin use: without senior living use Diabetes mellitus complication status: without complication Qualified Code(s): E11.9 - Type 2 diabetes mellitus without complications (10) DVT prophylaxis: Status: Acute Assessment and plan: -h/o pAFib but not on anticoagulation. Use LMWH. Subjective Subjective Interval history since last seen: Patient appears to be about the same as pervious day and does not appear to be in any acute distress Exam Narrative Exam Narrative: chronically ill appearing older female laying in bed in no acute distress, awakens to verbal stimuli but does not speak, heart irregularly irregular with rates in the 80's, lungs CTAB, abdomen soft, non-tender, non-distended Objective Last Vital Signs Temp 99.3 F 11/05/23 11:09 Pulse 77 11/05/23 13:06 Resp 13 11/05/23 11:09 BP 185/71 H 11/05/23 13:06 Pulse Ox 100 11/05/23 11:09 Laboratory Results - last 24 hr 11/05/23 06:34 WBC 10.33 RBC 2.82 L Hgb 8.5 L Hct 25.0 L MCV 89 MCH 30.1 MCHC 34.0 RDW 14.2 Plt Count 157 MPV 9.7 Immature Gran % 1.5 Neutrophils % 88.5 Lymphocytes % 6.9 Monocytes % 2.8 Eosinophils % 0.1 Basophils % 0.2 Nucleated RBC % 0.0 Absolute Neutrophils 9.15 H Absolute Lymphocytes 0.71 L Absolute Monocytes 0.29 Absolute Eosinophils 0.01 Absolute Basophils 0.02 Sodium 138 Potassium 2.5 L* Chloride 102 Carbon Dioxide 25.6 Anion Gap 10.4 BUN 24 H Creatinine 0.7 Est GFR (CKD-EPI 2020) 85.23 Glucose 172 H Calcium 7.7 L Magnesium 1.8 Add-On Test Request DONE Time Spent with Patient Time Spent with Patient: >50 minutes Time was spent: preparing to see the patient(eg.review tests), obtaining and/or reviewing separately otained hiistory, ordering medications,tests, procedures, referring, communicating with other health customer care associate, indepentently interpreting results, counseling the patient and care coordination
--- NOTE | 2023-11-05 15:28 | PT.INTREAT ---
PT Notes Visit Reasons: Septic shock Date: 11/03/2023 PRECAUTIONS: Fall, standard SUBJECTIVE: Pt would open left eye when inquired upon if she would like to participate with therapy, pt able to nod once and go back to sleep. OBJECTIVE: Vitals: Monitored by nursing staff. ? Therapeutic Exercises 63384: Direct one-on-one instruction in therapeutic exercises to develop strength, endurance, range of motion and flexibility. Exercises - All activities were performed in supine. PROM with ankle PF/DF x 10 reps, supine hip flexion/ext x 10 reps, supine knee flexion/ ext x 10 reps, shoulder flex to 80 degrees x 10 reps , shoulder abd/adduction x 10 reps, elbow flexion/ ext x 10 reps and digit flex/ extension of hands x 10 reps. Attempted to have patient roll both left and right with assist, but no active movement was given. ASSESSMENT:? Pt sleeping during the duration of session with pt only able to nod once during inquiry with asking for permission to treat. PLAN: Will continue with current POC. will trial transfer training when pt becomes much more alert.. TREATMENT CODE/TIME: [id number], 3:00 to 3:15 (15')
[2023-11-05] MEDS: hydrALAZINE 20 MG/ML VIAL 10 MG IVP (16:06)
--- NOTE | 2023-11-05 16:17 | CHAPLAIN ---
I had a short visit with Samia. Her eyes were open but she did not react to me at all. She appears to be comfortable, but it's difficult to tell. (No moaning or grimacing.) Samia and her speak Hungarian. According to Palliative Care notes from today, Samia and her moved here in , from [place] and then moved back to [place] when they retired. They returned here in to live closer to their son in [place], [place]. Samia has been in the [facility] for the year or so. Family members told Kena Martinez NP, from the Palliative team, that they will make decisions for Samia as a family, and currently want everything done for her unless it becomes clear that she won't survive. So Samia is a full code currently.
[2023-11-05] MEDS: Enoxaparin 40 MG/0.4 ML SYR SC (22:06)
[2023-11-05] MEDS: Travoprost 0.004% Ophth Sol 2.5 ML BTL OP (22:07)
[2023-11-06] VITALS (24 sets, daily range): BP systolic 118–198; BP diastolic 53–98; PULSE 71–148; RESP 16–22; TEMP 35.8–36.9; O2SAT 95–99
[2023-11-06] MEDS: Insulin Aspart 300 UNITS/3 ML PEN SC ×5 (00:19→22:54)
[2023-11-06] MEDS: dilTIAZem 25 MG/5 ML VIAL 20 MG IVP ×5 (00:20→22:44)
[2023-11-06] MEDS: Refresh PLUS Eye Drops 0.4ml OP ×6 (00:29→22:55)
--- NOTE | 2023-11-06 01:00 | RT.EKG_ITS ---
APPROVED REPORT Exam: Resting ECG Reason for Exam: PSVT Patient Location: I HR:113 bpm ECG Measurements Heart Rate 113 AXIS MT [id number] P [id number] QRSd 89 QRS 11 QT 311 T 190 QTc 427 Conclusion Atrial fibrillation...? atrial activity Low voltage, extremity and precordial leads...extremity<0.5mV, precordial<1.0mV Repol abnrm l...ST dep, T neg, I aVL V2-V6
[2023-11-06] MEDS: Metoprolol 5 MG/5 ML VIAL IVP ×4 (01:10→15:06)
[2023-11-06] MEDS: Normal Saline Flush 10 ML SYR IVP ×6 (02:08→17:19)
[2023-11-06 02:17] LABS: Anion Gap 13.7 mmol/L (3-11); BUN 22 mg/dL (7-18); CO2 23.3 mmol/L (21.0-32.0); CREATININE 0.7 mg/dL (0.55-1.02); Chloride 102 mmol/L (98-107); Estimated GFR 85.23 (mL/min/1.73m2); Glucose 174 mg/dL (74-106); Magnesium 1.5 mg/dL (1.8-2.4); Sodium 139 mmol/L (136-145)
[2023-11-06 02:19] LABS: Potassium 2.6 mmol/L (3.5-5.1); Troponin I 123 ng/L (< or =60)
[2023-11-06] MEDS: POTASSIUM CHLORIDE 20 MEQ/100 ML BAG 50 MEQ IVINF ×2 (03:26→07:55)
[2023-11-06] MEDS: CEFEPIME 2 GM in Normal Saline 100 ML IVPB ×2 (05:49→17:18)
[2023-11-06] MEDS: Hydrocortisone SOD SUC. 100 MG VIAL 25 MG IVP ×3 (05:52→22:30)
[2023-11-06] MEDS: MAGNESIUM SULFATE 4 GM/100 ML BAG IVINF (06:09)
[2023-11-06] MEDS: Pantoprazole 40 MG VIAL IVP (07:51)
[2023-11-06] MEDS: Timolol 0.5% 5 ML BTL OP (07:54)
--- NOTE | 2023-11-06 08:00 | RT.EKG_ITS ---
APPROVED REPORT Exam: Resting ECG Reason for Exam: elevated troponin Patient Location: I HR:76 bpm ECG Measurements Heart Rate 76 AXIS SC 154 P 64 QRSd 80 QRS 16 QT 433 T 39 QTc 487 Conclusion Sinus rhythm...normal P axis, V-rate 50- 99 Atrial premature complexes...SV complexes w/ short R-R intvls Low voltage, precordial leads...precordial leads <1.0mV
--- NOTE | 2023-11-06 09:05 | SCONE_ITS ---
Date of service: 11/06/23 Time of Service: 09:06 Assessment and Plan Assessment and plan (1) Swallowing dysfunction: Status: Acute Assessment and plan: 83-year-old woman who is having some issues with safely swallowing acutely while she has been hospitalized. Her baseline is institutionalized. Her chronic issues are both medical as well as cognitive. She remains full code and family wants to pursue all possible measures. Palliative care has been involved in her case. Yesterday, I added her onto my OR schedule for later today in anticipation to place an endoscopic?assisted (PEG) feeding tube. We were going to have a family discussion about it this morning and get written consent. However, she has been showing improvement, which was not anticipated and both the hospitalist as well as speech therapy feels like we should hold off for the moment and see how she does for the next couple of days. Surgery will follow along in the periphery. I will tentatively add her to the OR schedule for Saturday in case it is deemed necessary and desired to place the feeding tube. We can easily cancel the case on Saturday if she continues to improve and ends up not needing it. Certainly not needing it is the best possible option for her. I defer to the primary/hospitalist team and speech therapy to decide on whether or not it is needed/necessary. The palliative care team and the primary team can have the discussions with the family from an ethical standpoint. If it ends up being necessary then the family will need to get together on Saturday morning to sign informed consent for having this done. The patient is in no capacity to make these decisions herself. Overall plan: PEG tube placement tentatively on the schedule for Saturday Remainder of care and decision making per primary team History of Present Illness Narrative: Patient known to me throughout this hospitalization. Asked to re-consult secondary to poor PO intake / unable to swallow and consider placing a feeding tube. Per report, family has had a discussion and wishes to pursue all possible measures at this time and she remains full code despite her decompensating cognitive, physical and baseline status. Two days ago, the patient basically was not swallowing successfully at all. Yesterday there was actually notable improvement and this morning, the hospitalist and speech therapy feel that perhaps with a couple more days, she may not need the feeding tube. The hospitalist relates that he does not feel though she has any acute/emergent need for feeding access and we can wait until we have more information and see how she progresses. PFSH All Active Problems (Updated 11/06/23 @ 10:43 by Agustin Sheth MD) Swallowing dysfunction (Acute) Palliative care encounter (Acute) Decreased oral intake (Acute) Lives in correction (Acute) ACP (advance care planning) (Acute) Gallbladder anomaly (Acute) Hypokalemia due to excessive gastrointestinal loss of potassium (Acute) DVT prophylaxis (Acute) Impacted stool in intestine (Acute) Septic shock (Acute) Altered mental status (Acute) Chronic hyponatremia (Chronic) Hyponatremia (Acute) Chronic UTI (Acute) Overactive bladder (Acute) Paroxysmal atrial fibrillation (Acute) Dementia (Chronic) Depression (Chronic) Hypertension (Chronic) Rheumatoid arthritis (Chronic) Diabetes (Chronic) Elevated troponin (Acute) Altered mental status (Acute) Non-ST elevation TX (NSTEMI) (Acute) Elevated troponin I level (Acute) Social History Smoking/Tobacco Use Status: Never Smoking risk assessment performed?: Yes Alcohol Intake: never Substance use type: does not use Details: Unable to obtain Housing: correction Additional Social history: From [place], Gambian speaker. Has lived in [facility] for the past year after stopped walking. and son in [facility] Results Last Vital Signs Temp 97.2 F L 11/06/23 07:31 Pulse 75 11/06/23 07:31 Resp 18 11/06/23 07:31 BP 156/56 H 11/06/23 07:31 Pulse Ox 97 11/06/23 07:31 Labs 11/05/23 06:34 11/06/23 01:55 Labs: Laboratory Results - last 24 hr 11/02/23 11/05/23 11/06/23 09:08 06:34 01:55 Sodium 139 Potassium 2.6 L* Chloride 102 Carbon Dioxide 23.3 Anion Gap 13.7 H BUN 22 H Creatinine 0.7 Est GFR (CKD-EPI 2020) 85.23 Glucose 174 H Calcium 8.0 L Magnesium 1.8 1.5 L Troponin I 123 H* M. pneumoniae Source Cancelled M. pneumoniae (PCR) Cancelled Add-On Test Request DONE
--- NOTE | 2023-11-06 09:05 | PDOC.CMPRO ---
Date of service: 11/06/23 Time of Service: 09:05 Care Management Progress Note Progress Note Text Progress Note Text: Samia remains non-verbal and only rouses on occasion when spoken to. During her speech therapy session today, Samia did open her mouth to allow a few sips and for oral care. The conversation about G-tube placement is ongoing. Samia has lost weight in the past few months and it is felt that this is part of the decline seen in patients with advanced dementia. Per Speech Therapy, even if she were able to tolerate PO intake again, it is unlikely she would be able to take in enough nutrients to sustain her. An Ethics consult has been requested for tomorrow to discuss issues surrounding Samia's care and code status as well as the g-tube. Discharge Potential Discharge Needs: PCP F/U Appt Anticipated Barriers to Discharge: None Identified Patient/Family Education Needs: Review discharge instructions, discuss Ask Me Three Transportation: Private vehicle Plan: Samia will likely be transferred back to [facility] when medically cleared. She will follow up with facility providers and plan of care and transport via EMS coordinated by CM. CM will continue to assess for discharge needs. SDOH(Care Management) Screening Will the Patient Participate in the Screening?: Unable to obtain Social Determinants of Health Comments(SDOH Details): lives in assisted
--- NOTE | 2023-11-06 09:47 | W.PM.PROGNOT ---
Date of Service Date of service: 11/06/23 Time of Service: 09:47 Assessment and Plan Assessment and plan (1) Impacted stool in intestine: Status: Acute Assessment and plan: -stool impaction has resolved as per CT scan findings. -Now trying to get adequate stool softeners and laxatives in her to prevent impaction again. -patient was likely septic from either stercocolitis or possible her gall bladder given her findings on her CT scan. -See Dr. Sheth note from 11/01 regarding surgical input -Cefepime d#8 (begun 10/28), she also had been on vancomycin (10/28 -10/30) but was DCed after negative MRSA screen. -continue the cefepime for total of 7-10 days or until inflammatory markers have resolved -discussed with Dr. Sheth of General Surgery who stated that after a meeting with family tomorrow he could possible place PEG tube as early as tomorrow afternoon -BUILD MANAGER on 11/03 recommended strict NPO as patient was unable to initiate swallow -reevaluation on 11/04 and patient did show some improvement, but remains NPO -I asked BUILD MANAGER to reach out to Dr. Sheth directly to discuss patients progress and potential timing/need for PEG tube: given that patient appears to be making some improvement, it is best to hold off on PEG tube placement at this time and to initiate alterative nutrition options -also consult Nutrition; rec TPN (see note for details), order placed and will start once bag is available to hang -family discussion with Palliative Care today (please see Palliative note for complete details); -family continues to want everything done for the patient, including her being Full Code and the potential for a feeding tube, even if she has no possibility of ever being able to eat or swallow on her own again -They also stated that if the patient were to significantly decline, they would consider resending DNR status at that time. However they are adamant that they would want to make that decision as a family, with close healthcare guidance, and only if it was determined that she has no chance of survival -Now plan for Ethic consult tomorrow 11/06; there has been concerning information told to Palliatve Care by the care givers at the [facility] (where the patient is a resident). Despite patient being full code, family has refused to have patient worked up for episodes of intermittent vomiting (with the son reportedly even stating he believes the patient is doing it to herself by putting her finger down the throat) and refusing to have her seen by a dentist for poor dentition in the setting of declining PO intake. Additionally, care givers at the [facility] state that the patient has had months of documented functional declines, worsening PO intake, and weight loss (2) Paroxysmal atrial fibrillation: Status: Acute Assessment and plan: -[facility], therefore not a good candidate for jail anticoagulation. -had been on currently on lopressor 25 mg QID and diltiazem 30 mg TID, both of which are held as patient is NPO -HR increased AM 11/03 to 120's, responded to IV dilt 5mg, but needed additional 5mg dose -now on 20mg dilt Q6hr -briefly in RVR overnight 11/04, responded to 5mg IV lopressor, now has order for IV lopressor 5mg Q4h PRN for sustained HR >120 -will continue to monitor HR and increase scheduled dilt as needed (3) Adrenal insufficiency: Status: Suspected Assessment and plan: -suspected but no random cortisol was done and no cosyntropin study was done. -However, her hypotension resolved quickly after getting on hydrocortisone. -will continue hydrocortisone but begin wean. -decrease dose and frequency of hydrocortisone to 25 mg IV Q8h on 11/02 -was planning to transition to PO prednisone, but given NPO status will continue IV 25mg Q6hr (4) Hypokalemia due to excessive gastrointestinal loss of potassium: Status: Acute Assessment and plan: -initially had hyperkalemia w/ JUAN JOSÉ on admission -2.9 AM 11/03, 20mEq IV replacement ordered -2.5 AM 11/04, 40mEq IV replacement ordered -2.6 early AM 11/05, 20mEq IV replacement ordered -f/u late AMP BMP (5) Altered mental status: Status: Acute Assessment and plan: -mental status appears to be unchanged as compared to previous day -likely cause is metabolic encephalopathy superimposed on her dementia, CTA head did not show CVA or occlusive disease. -MRI also with any acute findings Qualifiers: Altered mental status type: delirium Qualified Code(s): R41.0 - Disorientation, unspecified (6) Dementia: Status: Chronic Assessment and plan: -Seroquel and mirtazapine were held since evening of 10/30 d/t decreased LOC but now can resume. Qualifiers: Alzheimer's disease onset: unspecified onset Dementia behavioral or psychological symptom: without behavioral, psychotic, or mood disturbance or anxiety Dementia severity: moderate Dementia type: Alzheimer's Qualified Code(s): G30.9 - Alzheimer's disease, unspecified; F02.B0 - Dementia in other diseases classified elsewhere, moderate, without behavioral disturbance, psychotic disturbance, mood disturbance, and anxiety (7) Chronic hyponatremia: Status: Chronic Assessment and plan: -improved s/p IVF (8) Rheumatoid arthritis: Status: Chronic Assessment and plan: -No active disease. -Holding methotrexate, giving hydrocortisone as above. Qualifiers: Rheumatoid arthritis location: multiple sites Rheumatoid factor presence: unspecified presence Qualified Code(s): M06.9 - Rheumatoid arthritis, unspecified (9) Diabetes: Status: Chronic Assessment and plan: -On GLP-1 and some insulin as outpatient. -A1c is below goal. -Lantus was stopped couple days ago d/t low glucose readings in the morning. -SSI Q6hr now that patient is strict NPO Qualifiers: Diabetes mellitus complication status: without complication Diabetes mellitus equipment operator intermodal yard insulin use: without equipment operator intermodal yard use Diabetes mellitus type: type 2 Qualified Code(s): E11.9 - Type 2 diabetes mellitus without complications (10) DVT prophylaxis: Status: Acute Assessment and plan: -h/o pAFib but not on anticoagulation. Use LMWH. Subjective Subjective Interval history since last seen: Patient appears the same as previous days and does not appear to be in any acute distress. Exam Narrative Exam Narrative: chronically ill appearing older female laying in bed in no acute distress, awakens to verbal stimuli but does not speak, heart irregularly irregular with rates in the 80's, lungs CTAB, abdomen soft, non-tender, non-distended Objective Last Vital Signs Temp 97.2 F L 11/06/23 07:31 Pulse 75 11/06/23 07:31 Resp 18 11/06/23 07:31 BP 156/56 H 11/06/23 07:31 Pulse Ox 97 11/06/23 07:31 Laboratory Results - last 24 hr 11/02/23 11/05/23 11/06/23 09:08 06:34 01:55 Sodium 139 Potassium 2.6 L* Chloride 102 Carbon Dioxide 23.3 Anion Gap 13.7 H BUN 22 H Creatinine 0.7 Est GFR (CKD-EPI 2020) 85.23 Glucose 174 H Calcium 8.0 L Magnesium 1.8 1.5 L Troponin I 123 H* M. pneumoniae Source Cancelled M. pneumoniae (PCR) Cancelled Time Spent with Patient Time Spent with Patient: >50 minutes Time was spent: preparing to see the patient(eg.review tests), obtaining and/or reviewing separately otained hiistory, ordering medications,tests, procedures, referring, communicating with other health manager intensive care, indepentently interpreting results, counseling the patient and care coordination
[2023-11-06 11:44] LABS: HCT 25.7 % (36.0-46.0); MCH 29.6 pg (27.0-33.0); MCHC 33.5 % (32.0-36.0); MCV 88 fL (80-95); MPV 9.3 fL (8.0-11.0); Platelet Count 248 10^3/uL (130-400); RBC 2.91 10^6/uL (3.93-5.22); RDW 14.6 % (11.7-14.6); WBC 8.15 10^3/uL (4.4-10.8)
[2023-11-06 11:55] LABS: Anion Gap 11.8 mmol/L (3-11); BUN 24 mg/dL (7-18); CO2 23.2 mmol/L (21.0-32.0); CREATININE 0.7 mg/dL (0.55-1.02); Calcium 7.8 mg/dL (8.5-10.1); Chloride 104 mmol/L (98-107); Estimated GFR 85.23 (mL/min/1.73m2); Glucose 184 mg/dL (74-106); Magnesium 2.9 mg/dL (1.8-2.4); Potassium 3.5 mmol/L (3.5-5.1); Sodium 139 mmol/L (136-145)
--- NOTE | 2023-11-06 12:04 | W.SPSTP ---
Date of service: 11/06/23 Time of Service: 11:15 Hema Gracia was contacted at bedside this date. Per Nursing, her overall status remains fairly stable. Per PT, she was unable to engage in PT exercises yesterday, and only passive ROM was completed. Her was also present this date and providing encouragement to patient. She appeared somnolent but roused to voice, opening one eye. Improved acceptance of oral care this date, opens mouth to allow allow swab cleaning and oral hydration. During this session, patient did not provide any gestural or verbal responses to questions but was able to open mouth consistently when prompted for PO trials. Objective/Assessment/Plan Objective Treatment Techniques & Outcomes: Positioning: HOB raised to ~80 degrees for PO trials. Respiratory status: Dry breath sounds and baseline no coughing observed prior to oral care/PO trials. Per nursing, patient is off IVF today due to susicion for volume overload. PO Trials Assessed: Ice chips x3 IDDSI 0 Thin Liquids via 1/4-1/2 tsp x5 IDDSI 2 Mildly Thick Liquids via 1/4-1/2 tsp x3 IDDSI 3 Moderately Thick Liquids via 1/4-1/2 tsp x3 IDDSI 4 Pudding Oral Phase Findings: Stable bolus manipulation/A-P transport - slow and weak but with fair/good tongue stripping of puree Some improvement/reduced open-mouth posture during swallow and during oral manipulation phase Pharyngeal Phase Findings: Severely delayed (30+ seconds), but palpable and audible pharyngeal initiation, though initiation absent on final trials (Mod thick liquids, possibly due to fatigue) Good but sluggish hyo-laryngeal motility during swallow. Consistent weak, wet cough (mildly delayed) across all consistencies trialed Assessment Patient remains with severe oral-pharyngeal dysphagia, c/b severely delayed pharyngeal initiation, and consistent s/sx aspiration across a wider range of consistencies trialled this date. Overall stable over yesterday's session. Continue NPO status with intermittent trials of spoon dipped in cold water after oral care for swallow stimulation. Continue excellent oral care every 2-3 hours. It is important to note that even if safety concerns were alleviated or patient/family were to accept risk of aspiration, patient's current rate of PO intake would not be likely to allow nutritional needs to be met given overall picture of reduced PO intake and decline. At the same time, if it is not expected that her overall status will improve due to dementia, a feeding tube may be contraindicated per palliative care. Continue to collaborate with Palliative care to educate family of benefits vs burdens of enteral feeding with overall clinical picture. Diet Recommendations: NPO with therapeutic spoon trials (see instructions below) Non-oral medications STRICT Aspiration precautions Frequent oral care q2-3 hours with suction prn After oral care, nursing provide 3-5 trials of cold spoon dipped in ice water for swallow stimulation HOB elevated at least 30 degrees at all times Consider alternative means of nutrition pending patient/family goals of care. Plan Plan: Frequency: 5x/week for 1-2 weeks; Daily re-assessment while NPO Goals: Senior Care Goals: Patient will remain free from aspiration-related illness, malnutrition, and dehydration. Short Term Goals: Patient will tolerate PO trials for consideration of diet initiation without overt s/s aspiration across 2/2 visits. Time spent: 25 minutes (12:20-12:45) Recommendations Total Time Spent: 35 min (11:15-11:50)
[2023-11-06 12:09] LABS: Troponin I 141 ng/L (< or =60)
--- NOTE | 2023-11-06 12:37 | PCPN_ITS ---
Date of service: 11/06/23 Time of Service: 11:45 Assessment and Plan Assessment and plan (1) Adrenal insufficiency: Status: Suspected Assessment and plan: continue hydrocortisone IV 25mg Q6hr (2) Impacted stool in intestine: Status: Acute Assessment and plan: Surgery recommend aggressive bowel regimen, NG tube removed after output diminished, no obstruction on CT, resolved Continue to monitor Cefepime d#8 (begun 10/28), she also had been on vancomycin (10/28 -10/30) but was DCed after negative MRSA screen. continue the cefepime for total of 7-10 days or until inflammatory markers have resolved (3) Altered mental status: Status: Acute Assessment and plan: not engaging w/PT or assessments -mental status appears to be unchanged as compared to previous day -likely cause is metabolic encephalopathy superimposed on her dementia, CTA head did not show CVA or occlusive disease Qualifiers: Altered mental status type: delirium Qualified Code(s): R41.0 - Disorientation, unspecified (4) Dementia: Status: Chronic Assessment and plan: advanced Bedbound at baseline, dependent all ADLs minus eating at baseline unintentional weight loss progressive, per chart review in 2 years she has lost 23 pounds, 1 year weight 19lbs, 6 mos 5lbs lowest recorded weight 147lbs on this admission demonstrates a 6 mo weight loss of approx 9% PPS today: 10%; at [facility] reported baseline: 30%-50% FAST scale today 7e; at [facility] reported 6e-7c, difficult to assess w/language barrier Qualifiers: Alzheimer's disease onset: unspecified onset Dementia behavioral or psychological symptom: without behavioral, psychotic, or mood disturbance or anxiety Dementia severity: moderate Dementia type: Alzheimer's Qualified Code(s): G30.9 - Alzheimer's disease, unspecified; F02.B0 - Dementia in other diseases classified elsewhere, moderate, without behavioral disturbance, psychotic disturbance, mood disturbance, and anxiety (5) Lives in [facility]ci: Status: Acute Assessment and plan: previous referrals to alternative [place] communities send, no current acceptance [facility] unable to accept w/PEG tube requirements at this time d/t no trained staff, timeline for training TBD (6) Decreased oral intake: Status: Acute Assessment and plan: TPN to be initiated per most recent nutrition consult, patient family preferences; Team preference no feeding tube d/t concerns w/QoL; Ethics consult placed, tomorrow 11/06 at noon - preference for PEG over NG d/t literature demonstrating less PNA risk w/PEG vs NG, concerns for puling/discomfort, confusion w/attempts to regain swallow fu nction - need nutrition to continue living, at what cost d/t advanced dementia, w/progression to likely given a typical disease progression timeline indicates hospice eligibility at baseline. - consider FT d/t a demonstrated impaired swallow impairment w/high aspiration risk, does not have functional ability to swallow - PEG does not reduce risk of aspiration, but may increase it; studies show may extend life but higher mortality in 1 year; increased risk for oral care/infection *from previous conversation w/POA regarding feeding tubes on Friday 11/03* Preference for placing feeding tube, with NG preferred versus G-tube. Even if it is not likely will regain ability to eat or drink. Fabrizio would appreciate SAFETY AND OCCUPATIONAL HEALTH MANAGER conversation at tomorrow's visit, reviewed SAFETY AND OCCUPATIONAL HEALTH MANAGER daily following and reassessing for oral intake and review of feeding tube recommendations based on current oral status (7) Palliative care encounter: Status: Acute Assessment and plan: Palliative to present at [facility] tomorrow follow up afternoon or Saturday for family meeting as needed Hospitalist to contact family today POA paperwork from [facility] uploaded to chart (8) Swallowing dysfunction: Status: Acute Assessment and plan: SAFETY AND OCCUPATIONAL HEALTH MANAGER following as above (9) Full code status: Status: Acute Assessment and plan: concerns w/futility raised; family history of refusal to engage in conversations, care plan changes, work ups, etc to review at [facility] (10) Deficit in activities of daily living (ADL): Status: Acute Assessment and plan: total ADL assist (11) Unintentional weight loss: Status: Acute Assessment and plan: as above Subjective Subjective Interval history since last seen: Samia remains hospitalized at [facility] w/AMS and swallowing dysfunction. spoke to [facility] staff: she has been there for 2 years, they feel she is giving up, she has said to different staff there I want to , several times. the biggest change they have seen in 2 years is a difference in responsiveness, she is less engaged now. her visits daily, she does pep up and speak to him parry he is there, otherwise is quiet, somnolent and non-engaging - PO intake: 50% or less for previous 2 mos, has had swallow evals previously, on regular diet, eats independently when trying, documented weight loss. . weight trends from [facility] 02/08: 173lbs, 02/09 160lbs, 11/09: 171.4lbs, 05/11: 156lbs, 06/12: 156lbs, 07/13 151.7lbs, 08/10: 153lbs, 09/10: 156.2lbs, 09/24/23: 155lbs, 10/24/23: 152.3lbs . at [facility]: 03/10: 175lbs, 12/09: 173lbs, 05/11: 166lbs, 10/29/23: 153lbs, 10/30/23: 147lbs, 11/01/23 157lbs, 11/02/23: 151lbs, 11/04/23:156lbs, 11/05/23: 157lbs . h/o BP drops, suspected r/t dehydration, son hasn't wanted med changes . vomiting episodes qmonthly, unsure of cause, offered to work up, he said no to upper GI study or work up to figure out, accused mom of sticking finger down throat, smell her finger . potential dentition involvement, son has canceled several dental apts - ADL: total care, w/increased need over past 2 years; continues to use bathroom, increased U/BM incontinence, confusion w/toileting, inability to maneuver mechanics - Activity: falls frequently, out of bed, sit to stand assist for transfers; . initially son wanted walker moved out of room so she wouldn't get up -Attitude/Speech: speaks when comes, appears to be engaging; calmest w hen he is around, yells out more when not around; seems depressed/sad/giving up; she has said I want to several times to at least two staff members there; they do not use an lawyers service - Biggest changes since arrival: less responsive/engaged, less of a spit fire; less attempts to get up on her own, not getting up independently for over a few months; feel she is giving up, she doesn't want to be here - concerns that son never wnats what she wants, refuses changes in care plan (meds, sxs management, work ups), has been approached several times about QoL and FTT, threatens incompentence and to jose l facility - visits daily, recently he is the only visitor, family drops him off, he has dementia - they would be able to do PEG tube management, however no staff are currently trained and would need this first, admin is aware and they have resources for training SAFETY AND OCCUPATIONAL HEALTH MANAGER: swallow function similar to yesterday, a slight improvement from Saturday. she will hold and manipulate ice ships in mouth, try to consistently swallow, taking 30-60s to gather strength to swallow, did poor with all trials, attempted at least 15 bites/sips. her cough went from dry to wet, indicating aspiration. poor dentition w/limited impact on swallow function. Surgical consult: conducted in Portuguese, w/o use of lawyers, she did not engage at all, rj snell. per documented improvements in swallow function, hold off on PEG tube placement at this time; reconsider in a few days, not needing it is the best option for her; hold spot on Saturday, pending informed consent from family d/t no decision making capacity PT:nonresponsive today w/tactile stimulation; performed ROM exercises w/no engagement Hospitalist: TPN to be started per baggage smasher consult and care preferences, will consider reassessment; impaction resolved Exam Narrative Exam Narrative: General: Older adult female, lying in bed throughout visit, eyes closed; no facial grimace or groan; at bedside Respirations: Even and unlabored, no audible wheeze no cough Objective Last Vital Signs Temp 97.9 F 11/06/23 11:19 Pulse 86 11/06/23 11:52 Resp 18 11/06/23 11:19 BP 145/59 H 11/06/23 11:52 Pulse Ox 98 11/06/23 11:19 Laboratory Results - last 24 hr 11/02/23 11/06/23 11/06/23 09:08 01:55 11:31 Sodium 139 139 Potassium 2.6 L* 3.5 Chloride 102 104 Carbon Dioxide 23.3 23.2 Anion Gap 13.7 H 11.8 H BUN 22 H 24 H Creatinine 0.7 0.7 Est GFR (CKD-EPI 2020) 85.23 85.23 Glucose 174 H 184 H Calcium 8.0 L 7.8 L Magnesium 1.5 L 2.9 H Troponin I 123 H* 141 H* M. pneumoniae Source Cancelled M. pneumoniae (PCR) Cancelled
[2023-11-06 13:15] LABS: HGB 8.6 g/dL (11.2-15.7)
[2023-11-06] MEDS: hydrALAZINE 20 MG/ML VIAL 10 MG IVP (16:17)
--- NOTE | 2023-11-06 17:30 | PTTR_ITS ---
PT Notes Visit Reasons: Septic shock Physical Therapy Inpatient Treatment Note Date: 11/06/2023 PRECAUTIONS: Bed-bound, prone to skin breakdown, on patient positioning schedule with nursing. Non-verbal. [id number], online lens fabricating machine tender services available when needed. HOB to at least 30 degrees at all times per YOUTH AGENT. SUBJECTIVE: Patient more awake and nodded to doing range of motion exercises while in bed. was present in room throughout and looked satisfied with Pt working on his . OBJECTIVE: Patient slid down in bed and needed to be scooted up in bed by Nurse Laboy and this PT. PT adjusted pillow to maximize safe and comfortable bed quarterturned positioning to her L side. Positioners placed to elavate B UE to minimize edema. ? KALIE EX: Worked on performing UE and LE PNF D1/D2 flexion and extension patterns x 10 reps/patterns to maintain joint flexibility and range of motion that will facilitate easier and and more efficient provision of care by nursing staff while in bed. ASSESSMENT:? Patient remains a full code as of today. Goal of care for PT is to prevent contracture formation in all B UE/LE joints, maximize joint and muscle flexibility, and increase circulation to all B UE/LE joints and muscles to maintain overall function and prevent further decline while ensuring skin integrity. PLAN: PROM to AAROM to B UE as tolerated. Work with nursing to ensure that patient positioning is fully enforced and complied with. Elevate B forearms and hands after session to assist with edema control. Ensure that bony landmarks are well relieved. Continue with 1x/day 5x/week for these intervention. TREATMENT CODE/TIME: 90112 x 25 minutes for 2 units (17:30-17:55).
[2023-11-06] MEDS: Travoprost 0.004% Ophth Sol 2.5 ML BTL OP (21:30)
[2023-11-06] MEDS: Enoxaparin 40 MG/0.4 ML SYR SC (21:30)
[2023-11-07] VITALS (22 sets, daily range): BP systolic 133–192; BP diastolic 49–99; PULSE 72–148; RESP 15–20; TEMP 36.5–37; O2SAT 98–100
[2023-11-07] MEDS: Metoprolol 5 MG/5 ML VIAL IVP ×4 (04:00→23:52)
[2023-11-07] MEDS: Refresh PLUS Eye Drops 0.4ml OP ×6 (04:00→23:18)
[2023-11-07] MEDS: CEFEPIME 2 GM in Normal Saline 100 ML IVPB ×2 (06:13→17:54)
[2023-11-07] MEDS: dilTIAZem 25 MG/5 ML VIAL 20 MG IVP ×4 (06:36→23:05)
[2023-11-07] MEDS: Hydrocortisone SOD SUC. 100 MG VIAL 25 MG IVP ×3 (06:41→20:53)
[2023-11-07] MEDS: ACETAMINOPHEN 1,000 MG/100 ML BTL 400 MG IVPB ×2 (06:42→19:37)
[2023-11-07] MEDS: Insulin Aspart 300 UNITS/3 ML PEN SC ×4 (06:51→23:33)
[2023-11-07] MEDS: Normal Saline Flush 10 ML SYR IVP ×5 (09:31→19:38)
[2023-11-07] MEDS: Pantoprazole 40 MG VIAL IVP (09:31)
[2023-11-07] MEDS: Timolol 0.5% 5 ML BTL OP (09:32)
--- NOTE | 2023-11-07 10:17 | PDOC.CMPRO ---
Date of service: 11/07/23 Time of Service: 10:18 Care Management Progress Note Progress Note Text Progress Note Text: Samia remains generally non-communicative. She has been opening her eyes a bit more but does not speak. An Ethics consult had been requested to evaluate the ethical implications of placing a feeding tube in an 83 year old person who has advanced dementia with other significant co-morbidities who can no longer safely swallow. CM will follow. Discharge Potential Discharge Needs: Other (return to SNF) Anticipated Barriers to Discharge: Medical Status Patient/Family Education Needs: Review discharge instructions, discuss Ask Me Three Transportation: EMS Plan: Samia will likely be transferred back to [facility] when medically cleared. She will follow up with facility providers and plan of care and transport via EMS coordinated by CM. CM will continue to assess for discharge needs. SDOH(Care Management) Screening Will the Patient Participate in the Screening?: Unable to obtain Social Determinants of Health Comments(SDOH Details): lives in [facility]
--- NOTE | 2023-11-07 10:41 | PGE_ITS ---
Date of Service Date of service: 11/07/23 Time of Service: 08:45 Assessment and Plan Assessment and plan (1) Swallowing dysfunction: Status: Acute Assessment and plan: 83-year-old woman who is very debilitated and would need a feeding tube from a perspective of nutritional intake and probably from a safety standpoint when it comes to swallowing effort and ability. I agree with proceeding to ethics committee discussion. From surgical standpoint, a feeding tube is not a very risky procedure. She certainly is unable to have the nutritional intake that she needs at this time and also is having an inability to swallow safely acutely. That might resolve with some time and rehabilitation. From these aspects I do not think there is an ethical problem with placing an artificial/surgical feeding tube. Where I think there is an ethical issue that warrants discussion and committee review is her overall medical and cognitive condition. It is my opinion that this patient should be a palliative care scenario and a DNR/DNI because of her irreversible and terminal conditions that already exist and are acutely worsening. She will never recover from her cognitive deficits and they will continue to worsen. She is unlikely to have any meaningful life going forward, and placing an artificial feeding tube, in my opinion is likely to prolong her suffering rather than alleviate and provide compassionate care and healing. We can certainly give her better and safer nutritional options, but in the overall picture, my professional opinion is that we are prolonging this human's suffering. I believe that she should be made comfortable and allowed to proceed and progress with natural dignity. I defer to the ethics committee for guidance on whether or not to place a feeding tube in this particular situation. Again, from a surgical standpoint, it is not a risky procedure and she will probably tolerate that procedure just fine. If she had a good chance of making a meaningful recovery from this acute hospitalization, it would be absolutely worth placing one. However, there is basically no chance of a meaningful recovery from her acute and chronic situatio ns and for this reason is probably not worth placing one. Subjective Subjective Interval history since last seen: I stopped in to see Samia this morning. There have been no significant clinical changes. Exam Narrative Exam Narrative: General: Elderly and debilitated. Neuro: She opens her eyes to voice command. She follows commands and will open her mouth to my command. She does not speak. She squeezes my right hand to command. She does not squeeze the left hand. Objective Last Vital Signs Temp 98.2 F 11/07/23 08:29 Pulse 78 11/07/23 08:29 Resp 15 11/07/23 08:29 BP 192/72 H 11/07/23 08:29 Pulse Ox 100 11/07/23 08:29 Laboratory Results - last 24 hr 11/06/23 11:31 WBC 8.15 RBC 2.91 L Hgb 8.6 L Hct 25.7 L MCV 88 MCH 29.6 MCHC 33.5 RDW 14.6 Plt Count 248 D MPV 9.3 Sodium 139 Potassium 3.5 Chloride 104 Carbon Dioxide 23.2 Anion Gap 11.8 H BUN 24 H Creatinine 0.7 Est GFR (CKD-EPI 2020) 85.23 Glucose 184 H Calcium 7.8 L Magnesium 2.9 H Troponin I 141 H* Time Spent with Patient Time Spent with Patient: 25-34 minutes Time was spent: preparing to see the patient(eg.review tests), referring, communicating with other health pharmacy customer care specialist, indepentently interpreting results and care coordination
--- NOTE | 2023-11-07 10:45 | SPP_ITS ---
Date of service: 11/07/23 Time of Service: 10:00 Subjective Subjective Smaia was contacted at bedside this date. Per nursing, no significant change in status. Nursing assisted in reposition to upright. Samia's eyes remained open for majority of session, closing intermittently. She opened mouth to allow oral care and PO trials, with some moaning during attempt to use toothbrush, indicating discomfort (? due to dental decay). Patient appeared more comfortable when oral care was completed with swab. Objective Positioning: HOB raised to ~80 degrees for PO trials. Respiratory status: Tolerating room air. Dry breath sounds and baseline no coughing observed prior to oral care/PO trials. Oral Care: Attempted with toothbrush, patient moaned/winced in pain. Anticipate dental decay impacting. She tolerated suction swab better and allowed oral care to be completed. Applied oral moisturizing gel at end of session. PO Trials Assessed: Ice chips x6 IDDSI 0 Thin Liquids via 1/4-1/2 tsp x3 IDDSI 2 Mildly Thick Liquids via 1/4-1/2 tsp x3 IDDSI 3 Moderately Thick Liquids via 1/4-1/2 tsp x2 Oral Phase Findings: Stable bolus manipulation/A-P transport - slow and weak Some improvement/reduced open-mouth posture during swallow and during oral manipulation phase Pharyngeal Phase Findings: Delayed and reduced hyolaryngeal movement Consistent weak, wet cough (mildly delayed) across thin and thick liquids Assessment Samia was more alert today, though continues with severe oral-pharyngeal dysphagia c/b delayed pharyngeal initiation and reduced hyolaryngeal movement, resulting in consistent s/sx aspiration across thin and thick liquid trials. She was able to tolerate ice chips better today, and thus recommend initiating ice chips for pleasure/therapeutic value - after oral care and when in bolt right position only. OK for 4-6 small ice chips as tolerated. Discontinue if not fully alert. As previously noted, anticipate that if family accepted risk of aspiration, current rate of PO would not be able to meet nutritional needs. She is considered a very high risk for aspiration-related illness from aspiration of secretions, even while NPO, in the setting of compromised ability for lung clearance due to being bedridden as well as presence of dental decay with poor tolerance of friction toothbrush compounded with new onset pharyngeal weakness resulting in aspiration. Will continue to re-assess daily and collaborate with Palliative Care to educate family of benefits vs burdens of enteral feeding with overall clinical picture. Diet Recommendations: NPO with ice chips for therapy/pleasure - see below for instructions Non-oral medications STRICT Aspiration precautions Frequent oral care q3-4 hours with suction prn After oral care IF ALERT and bolt upright, nursing provide 4-6 ice chips as tolerated HOB elevated at least 30 degrees at all times Consider alternative means of nutrition pending patient/family goals of care. Plan Plan: Frequency: 5x/week for 1-2 weeks; Daily re-assessment while NPO Goals: [employer] Consultant Goals: Patient will remain free from aspiration-related illness, malnutrition, and dehydration. Short Term Goals: Patient will tolerate PO trials for consideration of diet initiation without overt s/s aspiration across 2/2 visits. Time spent: 25 minutes (10:00-10:25)
--- NOTE | 2023-11-07 11:40 | W.PM.PROGNOT ---
Date of Service Date of service: 11/07/23 Time of Service: 13:26 Assessment and Plan Assessment and plan (1) Impacted stool in intestine: Status: Acute Assessment and plan: -stool impaction has resolved as per CT scan findings. -Now trying to get adequate stool softeners and laxatives in her to prevent impaction again. -patient was likely septic from either stercocolitis or possible her gall bladder given her findings on her CT scan. -See Dr. Sheth note from 11/01 regarding surgical input -Cefepime d#8 (begun 10/28), she also had been on vancomycin (10/28 -10/30) but was DCed after negative MRSA screen. -continue the cefepime for total of 7-10 days or until inflammatory markers have resolved -discussed with Dr. Sheth of General Surgery who stated that after a meeting with family tomorrow he could possible place PEG tube as early as tomorrow afternoon -SQL SERVER BI DEVELOPER on 11/03 recommended strict NPO as patient was unable to initiate swallow -reevaluation on 11/04 and patient did show some improvement, but remains NPO -I asked SQL SERVER BI DEVELOPER to reach out to Dr. Sheth directly to discuss patients progress and potential timing/need for PEG tube: given that patient appears to be making some improvement, it is best to hold off on PEG tube placement at this time and to initiate alterative nutrition options -also consult Nutrition; rec TPN (see note for details), order placed and will start once bag is available to hang -family discussion with Palliative Care today (please see Palliative note for complete details); -family continues to want everything done for the patient, including her being Full Code and the potential for a feeding tube, even if she has no possibility of ever being able to eat or swallow on her own again -They also stated that if the patient were to significantly decline, they would consider resending DNR status at that time. However they are adamant that they would want to make that decision as a family, with close healthcare guidance, and only if it was determined that she has no chance of survival -there have been concerning information told to Palliatve Care by the care givers at the [facility] (where the patient is a resident). Despite patient being full code, family has refused to have patient worked up for episodes of intermittent vomiting (with the son reportedly even stating he believes the patient is doing it to herself by putting her finger down the throat) and refusing to have her seen by a dentist for poor dentition in the setting of declining PO intake. Additionally, care givers at the [facility] state that the patient has had months of documented functional declines, worsening PO intake, and weight loss -additionally, after my discussion with the patients granddaughter (as detailed in the subjective section of this progress note), there seems to be a either a lack of understanding or acceptance of the patients reported functional decline since being a resident of The [facility] -Plan is for Palliative Care to meet with patients granddaughter and later today, and for a meeting with the care team and all involved family member to be scheduled, possibly tomorrow, Saturday11/08/2023 (2) Paroxysmal atrial fibrillation: Status: Acute Assessment and plan: -patient has hx of frequent falls at the alf, therefore not a good candidate for fci anticoagulation. -had been on currently on lopressor 25 mg QID and diltiazem 30 mg TID, both of which are held as patient is NPO -HR increased AM 11/03 to 120's, responded to IV dilt 5mg, but needed additional 5mg dose -now on 20mg dilt Q6hr -briefly in RVR overnight 11/04, responded to 5mg IV lopressor, now has order for IV lopressor 5mg Q4h PRN for sustained HR >120 -will continue to monitor HR and increase scheduled dilt as needed (3) Adrenal insufficiency: Status: Suspected Assessment and plan: -suspected but no random cortisol was done and no cosyntropin study was done. -However, her hypotension resolved quickly after getting on hydrocortisone. -will continue hydrocortisone but begin wean. -decrease dose and frequency of hydrocortisone to 25 mg IV Q8h on 11/02 -was planning to transition to PO prednisone, but given NPO status will continue IV 25mg Q6hr (4) Hypokalemia due to excessive gastrointestinal loss of potassium: Status: Acute Assessment and plan: -initially had hyperkalemia w/ JUAN JOSÉ on admission -2.9 AM 11/03, 20mEq IV replacement ordered -2.5 AM 11/04, 40mEq IV replacement ordered -2.6 early AM 11/05, 20mEq IV replacement ordered -f/u late AMP BMP (5) Altered mental status: Status: Acute Assessment and plan: -mental status appears to be unchanged as compared to previous day -likely cause is metabolic encephalopathy superimposed on her dementia, CTA head did not show CVA or occlusive disease. -MRI also with any acute findings Qualifiers: Altered mental status type: delirium Qualified Code(s): R41.0 - Disorientation, unspecified (6) Dementia: Status: Chronic Assessment and plan: -Seroquel and mirtazapine were held since evening of 10/30 d/t decreased LOC but now can resume. Qualifiers: Dementia type: Alzheimer's Alzheimer's disease onset: unspecified onset Dementia severity: moderate Dementia behavioral or psychological symptom: without behavioral, psychotic, or mood disturbance or anxiety Qualified Code(s): G30.9 - Alzheimer's disease, unspecified; F02.B0 - Dementia in other diseases classified elsewhere, moderate, without behavioral disturbance, psychotic disturbance, mood disturbance, and anxiety (7) Chronic hyponatremia: Status: Chronic Assessment and plan: -improved s/p IVF (8) Rheumatoid arthritis: Status: Chronic Assessment and plan: -No active disease. -Holding methotrexate, giving hydrocortisone as above. Qualifiers: Rheumatoid arthritis location: multiple sites Rheumatoid factor presence: unspecified presence Qualified Code(s): M06.9 - Rheumatoid arthritis, unspecified (9) Diabetes: Status: Chronic Assessment and plan: -On GLP-1 and some insulin as outpatient. -A1c is below goal. -Lantus was stopped couple days ago d/t low glucose readings in the morning. -SSI Q6hr now that patient is strict NPO Qualifiers: Diabetes mellitus type: type 2 Diabetes mellitus long term care administrator insulin use: without long term care administrator use Diabetes mellitus complication status: without complication Qualified Code(s): E11.9 - Type 2 diabetes mellitus without complications (10) DVT prophylaxis: Status: Acute Assessment and plan: -h/o pAFib but not on anticoagulation. Use LMWH. Subjective Subjective Interval history since last seen: Prolonged discussion was had in the presence of the patient with her (with the assistance of clerical adjuster services), and the patient's granddaughter. They had asked to have a discussion or update regarding patient's progress and prognosis. I had explained that after working with speech therapy over the last few days that it appears extremely unlikely that the patient will ever regain the ability to tolerate p.o. nutritional intake on her own. Patient's granddaughter then inquired about putting in an NG or feeding tube. I have began to state that if feeding tubes are usually placed in patient's when there is a possibility of him regaining the ability to eat on their own and is used as a bridge. However as I began to comment on the patient's severe progressive dementia, the granddaughter interrupted me and asked how I knew her dementia was progressive, asking if I had done any scans or tests. I had stated that based on the information we had from the [facility] where she has been a resident over the last 2 years, that she has demonstrated a significant decline in functional status, p.o. intake and weight loss. Patient's granddaughter then exclaimed that the patient was just choosing not to ambulate, that the pauses not off for assistance in helping the patient ambulate, which resulted and the patient's son (granddaughter's father), she requested that her walker be removed from her room. Patient's granddaughter continues to state that the patient was awake, and conversive up until about a week prior to being admitted to the hospital. I concluded my conversation by stating I would discuss the case with my care team and we would get back to her regarding having a full family and team meeting, to which I requested the presence of her father pressure, preferably in person, but over the phone if he is unable to attend in person due to recently having a back surgery. Exam Narrative Exam Narrative: chronically ill appearing older female laying in bed in no acute distress, awakens to verbal stimuli but does not speak, heart irregularly irregular with rates in the 80's, lungs CTAB, abdomen soft, non-tender, non-distended Objective Last Vital Signs Temp 98.2 F 11/07/23 08:29 Pulse 78 11/07/23 08:29 Resp 15 11/07/23 08:29 BP 192/72 H 11/07/23 08:29 Pulse Ox 100 11/07/23 08:29 Laboratory Results - last 24 hr 11/06/23 11:31 WBC 8.15 RBC 2.91 L Hgb 8.6 L Hct 25.7 L MCV 88 MCH 29.6 MCHC 33.5 RDW 14.6 Plt Count 248 D MPV 9.3 Sodium 139 Potassium 3.5 Chloride 104 Carbon Dioxide 23.2 Anion Gap 11.8 H BUN 24 H Creatinine 0.7 Est GFR (CKD-EPI 2020) 85.23 Glucose 184 H Calcium 7.8 L Magnesium 2.9 H Troponin I 141 H* Time Spent with Patient Time Spent with Patient: >50 minutes Time was spent: preparing to see the patient(eg.review tests), obtaining and/or reviewing separately otained hiistory, ordering medications,tests, procedures, referring, communicating with other health auto care center manager, indepentently interpreting results, counseling the patient and care coordination
--- NOTE | 2023-11-07 11:45 | PT.INTREAT ---
Date of service: 11/07/23 Time of Service: 09:05 PT Notes Visit Reasons: Septic shock Inpatient Physical Therapy Treatment Note [facility] Date: 11/07/2023 PRECAUTIONS: Bed-bound, prone to skin breakdown, on patient positioning schedule with nursing. Non-verbal. [id number], online director decision support services available when needed. HOB to at least 30 degrees at all times per NURSING PROGRAM CHAIR. SUBJECTIVE: Patient awake for first 10 minutes and nodded it was okay to doing range of motion exercises while in bed. She was noted be trying to make a ahhh noise several times while I was working with her. Still not following request to move UE / LEs, but was actively bending elbow on the left only. Visible bicep contraction seen today on the left. OBJECTIVE: ? Therapeutic Exercises (73933): Performed PNF patterns with left UE and PROM with bilateral LEs and UEs. Performed ankle PF/DF x 10 reps, supine hip flexion/ext x 10 reps, supine knee flexion/ ext x 10 reps, shoulder flex on left to 80 degrees x 10 reps , shoulder abd/adduction on left x 10 reps, elbow flexion/ ext x 10 reps and digit flex/ extension of hands x 10 reps. ASSESSMENT:? Goal is for continued prevention of contracture formation in all B UE/LE joints, maximize joint and muscle flexibility, and increase circulation to B UE/LE joints and muscles to maintain overall function, as well as to protect e skin integrity. PLAN: PROM to AAROM to B UE as tolerated. Work with nursing to ensure that patient positioning is fully enforced and complied with. Elevate B forearms and hands after session to assist with edema control. Ensure that bony landmarks are well relieved. Continue with 1x/day 5x/week for these intervention. TREATMENT CODE/TIME: 19136 x 1, 9:05 to 9:20 (15 minutes)
--- NOTE | 2023-11-07 14:24 | W.PALPGNOTE ---
Date of service: 11/07/23 Time of Service: 14:25 Assessment and Plan Assessment and plan (1) Impacted stool in intestine: Status: Acute Assessment and plan: -stool impaction has resolved as per CT scan findings. -patient was likely septic from either stercocolitis or possible her gall bladder given her findings on her CT scan. -Seen by Dr. Sheth: see note from 11/01 regarding surgical input (2) Paroxysmal atrial fibrillation: Status: Acute (3) Adrenal insufficiency: Status: Suspected Assessment and plan: Remains on hydrocortisone to 25 mg IV unable to transition to PO at this time due to NPO status. (4) Hypokalemia due to excessive gastrointestinal loss of potassium: Status: Acute (5) Altered mental status: Status: Acute Assessment and plan: Per care team, her mental status has declined significantly from before this hospitalization. She may have new baseline, continue to monitor. Qualifiers: Altered mental status type: delirium Qualified Code(s): R41.0 - Disorientation, unspecified (6) Dementia: Status: Chronic Assessment and plan: Advancing. She is essentially bed bound, losing weight over time, now unable to swallow. Qualifiers: Dementia type: Alzheimer's Alzheimer's disease onset: unspecified onset Dementia severity: moderate Dementia behavioral or psychological symptom: without behavioral, psychotic, or mood disturbance or anxiety Qualified Code(s): G30.9 - Alzheimer's disease, unspecified; F02.B0 - Dementia in other diseases classified elsewhere, moderate, without behavioral disturbance, psychotic disturbance, mood disturbance, and anxiety (7) Chronic hyponatremia: Status: Chronic (8) Rheumatoid arthritis: Status: Chronic Assessment and plan: -Holding methotrexate, on hydrocortisone as above. Qualifiers: Rheumatoid arthritis location: multiple sites Rheumatoid factor presence: unspecified presence Qualified Code(s): M06.9 - Rheumatoid arthritis, unspecified (9) Diabetes: Status: Chronic Qualifiers: Diabetes mellitus type: type 2 Diabetes mellitus zigzag elastic attacher insulin use: without assisted use Diabetes mellitus complication status: without complication Qualified Code(s): E11.9 - Type 2 diabetes mellitus without complications (10) Swallowing dysfunction: Status: Acute Assessment and plan: -SUPPLY CHAIN PROCUREMENT MANAGER on 11/03 recommended strict NPO as patient was unable to initiate swallow PEG tube placement is being considered and discussed between family and care team. Surgeon does not feel this is in her best interest- see note. -Per care team: -family continues to want everything done for the patient, including her being Full Code and the potential for a feeding tube, even if she has no possibility of ever being able to eat or swallow on her own again (11) Palliative care encounter: Status: Acute Assessment and plan: Attempted to meet with patient and family but no Armenian speaking family present. Continue with plan to meet with family tomorrow. Palliative to continue to follow. Subjective Subjective Interval history since last seen: Samia was seen in her hospital room with her present. Her does not speak Armenian. We communicated via appian bpm developer but it was still difficult. He repeated, no more a couple of times and the meeting was ended. The goal of the meeting today was to meet the family and begin to establish a relationship but the granddaughter and son, Fabrizio, who both speak Armenian, were not present at the time. The concern is that she is clearly declining. She is not able to swallow. She appears to be transitioning to a different phase, closer to the end of her life. The goal was to discuss this bigger picture with the family and consider comfort care, however, her HCA was not present. Previous conversations have indicated that they wish to place feeding tube and maintain FULL CODE status. See Kena Martinez note for details. Exam Narrative Exam Narrative: General: elderly female, laying in bed, awake and alert, looking around, making eye contact but made no attempts to speak. Skin is pale. She appears chronically ill and fatigued. HEENT: normocephalic, atraumatic, EOMI, mmm. Neck: supple Respiratory: respirations appear even and unlabored at rest. Objective Last Vital Signs Temp 37.0 C 11/07/23 11:00 Pulse 81 11/07/23 12:13 Resp 15 11/07/23 11:00 BP 171/49 H 11/07/23 12:13 Pulse Ox 98 11/07/23 11:00
--- NOTE | 2023-11-07 17:15 | RT.EKG_ITS ---
APPROVED REPORT Exam: Resting ECG Reason for Exam: A-fib convert Patient Location: I HR:123 bpm ECG Measurements Heart Rate 123 AXIS LA [id number] P [id number] QRSd 74 QRS -4 QT 320 T 201 QTc 458 Conclusion Atrial fibrillation...? atrial activity Anteroseptal infarct, age indeterminate...Q >35mS, T neg, V1-V2
[2023-11-07] MEDS: hydrALAZINE 20 MG/ML VIAL 10 MG IVP (19:10)
--- NOTE | 2023-11-07 19:30 | RT.EKG_ITS ---
APPROVED REPORT Exam: Resting ECG Reason for Exam: rhythm change Patient Location: I HR:134 bpm ECG Measurements Heart Rate 134 AXIS WY [id number] P [id number] QRSd 82 QRS 1 QT 309 T 191 QTc 462 Conclusion Atrial fibrillation...? atrial activity Anteroseptal infarct, age indeterminate...Q >35mS, T neg, V1-V2 Lateral leads are also involved...lat Q or ST-T abnormalities
[2023-11-07] MEDS: Enoxaparin 40 MG/0.4 ML SYR SC (19:38)
[2023-11-07] MEDS: Travoprost 0.004% Ophth Sol 2.5 ML BTL OP (20:30)
[2023-11-07] MEDS: MORPHine 2 MG/ML SYR IVP (21:55)
[2023-11-07] MEDS: Insulin Aspart 300 UNITS/3 ML PEN 12 UNITS SC (23:52)
[2023-11-08] VITALS (27 sets, daily range): BP systolic 147–195; BP diastolic 52–108; PULSE 66–144; RESP 15–22; TEMP 36.5–37.3; O2SAT 96–99
[2023-11-08] MEDS: MORPHine 2 MG/ML SYR IVP ×6 (00:30→22:49)
[2023-11-08] MEDS: Metoprolol 5 MG/5 ML VIAL IVP ×6 (01:33→20:30)
[2023-11-08] MEDS: Refresh PLUS Eye Drops 0.4ml OP ×6 (04:39→23:12)
[2023-11-08] MEDS: Hydrocortisone SOD SUC. 100 MG VIAL 25 MG IVP ×3 (06:04→20:39)
[2023-11-08] MEDS: ACETAMINOPHEN 1,000 MG/100 ML BTL 400 MG IVPB ×2 (06:15→19:30)
[2023-11-08] MEDS: dilTIAZem 25 MG/5 ML VIAL 20 MG IVP ×4 (06:27→23:03)
[2023-11-08] MEDS: Insulin Aspart 300 UNITS/3 ML PEN SC ×4 (06:39→23:54)
[2023-11-08] MEDS: Alteplase 2 MG VIAL IJ (06:46)
[2023-11-08] MEDS: Normal Saline Flush 10 ML SYR IVP ×2 (07:31→07:49)
--- NOTE | 2023-11-08 08:07 | RESPIRATORY ---
RT Initial Evalutation/Assessment Start: 11/08/23 07:00 Freq: .q shift and prn Status: Active Protocol: Document 11/08/23 08:04 (Rec: 11/08/23 08:07 [id number]) RT Assessment OXYGEN HISTORY: Assessment and Plan RT Treatment Protocol No RT treatment protocols required at this time, re- consult if change Note Patient seen by RT as requested by placement of RT Assess/Treat order. RT assessment and treatment not warranted at this time. Pt has no significant pulmonary history to evaluate, no pulmonary medications ordered or needed. Review of patient's chart revealed patient has not needed or used supplemental oxygen in the past 10 days of her admission here.
[2023-11-08 08:18] LABS: HCT 24.8 % (36.0-46.0); HGB 8.4 g/dL (11.2-15.7); MCH 29.9 pg (27.0-33.0); MCHC 33.9 % (32.0-36.0); MCV 88 fL (80-95); MPV 8.8 fL (8.0-11.0); Platelet Count 338 10^3/uL (130-400); RBC 2.81 10^6/uL (3.93-5.22); RDW 15.1 % (11.7-14.6); RDW-SD 46.5 fL; WBC 7.43 10^3/uL (4.4-10.8)
[2023-11-08] MEDS: Pantoprazole 40 MG VIAL IVP (08:36)
[2023-11-08 08:37] LABS: ALT 11 U/L (14-59); AST 20 U/L (15-37); Albumin 2.1 g/dL (3.4-5.0); Alkaline Phosphatase 69 U/L (46-116); Anion Gap 7.2 mmol/L (3-11); BUN 29 mg/dL (7-18); Bilirubin, Total 0.24 mg/dL (0.2-1.0); CO2 27.8 mmol/L (21.0-32.0); CREATININE 0.7 mg/dL (0.55-1.02); Chloride 107 mmol/L (98-107); Estimated GFR 85.23 (mL/min/1.73m2); Glucose 242 mg/dL (74-106); Magnesium 1.7 mg/dL (1.8-2.4); Sodium 142 mmol/L (136-145); Total Protein 5.7 g/dL (6.4-8.2)
[2023-11-08 08:40] LABS: Potassium 2.7 mmol/L (3.5-5.1)
[2023-11-08] MEDS: Timolol 0.5% 5 ML BTL OP (08:40)
--- NOTE | 2023-11-08 11:45 | PT.INTREAT ---
PT Notes Visit Reasons: Septic shock Inpatient Physical Therapy Treatment Note [facility] Date: 11/08/23 OBJECTIVE: []? VITALS: ?monitored by nursing.? Therapeutic Exercises ([id number]): Direct one-on-one instruction in therapeutic exercises to develop strength, endurance, range of motion and flexibility. ? Exercises ? PROM of bilateral U/LE t/o all planes. ASSESSMENT:? Attempted to get her to move L UE upon command but not able. She would open her eyes on command, look at . PLAN: continue to follow PT POC. 1x/wk for ROM TREATMENT CODE/TIME: 15 min. [id number]
[2023-11-08] MEDS: POTASSIUM CHLORIDE 10 MEQ/100 ML BAG 100 MEQ IVINF ×4 (12:23→15:30)
--- NOTE | 2023-11-08 13:37 | CMPROGNOTE_ITS ---
Date of service: 11/08/23 Time of Service: 13:37 Care Management Progress Note Progress Note Text Progress Note Text: Samia was sleeping with her by her side in the room visiting when CM attempted to meet with her. CM contacted her son, Fabrizio, who is her DPOA, to find out if he would be available to meet with Palliative care today. He stated that he is only available by phone, due to his recent back surgery. He stated that he does not want anyone bothering his father while he visits his mother, as it is very distressing to him. Fabrizio has requested that he is the only person on her HIPAA, which was been changed. He is agreeable to talking to palliative care. CM will continue to follow. Discharge Potential Discharge Needs: Consult Consult Services Needed: Other (surgical) Anticipated Barriers to Discharge: Medical Status Patient/Family Education Needs: Review discharge instructions, discuss Ask Me Three Transportation: EMS Plan: Samia will likely be transferred back to [facility] when medically cleared. She will follow up with facility providers and plan of care and transport via EMS coordinated by CM. CM will continue to assess for discharge needs. SDOH(Care Management) Screening Will the Patient Participate in the Screening?: Unable to obtain Social Determinants of Health Comments(SDOH Details): lives in long-term
--- NOTE | 2023-11-08 15:31 | PCPN_ITS ---
Date of service: 11/08/23 Time of Service: 15:31 Assessment and Plan Assessment and plan (1) Impacted stool in intestine: Status: Resolved Assessment and plan: -stool impaction has resolved as per CT scan findings. -patient was likely septic from either stercocolitis or possible her gall bladder given her findings on her CT scan. -Seen by Dr. Sheth: see note from 11/[address] Sheth's note was reviewed with her son, Fabrizio and granddaughter, Donna over the phone. (2) Paroxysmal atrial fibrillation: Status: Acute (3) Adrenal insufficiency: Status: Suspected Assessment and plan: Remains on hydrocortisone to 25 mg IV unable to transition to PO at this time due to NPO status. (4) Hypokalemia due to excessive gastrointestinal loss of potassium: Status: Resolved (5) Altered mental status: Status: Acute Assessment and plan: Per care team, her mental status has declined significantly from before this hospitalization. She may have new baseline, discussed with family. Continue to monitor. Qualifiers: Altered mental status type: delirium Qualified Code(s): R41.0 - Disorientation, unspecified (6) Dementia: Status: Chronic Assessment and plan: Advancing. She is essentially bed bound, losing weight over time, now unable to swallow. Qualifiers: Dementia type: Alzheimer's Alzheimer's disease onset: unspecified onset Dementia severity: moderate Dementia behavioral or psychological symptom: without behavioral, psychotic, or mood disturbance or anxiety Qualified Code(s): G30.9 - Alzheimer's disease, unspecified; F02.B0 - Dementia in other diseases classified elsewhere, moderate, without behavioral disturbance, psychotic disturbance, mood disturbance, and anxiety (7) Chronic hyponatremia: Status: Chronic (8) Rheumatoid arthritis: Status: Chronic Assessment and plan: -Holding methotrexate, on hydrocortisone as above. Qualifiers: Rheumatoid arthritis location: multiple sites Rheumatoid factor presence: unspecified presence Qualified Code(s): M06.9 - Rheumatoid arthritis, unspecified (9) Diabetes: Status: Chronic Qualifiers: Diabetes mellitus type: type 2 Diabetes mellitus mcfp insulin use: without mcfp use Diabetes mellitus complication status: without complication Qualified Code(s): E11.9 - Type 2 diabetes mellitus without complications (10) Swallowing dysfunction: Status: Acute Assessment and plan: -PILOT SUPERVISOR on 11/03 recommended strict NPO as patient was unable to initiate swallow PEG tube placement is being considered and discussed between family and care team. Surgeon does not feel this is in her best interest- see note. -Per care team: -family continues to want everything done for the patient, including her being Full Code and the potential for a feeding tube, even if she has no possibility of ever being able to eat or swallow on her own again -Updated family, reviewed concerns from medical team. Reviewed options with family. Ultimately it will be up to her son/HCA, Fabrizio to decide what the next steps will be. (11) Palliative care encounter: Status: Acute Assessment and plan: There was a family meeting planned for today but Fabrizio (son and HCA) was not able to come into the hospital so we met over the phone. Donna also joined the visit. 50 min phone conversation/discussion- Family to visit Samia over the weekend, discuss among themselves and revisit on Saturday. Hospitalist agrees w/ this plan. Palliative to continue to follow. Subjective Subjective Interval history since last seen: A family meeting was planned for today, however, Fabrizio was unable to come into the hospital due to recent back surgery and pain. Phone call to Fabrizio. Fabrizio placed call on speaker phone to include his daughter, Donna. Discussed Samia's current status. Discussed concerns re: her inability to swallow safely which places her at high risk for aspiration. Discussed options of feeding tube vs DIRECTOR VOLUNTEER SERVICES and allow her to take PO as able. Also reviewed discharge options including- remain at [facility] on [facility], Hospice, SNF (at [facility] or closer to home). Family clear that she will not return to [facility], a bed is being held at [facility] in [place], [place]. If she is at [facility], she will be close to family and this will allow frequent visits. Reviewed note from surgeon where concerns were raised re: placing feeding tube and CODE status. Donna was interested in hearing about what DIRECTOR VOLUNTEER SERVICES would entail. Fabrizio verbalized difficulty making decision, does not want mom to stave to . Reviewed natural progression of disease. Family feels her dementia is not as bad as hospital staff feels it is. Reviewed that elderly patients who go though a significant illness often reset at a new baseline and this is what appears to be happening with Samia. No attempt to resolve this issue at this time. This conversation was to provide information/updates and understand where family was coming from. She is currently on TPN. Will allow family to visit her over weekend, discuss options among themselves and revisit early next week. Exam Narrative Exam Narrative: General: elderly female, laying in bed, awake and alert, looking around, making eye contact. Skin is pale. She appears chronically ill and fatigued. She was able to repeat a word after her granddaughter today, which is more than she attempted to do yesterday. HEENT: normocephalic, atraumatic, EOMI, mmm. Neck: supple Respiratory: respirations appear even and unlabored at rest. Extremities: +edema, appears to beginning to have third spacing. Objective Last Vital Signs Temp 36.7 C 11/08/23 15:11 Pulse 67 11/08/23 15:11 Resp 15 11/08/23 15:11 BP 179/62 H 11/08/23 15:11 Pulse Ox 98 11/08/23 15:11 Laboratory Results - last 24 hr 11/08/23 08:11 WBC 7.43 RBC 2.81 L Hgb 8.4 L Hct 24.8 L MCV 88 MCH 29.9 MCHC 33.9 RDW 15.1 H Plt Count 338 MPV 8.8 Sodium 142 Potassium 2.7 L* Chloride 107 Carbon Dioxide 27.8 Anion Gap 7.2 BUN 29 H Creatinine 0.7 Est GFR (CKD-EPI 2020) 85.23 Glucose 242 H Calcium 8.0 L Magnesium 1.7 L Total Bilirubin 0.24 AST 20 ALT 11 L Alkaline Phosphatase 69 Total Protein 5.7 L Albumin 2.1 L
--- NOTE | 2023-11-08 15:31 | W.PM.PROGNOT ---
Date of Service Date of service: 11/08/23 Time of Service: 15:31 Assessment and Plan Assessment and plan (1) Impacted stool in intestine: Status: Acute Assessment and plan: -stool impaction has resolved as per CT scan findings. -Now trying to get adequate stool softeners and laxatives in her to prevent impaction again. -patient was likely septic from either stercocolitis or possible her gall bladder given her findings on her CT scan. -See Dr. Sheth note from 11/01 regarding surgical input -Cefepime d#8 (begun 10/28), she also had been on vancomycin (10/28 -10/30) but was DCed after negative MRSA screen. -continue the cefepime for total of 7-10 days or until inflammatory markers have resolved -discussed with Dr. Sheth of General Surgery who stated that after a meeting with family tomorrow he could possible place PEG tube as early as tomorrow afternoon -BRASSWIND INSTRUMENT REPAIRER on 11/03 recommended strict NPO as patient was unable to initiate swallow -reevaluation on 11/04 and patient did show some improvement, but remains NPO -I asked BRASSWIND INSTRUMENT REPAIRER to reach out to Dr. Sheth directly to discuss patients progress and potential timing/need for PEG tube: given that patient appears to be making some improvement, it is best to hold off on PEG tube placement at this time and to initiate alterative nutrition options -also consult Nutrition; rec TPN (see note for details), order placed and will start once bag is available to hang -family discussion with Palliative Care today (please see Palliative note for complete details); -family continues to want everything done for the patient, including her being Full Code and the potential for a feeding tube, even if she has no possibility of ever being able to eat or swallow on her own again -They also stated that if the patient were to significantly decline, they would consider resending DNR status at that time. However they are adamant that they would want to make that decision as a family, with close healthcare guidance, and only if it was determined that she has no chance of survival -there have been concerning information told to Palliatve Care by the care givers at [facility] (where the patient is a resident). Despite patient being full code, family has refused to have patient worked up for episodes of intermittent vomiting (with the son reportedly even stating he believes the patient is doing it to herself by putting her finger down the throat) and refusing to have her seen by a dentist for poor dentition in the setting of declining PO intake. Additionally, care givers at the [facility] state that the patient has had months of documented functional declines, worsening PO intake, and weight loss -additionally, after my discussion with the patients granddaughter (as detailed in the subjective section of this progress note), there seems to be a either a lack of understanding or acceptance of the patients reported functional decline since being a resident of [facility] -Palliative Care is going to have phone conversation with Patients son this afternoon (he has requested that his father and daughter no longer be allowed to obtain medical information regarding the patient), as the patient was not planning on coming in today to lay out the current situation and all the options to think about over the weekend and plan for group discussion early next week (2) Paroxysmal atrial fibrillation: Status: Acute Assessment and plan: -patient has h[facility] of [facility] the [facility], therefore not a good candidate for superintendent container terminal anticoagulation. -had been on currently on lopressor 25 mg QID and diltiazem 30 mg TID, both of which are held as patient is NPO -HR increased AM 11/03 to 120's, responded to IV dilt 5mg, but needed additional 5mg dose -now on 20mg dilt Q6hr -briefly in RVR overnight 11/04, responded to 5mg IV lopressor, now has order for IV lopressor 5mg Q4h PRN for sustained HR >120 -will continue to monitor HR and increase scheduled dilt as needed (3) Adrenal insufficiency: Status: Suspected Assessment and plan: -suspected but no random cortisol was done and no cosyntropin study was done. -However, her hypotension resolved quickly after getting on hydrocortisone. -will continue hydrocortisone but begin wean. -decrease dose and frequency of hydrocortisone to 25 mg IV Q8h on 11/02 -was planning to transition to PO prednisone, but given NPO status will continue IV 25mg Q6hr (4) Hypokalemia due to excessive gastrointestinal loss of potassium: Status: Acute Assessment and plan: -initially had hyperkalemia w/ JUAN JOSÉ on admission -2.9 AM 11/03, 20mEq IV replacement ordered -2.5 AM 11/04, 40mEq IV replacement ordered -2.6 early AM 11/05, 20mEq IV replacement ordered -f/u late AMP BMP (5) Altered mental status: Status: Acute Assessment and plan: -mental status appears to be unchanged as compared to previous day -likely cause is metabolic encephalopathy superimposed on her dementia, CTA head did not show CVA or occlusive disease. -MRI also with any acute findings Qualifiers: Altered mental status type: delirium Qualified Code(s): R41.0 - Disorientation, unspecified (6) Dementia: Status: Chronic Assessment and plan: -Seroquel and mirtazapine were held since evening of 10/30 d/t decreased LOC but now can resume. Qualifiers: Dementia type: Alzheimer's Alzheimer's disease onset: unspecified onset Dementia severity: moderate Dementia behavioral or psychological symptom: without behavioral, psychotic, or mood disturbance or anxiety Qualified Code(s): G30.9 - Alzheimer's disease, unspecified; F02.B0 - Dementia in other diseases classified elsewhere, moderate, without behavioral disturbance, psychotic disturbance, mood disturbance, and anxiety (7) Chronic hyponatremia: Status: Chronic Assessment and plan: -improved s/p IVF (8) Rheumatoid arthritis: Status: Chronic Assessment and plan: -No active disease. -Holding methotrexate, giving hydrocortisone as above. Qualifiers: Rheumatoid arthritis location: multiple sites Rheumatoid factor presence: unspecified presence Qualified Code(s): M06.9 - Rheumatoid arthritis, unspecified (9) Diabetes: Status: Chronic Assessment and plan: -On GLP-1 and some insulin as outpatient. -A1c is below goal. -Lantus was stopped couple days ago d/t low glucose readings in the morning. -SSI Q6hr now that patient is strict NPO Qualifiers: Diabetes mellitus type: type 2 Diabetes mellitus superintendent container terminal insulin use: without superintendent container terminal use Diabetes mellitus complication status: without complication Qualified Code(s): E11.9 - Type 2 diabetes mellitus without complications (10) DVT prophylaxis: Status: Acute Assessment and plan: -h/o pAFib but not on anticoagulation. Use LMWH. Subjective Subjective Interval history since last seen: Patient remains the same as previous days. She is non-verbal and does not appear to be in any acute distress. Exam Narrative Exam Narrative: chronically ill appearing older female laying in bed in no acute distress, awakens to verbal stimuli but does not speak, heart irregularly irregular with rates in the 80's, lungs CTAB, abdomen soft, non-tender, non-distended Objective Last Vital Signs Temp 98.1 F 11/08/23 15:11 Pulse 67 11/08/23 15:11 Resp 15 11/08/23 15:11 BP 179/62 H 11/08/23 15:11 Pulse Ox 98 11/08/23 15:11 Laboratory Results - last 24 hr 11/08/23 08:11 WBC 7.43 RBC 2.81 L Hgb 8.4 L Hct 24.8 L MCV 88 MCH 29.9 MCHC 33.9 RDW 15.1 H Plt Count 338 MPV 8.8 Sodium 142 Potassium 2.7 L* Chloride 107 Carbon Dioxide 27.8 Anion Gap 7.2 BUN 29 H Creatinine 0.7 Est GFR (CKD-EPI 2020) 85.23 Glucose 242 H Calcium 8.0 L Magnesium 1.7 L Total Bilirubin 0.24 AST 20 ALT 11 L Alkaline Phosphatase 69 Total Protein 5.7 L Albumin 2.1 L Time Spent with Patient Time Spent with Patient: >50 minutes Time was spent: preparing to see the patient(eg.review tests), obtaining and/or reviewing separately otained hiistory, ordering medications,tests, procedures, referring, communicating with other health home care specialist, indepentently interpreting results, counseling the patient and care coordination
--- NOTE | 2023-11-08 16:25 | W.NUTRFU ---
Date of service: 11/08/23 Time of Service: 16:27 Nutrition Note NOTE: Pt with a total wt increase of kg over admission - certainly a portion of this is fluid/edema, with nursing reports of generalized non-pitting, 2+robotics mechanic bilat arm, 2+pitting bilat foot and 1+pitting bilat leg. Pt is currently at goal of 63mL per hour of continuos tpn. Lytes are wnl except for downward trend in Mg and no phosphorus lab recently. Upon visit pt's niece concerned about higher than normal glucose - explained to her that there was more concern with some low's that were seen and taken off basal insulin and getting ACHS sliding scale Novolog and the concern for director long term care complications from hyperglycemia is of lower concern than acute hypoglycemic spells. WELDING MACHINE OPERATOR RESISTANCE working with Samia to determin appropriateness of PO intake Recommendations -replete magnesium -check phosphorus and triglyceride labs to help assess TPN toleration Will continue to monitor weight, labs, ability to take po and support family with guest meal trays as needed Time Spent in Nutritional Counseling and Treatment: 10 minutes
[2023-11-08] MEDS: Enoxaparin 40 MG/0.4 ML SYR SC (20:31)
[2023-11-08] MEDS: Bisacodyl 10 MG SUPP PR (20:49)
[2023-11-08] MEDS: Travoprost 0.004% Ophth Sol 2.5 ML BTL OP (20:49)
[2023-11-08] MEDS: hydrALAZINE 20 MG/ML VIAL 10 MG IVP (21:07)
[2023-11-09] VITALS (27 sets, daily range): BP systolic 141–188; BP diastolic 49–92; PULSE 62–76; RESP 12–18; TEMP 36.1–37.6; O2SAT 96–99
[2023-11-09] MEDS: Metoprolol 5 MG/5 ML VIAL IVP ×6 (01:00→19:57)
[2023-11-09] MEDS: Refresh PLUS Eye Drops 0.4ml OP ×6 (04:18→23:55)
[2023-11-09] MEDS: MORPHine 2 MG/ML SYR IVP ×3 (04:29→18:06)
[2023-11-09] MEDS: dilTIAZem 25 MG/5 ML VIAL 20 MG IVP ×4 (05:33→23:54)
[2023-11-09] MEDS: Hydrocortisone SOD SUC. 100 MG VIAL 25 MG IVP ×3 (05:35→20:42)
[2023-11-09] MEDS: Insulin Aspart 300 UNITS/3 ML PEN SC ×4 (06:00→23:59)
[2023-11-09] MEDS: ACETAMINOPHEN 1,000 MG/100 ML BTL 400 MG IVPB (06:05)
[2023-11-09 06:56] LABS: HGB 8.3 g/dL (11.2-15.7); MCH 30.1 pg (27.0-33.0); MCHC 33.2 % (32.0-36.0); MCV 91 fL (80-95); MPV 9.4 fL (8.0-11.0); Platelet Count 342 10^3/uL (130-400); RBC 2.76 10^6/uL (3.93-5.22); RDW 15.8 % (11.7-14.6); RDW-SD 49.5 fL; WBC 6.83 10^3/uL (4.4-10.8)
[2023-11-09 07:23] LABS: ALT 10 U/L (14-59); AST 16 U/L (15-37); Alkaline Phosphatase 66 U/L (46-116); Anion Gap 4.7 mmol/L (3-11); BUN 32 mg/dL (7-18); Bilirubin, Total 0.25 mg/dL (0.2-1.0); CO2 29.3 mmol/L (21.0-32.0); CREATININE 0.5 mg/dL (0.55-1.02); Chloride 105 mmol/L (98-107); Estimated GFR 92.43 (mL/min/1.73m2); Glucose 254 mg/dL (74-106); Magnesium 1.7 mg/dL (1.8-2.4); Potassium 3.1 mmol/L (3.5-5.1); Sodium 139 mmol/L (136-145); Total Protein 5.6 g/dL (6.4-8.2)
[2023-11-09] MEDS: Normal Saline Flush 10 ML SYR IVP ×12 (07:51→23:55)
[2023-11-09] MEDS: Pantoprazole 40 MG VIAL IVP (07:55)
[2023-11-09] MEDS: Timolol 0.5% 5 ML BTL OP (08:03)
--- NOTE | 2023-11-09 10:48 | PT.INTREAT ---
PT Notes Visit Reasons: Septic shock Date: 11/09/23 OBJECTIVE: central PIC line, Kwon catheter in place, telemetry in place? VITALS: Closely monitored by nursing.? Therapeutic Exercises ([id number]): Direct one-on-one instruction in therapeutic exercises to develop strength, endurance, range of motion and flexibility. ? Exercises ? PROM of bilateral U/LE t/o all planes. ASSESSMENT:? Pt not able to follow verbal and tactile cue. independent with all movements PLAN: continue to follow PT POC. 1x/wk for ROM TREATMENT CODE/TIME: 20 min. [id number] (10:20-10:40am)
--- NOTE | 2023-11-09 17:03 | PGE_ITS ---
Date of Service Date of service: 11/09/23 Time of Service: 17:03 Assessment and Plan Assessment and plan (1) Impacted stool in intestine: Status: Acute Assessment and plan: -stool impaction has resolved as per CT scan findings. -Now trying to get adequate stool softeners and laxatives in her to prevent impaction again. -patient was likely septic from either stercocolitis or possible her gall bladder given her findings on her CT scan. -See Dr. Sheth note from 11/01 regarding surgical input -Cefepime d#8 (begun 10/28), she also had been on vancomycin (10/28 -10/30) but was DCed after negative MRSA screen. -continue the cefepime for total of 7-10 days or until inflammatory markers have resolved, will repeat CRP and stop if improved. (2) Decreased oral intake: Status: Acute Assessment and plan: This is in setting of her acute illness, but also advancing dementia with poor oral intake and weight loss preceding her acute illness. -BIOSTATISTICS PROFESSOR on 11/03 recommended strict NPO as patient was unable to initiate swallow -reevaluation on 11/04 and patient did show some improvement, but remains NPO -also consulted Nutrition; rec TPN (see note for details) started 11/07 -Dr. Castro was willing to place PEG, but deferred when Samia showed some improvement, feeding tube placement is generally contraindicated in advancing dementia. -family discussion with Palliative Care 11/07 (please see Palliative note for complete details); -family continues to want everything done for the patient, including her being Full Code and the potential for a feeding tube, even if she has no possibility of ever being able to eat or swallow on her own again -They also stated that if the patient were to significantly decline, they would consider resending full code status at that time. However they are adamant that they would want to make that decision as a family, with close healthcare guidance, and only if it was determined that she has no chance of survival -there have been concerning information told to Palliatve Care by the care givers at the [facility] (where the patient is a resident). Despite patient being full code, family has refused to have patient worked up for episodes of intermittent vomiting (with the son reportedly even stating he believes the pa tient is doing it to herself by putting her finger down the throat) and refusing to have her seen by a dentist for poor dentition in the setting of declining PO intake. Additionally, care givers at the [facility] state that the patient has had months of documented functional declines, worsening PO intake, and weight loss -Palliative Care has had phone conversation with Patients son (KRYS). He has requested that his father and daughter no longer be allowed to obtain medical information regarding the patient. -Before considering PEG tube here or after transfer, we should have additional c onversation with son and palliative care, as I'm not convinced she would benefit from this. TPN to continue for now. (3) Paroxysmal atrial fibrillation: Status: Acute Assessment and plan: -patient has hx of frequent falls at the alf, therefore not a good candidate for rodent exterminator anticoagulation. -had been on currently on lopressor 25 mg QID and diltiazem 30 mg TID, both of which are held as patient is NPO -HR increased AM 11/03 to 120's, responded to IV dilt 5mg, but needed additional 5mg dose -now on 20mg dilt Q6hr -briefly in RVR overnight 11/04, responded to 5mg IV lopressor, now has order for IV lopressor 5mg Q4h PRN for sustained HR >120 -will continue to monitor HR, recently well controlled. (4) Adrenal insufficiency: Status: Suspected Assessment and plan: -suspected but no random cortisol was done and no cosyntropin study was done. -However, her hypotension resolved quickly after getting on hydrocortisone. -will continue hydrocortisone but begin wean. -decreased dose and frequency of hydrocortisone to 25 mg IV Q8h on 11/02 -transition to PO prednisone, when we are able to use the gut (5) Hypokalemia due to excessive gastrointestinal loss of potassium: Status: Acute Assessment and plan: -initially had hyperkalemia w/ JUAN JOSÉ on admission, has been low since 11/03 -replace potassium and magnesium IV again today, should improve with TPN as well. (6) Altered mental status: Status: Acute Assessment and plan: -In the setting of a progressive dementia over months to years -mental status appears to be unchanged as compared to previous day -likely cause is metabolic encephalopathy superimposed on her dementia, CTA head did not show CVA or occlusive disease. -MRI also with any acute findings Qualifiers: Altered mental status type: delirium Qualified Code(s): R41.0 - Disorientation, unspecified (7) Dementia: Status: Chronic Assessment and plan: -Seroquel and mirtazapine have been held since NPO Qualifiers: Dementia type: Alzheimer's Alzheimer's disease onset: unspecified onset Dementia severity: moderate Dementia behavioral or psychological symptom: without behavioral, psychotic, or mood disturbance or anxiety Qualified Code(s): G30.9 - Alzheimer's disease, unspecified; F02.B0 - Dementia in other diseases classified elsewhere, moderate, without behavioral disturbance, psychotic disturbance, mood disturbance, and anxiety (8) Chronic hyponatremia: Status: Chronic Assessment and plan: -improved s/p IVF (9) Rheumatoid arthritis: Status: Chronic Assessment and plan: -No active disease. -Holding methotrexate, giving hydrocortisone as above. Qualifiers: Rheumatoid arthritis location: multiple sites Rheumatoid factor presence: unspecified presence Qualified Code(s): M06.9 - Rheumatoid arthritis, unspecified (10) Diabetes: Status: Chronic Assessment and plan: -On GLP-1 and some insulin as outpatient. -A1c is below goal. -Lantus was stopped d/t low glucose readings in the morning, but sugars have been in 2-300s since, will resume conservative dose along with SSI now that she is on TPN. Qualifiers: Diabetes mellitus type: type 2 Diabetes mellitus rodent exterminator insulin use: without rodent exterminator use Diabetes mellitus complication status: without complication Qualified Code(s): E11.9 - Type 2 diabetes mellitus without complications (11) DVT prophylaxis: Status: Acute Assessment and plan: -h/o pAFib but not on anticoagulation. Using LMWH. Subjective Subjective Interval history since last seen: Events: None Patient makes eye contact in response to voice but does not respond to direct questioning in Italian. Exam Narrative Exam Narrative: chronically ill appearing older female laying in bed in no acute distress, awakens to verbal stimuli but does not speak, heart irregularly irregular with rates in the 70s, lungs CTAB, abdomen soft, non-tender, non-distended. Extremities with trace bilateral edema in feet, warm, no cyanosis, no focal swelling/redness. Objective Last Vital Signs Temp 37.2 C 11/09/23 15:58 Pulse 73 11/09/23 16:35 Resp 15 11/09/23 15:58 BP 184/70 H 11/09/23 16:35 Pulse Ox 96 11/09/23 15:58 Laboratory Results - last 24 hr 11/09/23 05:53 WBC 6.83 RBC 2.76 L Hgb 8.3 L Hct 25.0 L MCV 91 MCH 30.1 MCHC 33.2 RDW 15.8 H Plt Count 342 MPV 9.4 Sodium 139 Potassium 3.1 L Chloride 105 Carbon Dioxide 29.3 Anion Gap 4.7 BUN 32 H Creatinine 0.5 L Est GFR (CKD-EPI 2020) 92.43 Glucose 254 H Calcium 8.0 L Magnesium 1.7 L Total Bilirubin 0.25 AST 16 ALT 10 L Alkaline Phosphatase 66 Total Protein 5.6 L Albumin 2.0 L Time Spent with Patient Time Spent with Patient: 35-49 minutes Time was spent: preparing to see the patient(eg.review tests), obtaining and/or reviewing separately otained hiistory, ordering medications,tests, procedures, referring, communicating with other health care management specialist, indepentently interpreting results and care coordination
[2023-11-09] MEDS: Bisacodyl 10 MG SUPP PR (17:50)
[2023-11-09] MEDS: POTASSIUM CHLORIDE 20 MEQ/100 ML BAG 50 MEQ IVINF (18:44)
[2023-11-09] MEDS: Insulin Glargine 300 UNITS/3 ML PEN 12 UNITS SC (19:56)
[2023-11-09] MEDS: Travoprost 0.004% Ophth Sol 2.5 ML BTL OP (19:56)
[2023-11-09] MEDS: Enoxaparin 40 MG/0.4 ML SYR SC (19:56)
[2023-11-09] MEDS: MAGNESIUM SULFATE 1 GM/100 ML BAG IVINF (20:43)
[2023-11-10] VITALS (26 sets, daily range): BP systolic 149–201; BP diastolic 49–109; PULSE 61–74; RESP 15–19; TEMP 36.5–36.7; O2SAT 99–100
[2023-11-10] MEDS: Metoprolol 5 MG/5 ML VIAL IVP ×6 (01:39→20:30)
[2023-11-10] MEDS: Normal Saline Flush 10 ML SYR IVP ×5 (01:40→13:16)
[2023-11-10] MEDS: Refresh PLUS Eye Drops 0.4ml OP ×4 (04:12→17:28)
[2023-11-10] MEDS: Hydrocortisone SOD SUC. 100 MG VIAL 25 MG IVP ×3 (05:11→20:26)
[2023-11-10] MEDS: Insulin Aspart 300 UNITS/3 ML PEN SC ×3 (05:22→18:09)
[2023-11-10 05:25] LABS: HCT 24.8 % (36.0-46.0); HGB 8.2 g/dL (11.2-15.7); MCH 29.9 pg (27.0-33.0); MCHC 33.1 % (32.0-36.0); MCV 91 fL (80-95); MPV 9.5 fL (8.0-11.0); Platelet Count 361 10^3/uL (130-400); RBC 2.74 10^6/uL (3.93-5.22); RDW-SD 50.6 fL; WBC 4.91 10^3/uL (4.4-10.8)
[2023-11-10 05:36] LABS: Magnesium 1.7 mg/dL (1.8-2.4)
[2023-11-10 05:38] LABS: Anion Gap 5.2 mmol/L (3-11); BUN 33 mg/dL (7-18); CO2 29.8 mmol/L (21.0-32.0); CREATININE 0.6 mg/dL (0.55-1.02); Calcium 7.7 mg/dL (8.5-10.1); Chloride 105 mmol/L (98-107); Estimated GFR 88.45 (mL/min/1.73m2); Glucose 325 mg/dL (74-106); Potassium 3.5 mmol/L (3.5-5.1); Sodium 140 mmol/L (136-145)
[2023-11-10 05:52] LABS: PHOSPHORUS < 2.0 mg/dL (2.6-4.7)
[2023-11-10] MEDS: dilTIAZem 25 MG/5 ML VIAL 20 MG IVP ×3 (06:32→17:28)
[2023-11-10] MEDS: Pantoprazole 40 MG VIAL IVP (08:15)
[2023-11-10] MEDS: MAGNESIUM SULFATE 1 GM/100 ML BAG IVINF (08:22)
[2023-11-10] MEDS: Timolol 0.5% 5 ML BTL OP (08:24)
[2023-11-10] MEDS: hydrALAZINE 20 MG/ML VIAL 10 MG IVP (09:59)
--- NOTE | 2023-11-10 10:56 | PT.INTREAT ---
PT Notes Visit Reasons: Septic shock Date: 11/10/23 OBJECTIVE: central PIC line, Kwon catheter in place, telemetry in place? VITALS: Closely monitored by nursing.? Therapeutic Exercises ([id number]): Direct one-on-one instruction in therapeutic exercises to develop strength, endurance, range of motion and flexibility. ? Exercises ? PROM of bilateral U/LE t/o all planes. ASSESSMENT:? Pt had same response compared to last session, still dependent with all movements PLAN: continue to follow PT POC. 1x/wk for ROM TREATMENT CODE/TIME: 15 min. [id number] (10:35-10:50am)
--- NOTE | 2023-11-10 13:09 | W.PM.PROGNOT ---
Date of Service Date of service: 11/10/23 Time of Service: 13:09 Assessment and Plan Assessment and plan (1) Impacted stool in intestine: Status: Acute Assessment and plan: -stool impaction has resolved as per CT scan findings. -Now trying to get adequate stool softeners and laxatives in her to prevent impaction again. -patient was likely septic from either stercocolitis or possible her gall bladder given her findings on her CT scan. -See Dr. Sheth note from 11/01 regarding surgical input -Was on Cefepime #10 days (10/28-), she also had been on vancomycin (10/28 -10/30) but was DCed after negative MRSA screen. -CRP this morning improved (2) Decreased oral intake: Status: Acute Assessment and plan: This is in setting of her acute illness, but also advancing dementia with poor oral intake and weight loss preceding her acute illness. -BUSINESS APPLICATIONS ANALYST on 11/03 recommended strict NPO as patient was unable to initiate swallow -reevaluation on 11/04 and patient did show some improvement, but still recommending NPO -also consulted Nutrition; rec TPN (see note for details) started 11/07 -Dr. Castro was willing to place PEG, but deferred when Samia showed some improvement. -family discussion with Palliative Care 11/07 (please see Palliative note for complete details); -family continues to want everything done for the patient, including her being Full Code and the potential for a feeding tube, even if she has no possibility of ever being able to eat or swallow on her own again -They also stated that if the patient were to significantly decline, they would consider resending full code status at that time. However they are adamant that they would want to make that decision as a family, with close healthcare guidance, and only if it was determined that she has no chance of survival -there have been concerning information told to Palliative Care by the care givers at the [facility] (where the patient is a resident). Despite patient being full code, family has refused to have patient worked up for episodes of intermittent vomiting (with the son reportedly even stating he believes the patient is doing it to herself by putting her finger down the throat) and refusing to have her seen by a dentist for poor dentition in the setting of declining PO intake. Additionally, care givers at the [facility] state that the patient has had months of documented functional declines, worsening PO intake, and weight loss -Palliative Care has had phone conversation with Patients son (KRYS). He has requested that his father and daughter no longer be allowed to obtain medical information regarding the patient. -I spoke to son Fabrizio (KRYS) today, he is hospitalized for complication of his laminectomy. He understands she may have a poor prognosis but she was conversant and making transfers before this episode. He isn't ready to make her REGIONAL COORDINATOR without seeing her again. At this point he would like feeding tube. Though feeding tube placement is generally contraindicated in advancing dementia, there is a rationale in this case to try to recover from acute illness. If we are going to do this, I would like to proceed with this JULITO and get her off TPN. (3) Paroxysmal atrial fibrillation: Status: Acute Assessment and plan: -[facility] therefore not a good candidate for snf anticoagulation. -had been on currently on lopressor 25 mg QID and diltiazem 30 mg TID, both of which are held as patient is NPO -HR increased AM 11/03 to 120's, responded to IV dilt 5mg, but needed additional 5mg dose -now on 20mg dilt Q6hr -briefly in RVR overnight 11/04, responded to 5mg IV lopressor, now has order for IV lopressor 5mg Q4h PRN for sustained HR >120 -will continue to monitor HR, recently well controlled. (4) Adrenal insufficiency: Status: Suspected Assessment and plan: -suspected but no random cortisol was done and no cosyntropin study was done. -However, her hypotension resolved quickly after getting on hydrocortisone. -will continue hydrocortisone but begin wean. -decreased dose and frequency of hydrocortisone to 25 mg IV Q8h on 11/02, change to BID today (early am and afternoon to more mimic physiologic -transition to PO prednisone when we are able to use the gut (5) Hypokalemia due to excessive gastrointestinal loss of potassium: Status: Acute Assessment and plan: -initially had hyperkalemia w/ JUAN JOSÉ on admission, has been low since 11/03 -K+ better, replaced magnesium IV again today, TPN adjusted with next bag this afternoon. (6) Altered mental status: Status: Acute Assessment and plan: -In the setting of a progressive dementia over months to years -mental status appears to be minimally changed as compared to previous day -likely cause is metabolic encephalopathy superimposed on her dementia, CTA head did not show CVA or occlusive disease. -MRI also with any acute findings -She has also been off of her oral thyroid and antidepressants, resuming these when we can use the gut may help Qualifiers: Altered mental status type: delirium Qualified Code(s): R41.0 - Disorientation, unspecified (7) Dementia: Status: Chronic Assessment and plan: -see above Qualifiers: Dementia type: Alzheimer's Alzheimer's disease onset: unspecified onset Dementia severity: moderate Dementia behavioral or psychological symptom: without behavioral, psychotic, or mood disturbance or anxiety Qualified Code(s): G30.9 - Alzheimer's disease, unspecified; F02.B0 - Dementia in other diseases classified elsewhere, moderate, without behavioral disturbance, psychotic disturbance, mood disturbance, and anxiety (8) Chronic hyponatremia: Status: Chronic Assessment and plan: -improved s/p IVF (9) Rheumatoid arthritis: Status: Chronic Assessment and plan: -No active disease. -Holding methotrexate, giving hydrocortisone as above. Qualifiers: Rheumatoid arthritis location: multiple sites Rheumatoid factor presence: unspecified presence Qualified Code(s): M06.9 - Rheumatoid arthritis, unspecified (10) Diabetes: Status: Chronic Assessment and plan: -On GLP-1 and some insulin as outpatient. -A1c is below goal. -Lantus was stopped d/t low glucose readings in the morning, but sugars have been in 2-300s since, resumed 11/08 at conservative dose along with SSI since starting TPN. Qualifiers: Diabetes mellitus type: type 2 Diabetes mellitus buttermaker continuous churn insulin use: without snf use Diabetes mellitus complication status: without complication Qualified Code(s): E11.9 - Type 2 diabetes mellitus without complications (11) DVT prophylaxis: Status: Acute Assessment and plan: -h/o pAFib but not on anticoagulation. Using LMWH. Subjective Subjective Patient reports: denies diarrhea, vomiting or fever Interval history since last seen: -Additional IV potassium and magnesium given 11/08, 11/09. -getting IV diltiazem and metoprolol for rate/BP, metoprolol and hydralyzine prn No events. Patient minimally responsive, does respond no to questioning about pain but does not consistently respond. Not taking po. Exam Narrative Exam Narrative: chronically ill appearing older female laying in bed in no acute distress, awakens to verbal stimuli. said no today but nothing else, seems to attempt to move arm with command but minimal movement. heart irregularly irregular with rates in the 70s, lungs CTAB, abdomen soft, non-tender, non-distended. Extremities with 1-2+ puffy bilateral edema in arms and legs, warm, no cyanosis, no focal swelling/redness. Skin breakdown dressed on extensor elbows, heels Objective Last Vital Signs Temp 36.5 C 11/10/23 07:29 Pulse 66 11/10/23 13:04 Resp 19 11/10/23 07:29 BP 166/49 H 11/10/23 13:04 Pulse Ox 99 11/10/23 07:29 Laboratory Results - last 24 hr 11/09/23 11/10/23 20:59 05:00 WBC Cancelled 4.91 RBC Cancelled 2.74 L Hgb Cancelled 8.2 L Hct Cancelled 24.8 L MCV Cancelled 91 MCH Cancelled 29.9 MCHC Cancelled 33.1 RDW Cancelled 16.0 H Plt Count Cancelled 361 MPV Cancelled 9.5 Sodium 140 Potassium 3.5 Chloride 105 Carbon Dioxide 29.8 Anion Gap 5.2 BUN 33 H Creatinine 0.6 Est GFR (CKD-EPI 2020) 88.45 Glucose 325 H Calcium 7.7 L Phosphorus Cancelled < 2.0 L Magnesium Cancelled 1.7 L C-Reactive Protein 1.40 H Time Spent with Patient Time Spent with Patient: >50 minutes Time was spent: preparing to see the patient(eg.review tests), obtaining and/or reviewing separately otained hiistory, ordering medications,tests, procedures, referring, communicating with other health certified social workers in health care, indepentently interpreting results, counseling the patient and care coordination
[2023-11-10] MEDS: MORPHine 2 MG/ML SYR IVP (13:28)
[2023-11-10] MEDS: Enoxaparin 40 MG/0.4 ML SYR SC (20:24)
[2023-11-10] MEDS: Travoprost 0.004% Ophth Sol 2.5 ML BTL OP (20:25)
[2023-11-10] MEDS: Insulin Glargine 300 UNITS/3 ML PEN 12 UNITS SC (20:25)
[2023-11-10 23:47] LABS: Bilirubin Negative (Negative); Blood Moderate (Negative); Clarity Cloudy (Clear); Glucose >=1000 mg/dL (Negative); Ketones Negative (Negative); Leukocyte Esterase Small (Negative); Nitrite Negative (Negative); Specific Gravity 1.025 (1.005-1.025); Urobilinogen 0.2 mg/dL (Up to 0.2); pH 6.5 (5-8)
[2023-11-10 23:54] LABS: C & S Indicated? Yes; WBC >50 HPF (0-5)
[2023-11-11] VITALS (30 sets, daily range): BP systolic 142–195; BP diastolic 48–76; PULSE 59–72; RESP 16–20; TEMP 36.2–36.7; O2SAT 97–98
[2023-11-11] MEDS: Metoprolol 5 MG/5 ML VIAL IVP ×6 (00:12→20:19)
[2023-11-11] MEDS: dilTIAZem 25 MG/5 ML VIAL 20 MG IVP ×4 (00:13→17:55)
[2023-11-11] MEDS: Insulin Aspart 300 UNITS/3 ML PEN SC ×4 (00:18→17:51)
[2023-11-11] MEDS: Refresh PLUS Eye Drops 0.4ml OP ×6 (00:33→20:20)
--- NOTE | 2023-11-11 03:42 | NUR.NOTE ---
THIS RN AND JODIE CHANG IN ROOM TO BOOST PT UP IN BED. TURNED ONTO LEFT SIDE, MULTIPLE PILLOWS PLACED TO ALLEVIATE PRESSURE POINTS, ARMS ELEVATED TO HEART LEVEL ONTO PILLOWS. SCHAEFFER DRAINING TO BEDSIDE BAG. PT STIMULATED TO COUGH DURING ROUTINE TURNING. ORAL CARE PROVIDED AT THIS TIME. PERICARE PROVIDED AT THIS TIME AND UNDERPADS CHANGED.Note:
[2023-11-11 06:34] LABS: HCT 27.3 % (36.0-46.0); MCH 30.5 pg (27.0-33.0); MCV 93 fL (80-95); MPV 9.5 fL (8.0-11.0); Platelet Count 384 10^3/uL (130-400); RBC 2.95 10^6/uL (3.93-5.22); RDW 16.5 % (11.7-14.6); RDW-SD 53.2 fL; WBC 5.63 10^3/uL (4.4-10.8)
[2023-11-11 06:48] LABS: Prothrombin Time 9.7 sec (9.1-11.1)
[2023-11-11 06:54] LABS: Magnesium 1.9 mg/dL (1.8-2.4); PHOSPHORUS < 2.0 mg/dL (2.6-4.7)
[2023-11-11 06:57] LABS: ALT 22 U/L (14-59); AST 22 U/L (15-37); Albumin 1.9 g/dL (3.4-5.0); Alkaline Phosphatase 80 U/L (46-116); Anion Gap 6.7 mmol/L (3-11); BUN 34 mg/dL (7-18); Bilirubin, Total 0.34 mg/dL (0.2-1.0); CO2 29.3 mmol/L (21.0-32.0); CREATININE 0.5 mg/dL (0.55-1.02); Calcium 7.8 mg/dL (8.5-10.1); Chloride 106 mmol/L (98-107); Estimated GFR 92.43 (mL/min/1.73m2); Glucose 233 mg/dL (74-106); Potassium 3.5 mmol/L (3.5-5.1); Sodium 142 mmol/L (136-145); Total Protein 5.5 g/dL (6.4-8.2)
[2023-11-11] MEDS: Timolol 0.5% 5 ML BTL OP (08:24)
[2023-11-11] MEDS: Pantoprazole 40 MG VIAL IVP (08:26)
--- NOTE | 2023-11-11 08:30 | TELEFU_ITS ---
Date of service: 11/11/23 Time of Service: 08:31 Nutrition Note NOTE: Nutrition brandonoup Pt followed by PROJECT DEVELOPMENT ENGINEER and after follow up this morning remains NPO with trials of ice chips and will continue to receive 100% of her nutrition via TPN - rate increased to goal rate of 63mL/Hr of 4.2AA/D10 on 11/09. Weight stable/consistent over the last 3days, although increased edema in upper extremities noted by nursing. Mag was trending low (1.7 yesterday) received 1gm Mag sulfate to correct and wnl today. Phos is <2 for 2nd day - ? touch of re-feeding and with basal insulin back on board as of 11/08 causing increased demand. LFT's wnl. total protein and albumin low 1.9/5.5 today respectively and both are .1 lower than on 11/08. remains hyperglycemic with FPG 233 this morning, 325 yesterday, 254 on 11/08. As above basal Lantus reordered at 12u HS. Fingerstick glucose at Q6hrs trending in the mid-200's. Recommendations: -phosphorus repletion with continued daily checks - recommend triglyceride lab as well -increase basal insulin 2 units q3days until FPG ~150mg/dL. Will continue to monitor weight,meds,labs, tpn toleration, po status Time Spent in Nutritional Counseling and Treatment: 10 min
[2023-11-11] MEDS: Hydrocortisone SOD SUC. 100 MG VIAL 25 MG IVP ×2 (08:32→20:19)
--- NOTE | 2023-11-11 08:42 | W.SPSTP ---
Date of service: 11/11/23 Time of Service: 08:10 Subjective Subjective Samia was contacted at bedside this date. Patient more alert with eyes open, responded 'ok' with HORIZONTAL DRILL OPERATOR introduction. Nursing reports ice chips discontinued last night due to poor tolerance. Objective Positioning: HOB raised to ~80 degrees for PO trials. Respiratory status: Tolerating room air. Dry breath sounds at baseline. Oral Care: Tolerated with suction swab. Did not attempt toothbrush due to patient discomfort last visit in the setting of decay/broken teeth. Dried secretions removed from lingual surface. PO Trials Assessed: Ice chips x5 Oral Phase Findings: Slow/weak bolus manipulation/A-P transport Pharyngeal Phase Findings: Severely delayed and reduced hyolaryngeal movement Lengthy periods of wet gurgly breathing/gasping after ice chip trials Weak/non productive cough, patient demonstrating discomfort/wincing Assessment Samia was more alert today with eyes open, though demonstrates worsening oral-pharyngeal swallow function compared to last assessment, characterized by severely delayed and incomplete pharyngeal initiation and diminished hyolaryngeal movement, resulting in consistent s/sx aspiration. Samia demonstrated lengthy periods of wet/gurgly breathing and gasping after ice chip trials with weak/non productive cough attempts. PO trials discontinued due to presentation of patient discomfort and with concern for safety. Prognosis for return to oral intake is considered guarded. Samia is considered a very high risk for aspiration-related illness from aspiration of secretions, even while NPO, in the setting of compromised ability for lung clearance due to being bedridden as well as presence of dental decay with poor tolerance of friction toothbrush compounded with new onset pharyngeal weakness resulting in aspiration. Please continue strict oral hygiene recommendations. Will continue to re-assess daily and collaborate with Palliative Care to educate family of benefits vs burdens of enteral feeding with overall clinical picture. Diet Recommendations: NPO. Trials of ice chips OK after oral care in bolt upright position. Discontinue if wet breathing sounds. Non-oral medications Frequent oral care q3-4 hours with suction prn HOB elevated at least 30 degrees at all times Consider alternative means of nutrition pending patient/family goals of care. Plan Plan: Frequency: 5x/week for 1-2 weeks; Daily re-assessment while NPO Goals: [facility] Goals: Patient will remain free from aspiration-related illness, malnutrition, and dehydration. Short Term Goals: Patient will tolerate PO trials for consideration of diet initiation without overt s/s aspiration across 2/2 visits. Time spent: 20 minutes (8:10-8:30)
[2023-11-11] MEDS: hydrALAZINE 20 MG/ML VIAL 10 MG IVP (09:15)
[2023-11-11] MEDS: Normal Saline Flush 10 ML SYR IVP ×4 (09:15→17:53)
--- NOTE | 2023-11-11 10:14 | CMPROGNOTE_ITS ---
Date of service: 11/11/23 Time of Service: 10:14 Care Management Progress Note Progress Note Text Progress Note Text: Samia was resting when CM met with her. Her was by her side, and her granddaughter, Donan was in the room as well. Per RN, Fabrizio has updated Samia's HIPAA today to include his daughters Melissa and Donna. CM spoke to Melissa and Donna about the referral that was placed at [facility], stating that if Samia is accepted and a bed is available when Samia is medically cleared, then she will be able to transition to [facility]. If she is not accepted, or is accepted without a bed available, she will need to return to the [facility] and will be able to transition from the community. CM spoke to admissions at [facility] who stated that she has not yet been accepted, but they do anticipate a bed offer; they are awaiting the PEG tube information, but did state that they can accommodate a feeding tube. CM called Fabrizio to coordinate a meeting tomorrow with the surgeon to provide consent; he will be present at 10am. CM will continue to follow. Discharge Potential Discharge Needs: Other (coordinated return to SNF) Anticipated Barriers to Discharge: Medical Status Patient/Family Education Needs: Review discharge instructions, discuss Ask Me Three Transportation: EMS Plan: Samia will likely be transferred back to [facility] vs [facility] when medically cleared. She will follow up with facility providers and plan of care and transport via EMS coordinated by CM. CM will continue to assess for discharge needs. SDOH(Care Management) Screening Will the Patient Participate in the Screening?: Unable to obtain Social Determinants of Health Comments(SDOH Details): lives in [facility]
--- NOTE | 2023-11-11 11:30 | W.PM.PROGNOT ---
Date of Service Date of service: 11/11/23 Time of Service: 11:30 Assessment and Plan Assessment and plan (1) Decreased oral intake: Status: Acute Assessment and plan: This is in setting of her acute illness, but also advancing dementia with poor oral intake and weight loss preceding her acute illness. -STERILE PROCESSING TECHNOLOGIST on 11/03 recommended strict NPO as patient was unable to initiate swallow -reevaluation on 11/04 and patient did show some improvement, but still recommending NPO -also consulted Nutrition; rec TPN (see note for details) started 11/07 -Dr. Castro was willing to place PEG, but deferred when Samia showed some improvement. -family discussion with Palliative Care 11/07 (please see Palliative note for complete details); -family continues to want everything done for the patient, including her being Full Code and a feeding tube, even if she has no possibility of ever being able to eat or swallow on her own again -They also stated that if the patient were to significantly decline, they would consider resending full code status at that time. However they are adamant that they would want to make that decision as a family, with close healthcare guidance, and only if it was determined that she has no chance of survival -there have been concerning information told to Palliative Care by the care givers at the [facility] (where the patient is a resident). Despite patient being full code, family has refused to have patient worked up for episodes of intermittent vomiting (with the son reportedly even stating he believes the patient is doing it to herself by putting her finger down the throat) and refusing to have her seen by a dentist for poor dentition in the setting of declining PO intake. Additionally, care givers at the [facility] state that the patient has had months of documented functional declines, worsening PO intake, and weight loss -Palliative Care has had phone conversation with Patients son (KRYS). He has requested that his father and daughter no longer be allowed to obtain medical information regarding the patient. -I spoke to son Fabrizio ([email or web address]) 11/09, he is hospitalized for complication of his laminectomy. He understands she may have a poor prognosis but she was conversant and making transfers before this episode. He isn't ready to make her BUSINESS MANAGEMENT ANALYST without seeing her again. He would like to proceed with feeding tube. Though feeding tube placement is generally contraindicated in advancing dementia, there is a rationale in this case to try to recover from acute illness back on her regular oral medications -Case discusssed with Dr. Tyson from surgery and Juan from palliative. Discussing possible PEG with anesthesia today. Palliative will contact son Fabrizio again today. We agree there is uncertain benefit and clear risk with PEG, but I can't say it is totally futile. (2) Impacted stool in intestine: Status: Acute Assessment and plan: -stool impaction has resolved as per CT scan findings. -patient was likely septic from either stercocolitis or possible her gall bladder given her findings on her CT scan. -See Dr. Sheth note from 11/01 regarding surgical input -Was on Cefepime #10 days (10/28-), she also had been on vancomycin (10/28 -10/30) but was DCed after negative MRSA screen. -CRP 11/09 improved -We would like to resume stool softeners and laxatives in her to prevent impaction again once we can use the gut. (3) Paroxysmal atrial fibrillation: Status: Acute Assessment and plan: -patient has hx of frequent falls at the half-way, therefore deemed not a good candidate for [facility] antico[facility]. -had been on currently on lopressor 25 mg QID and diltiazem 30 mg TID, both of which are held as patient is NPO -HR increased AM 11/03 to 120's, responded to IV dilt 5mg, but needed additional 5mg dose -now on IV diltiazem and metoprolol and in sinus with good rate control on tele. (4) Adrenal insufficiency: Status: Suspected Assessment and plan: -suspected but no random cortisol was done and no cosyntropin study was done. -However, her hypotension resolved quickly after getting on hydrocortisone. -will continue hydrocortisone weaning -decreased dose and frequency of hydrocortisone to 25 mg IV Q8h on 11/02, change to BID 11/09 (early am and afternoon to more mimic physiologic) -transition to PO prednisone when we are able to use the gut (5) Hypokalemia due to excessive gastrointestinal loss of potassium: Status: Acute Assessment and plan: -initially had hyperkalemia w/ JUAN JOSÉ on admission, has been low since 11/03 -K+ and Mg++ better, TPN adjusted 11/09 PM. (6) Altered mental status: Status: Acute Assessment and plan: -In the setting of a progressive dementia over months to years -mental status appears to be minimally changed as compared to previous day -likely cause is metabolic encephalopathy superimposed on her dementia, CTA head did not show CVA or occlusive disease. -MRI also without any acute findings -She has also been off of her oral thyroid and antidepressants, resuming these when we can use the gut may help -See above Qualifiers: Altered mental status type: delirium Qualified Code(s): R41.0 - Disorientation, unspecified (7) Dementia: Status: Chronic Assessment and plan: -see above Qualifiers: Dementia type: Alzheimer's Alzheimer's disease onset: unspecified onset Dementia severity: moderate Dementia behavioral or psychological symptom: without behavioral, psychotic, or mood disturbance or anxiety Qualified Code(s): G30.9 - Alzheimer's disease, unspecified; F02.B0 - Dementia in other diseases classified elsewhere, moderate, without behavioral disturbance, psychotic disturbance, mood disturbance, and anxiety (8) Chronic hyponatremia: Status: Chronic Assessment and plan: -improved s/p IVF (9) Rheumatoid arthritis: Status: Chronic Assessment and plan: -No active disease. -Holding methotrexate, giving hydrocortisone as above. Qualifiers: Rheumatoid arthritis location: multiple sites Rheumatoid factor presence: unspecified presence Qualified Code(s): M06.9 - Rheumatoid arthritis, unspecified (10) Diabetes: Status: Chronic Assessment and plan: -On GLP-1 and some insulin as outpatient. -A1c is below goal. -Lantus was stopped d/t low glucose readings in the morning, but sugars have been in 2-300s since, resumed 11/08 at conservative dose along with SSI since starting TPN. Qualifiers: Diabetes mellitus type: type 2 Diabetes mellitus oil heaterman insulin use: without oil heaterman use Diabetes mellitus complication status: without complication Qualified Code(s): E11.9 - Type 2 diabetes mellitus without complications (11) Hypertension: Status: Chronic Assessment and plan: She is off her oral medications, just getting metoprolol and diltiazem. BP running high, but I don't think aggressive control is indicated. Hydralyzine prn only if severe HTN. I expect her BP to normalize back on her oral medication. (12) DVT prophylaxis: Status: Acute Assessment and plan: -h/o pAFib but not on anticoagulation. Using LMWH. Subjective Subjective Patient reports: denies diarrhea, vomiting or fever Interval history since last seen: Events: case discussed with Son Fabrizio. TPN adjusted with potassium and phosphorus Patient opens eyes and makes non-specific vocalizations in response to questions today. Urine a little cloudy. Exam Narrative Exam Narrative: chronically ill appearing older female laying in bed in no acute distress, awakens to verbal stimuli, only non-specific vocalizations today, does not move to commands seems to attempt to move arm with command. heart regular with HR in 60s-70s. lungs CTAB, abdomen soft, non-tender, non-distended. Extremities with 1-2+ puffy bilateral edema in arms and legs, warm, no cyanosis, no focal swelling/redness. Skin breakdown dressed on extensor elbows, heels Objective Last Vital Signs Temp 36.6 C 11/11/23 03:44 Pulse 70 11/11/23 11:18 Resp 19 11/11/23 06:03 BP 160/54 H 11/11/23 11:18 Pulse Ox 98 11/11/23 06:03 Laboratory Results - last 24 hr 11/10/23 11/11/23 23:28 05:47 WBC 5.63 RBC 2.95 L Hgb 9.0 L Hct 27.3 L MCV 93 MCH 30.5 MCHC 33.0 RDW 16.5 H Plt Count 384 MPV 9.5 PT 9.7 INR 1.0 Sodium 142 Potassium 3.5 Chloride 106 Carbon Dioxide 29.3 Anion Gap 6.7 BUN 34 H Creatinine 0.5 L Est GFR (CKD-EPI 2020) 92.43 Glucose 233 H Calcium 7.8 L Phosphorus < 2.0 L Magnesium 1.9 Total Bilirubin 0.34 AST 22 ALT 22 Alkaline Phosphatase 80 Total Protein 5.5 L Albumin 1.9 L Urine Color Yellow Urine Clarity Cloudy Urine pH 6.5 Ur Specific [place] 1.025 Urine Protein >=300 H Urine Ketones Negative Urine Blood Moderate H Urine Nitrite Negative Urine Bilirubin Negative Urine Urobilinogen 0.2 Ur Leukocyte Esterase Small H Urine RBC Not Applicable Urine WBC >50 H Ur Epithelial Cells Not Applicable Urine Crystals Not Applicable Urine Bacteria Not Applicable Urine Mucus Not Applicable Urine Other Many Yeast Ur Culture Indicated? Yes Urine Glucose >=1000 H Time Spent with Patient Time Spent with Patient: >50 minutes Time was spent: preparing to see the patient(eg.review tests), obtaining and/or reviewing separately otained hiistory, ordering medications,tests, procedures, referring, communicating with other health care program resident, indepentently interpreting results and care coordination
[2023-11-11] MEDS: MORPHine 2 MG/ML SYR IVP (14:12)
--- NOTE | 2023-11-11 15:22 | PT.INPN ---
PT Notes Visit Reasons: Septic shock Inpatient Physical Therapy Progress Note Date: 11/11/2023 Dates of Service: 11/02/2023 through 11/11/2023 PRECAUTIONS: Bed-bound, prone to skin breakdown, on patient positioning schedule with nursing. Non-verbal. Qgn-Pzmjgyx-lryzofes, online preschool principal services available when needed. HOB to at least 30 degrees at all times per COMPUTER AIDED DRAFTER. SUBJECTIVE: in room and agreable to performing range of motion to both upper and lower etremities. OBJECTIVE: present in room throughout session. Kwon catheter in place. Patient slid down in bed and needed to be scooted up in bed by JODIE Gifford and this PT. PT adjusted pillows to maximize safe and comfortable bed quarterturned positioning to her L side. Positioners placed to elavate B UE to minimize edema. B ankle placed in neutral with use of pillow/positioners. ? KALIE EX: Worked on performing UE and LE PNF D1/D2 flexion and extension patterns x 10 reps/patterns to maintain joint flexibility and range of motion that will facilitate easier and and more efficient provision of care by nursing staff while in bed. PROM: Right Upper Extremity: Shoulder flexion 95*. ER 20*. IR allows hand to abdomen. Elbow flexion 10-100*. Tolerates passive hand opening. Left Upper Extremity: Shoulder flexion 80*. ER 20*. IR allows hand to abdomen. Elbow flexion 0-100*. Tolerates passive hand opening. Right Lower Extremity: Hip flexion 95*. Knee motion 0-100*. Ankle DF allows 5*. Left Lower Extremity: Hip flexion 95*. Knee motion 0-100*. Ankle DF allows 5*. Strength: Samia does not demonstrate any volitional movement outside of turning head and opening eyes. Limbs flaccid during ROM assessment. Sensation: Unable to assess Bed Mobility/Transfers: Not assessed, patient unable to follow instrcutions Gait: Unable to test. Balance: Static Sitting: Unable Dynamic Sitting: Unable Static Standing: Unable Dynamic Standing: Unable Special Tests: Mobility Limitations Standardized Measure [facility]-PAC 6 clicks Basic Mobility Inpatient Short Form: Raw Score: 0 CMS Score: 100% imairment Informed Consent/Education: Patient instructed in purpose of PT consult and plan of care. Utilized marketing graphics specialist for session. ASSESSMENT:? Patient remains a full code as of today. Goal of care for PT is to prevent contracture formation in all B UE/LE joints, maximize joint and muscle flexibility, and increase circulation to all B UE/LE joints and muscles to maintain overall function and prevent further decline while ensuring skin integrity. At this time, patient continues to be unable to follow instructions to progress bed mobility/transfer level due to significant cognitive loss. Patient is an 83 year old female referred to physical therapy services for mobility assessment. Patient presents with severe impairments in cognition and communication, with inability to meaningfully participate in PT intervention. Per nursing, her mobility was significantly better, although not independent, as of last week. She'll benefit from PT intervention for PROM to prevent contracture during management of acute medical issues, with continued attempts at improving participation in transfers as she improves medically. If her ability to participate does not significantly improve, PT intervention will not be further indicated, and treatment will instead focus on training family in care and providing recommendations to field technical support consultant at the [facility]. She continues to demonstrate the following impairment level findings: 1. non-communicative 2. unable to follow single-step commands 3. unable to assess strength 4. altered mental status Impairments are contributing to the following functional limitations: 1. unable to participate in transfers 2. unable to demonstrate volitional movement 3. dependent for all ADLs and bed mobility Patient is assessed as High 64336 complexity based on the following: History: As above Examination: Limited in all functional mobility. Dependent for all bed mobility, transfers and ADLs Presentation: unstable Decision Making: high complexity Goals: Goals X1 week 1. Supine-Sit : mod A x 2 NOT MET 2. Sit-Supine : mod A x 2 NOT MET 3. Sit-Stand : mod A x 2 with Steady Lift NOT MET 4. Stand-Sit : mod A x 2 with Steady Lift NOT MET 5. Bed-Chair : mod A x 2 with Steady Lift NOT MET 6. Chair-Bed : mod A x 2 with Steady Lift NOT MET Plan of Care/Treatment Plan: PROM to AAROM to B UE as tolerated. Work with nursing to ensure that patient positioning is fully enforced and complied with. Elevate B forearms and hands after session to assist with edema control. Ensure that bony landmarks are well relieved. Continue with 1x/day 5x/week for these intervention. DISCHARGE RECOMMENDATIONS: Return to SNF whenver medically cleared to discharge TREATMENT CODE/TIME: 64477 x 26 minutes for 2 units (15:22-15:48). Thank you for the opportunity to participate in the care of this patient. Please sign an return this page within 30 days if you agree with the above POC. Thank you! Physician Signature Date Sarahi Riggins PT, DPT, CLT [facility] [place], [place]
--- NOTE | 2023-11-11 15:41 | PGE_ITS ---
Date of Service Date of service: 11/11/23 Time of Service: 12:30 Assessment and Plan Assessment and plan (1) ACP (advance care planning): Status: Acute (2) Palliative care encounter: Status: Acute (3) Full code status: Status: Acute (4) Depression: Status: Chronic (5) Hypertension: Status: Chronic (6) Paroxysmal atrial fibrillation: Status: Acute (7) Diabetes: Status: Chronic Qualifiers: Diabetes mellitus type: type 2 Diabetes mellitus technician terminal and repeater insulin use: without technician terminal and repeater use Diabetes mellitus complication status: without complication Qualified Code(s): E11.9 - Type 2 diabetes mellitus without com plications (8) Adrenal insufficiency: Status: Suspected (9) Swallowing dysfunction: Status: Acute (10) Impacted stool in intestine: Status: Acute (11) Chronic UTI: Status: Acute (12) Rheumatoid arthritis: Status: Chronic Qualifiers: Rheumatoid arthritis location: multiple sites Rheumatoid factor presence: unspecified presence Qualified Code(s): M06.9 - Rheumatoid arthritis, unspecified (13) Altered mental status: Status: Acute Assessment and plan: Samia continues to be in a almost comatose like state. She has very little responsiveness. She is a non-[place] Ver[place] speaker. So communication has been an issue. She continues to grow weaker. She cannot swallow at this point. She is starting to third space and is very low-protein. It is not clear with the initial cause for the sepsis was. Whether this was UTI or pneumonia. This is fully resolved. She has had 2 CTs which showed no signs of bleed or acute stroke. She is however not able to take in oral nutrition to sustain herself. At this point she is so weak that I doubt she will be able to recover any meaningful cognitive function or be able to do any of her ADLs or swallow. Most likely she will remain in a semi a vegetative state and maintained by tube feeding. I was not able to communicate with her son as he is not hospital in [place] following complications from back surgery. Multiple conversations were had today with the son via hospitalist/ care management/ and palliative care. He is her DPOA. Prior to this hospitalization she was a full code. She is still full code at this time. Again I have not directly spoke to the son but through conversations with other healthcare providers he has expressed that he does want everything done for her including placing of a feeding tube. I did discuss the case with anesthesia. She would have to have general anesthesia. She is an acceptable candidate for this. -There is some concern if placing a feeding tube is in the best interest and or being is too what the patient desires. This was reviewed reviewed at a ethics committee. Was deemed that patient was not having an undue influence from family and that per her previous wishes having short-term feeding tube placed would not present an undue harm. However again from a medical standpoint her ability to regain strength for ever to eat again is probably not probable for her and her quality of life will be poor. She does have some baseline dementia and is minimal meaningful responsiveness today. And I do not anticipate this improving significantly. She has continued to decline while she is in the hospital. I would like to be able to have a conversation with her son so we can review the procedure and risks and benefits. Having a feeding tube would keep Samia alive. But given her baseline deficits and underlying dementia and age, I do not think that she will be able to return to any meaningful quality of living. However the son does currently want her as a full code and wants her to have nutrition. She has been accepted at a longterm in [place] that would be willing to take her. We are going to place a tube then we would want to get this in place so that we can start tube feeds and make sure that she is able to tolerate and avoid any refeeding syndrome and see if she has problems with diarrhea. Risks of placing the tube include but not limited to: Bleeding, infection, pneumonia, blood clots tube infections, aspiration. If the tube is pulled out inadvertently within 2 weeks she will require a laparotomy to close the gastric defect. She is acceptable but higher risk for anesthesia including heart attack and stroke and possible prolonged mechanical ventilation. She does not appear to have any surgical scars on her abdomen but I do not have any history of previous surgeries. There is a risk of damage to the colon when placing a tube. And other on for told complications. -Her son communicated through care management this evening, that he still wants her to have the feeding tube placement and that he is been discharged from the hospital and would be available at 10 AM Saturday to discuss placemen. -I did discuss the case with the hospitalist, palliative care, care management and nursing. -I did review the case with anesthesia and again the patient is acceptable risk for the proposed procedure. This document was created with voice activated software and may contain errors. 15 mins spent in direct pt care and 60 in non face to face time (14) Dementia: Status: Chronic Qualifiers: Dementia type: Alzheimer's Alzheimer's disease onset: unspecified onset Dementia severity: moderate Dementia behavioral or psychological symptom: without behavioral, psychotic, or mood disturbance or anxiety Qualified Code(s): G30.9 - Alzheimer's disease, unspecified; F02.B0 - Dementia in other diseases classified elsewhere, moderate, without behavioral disturbance, psychotic disturbance, mood disturbance, and anxiety (15) Deficit in activities of daily living (ADL): Status: Acute Subjective Subjective Interval history since last seen: Patient is not responsive and cannot give me any history. Patient is also on [place] speaker. Most of the history is taken from the chart or from the nursing staff. The patient's DPOA is her son. Per nursing staff we are not allowed to discuss her care with her or the granddaughter as they are not on her HIPAA list. Her son is currently in the hospital with complications from back surgery and is not available to discuss her care at the original time I saw Samia today. No one knows her past surgical history. She does not have any scars on her abdomen. She has been n.p.o. for the past 13 days and has only been receiving nutrition via TPN. They tried inserting a NG tube and initiating feedings. The patient did not tolerate having an NG tube in place and either needed to be physically restrained or would pull out the tube. She is not currently moving any of her extremities to command or pain. She does respond that she does not have any abdominal pain. I did review her chart. Prior to coming in to the hospital she has been significantly declining and has had multiple falls. She had a fall approximately a month prior to coming into the hospital. She had a negative CT at that point. She has had 2 CTs since she has been in the hospital and do not show any signs of stroke or bleed. She is not receiving any blood thinners or methotrexate. She is on IV steroids. -I did review notes from speech/dietary/PT/palliative care/care management. from H&P: 83 yo F with history of type 2 DM, CAD, RA on methotrexate and prednisone, recurrent UTIs on nitrofurantoin, CAD who was found during routine rounds at the [facility] to be unresponsive around 11am. She was bradycardic in the 40s with BP as low as 40/23 per EMS. Given 2 doses of epinephrine in the field. She is unable to give additional history. Latesha at bedside, hadn't seen her in weeks. No report of recent infection or medicaiton change. Objective Last Vital Signs Temp 36.6 C 11/11/23 15:25 Pulse 68 11/11/23 15:25 Resp 17 11/11/23 15:25 BP 191/76 H 11/11/23 15:25 Pulse Ox 98 11/11/23 15:25 Laboratory Results - last 24 hr 11/10/23 11/11/23 23:28 05:47 WBC 5.63 RBC 2.95 L Hgb 9.0 L Hct 27.3 L MCV 93 MCH 30.5 MCHC 33.0 RDW 16.5 H Plt Count 384 MPV 9.5 PT 9.7 INR 1.0 Sodium 142 Potassium 3.5 Chloride 106 Carbon Dioxide 29.3 Anion Gap 6.7 BUN 34 H Creatinine 0.5 L Est GFR (CKD-EPI 2020) 92.43 Glucose 233 H Calcium 7.8 L Phosphorus < 2.0 L Magnesium 1.9 Total Bilirubin 0.34 AST 22 ALT 22 Alkaline Phosphatase 80 Total Protein 5.5 L Albumin 1.9 L Urine Color Yellow Urine Clarity Cloudy Urine pH 6.5 Ur Specific [place] 1.025 Urine Protein >=300 H Urine Ketones Negative Urine Blood Moderate H Urine Nitrite Negative Urine Bilirubin Negative Urine Urobilinogen 0.2 Ur Leukocyte Esterase Small H Urine RBC Not Applicable Urine WBC >50 H Ur Epithelial Cells Not Applicable Urine Crystals Not Applicable Urine Bacteria Not Applicable Urine Mucus Not Applicable Urine Other Many Yeast Ur Culture Indicated? Yes Urine Glucose >=1000 H Time Spent with Patient Time Spent with Patient: >50 minutes Time was spent: preparing to see the patient(eg.review tests), referring, communicating with other health care connector, indepentently interpreting results, care coordination and other
--- NOTE | 2023-11-11 17:58 | W.PALPGNOTE ---
Date of service: 11/11/23 Time of Service: 10:00 Assessment and Plan Assessment and plan (1) Decreased oral intake: Status: Acute Assessment and plan: TPN started 11/07 w/guidance from nutrition remains strict NPO from [facility], slight improvements in swallow initiation seen end of last week, today's assessment: demonstrates worsening oral-pharyngeal swallow function compared to last assessment, characterized by severely delayed and incomplete pharyngeal initiation and diminished hyolaryngeal movement, resulting in consistent s/sxs aspiration HCA/son Fabrizio consents to placement of feeding tube as soon as possible surgery and anesthesia consults today; they will plan on obtaining informed consent from Fabrizio tomorrow morning at 10am when he comes to visit (2) Altered mental status: Status: Acute Assessment and plan: Potential improvement in alertness, eyes open, demonstrating some slight improvement and engagement, however this wax and wanes - in setting of advanced dementia it is difficult to assess what her baseline to return to will be; likely cause of AMS is metabolic encephalopathy, superimposed on her dementia; scans have ruled out stroke or occlusive disease -Has been off of oral thyroid and antidepressants, plan to resume with feeding tube Qualifiers: Altered mental status type: delirium Qualified Code(s): R41.0 - Disorientation, unspecified (3) Dementia: Status: Chronic Assessment and plan: advanced Conflicting reports given her baseline status, family reports she is not bedbound at baseline. She is able to communicate with them up until Saturday prior to admission -They also report an improvement in communication over weekend Reviewed advanced dementia, loss of swallow function as an expected progression of disease, while cannot rule out acute change may resolve and she could return to her baseline, we reviewed that this is very unlikely to happen and she will likely never regain the ability to eat and drink. If to give her every possible cause for life-sustaining treatment, best approach would be to place PEG tube, return her on home medications and continue to monitor. His preference would be for 2 weeks, looking for changes in communication, swallow ability, returning to home meds and improve strength. Fabrizio was unwilling to review criteria for when they would consider not doing feeding tube anymore. -The risks and benefits of not placing a tube, NG tube versus PEG tube were reviewed, including the increased risk of skin breakdown, infection and quality of life concerns. The ethics surrounding placing a feeding tube and a person with advanced dementia was reviewed [place] previously reported bedbound status and dependence with all ADL unintentional weight loss progressive, per chart review in 2 years she has lost 23 pounds, 1 year weight 19lbs, 6 mos 5lbs lowest recorded weight 147lbs on this admission demonstrates a 6 mo weight loss of approx 9% PPS today: 10%; at [facility] reported baseline: 30%-50% FAST scale today 7e; at [facility] reported 6e-7c, difficult to assess w/language barrier Qualifiers: Dementia type: Alzheimer's Alzheimer's disease onset: unspecified onset Dementia severity: moderate Dementia behavioral or psychological symptom: without behavioral, psychotic, or mood disturbance or anxiety Qualified Code(s): G30.9 - Alzheimer's disease, unspecified; F02.B0 - Dementia in other diseases classified elsewhere, moderate, without behavioral disturbance, psychotic disturbance, mood disturbance, and anxiety (4) Lives in correction: Status: Acute Assessment and plan: Plan for relocation to [facility] at discharge, CM to coordinate Referral previously placed, they are able to take her with feeding tube (5) Palliative care encounter: Status: Acute Assessment and plan: Palliative will continue to follow this case closely while inpatient, please reach out for consult as needed (6) Swallowing dysfunction: Status: Acute Assessment and plan: [facility] following as above (7) Full code status: Status: Acute Assessment and plan: concerns w/futility raised; he would not consider DNR/DNI, she remains full code He reports her preference would be all life-sustaining treatment, she would not want to alone, she would want her life sustained so family could be with her to make this decision, he would want to keep her alive on ventilation until family can visit and be with her to determine extubation (8) Deficit in activities of daily living (ADL): Status: Acute Assessment and plan: total ADL assist (9) Unintentional weight loss: Status: Acute Assessment and plan: as above Subjective Subjective Interval history since last seen: Samia remains hospitalized at [facility] 06/21 AMS and swallowing dysfunction spoke to Fabrizio, son/HCA: He is being discharged from hospital today after complications from his laminectomy, has been in since Saturday evening. His plan is to present to hospital either tonight or tomorrow morning to visit his mother -He is aware that physical therapy is working with her to avoid contractures, she historically has not wanted to engage in PT; she has not wanted to engage in the dentist historically as well, aware of her broken and cracked tooth, however she hates dentist -The plan is for her to be relocated to [facility] at discharge, he wonders who will coordinate this transfer. His family is going to the [facility] to gather her things. He wants to ensure she can be cared for at [facility] with a feeding tube -He tells a story about 1 time his mother stopped taking her medications because she did not want to take them anymore and he delivered a cascade to her home and she restarted her medications, he feels that she often needs to get pushed into doing things for her quality of life, he feels that her walking was due to her choosing not to walk versus a physical change and decline which then turned into -He references conversations had with palliative care provider on Saturday regarding end-of-life care versus feeding tube placement, and acknowledges that there was a lean towards HISTOR[employer] RECORDS ADMINISTRATOR. He sent his family in to see her this weekend and the consensus from the family was to continue to pursue the feeding tube, Samia did not recognize all the family, however she did speak and asked for her , she did move her arms independently. - At this time they are not considering end-of-life care and due to the improvement they have seen in her function they would like to do a trial of the feeding tube to see if she could improve at all. Thinking about a 2-week trial and reevaluate. Would want to get out of the hospital J[facility]. Looking for strengths in getting back on home medications, improve strength, swallowing function and communication abilities -He would like to see her on the correct medications for her conditions, restarting the best medications, starting slow. Would want to have hospitalist review home medications, avoiding meds to calm her down because she she does not need them this was done by the [facility] -He reports that his father was visiting her the Saturday before she went to the hospital, she got up with the 's health she was not bedridden -He is aware that and there culture the goal is to bring elders home and care for them through end-of-life, however they are not able to do that without caregiving, which is why they transferred her to a correction -ACP preferences include doing everything to keep her alive as long as possible, reports they have had conversations in the past that she would want everything done except for being kept alive on a machine, as long as she is able to communicate and nag father she would want this. He further qualifies that a machine to keep alive would be for her heart or lungs, would be open to conversations, however he is not going to change his mind without reasonable doubt. Once I get the call to put on machine he would contact his family to come say diegoe, it is important that she is with family at end-of-life, she has told him that she does not want to alone. -He states clearly and several times that he would want every possible chance of bring her back, every measure taken - He states very clearly that he would like to pursue moving forward with PEG tube today as soon as possible, preference for no longer waiting even if it means he cannot see her in person He would like his daughters Donna Garvey added back onto HIPAA, he is aware he will need to update the form per chart review/conversations w/staff: has shown some progress with increased responsiveness, however these come in waves sometimes, she is not responsive. She will answer yes or no with nods or shakes. She continues a strict n.p.o. status, some difficulty with choking on ice chips over the weekend, these were stopped due to intolerance and concerns for aspiration. she did ask for water earlier and they performed oral care. 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 - She has received morphine 2 mg due to pain, has order for Q2 as needed. Increased third spacing, more puffy. Her blood pressure is been in the 180s to 190s with scheduled metoprolol and diltiazem and as needed available as well. -Surgery and anesthesia to consult and evaluate today for potential feeding tube placement tomorrow Exam Narrative Exam Narrative: General: Older adult female, lying in bed throughout visit, eyes closed; no facial grimace or groan; at bedside Respirations: Even and unlabored, no audible wheeze no cough Edema: generalized throughout, worse in RUE Objective Last Vital Signs Temp 97.9 F 11/11/23 15:25 Pulse 68 11/11/23 17:55 Resp 17 11/11/23 15:25 BP 189/64 H 11/11/23 17:55 Pulse Ox 98 11/11/23 15:25 Laboratory Results - last 24 hr 11/10/23 11/11/23 23:28 05:47 WBC 5.63 RBC 2.95 L Hgb 9.0 L Hct 27.3 L MCV 93 MCH 30.5 MCHC 33.0 RDW 16.5 H Plt Count 384 MPV 9.5 PT 9.7 INR 1.0 Sodium 142 Potassium 3.5 Chloride 106 Carbon Dioxide 29.3 Anion Gap 6.7 BUN 34 H Creatinine 0.5 L Est GFR (CKD-EPI 2020) 92.43 Glucose 233 H Calcium 7.8 L Phosphorus < 2.0 L Magnesium 1.9 Total Bilirubin 0.34 AST 22 ALT 22 Alkaline Phosphatase 80 Total Protein 5.5 L Albumin 1.9 L Urine Color Yellow Urine Clarity Cloudy Urine pH 6.5 Ur Specific [place] 1.025 Urine Protein >=300 H Urine Ketones Negative Urine Blood Moderate H Urine Nitrite Negative Urine Bilirubin Negative Urine Urobilinogen 0.2 Ur Leukocyte Esterase Small H Urine RBC Not Applicable Urine WBC >50 H Ur Epithelial Cells Not Applicable Urine Crystals Not Applicable Urine Bacteria Not Applicable Urine Mucus Not Applicable Urine Other Many Yeast Ur Culture Indicated? Yes Urine Glucose >=1000 H
[2023-11-11] MEDS: Travoprost 0.004% Ophth Sol 2.5 ML BTL OP (20:20)
[2023-11-11] MEDS: Insulin Glargine 300 UNITS/3 ML PEN 12 UNITS SC (20:25)
[2023-11-12] VITALS (22 sets, daily range): BP systolic 135–190; BP diastolic 55–90; PULSE 60–77; RESP 15–20; TEMP 35.9–36.8; O2SAT 97–100; BMI 32.0
[2023-11-12] MEDS: dilTIAZem 25 MG/5 ML VIAL 20 MG IVP ×4 (00:10→20:13)
[2023-11-12] MEDS: Refresh PLUS Eye Drops 0.4ml OP ×5 (00:10→20:12)
[2023-11-12] MEDS: Metoprolol 5 MG/5 ML VIAL IVP ×5 (00:11→20:09)
[2023-11-12] MEDS: Normal Saline Flush 10 ML SYR IVP ×4 (00:11→18:45)
[2023-11-12] MEDS: Insulin Aspart 300 UNITS/3 ML PEN SC ×4 (00:17→18:42)
[2023-11-12 06:32] LABS: HCT 28.2 % (36.0-46.0); MCH 29.9 pg (27.0-33.0); MCHC 31.9 % (32.0-36.0); MCV 94 fL (80-95); MPV 9.4 fL (8.0-11.0); Platelet Count 382 10^3/uL (130-400); RBC 3.01 10^6/uL (3.93-5.22); RDW 16.9 % (11.7-14.6); RDW-SD 56.2 fL; WBC 5.82 10^3/uL (4.4-10.8)
[2023-11-12 06:56] LABS: Anion Gap 5.8 mmol/L (3-11); BUN 34 mg/dL (7-18); CO2 29.2 mmol/L (21.0-32.0); CREATININE 0.6 mg/dL (0.55-1.02); Calcium 7.7 mg/dL (8.5-10.1); Chloride 104 mmol/L (98-107); Estimated GFR 88.45 (mL/min/1.73m2); Glucose 330 mg/dL (74-106); Sodium 139 mmol/L (136-145)
[2023-11-12 07:07] LABS: Magnesium 1.8 mg/dL (1.8-2.4); PHOSPHORUS 2.3 mg/dL (2.6-4.7)
[2023-11-12] MEDS: Pantoprazole 40 MG VIAL IVP (08:40)
[2023-11-12] MEDS: Hydrocortisone SOD SUC. 100 MG VIAL 25 MG IVP ×2 (08:40→20:08)
[2023-11-12] MEDS: Timolol 0.5% 5 ML BTL OP (08:41)
[2023-11-12] MEDS: Normal Saline 10 ML VIAL (08:41)
--- NOTE | 2023-11-12 09:30 | TELEFU_ITS ---
Date of service: 11/12/23 Time of Service: 09:30 Nutrition Note NOTE: Since yesterday's addition of Mag and Phos to TPN these have both improved - Mag wnl and Phos improved to 2.3 today. Calcium deteriorated from 7.8 yesterday to 7.7 today. Anemia continues with Hgb at 9 and Hct slightly improved at 28.2. Pt did get folate from 612-11/04 and then held - history shows high folate levels and this can sometimes mask B12 deficiency - B12 lab looks wnl but was done 05/2022. FPG 330 this morning and subsequent capillaries in high 200's. Getting 12u Glargine HS and Resistant SS Aspart [id number]. Incontinent of bloody mucoid stool 11/09 per nursing. no BMI reported since. Per chart review, providers have been in touch with pt son (KRYS) who is supposed to come in today to visit and discuss/initiate surgery for PEG tube placement for intermediate manager enteral feeding. Per previous note, pt's estimated energy needs are 1272kcals and 68-82g protein, 1272mL fluid Due to pt age, state of health, history of impaction and bloody stool, and extended time without use of her GI tract, I would suggest transitioning to a fiber-free enteral formula with a goal to transition to fiber-containing formula once toleration is established. Nutrition focused physical exam not performed due to language barrier and cognitive decline - did not want to induced any anxiety. However, nursing reports 4+ pitting to R hand, 3+ pitting to R upper extremity, and generalized 3+ non-pitting edema and is most probable explanation for some increases in her weight over admission. with impaction and very low reported intake prior admission, pt Assessed at taking <75% of estimated energy requirement for 1 month or greater around the time of admission. Pt meets at least 2 of the [employer] clinical characteristics that support a dx of severe malnutrition Recommend to please update problem list with Severe Malnutrition (E43) in the context of chronic disease or condition related to estimated intake of <75% of estimated energy needs x1 month leading up to admission with at least 5 days of extended NPO status prior to TPN adminstration, and moderate to severe fluid accumulation as noted above. Recommend normalizing phos labs prior to initiation to decrease re-feeding risk Recommend B12 lab Recommend vitamin D lab as it was on the low side last year, or 2,000IU cholecalciferol - adequate vitamin d important for inflammatory modulation Recommend Osmolite 1.5 fed at a continuous rate with goal of 35mL/hour with 30ml flushes q4 hours (or ad cruzito). This provides a total of 864mL of formula: 1260kcals (99% of estimate), 53g protein (78% of estimate) and 818 mL fluid (638mL formula/180mL flushes). Recommend starting very slow - 10mL per hour with increase by 5mL Q6 hours until goal rate met. Time Spent in Nutritional Counseling and Treatment: 0
--- NOTE | 2023-11-12 09:47 | PT.INTREAT ---
PT Notes Visit Reasons: Septic shock Inpatient Physical Therapy Treatment Note [facility] Date: 11/12/23 PRECAUTIONS: Standard Therapeutic Activities ([id number][]): Direct one-on-one instruction in dynamic activities to improve functional performance. ? Provided skilled cues and instruction on performance and technique throughout. ? Therapeutic Exercises ([id number][2]): Direct one-on-one instruction in therapeutic exercises to develop strength, endurance, range of motion and flexibility. ?Pt while in bed in supine received PROM: Shoulder flexion x 7 Elbow flex/ex x 10 Wrist flex/ext x 10 Finger flexion/ext x 10 Hip abd x 10 hip flex x 5 Ankle pumps x 10 SLR L LE x 5 slight ? PLAN: Cont as per PT POC. TREATMENT CODE/TIME: 9:20-9:45 (25) TEx2
--- NOTE | 2023-11-12 12:11 | ANES.PREOP_ITS ---
General Info Height: 5 ft Weight: 74.4 kg Body Mass Index (BMI): 32.0 Surgical Procedure: Operation Date: 11/08/23 07:40 Proposed Procedure Side Surgeon p Peg Tube Insertion Agustin Sheth MD Operation Date: 11/12/23 14:40 Proposed Procedure Side Surgeon p Peg Tube Insertion Ana Tyson DO Meds Allergies and Home Medications Allergies Allergy/AdvReac Type Severity Reaction Status Date / Time No Known Allergies Allergy Unverified 05/23/23 20:09 Home Medication Medication Instructions Recorded mirabegron 50 mg tablet,extended 50 mg PO DAILY 03/01/22 release 24 hr (Myrbetriq) clopidogrel 75 mg tablet 75 mg PO DAILY 11/22/22 methotrexate sodium 2.5 mg tablet 2.5 mg PO QWEEK 11/22/22 mirtazapine 15 mg disintegrating 15 mg PO QHS 11/22/22 tablet pantoprazole 40 mg tablet,delayed 40 mg PO DAILY 11/22/22 release peg 400-propylene glycol 0.4 %-0.3 1 drp ophthalmic (eye) Q4H 11/22/22 % eye gel drops (Systane Gel) prednisone 5 mg tablet 5 mg PO DAILY 11/22/22 sertraline 100 mg tablet 100 mg PO DAILY 11/22/22 timolol maleate 0.5 % eye drops 1 drp ophthalmic (eye) DAILY 11/22/22 travoprost 0.004 % eye drops 1 drp ophthalmic (eye) DAILY 11/22/22 lisinopril 30 mg tablet 30 mg PO DAILY #0 tabs 05/20/23 acetaminophen 500 mg tablet 1,000 mg PO TID PRN 09/29/23 bisacodyl 5 mg tablet,delayed 5 mg PO BID 09/29/23 release (Dulcolax (bisacodyl)) cyclobenzaprine 5 mg tablet 5 mg PO BID 09/29/23 levothyroxine 100 mcg tablet 125 mcg PO .QHS 09/29/23 nitrofurantoin 50 mg capsule 50 mg PO .qd 09/29/23 quetiapine 25 mg tablet 75 mg PO QHS 09/29/23 clonidine 0.1 mg/24 hr weekly 1 patch transdermal QWEEK 10/29/23 transdermal patch ([id number]) dulaglutide 0.75 mg/0.5 mL 0.75 mg subcut QWEEK 10/29/23 subcutaneous pen injector (Trulicity) folic acid 1 mg tablet 1 mg PO DAILY 10/29/23 insulin lispro 100 unit/mL 3 unit subcut AC & HS 10/29/23 subcutaneous solution nebivolol 10 mg tablet (Bystolic) 10 mg PO DAILY 10/29/23 Current Visit Medications: Current Medications Generic Name Dose Route Start Last Admin Trade Name Freq PRN Reason Stop Dose Admin Acetaminophen 0 mg 10/29/23 17:44 Acetaminophen 325 Mg Tab PO Q4H PRN PRN Bisacodyl 5 mg 10/29/23 20:00 11/05/23 11:51 Bisacodyl 5 Mg Tabec PO Not Given BID TALAT Bisacodyl 10 mg 10/29/23 19:26 11/09/23 17:50 Bisacodyl 10 Mg Supp LA 10 mg DAILY PRN PRN Administration Carboxymethylcellulose Sodium 0 each 10/29/23 20:00 11/12/23 08:41 Refresh Plus Eye Drops 0.4ml OP 1 drp Q4H TALAT Administration Clopidogrel Bisulfate 75 mg 10/30/23 08:30 11/05/23 11:52 Clopidogrel 75 Mg Tab PO Not Given DAILY TALAT Dextrose 0 gm 10/29/23 19:17 Glucose Oral Gel 15 Gm/37.5 Gm Tube PO DIRECTED PRN Dextrose/Water 0 gm 10/29/23 19:17 Dextrose 50%-Water 25 Gm/50 Ml Syr IVP DIRECTED PRN Diltiazem HCl 20 mg 11/05/23 06:00 11/12/23 06:19 Diltiazem 25 Mg/5 Ml Vial IVP 20 mg Q6H TALAT Administration Folic Acid 1 mg 10/30/23 08:30 11/05/23 11:52 Folic Acid 1 Mg Tab PO Not Given DAILY TALAT Hydralazine HCl 10 mg 11/04/23 01:14 11/11/23 09:15 Hydralazine 20 Mg/Ml Vial IVP 10 mg Q4H PRN PRN Administration Hydrocortisone 25 mg 11/10/23 20:00 11/12/23 08:40 Hydrocortisone Sod Suc. 100 Mg Vial IVP 25 mg BID TALAT Administration Sodium Chloride 500 mls @ 0 mls/hr 11/02/23 03:53 11/06/23 23:45 Saline 500ml Bag IV Infused PRN PRN Infusion As Directed Fat Emulsion 50 gm in 250 mls @ 31.25 mls/hr 11/06/23 17:00 11/12/23 02:11 Intralipid 20% IVPB Infused DAILY@1700 TALAT Infusion Acetaminophen 1,000 mg in 100 mls @ 400 mls/hr 11/06/23 13:47 11/09/23 06:24 Ofirmev IVPB Infused Q8H PRN PRN Infusion pain Sodium Chloride 500 mls @ 0 mls/hr 11/11/23 09:15 Saline 500ml Bag IV DIRECTED PRN As Directed Sodium/Potass/Mag/Sharan/Chlor/ 1,038 mls @ 63 mls/hr 11/12/23 04:00 11/12/23 03:58 Acetate 20 ml/ Multivitamins IV 63 mls/hr 10 ml/ Zinc/Copper/Manganese/ .BY DURATION TALAT Administration Selenium 1 ml/ Potassium Phosphate 15 mm/ Magnesium Sulfate 8.12 meq/ Amino Acids/ Dextrose Sodium/Potass/Mag/Sharan/Chlor/ 1,020 mls @ 63 mls/hr 11/12/23 04:00 Acetate 20 ml/ Amino Acids/ IV Dextrose .BY DURATION [facility] IV Miscellaneous Supplies 1 each 11/11/23 09:15 Iv Access IV DIRECTED [facility] Insulin Aspart 0 - 27 units 11/08/23 06:00 11/12/23 06:18 Insulin Aspart 300 Units/3 Ml Pen SC 12 unit Q6H [facility] Administration Protocol Insulin Glargine 12 units 11/09/23 20:00 11/11/23 20:25 Insulin Glargine 300 Units/3 Ml Pen SC 12 units HS TALAT Administration Levothyroxine Sodium 100 mcg 10/29/23 20:00 11/04/23 20:23 Levothyroxine 100 Mcg Tab PO Not Given HS [facility] Levothyroxine Sodium 25 mcg 10/29/23 20:00 11/04/23 20:23 Levothyroxine 25 Mcg Tab PO Not Given HS TALAT Lisinopril 20 mg 11/03/23 11:00 11/05/23 11:52 Lisinopril 20 Mg Tab PO Not Given DAILY [facility] Metoprolol Tartrate 5 mg 11/07/23 22:18 11/08/23 02:45 Metoprolol 5 Mg/5 Ml Vial IVP 5 mg Q1H PRN PRN Administration systolic >180 or tachycardia Metoprolol Tartrate 5 mg 11/08/23 20:00 11/12/23 08:39 Metoprolol 5 Mg/5 Ml Vial IVP 5 mg Q4H TALAT Administration Mirabegron 25 mg 10/30/23 08:30 11/05/23 11:52 Mirabegron 25 Mg Tabcr PO Not Given DAILY TALAT Mirtazapine 7.5 mg 11/02/23 20:00 11/04/23 20:06 Mirtazapine 15 Mg Tab PO Not Given HS TALAT Morphine Sulfate 2 mg 11/07/23 21:27 11/11/23 14:12 Morphine 2 Mg/Ml Syr IVP 2 mg Q2H PRN PRN Administration Pantoprazole Sodium 40 mg 11/03/23 08:30 11/12/23 08:40 Pantoprazole 40 Mg Vial IVP 40 mg DAILY TALAT Administration Polyethylene Glycol 34 gm 11/02/23 20:00 11/05/23 11:52 Polyethylene Glycol 3350 17 Gm Packet PO Not Given BID TALAT Psyllium Hydrophilic Mucilloid 1 each 11/02/23 10:30 11/05/23 11:52 Psyllium Pkt NG Not Given BID TALAT Quetiapine Fumarate 50 mg 11/02/23 20:00 11/04/23 19:23 Quetiapine 25 Mg Tab PO Not Given HS TALAT Sertraline HCl 100 mg 10/30/23 08:30 11/05/23 11:52 Sertraline 100 Mg Tab PO Not Given DAILY TALAT Sodium Chloride 0 ml 10/30/23 22:03 11/12/23 08:40 Normal Saline Flush 10 Ml Syr IVP 20 ml PRN PRN Administration Sodium Chloride 0 ml 11/11/23 09:15 Normal Saline Flush 10 Ml Syr IVP PRN PRN Timolol Maleate 0 ml 10/30/23 08:30 11/12/23 08:41 Timolol 0.5% 5 Ml Btl OP 1 drp DAILY TALAT Administration Travoprost 0 ml 10/30/23 20:00 11/11/23 20:20 Travoprost 0.004% Ophth Gertrudis 2.5 Ml Btl OP 1 drp QPM TALAT Administration PFSH Active Problems Active Problems: Problem Status Onset Code Unintentional weight loss R63.4 Deficit in activities of daily living (ADL) Z78.9 Full code status Z78.9 Swallowing dysfunction R13.10 Palliative care encounter Z51.5 Decreased oral intake R63.8 Lives in [facility] Z59.3 ACP (advance care planning) Z71.89 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 Hypokalemia due to excessive gastrointestinal loss of potassium E87.6 Hyperkalemia E87.5 DVT prophylaxis Z29.9 Impacted stool in intestine K56.41 Septic shock A41.9, R65.21 Altered mental status R41.82 Acute hypotension I95.9 Chronic hyponatremia E87.1 Hyponatremia E87.1 Chronic UTI N39.0 Overactive bladder N32.81 Paroxysmal atrial fibrillation I48.0 Dementia F03.90 Depression F32.A Hypertension I10 Rheumatoid arthritis M06.9 Diabetes E11.9 Elevated troponin R79.89 Altered mental status R41.82 Non-ST elevation AK (NSTEMI) I21.4 Elevated troponin I level R79.89 Tobacco Smoking/Tobacco Use Status: Never Alcohol Alcohol Intake: never Substance Use Substance use type: does not use Details: Unable to obtain Vital Signs and Lab Results Vital Signs Most Recent Vital Signs in EMR: Most Recent Vital Signs Temp Pulse Resp BP Pulse Ox 36.8 C 67 16 183/65 H 98 11/12/23 11:56 11/12/23 11:56 11/12/23 11:56 11/12/23 11:56 11/12/23 11:56 Point of Care Results Point of Care Results: Finger Stick Blood Glucose 290 11/12/23 06:18 Lab Results 11/12/23 06:10 11/12/23 06:10 Blood Type / Crossmatch: 2 No Data to Display Complete Blood Count: 2 White Blood Count 5.82 10^3/uL (4.4-10.8) 11/12/23 06:10 Red Blood Count 3.01 10^6/uL (3.93-5.22) L 11/12/23 06:10 Hemoglobin 9.0 g/dL (11.2-15.7) L 11/12/23 06:10 Hematocrit 28.2 % (36.0-46.0) L 11/12/23 06:10 Platelet Count 382 10^3/uL (130-400) 11/12/23 06:10 Venous Blood Lactate 2.6 mmol/L (0.6-1.4) H* 10/29/23 19:35 Complete Metabolic Panel: 2 Sodium 139 mmol/L (136-145) 11/12/23 06:10 Potassium 4.0 mmol/L (3.5-5.1) 11/12/23 06:10 Chloride 104 mmol/L (98-107) 11/12/23 06:10 Carbon Dioxide 29.2 mmol/L (21.0-32.0) 11/12/23 06:10 BUN 34 mg/dL (7-18) H 11/12/23 06:10 Creatinine 0.6 mg/dL (0.55-1.02) 11/12/23 06:10 Est GFR (CKD-EPI 2020) 88.45 (mL/min/1.73m2) 11/12/23 06:10 Magnesium 1.8 mg/dL (1.8-2.4) 11/12/23 06:10 Calcium 7.7 mg/dL (8.5-10.1) L 11/12/23 06:10 Albumin 1.9 g/dL (3.4-5.0) L 11/11/23 05:47 Glucose 330 mg/dL (74-106) H 11/12/23 06:10 Hemoglobin A1c 6.6 % (<5.7) H 10/29/23 13:22 C-Reactive Protein 1.40 mg/dL (<or=0.5) H 11/10/23 05:00 Liver Function Panel: 2 Alanine Aminotransferase (ALT/SGPT) 22 U/L (14-59) 11/11/23 05: 47 Aspartate Amino Transf (AST/SGOT) 22 U/L (15-37) 11/11/23 05:47 Coagulation Panel: 2 INR International Normalized Ratio 1.0 (0.9-1.1) 11/11/23 05:4 7 Prothrombin Time 9.7 sec (9.1-11.1) 11/11/23 05:47 Activated Partial Thromboplast Time 20.9 sec (23.6-32.8) L 10/29/23 13:41 Cardiac Panel: 2 Troponin I 141 ng/L (< or =60) H* 11/06/23 NT-Pro-B Natriuret Pep 1696 pg/mL (<300) H 10/29/23 Creatine Kinase 50 U/L (26-192) 10/29/23 Arterial Blood Gas: 2 No Data to Display Venous Blood Gas: 2 Venous Blood pH 7.45 (7.31-7.41) H 10/29/23 13:22 Venous Blood Partial Pressure O2 66 mmHg 10/29/23 13:22 Venous Blood Partial Pressure CO2 32 mmHg (41-51) L 10/29/23 13 :22 Venous Blood Oxygen Saturation 95 % 10/29/23 13:22 Venous Blood HCO3 22 mmol/L (23-28) L 10/29/23 13:22 Venous Blood Base Excess -2 mmol/L (-2-3) 10/29/23 13:22 Venous Blood Total Carbon Dioxide 20 mmol/L (24-29) L 10/29/23 13:22 Pancreas Panel: 2 Lipase 35 U/L (16-77) 10/29/23 13:22 Thyroid Panel: 2 Thyroid Stimulating Hormone (TSH) 4.70 uIU/mL (0.36-3.74) H 10/29/23 13:22 Infectious Disease: 2 Coronavirus (COVID-19)(PCR) Negative (Negative) 10/29/23 13:46 Coronavirus 2019 Source Nasopharynx 10/29/23 13:46 Influenza Virus Type A (PCR) Negative (Negative) 10/29/23 13:4 6 Influenza Virus Type B (PCR) Negative (Negative) 10/29/23 13:4 6 Respiratory Syncytial Virus (PCR) Negative (Negative) 10/29/23 13:46 Blood Cultures: 2 No Data to Display Toxicology Panel: 2 Ethyl Alcohol Level < 3.0 mg/dL (<10) 10/29/23 13:22 Urine Amphetamines Screen Negative (Negative) 10/29/23 13:41 Urine Benzodiazepines Screen Negative (Negative) 10/29/23 13:4 1 Urine Barbiturates Screen Negative (Negative) 10/29/23 13:41 Urine Cocaine Screen Negative (Negative) 10/29/23 13:41 Urine Methadone Screen Negative (Negative) 10/29/23 13:41 Urine Opiates Screen Negative (Negative) 10/29/23 13:41 Ur Tricyclic Antidepressants Screen Negative (Negative) 13:41 Ur Tetrahydrocannabinol (THC) Scrn Negative (Negative) 4 13:41 Imaging and Studies Imaging and Studies Study information below may be from another EMR and interpreted by another provider. Please see original notes in EMR for more complete details. EKG Summary: PATIENT NAME: Samia Forrester UNIT #: [id number] ORDERING PROVIDER: Hubert Ibarra PRIMARY CARE PROVIDER: HUBERT CHRISTINE DO DATE/TIME OF SERVICE: 11/07/232001 : 1940 PERFORMING LOCATION: [place] APPROVED REPORT Exam: Resting ECG Reason for Exam: rhythm change Patient Location: I HR:134 bpm ECG Measurements Heart Rate 134 AXIS LA [id number] P [id number] QRSd 82 QRS 1 QT 309 T191 QTc 462 Conclusion Atrial fibrillation...? atrial activity Anteroseptal infarct, age indeterminate...Q >35mS, T neg, V1-V2 Lateral leads are also involved...lat Q or ST-T abnormalities Echocardiogram Summary: Reviewed Anesthesia Assessment and Plan Anesthesia History Personal History: No History of Anesthesia Complications Family History: No Family History of Anesthesia Complications Exercise Tolerance Exercise Tolerance: Metabolic Equivalents<4 Cardiac & Pulmonary Exam Cardiac Exam: Normal S1/S2 Heart Sounds Pulmonary Exam: Wheezing Present Implantable Cardiac Device Does patient have a Pacemaker or an ICD?: No Airway Exam Known Difficult Airway: No Mallampati Class: Unable to Assess Mouth Opening: Narrow (< 3cm) Thyromental Distance: Greater than 3 cm Neck Range of Motion: Unable to Assess Neck Circumference: Normal Teeth Condition: Generalized Poor Dentition ASA Classification ASA Score: ASA 4 Emergency Case?: No NPO Status NPO Status: NPO Clears >2 hours, Solids >8 hours (dysphagic on TPN) Anesthesia Plan Resuscitation Status: Full Code (discussed code status at length with patient's son and KRYS Dinh. all measures to be en) Anesthesia Technique: General Anesthesia Airway Planned: Endotracheal Tube Monitors Used: Standard Monitors and Central Line (currently present)
--- NOTE | 2023-11-12 12:18 | PGE_ITS ---
Date of Service Date of service: 11/12/23 Time of Service: 12:18 Assessment and Plan Assessment and plan (1) Decreased oral intake: Status: Acute Assessment and plan: This is in setting of her acute illness, but also advancing dementia with poor oral intake and weight loss preceding her acute illness but clearly worse since. -HVAC PROJECT ENGINEER on 11/03 and 11/04 some imrpovement but still recommended strict NPO as patient was unable to initiate swallow -also consulted Nutrition; rec TPN (see note for details) started 11/07 -family discussion with Palliative Care 11/07 and 11/10, see notes -family continues to want everything done for the patient, including her being Full Code and a feeding tube -They also stated that if the patient were to significantly decline, they would consider withdrawal of care -there have been concerning information told to Palliative Care by the care givers at the [facility], see 11/07 note, but not clear abuse. - KRYS Fabrizio clear in desire for PEG, he is hopeful she may improved, and we can't rule this out. - Case reviewed with Dr. Tyson and yamel, proceed today with PEG understanding uncertain benefit and risks of procedure. (2) Impacted stool in intestine: Status: Acute Assessment and plan: -stool impaction has resolved as per CT scan findings. -patient was likely septic from either stercocolitis or possible her gall bladder given her findings on her CT scan. -See Dr. Sheth note from 11/01 regarding surgical input -Was on Cefepime #10 days (10/28-), she also had been on vancomycin (10/28 - 10/30) but was DCed after negative MRSA screen. -CRP 11/09 improved -We would like to resume stool softeners and laxatives in her to prevent impaction again once we can use the gut. (3) Paroxysmal atrial fibrillation: Status: Acute Assessment and plan: -patient has hx of frequent falls at the long-term, therefore deemed not a good candidate for exterminator helper termite anticoagulation. -had been on currently on lopressor 25 mg QID and diltiazem 30 mg TID, both of which are held as patient is NPO -HR increased AM 11/03 to 120's, responded to IV dilt 5mg, but needed additional 5mg dose -now on IV diltiazem and metoprolol and in sinus with good rate control on tele. Back to PNG medication after PEG (4) Adrenal insufficiency: Status: Suspected Assessment and plan: -suspected but no random cortisol was done and no cosyntropin study was done. -However, her hypotension resolved quickly after getting on hydrocortisone. -will continue hydrocortisone weaning -decreased dose and frequency of hydrocortisone to 25 mg IV Q8h on 11/02, change to BID 11/09 (early am and afternoon to more mimic physiologic) -transition to PO prednisone when we are able to use the gut (5) Hypokalemia due to excessive gastrointestinal loss of potassium: Status: Acute Assessment and plan: -initially had hyperkalemia w/ JUAN JOSÉ on admission, has been low since 11/03 -K+ and Mg++ better, TPN adjusted 11/09 PM. (6) Altered mental status: Status: Acute Assessment and plan: -In the setting of a progressive dementia over months to years -mental status appears to be minimally changed as compared to previous day. Per family much more interactive with them. -likely cause is metabolic encephalopathy superimposed on her dementia, CTA head did not show CVA or occlusive disease. -MRI also without any acute findings -She has also been off of her oral thyroid and antidepressants, resuming these w hen we can use the gut may help -See above Qualifiers: Altered mental status type: delirium Qualified Code(s): R41.0 - Disorientation, unspecified (7) Dementia: Status: Chronic Assessment and plan: -see above Qualifiers: Dementia type: Alzheimer's Alzheimer's disease onset: unspecified onset Dementia severity: moderate Dementia behavioral or psychological symptom: without behavioral, psychotic, or mood disturbance or anxiety Qualified Code(s): G30.9 - Alzheimer's disease, unspecified; F02.B0 - Dementia in other diseases classified elsewhere, moderate, without behavioral disturbance, psychotic disturbance, mood disturbance, and anxiety (8) Rheumatoid arthritis: Status: Chronic Assessment and plan: -No active disease. -Holding methotrexate, giving hydrocortisone as above. -resume methotrexate at discharge Qualifiers: Rheumatoid arthritis location: multiple sites Rheumatoid factor presence: unspecified presence Qualified Code(s): M06.9 - Rheumatoid arthritis, unspecified (9) Diabetes: Status: Chronic Assessment and plan: -On GLP-1 and some insulin as outpatient. -A1c is below goal, outpatient insulin should be less aggressive chronically -Lantus was stopped d/t low glucose readings in the morning, but sugars have been in 2-300s since, resumed 11/08 at conservative dose along with SSI since starting TPN. -sugars high today, but defer change in lantus until after surgery Qualifiers: Diabetes mellitus type: type 2 Diabetes mellitus fpc insulin use: without exterminator helper termite use Diabetes mellitus complication status: without complication Qualified Code(s): E11.9 - Type 2 diabetes mellitus without complications (10) Hypertension: Status: Chronic Assessment and plan: She is off her oral medications, just getting metoprolol and diltiazem. BP running high, but I don't think aggressive control is indicated. Hydralyzine prn only if severe HTN. I expect her BP to normalize back on her oral medication. (11) DVT prophylaxis: Status: Acute Assessment and plan: -h/o pAFib but not on anticoagulation. Using LMWH. Subjective Subjective Patient reports: denies diarrhea, vomiting or fever Interval history since last seen: Son Fabrizio here, states patient conversed with him yesterday, responds to questions. He is sure he wants the feeding tube. Samia responds to questions with some vocalizations, but not intellible words, then closes eyes again. Exam Narrative Exam Narrative: General: Older adult female, lying in bed throughout visit, eyes closed; no facial grimace or groan; HEENT: left eye chronically scarred, chronic ptosis on that side. There is some dark erythema below both eyes, dark patch left lateral brow (old bruise?) Respirations: Even and unlabored, no audible wheeze no cough CV: regular in 60s, no murmur. Edema: 1-2+ pitting edema generalized throughout Skin: no rash, skin breakdown over elbows, heels bandaged. Objective Last Vital Signs Temp 36.8 C 11/12/23 11:56 Pulse 67 11/12/23 11:56 Resp 16 11/12/23 11:56 BP 183/65 H 11/12/23 11:56 Pulse Ox 98 11/12/23 11:56 Laboratory Results - last 24 hr 11/12/23 06:10 WBC 5.82 RBC 3.01 L Hgb 9.0 L Hct 28.2 L MCV 94 MCH 29.9 MCHC 31.9 L RDW 16.9 H Plt Count 382 MPV 9.4 Sodium 139 Potassium 4.0 Chloride 104 Carbon Dioxide 29.2 Anion Gap 5.8 BUN 34 H Creatinine 0.6 Est GFR (CKD-EPI 2020) 88.45 Glucose 330 H Calcium 7.7 L Phosphorus 2.3 L Magnesium 1.8 Time Spent with Patient Time Spent with Patient: >50 minutes Time was spent: preparing to see the patient(eg.review tests), obtaining and/or reviewing separately otained hiistory, ordering medications,tests, procedures, referring, communicating with other health home health caregiver, indepentently interpreting results and care coordination
--- NOTE | 2023-11-12 12:32 | OT.INNT ---
Occupational Therapy Notes 11/12/23 OT consult received and pts chart was reviewed. OT was unable to consult with pt today and will attempt to resume services tomorrow. Deepthi Valiente, OTR/L
--- NOTE | 2023-11-12 12:35 | PDOC.STREC ---
Date of service: 11/12/23 Time of Service: 12:35 Speech Therapy Recommendations Report ST Recommendations: Reason for non-treatment note: PEG tube placement pending for this afternoon - see recent palliative/surgery notes. CHIEF SECURITY AND SAFETY OFFICER will resume contact tomorrow if indicated.
--- NOTE | 2023-11-12 15:56 | W.SPSTP ---
Date of service: 11/12/23 Time of Service: 15:56 Subjective Samia was contacted after cancellation of PEG tube placement this afternoon. Per nursing, her son Fabrizio decided against the feeding tube for now after seeing improvement today. Per nursing and Fabrizio, Samia tolerated several sips of water via syringe this afternoon with relatively timely swallow initiation. She also appears with improved responsiveness/alertness this date according to the team. INVESTIGATOR UTILITY BILL COMPLAINTS was asked to re-evaluate her PO tolerance in light of no feeding tube placement today. When INVESTIGATOR UTILITY BILL COMPLAINTS arrives she is semi-reclined in bed, with eyes open, appearing more alert than previous sessions with this INVESTIGATOR UTILITY BILL COMPLAINTS. When family asks her questions she does provide yes/no responses, nods, etc. She maintains eye contact as well. Opens mouth in anticipation of spoon feeding, and asks for more on several occasions. Objective/Assessment/Plan Objective Treatment Techniques & Outcomes: Positioning: HOB raised to ~80 degrees for PO trials. Respiratory status: Tolerating room air. Dry breath sounds at baseline. Oral Care: Appearing good at baseline with minimal buildup on tongue. Tolerated swab well, holding mouth open and following instructions. Minimal placque/buildup removed from mouth indicating good oral care. PO Trials Assessed: Ice chips x3 Thin liquids via 1/2 tsp x 3 Thin liquids via full tsp x2 Thin liquids via cup edge x2 Mildly thick liquids via full tsp x 3 Mildly thick liquids via cup edge x2 Moderately thick liquids via full tsp x 6 Moderately thick liquids via cup edge x2 Puree (pudding) via 1/2 tsp x 8 Soft/bite size (custard) via 1/2 tsp x3 Oral Phase Findings: Slow bolus manipulation/A-P transport but with only minimal lingual residue for solid>puree>liquid trials Mild anterior loss with thin liquids but improved spoon stripping Pharyngeal Phase findings: Mildly delayed but much improved, on average ~5 second delayed pharyngeal initiation with solids and liquids Remains with reduced hyolaryngeal movement Weak/non productive cough is intermittent with thin liquids and mildly thick Overall cough is more dry sounding than previous Patient demonstrating discomfort/wincing with thin liquids>thick Consistently tolerates moderately thick liquids and puree in tsp & 1/2 tsp amts, without cough/wetness Goals: Certified Procedural Coder Goals: Patient will remain free from aspiration-related illness, malnutrition, and dehydration. Short Term Goals: Patient will tolerate PO trials for consideration of diet initiation without overt s/s aspiration across 2/2 visits. Assessment Samia was more alert today, and demonstrates significantly improved oral-pharyngeal swallow function compared to last assessment and overall performance last week. While she remains with mildly delays, her pharyngeal initiation is greatly improved this date and correlates with improvements in alertness, engagement, and PO tolerance of certain textures. Suspect presence of her son also contributed to improved mental status/engagement. Despite only 1 visit with improved tolerance, medical team is eager to provide as much nutrition as possible while tolerance is improved. Given that the family has decided not to place feeding tube for now, and her tolerance has improved (for the time being) for conservative textures/consistencies, recommend to initiate oral diet overnight and see how her intake is. Recommend continued close following by nutrition, palliative, INVESTIGATOR UTILITY BILL COMPLAINTS and revisit feeding recommendations daily. INVESTIGATOR UTILITY BILL COMPLAINTS will attempt another session with Samia tomorrow morning. Samia remains at very high risk of aspiration-related illness from PO intake as well as secretions, especially if fluctuations in mental status continue, as well as bedridden status, poor tolerance of friction toothbrush. Please continue strict oral hygeine recommendations and aspiration precautions as recommended below. Will continue to re-assess daily and collaborate with Palliative Care to educate family of feeding recommendations as indicated by overall clinical picture. Plan Plan: Frequency: 5x/week for 1-2 weeks; Recommendations Recommendations: Diet recommendation: IDDSI Level 4-Pureed Solids (THICK puree, nursing please thicken any runny/liquid food items to at least pudding thickness 3-Moderately Thick Liquids OK to provide 2-3 trials ice chips between meals if good oral care completed. -Please see further details at [email or web address].org Medication Administration: Recommend continue non-oral medications until several days of PO tolerance is established. Oral hygiene before/after PO intake using suction swab kits on all oral structures as tolerated Level of Assistance/Supervision: Assistive feeding only by trained staff/family or INVESTIGATOR UTILITY BILL COMPLAINTS at this time PO intake only when awake/alert? Risk Management: Reduced auditory/visual distractions when eating Slow rate of intake Provide bites puree via 1/2 tsp Provide small sips thickened liquid via 1/2 tsp Alternate solids/liquids as able Multiple swallows per bolus (2) to encourage clearance of pharyngeal stasis/residue Small+frequent meals throughout day If consistent coughing/wet breath sounds occur, STOP po intake and try again later. Alert INVESTIGATOR UTILITY BILL COMPLAINTS. Education Provided to: Family, Nursing Topics Addressed: anatomy/physiology of swallowing mechanism, overt s/sx to monitor for re: potential aspiration of food / liquids, recommendations for improved oral care, Apraxia of Speech Dx Total Time Spent: 45 minutes (2pm-2:45pm)
--- NOTE | 2023-11-12 17:48 | PDOC.CMPRO ---
Date of service: 11/12/23 Time of Service: 17:48 Care Management Progress Note Progress Note Text Progress Note Text: Samia was lying in bed when CM met with her. Her and son were by her side. The surgeon and anesthesiologist were in the room, reviewing the risks/benefits of placing a feeding tube, which was scheduled for this afternoon. Per report, this procedure was cancelled later in the day as Samia appeared to show some improvement with swallowing; speech was consulted to re evaluate her ability to swallow. Samia engaged minimally today with Fabrizio, providing yes/no answers. CM reviewed the plan with Fabrizio regarding [facility] [facility]. [facility] continues to review her referral; no bed offer at this time, although they have been waiting for a plan for feeding with a PEG tube, and have stated that they can accommodate this. CM will continue to follow. Discharge Potential Discharge Needs: Consult Consult Services Needed: Nutrition, Palliative, Speech and Other and PT Evaluation (PT and OT) Anticipated Barriers to Discharge: Medical Status and Treatment delay (PEG tube procedure cancelled today by son) Transportation: EMS Plan: Samia will likely be transferred back to [facility] when medically cleared. She will follow up with facility providers and plan of care and transport via EMS coordinated by CM. CM will continue to assess for discharge needs. SDOH(Care Management) Screening Will the Patient Participate in the Screening?: Unable to obtain Social Determinants of Health Comments(SDOH Details): lives in [facility]
--- NOTE | 2023-11-12 17:57 | PGE_ITS ---
Date of Service Date of service: 11/12/23 Time of Service: 11:00 Assessment and Plan Assessment and plan (1) Palliative care encounter: Status: Acute (2) Full code status: Status: Acute (3) Depression: Status: Chronic (4) Hypertension: Status: Chronic (5) Acute hypotension: (6) Elevated troponin I level: Status: Resolved (7) Paroxysmal atrial fibrillation: Status: Acute (8) Diabetes: Status: Chronic Qualifiers: Diabetes mellitus complication status: without complication Diabetes mellitus terminal superintendent insulin use: without [facility] use Diabetes mellitus type: type 2 Qualified Code(s): E11.9 - Type 2 diabetes mellitus without complications (9) Adrenal insufficiency: Status: Suspected (10) Unintentional weight loss: Status: Acute (11) Decreased oral intake: Status: Acute Assessment and plan: - I spent 40 minutes with the patient and her son today. Patient would occasionally answer yes/no questions. She could not follow verbal commands. She did respond to pain. She denies any abdominal pain today. She is moving her arms but they appear to be almost in a decortication type manner. I did discuss the patient's prognosis with her son today. Coupled with the sepsis his left hernia is severe deconditioned state. She is not able to eat due to swallowing dysfunction/aspiration. She is confused and does not answer questions or answer them appropriately. Given her age and her comorbidities it is highly unlikely she would be able to overcome her deficits with rehab. Prior to coming into the hospital patient had been in the ER 3 times with falls. She is a resident of the [facility]. I have reviewed her full chart. I reviewed the results of ethics committee. I discussed the case with Dr. Varela with and calls from palliative care and with care management. I did review with the son that again her prognosis and her ability for rehab good functioning was still hospitalization is very low. We do need to get some type of nutrition into her. He does not wish to consider comfort cares or hospice at this time and does not want to place a feeding tube. He is very adamant that we continue to try with rehabilitation. We reviewed extensively the procedure and what it would entail. I have discussed this case at length with anesthesia. Because of her deconditioned status and swallowing dysfunction they are concerned about her ability to control her secretions and control her airway. They feel that she is best served by general anesthesia. She is very weak and and minimal pulmonary reserve, so there is a concern that she may not be able to come off the ventilator postprocedure. And that she may even require long-term ventilatory care. Risks of procedure include but not limited to: Bleeding, infection, pneumonia, blood clots, damage to stomach, damage to colon or other bowel. If the tube becomes dislodged within 2 weeks she will need to undergo laparotomy. There is risk of to migration. There is a risk of continued aspiration with tube feeds. There is risks of diarrhea. There is risks of tube dislodgment. However I think the anesthesia is a bigger concern for her. She is high risk for NH/CVA/. At this time she is a full code and her son would like everything done for her. He does give consent and we will proceed with surgery. This document was created with voice activated software and may contain errors. 40 mins spent in direct pt care and 60 in non face to face time (12) Hyponatremia: Status: Resolved (13) Swallowing dysfunction: Status: Acute (14) Chronic hyponatremia: Status: Chronic (15) Overactive bladder: Status: Acute (16) Rheumatoid arthritis: Status: Chronic Qualifiers: Rheumatoid arthritis location: multiple sites Rheumatoid factor presence: unspecified presence Qualified Code(s): M06.9 - Rheumatoid arthritis, unspecified (17) Dementia: Status: Chronic Qualifiers: Alzheimer's disease onset: unspecified onset Dementia behavioral or ps ychological symptom: without behavioral, psychotic, or mood disturbance or anxiety Dementia severity: moderate Dementia type: Alzheimer's Qualified Code(s): G30.9 - Alzheimer's disease, unspecified; F02.B0 - Dementia in other diseases classified elsewhere, moderate, without behavioral disturbance, psychotic disturbance, mood disturbance, and anxiety (18) Altered mental status: Status: Acute Qualifiers: Altered mental status type: delirium Qualified Code(s): R41.0 - Disorientation, unspecified (19) Deficit in activities of daily living (ADL): Status: Acute Exam Narrative Exam Narrative: PHYSICAL EXAM GENERAL APPEARANCE: Alert, healthy appearance, oriented, x 3,? in no acute distress HYDRATION: Well hydrated HEAD, EYES, EARS, NECK, THROAT: Head is normocephalic, pupils equal, round, reactive to light and accommodation, ocular movement intact, sclera clear and no jaundice. ? LUNGS: normal respiration/shallow respirations. ?Clear to auscultation bilaterally. ?No wheeze. ?HEART: Regular rate and rhythm. no murmurs EXTREMITY: Diffuse pitting edema ABDOMEN: soft and non-tender to palpation.? Normal bowel sounds.? No surgical scars Objective Last Vital Signs Temp 36.6 C 11/12/23 15:10 Pulse 77 11/12/23 15:10 Resp 16 11/12/23 15:10 BP 171/64 H 11/12/23 15:10 Pulse Ox 99 11/12/23 15:10 Laboratory Results - last 24 hr 11/12/23 06:10 WBC 5.82 RBC 3.01 L Hgb 9.0 L Hct 28.2 L MCV 94 MCH 29.9 MCHC 31.9 L RDW 16.9 H Plt Count 382 MPV 9.4 Sodium 139 Potassium 4.0 Chloride 104 Carbon Dioxide 29.2 Anion Gap 5.8 BUN 34 H Creatinine 0.6 Est GFR (CKD-EPI 2020) 88.45 Glucose 330 H Calcium 7.7 L Phosphorus 2.3 L Magnesium 1.8 Time Spent with Patient Time Spent with Patient: >50 minutes Time was spent: preparing to see the patient(eg.review tests), obtaining and/or reviewing separately otained hiistory, ordering medications,tests, procedures, referring, communicating with other health housekeeper caregiver, indepentently interpreting results and care coordination
--- NOTE | 2023-11-12 17:59 | PGE_ITS ---
Date of Service Date of service: 11/12/23 Time of Service: 13:45 Assessment and Plan Assessment and plan (1) Full code status: Status: Acute (2) Depression: Status: Chronic (3) Hypertension: Status: Chronic (4) Paroxysmal atrial fibrillation: Status: Acute (5) Diabetes: Status: Chronic Qualifiers: Diabetes mellitus type: type 2 Diabetes mellitus fpc insulin use: without termite exterminator helper use Diabetes mellitus complication status: without complication Qualified Code(s): E11.9 - Type 2 diabetes mellitus without complications (6) Adrenal insufficiency: Status: Suspected (7) Unintentional weight loss: Status: Acute (8) Decreased oral intake: Status: Acute (9) Swallowing dysfunction: Status: Acute (10) Chronic hyponatremia: Status: Chronic (11) Overactive bladder: Status: Acute (12) Rheumatoid arthritis: Status: Chronic Qualifiers: Rheumatoid arthritis location: multiple sites Rheumatoid factor presence: unspecified presence Qualified Code(s): M06.9 - Rheumatoid arthritis, unspecified (13) Altered mental status: Status: Acute (14) Dementia: Status: Chronic Qualifiers: Dementia type: Alzheimer's Alzheimer's disease onset: unspecified onset Dementia severity: moderate Dementia behavioral or psychological symptom: without behavioral, psychotic, or mood disturbance or anxiety Qualified Code(s): G30.9 - Alzheimer's disease, unspecified; F02.B0 - Dementia in other diseases classified elsewhere, moderate, without behavioral disturbance, psychotic disturbance, mood disturbance, and anxiety (15) Deficit in activities of daily living (ADL): Status: Acute Subjective Subjective Interval history since last seen: The plan today had been discussed with family previously. Son indicated he wanted her to be a full code and he wanted everything done including placing a feeding tube. We had discussed risks versus benefits. She is very high risk for placement and very high risk risk for prolonged mechanical ventilation. Son and given consent And arrangements had been made to place a PEG tube for feeding. I was called to see the patient by nursing that the son had decided to give her water to see if she could still swallow. I did inform him that if he did give her water then we would not be able to place a tube today. The son informed this repairer typewriter that she did not know how to practice medicine and that he was going to do what he felt was in her best interest regardless of what has been recommended by the medical team. The tube is canceled for today. I did review notes from speech and that for their ability to reevaluate her quickly Surgery will sign off at this time and reevaluate as necessary. This document was created with voice activated software and may contain errors. 15 mins spent in direct pt care and 20 in non face to face time Objective Last Vital Signs Temp 36.6 C 11/12/23 15:10 Pulse 77 11/12/23 15:10 Resp 16 11/12/23 15:10 BP 171/64 H 11/12/23 15:10 Pulse Ox 99 11/12/23 15:10 Laboratory Results - last 24 hr 11/12/23 06:10 WBC 5.82 RBC 3.01 L Hgb 9.0 L Hct 28.2 L MCV 94 MCH 29.9 MCHC 31.9 L RDW 16.9 H Plt Count 382 MPV 9.4 Sodium 139 Potassium 4.0 Chloride 104 Carbon Dioxide 29.2 Anion Gap 5.8 BUN 34 H Creatinine 0.6 Est GFR (CKD-EPI 2020) 88.45 Glucose 330 H Calcium 7.7 L Phosphorus 2.3 L Magnesium 1.8 Time Spent with Patient Time Spent with Patient: 25-34 minutes Time was spent: preparing to see the patient(eg.review tests), referring, communicating with other health health care social worker and care coordination
--- NOTE | 2023-11-12 18:20 | W.ANESPRE ---
General Info Date of Service Date Performed: 11/12/23 Height: 5 ft Weight: 74.4 kg Body Mass Index (BMI): 32.0 Surgical Procedure: Operation Date: 11/08/23 07:40 Proposed Procedure Side Surgeon p Peg Tube Insertion Agustin Sheth MD Operation Date: 11/12/23 14:40 Proposed Procedure Side Surgeon p Peg Tube Insertion Ana Tyson DO Meds Allergies and Home Medications Allergies Allergy/AdvReac Type Severity Reaction Status Date / Time No Known Allergies Allergy Unverified 05/23/23 20:09 Home Medication Medication Instructions Recorded mirabegron 50 mg tablet,extended 50 mg PO DAILY 03/01/22 release 24 hr (Myrbetriq) clopidogrel 75 mg tablet 75 mg PO DAILY 11/22/22 methotrexate sodium 2.5 mg tablet 2.5 mg PO QWEEK 11/22/22 mirtazapine 15 mg disintegrating 15 mg PO QHS 11/22/22 tablet pantoprazole 40 mg tablet,delayed 40 mg PO DAILY 11/22/22 release peg 400-propylene glycol 0.4 %-0.3 1 drp ophthalmic (eye) Q4H 11/22/22 % eye gel drops (Systane Gel) prednisone 5 mg tablet 5 mg PO DAILY 11/22/22 sertraline 100 mg tablet 100 mg PO DAILY 11/22/22 timolol maleate 0.5 % eye drops 1 drp ophthalmic (eye) DAILY 11/22/22 travoprost 0.004 % eye drops 1 drp ophthalmic (eye) DAILY 11/22/22 lisinopril 30 mg tablet 30 mg PO DAILY #0 tabs 05/20/23 acetaminophen 500 mg tablet 1,000 mg PO TID PRN 09/29/23 bisacodyl 5 mg tablet,delayed 5 mg PO BID 09/29/23 release (Dulcolax (bisacodyl)) cyclobenzaprine 5 mg tablet 5 mg PO BID 09/29/23 levothyroxine 100 mcg tablet 125 mcg PO .QHS 09/29/23 nitrofurantoin 50 mg capsule 50 mg PO .qd 09/29/23 quetiapine 25 mg tablet 75 mg PO QHS 09/29/23 clonidine 0.1 mg/24 hr weekly 1 patch transdermal QWEEK 10/29/23 transdermal patch ([id number]) dulaglutide 0.75 mg/0.5 mL 0.75 mg subcut QWEEK 10/29/23 subcutaneous pen injector (Trulicity) folic acid 1 mg tablet 1 mg PO DAILY 10/29/23 insulin lispro 100 unit/mL 3 unit subcut AC & HS 10/29/23 subcutaneous solution nebivolol 10 mg tablet (Bystolic) 10 mg PO DAILY 10/29/23 Current Visit Medications: Current Medications Generic Name Dose Route Start Last Admin Trade Name Freq PRN Reason Stop Dose Admin Acetaminophen 0 mg 10/29/23 17:44 Acetaminophen 325 Mg Tab PO Q4H PRN PRN Bisacodyl 5 mg 10/29/23 20:00 11/05/23 11:51 Bisacodyl 5 Mg Tabec PO Not Given BID TALAT Bisacodyl 10 mg 10/29/23 19:26 11/09/23 17:50 Bisacodyl 10 Mg Supp KS 10 mg DAILY PRN PRN Administration Carboxymethylcellulose Sodium 0 each 10/29/23 20:00 11/12/23 15:10 Refresh Plus Eye Drops 0.4ml OP 1 drp Q4H TALAT Administration Clopidogrel Bisulfate 75 mg 10/30/23 08:30 11/05/23 11:52 Clopidogrel 75 Mg Tab PO Not Given DAILY TALAT Dextrose 0 gm 10/29/23 19:17 Glucose Oral Gel 15 Gm/37.5 Gm Tube PO DIRECTED PRN Dextrose/Water 0 gm 10/29/23 19:17 Dextrose 50%-Water 25 Gm/50 Ml Syr IVP DIRECTED PRN Diltiazem HCl 20 mg 11/05/23 06:00 11/12/23 15:09 Diltiazem 25 Mg/5 Ml Vial IVP 20 mg Q6H TALAT Administration Folic Acid 1 mg 10/30/23 08:30 11/05/23 11:52 Folic Acid 1 Mg Tab PO Not Given DAILY TALAT Hydralazine HCl 10 mg 11/04/23 01:14 11/11/23 09:15 Hydralazine 20 Mg/Ml Vial IVP 10 mg Q4H PRN PRN Administration Hydrocortisone 25 mg 11/10/23 20:00 11/12/23 08:40 Hydrocortisone Sod Suc. 100 Mg Vial IVP 25 mg BID TALAT Administration Sodium Chloride 500 mls @ 0 mls/hr 11/02/23 03:53 11/06/23 23:45 Saline 500ml Bag IV Infused PRN PRN Infusion As Directed Acetaminophen 1,000 mg in 100 mls @ 400 mls/hr 11/06/23 13:47 11/09/23 06:24 Ofirmev IVPB Infused Q8H PRN PRN Infusion pain Sodium Chloride 500 mls @ 0 mls/hr 11/11/23 09:15 Saline 500ml Bag IV DIRECTED PRN As Directed IV Miscellaneous Supplies 1 each 11/11/23 09:15 Iv Access IV DIRECTED [facility] Insulin Aspart 0 - 27 units 11/08/23 06:00 11/12/23 15:06 Insulin Aspart 300 Units/3 Ml Pen SC 18 unit Q6H TALAT Administration Protocol Insulin Glargine 12 units 11/09/23 20:00 11/11/23 20:25 Insulin Glargine 300 Units/3 Ml Pen SC 12 units HS TALAT Administration Levothyroxine Sodium 100 mcg 10/29/23 20:00 11/04/23 20:23 Levothyroxine 100 Mcg Tab PO Not Given HS [facility] Levothyroxine Sodium 25 mcg 10/29/23 20:00 11/04/23 20:23 Levothyroxine 25 Mcg Tab PO Not Given HS [facility] Lisinopril 20 mg 11/03/23 11:00 11/05/23 11:52 Lisinopril 20 Mg Tab PO Not Given DAILY [facility] Metoprolol Tartrate 5 mg 11/07/23 22:18 11/08/23 02:45 Metoprolol 5 Mg/5 Ml Vial IVP 5 mg Q1H PRN PRN Administration systolic >180 or tachycardia Metoprolol Tartrate 5 mg 11/08/23 20:00 11/12/23 15:09 Metoprolol 5 Mg/5 Ml Vial IVP Not Given Q4H [facility] Mirabegron 25 mg 10/30/23 08:30 11/05/23 11:52 Mirabegron 25 Mg Tabcr PO Not Given DAILY [facility] Mirtazapine 7.5 mg 11/02/23 20:00 11/04/23 20:06 Mirtazapine 15 Mg Tab PO Not Given HS [facility] Morphine Sulfate 2 mg 11/07/23 21:27 11/11/23 14:12 Morphine 2 Mg/Ml Syr IVP 2 mg Q2H PRN PRN Administration Pantoprazole Sodium 40 mg 11/03/23 08:30 11/12/23 08:40 Pantoprazole 40 Mg Vial IVP 40 mg DAILY TALAT Administration Polyethylene Glycol 34 gm 11/02/23 20:00 11/05/23 11:52 Polyethylene Glycol 3350 17 Gm Packet PO Not Given BID TALAT Psyllium Hydrophilic Mucilloid 1 each 11/02/23 10:30 11/05/23 11:52 Psyllium Pkt NG Not Given BID TALAT Quetiapine Fumarate 50 mg 11/02/23 20:00 11/04/23 19:23 Quetiapine 25 Mg Tab PO Not Given HS TALAT Sertraline HCl 100 mg 10/30/23 08:30 11/05/23 11:52 Sertraline 100 Mg Tab PO Not Given DAILY TALAT Sodium Chloride 0 ml 10/30/23 22:03 11/12/23 15:15 Normal Saline Flush 10 Ml Syr IVP 20 ml PRN PRN Administration Sodium Chloride 0 ml 11/11/23 09:15 Normal Saline Flush 10 Ml Syr IVP PRN PRN Timolol Maleate 0 ml 10/30/23 08:30 11/12/23 08:41 Timolol 0.5% 5 Ml Btl OP 1 drp DAILY TALAT Administration Travoprost 0 ml 10/30/23 20:00 11/11/23 20:20 Travoprost 0.004% Ophth Gertrudis 2.5 Ml Btl OP 1 drp QPM TALAT Administration PFSH Active Problems Active Problems: Problem Status Onset Code Unintentional weight loss R63.4 Deficit in activities of daily living (ADL) Z78.9 Full code status Z78.9 Swallowing dysfunction R13.10 Palliative care encounter Z51.5 Decreased oral intake R63.8 Lives in fpc Z59.3 ACP (advance care planning) Z71.89 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 Hyperkalemia E87.5 DVT prophylaxis Z29.9 Altered mental status R41.82 Chronic hyponatremia E87.1 Chronic UTI N39.0 Overactive bladder N32.81 Paroxysmal atrial fibrillation I48.0 Dementia F03.90 Depression F32.A Hypertension I10 Rheumatoid arthritis M06.9 Diabetes E11.9 Altered mental status R41.82 Non-ST elevation MD (NSTEMI) I21.4 Medical History Medical History (Updated 11/12/23 @ 18:00 by Ana Tyson DO) Acute hypotension Tobacco Smoking/Tobacco Use Status: Never Alcohol Alcohol Intake: never Substance Use Substance use type: does not use Details: Unable to obtain Vital Signs and Lab Results Vital Signs Most Recent Vital Signs in EMR: Most Recent Vital Signs Temp Pulse Resp BP Pulse Ox 36.6 C 77 16 171/64 H 99 11/12/23 15:10 11/12/23 15:10 11/12/23 15:10 11/12/23 15:10 11/12/23 15:10 Point of Care Results Point of Care Results: Finger Stick Blood Glucose 348 11/12/23 15:06 Lab Results 11/12/23 06:10 11/12/23 06:10 Blood Type / Crossmatch: No Data to Display Complete Blood Count: White Blood Count 5.82 10^3/uL (4.4-10.8) 11/12/23 06:10 Red Blood Count 3.01 10^6/uL (3.93-5.22) L 11/12/23 06:10 Hemoglobin 9.0 g/dL (11.2-15.7) L 11/12/23 06:10 Hematocrit 28.2 % (36.0-46.0) L 11/12/23 06:10 Platelet Count 382 10^3/uL (130-400) 11/12/23 06:10 Venous Blood Lactate 2.6 mmol/L (0.6-1.4) H* 10/29/23 19:35 Complete Metabolic Panel: Sodium 139 mmol/L (136-145) 11/12/23 06:10 Potassium 4.0 mmol/L (3.5-5.1) 11/12/23 06:10 Chloride 104 mmol/L (98-107) 11/12/23 06:10 Carbon Dioxide 29.2 mmol/L (21.0-32.0) 11/12/23 06:10 BUN 34 mg/dL (7-18) H 11/12/23 06:10 Creatinine 0.6 mg/dL (0.55-1.02) 11/12/23 06:10 Est GFR (CKD-EPI 2020) 88.45 (mL/min/1.73m2) 11/12/23 06:10 Magnesium 1.8 mg/dL (1.8-2.4) 11/12/23 06:10 Calcium 7.7 mg/dL (8.5-10.1) L 11/12/23 06:10 Albumin 1.9 g/dL (3.4-5.0) L 11/11/23 05:47 Glucose 330 mg/dL (74-106) H 11/12/23 06:10 Hemoglobin A1c 6.6 % (<5.7) H 10/29/23 13:22 C-Reactive Protein 1.40 mg/dL (<or=0.5) H 11/10/23 05:00 Liver Function Panel: Alanine Aminotransferase (ALT/SGPT) 22 U/L (14-59) 11/11/23 05:47 Aspartate Amino Transf (AST/SGOT) 22 U/L (15-37) 11/11/23 05:47 Coagulation Panel: INR International Normalized Ratio 1.0 (0.9-1.1) 11/11/23 05:47 Prothrombin Time 9.7 sec (9.1-11.1) 11/11/23 05:47 Activated Partial Thromboplast Time 20.9 sec (23.6-32.8) L 10/29/23 13:41 Cardiac Panel: Troponin I 141 ng/L (< or =60) H* 11/06/23 NT-Pro-B Natriuret Pep 1696 pg/mL (<300) H 10/29/23 Creatine Kinase 50 U/L (26-192) 10/29/23 Arterial Blood Gas: No Data to Display Venous Blood Gas: Venous Blood pH 7.45 (7.31-7.41) H 10/29/23 13:22 Venous Blood Partial Pressure O2 66 mmHg 10/29/23 13:22 Venous Blood Partial Pressure CO2 32 mmHg (41-51) L 10/29/23 13:22 Venous Blood Oxygen Saturation 95 % 10/29/23 13:22 Venous Blood HCO3 22 mmol/L (23-28) L 10/29/23 13:22 Venous Blood Base Excess -2 mmol/L (-2-3) 10/29/23 13:22 Venous Blood Total Carbon Dioxide 20 mmol/L (24-29) L 10/29/23 13:22 Pancreas Panel: Lipase 35 U/L (16-77) 10/29/23 13:22 Thyroid Panel: Thyroid Stimulating Hormone (TSH) 4.70 uIU/mL (0.36-3.74) H 10/29/23 13:22 Infectious Disease: Coronavirus (COVID-19)(PCR) Negative (Negative) 10/29/23 13:46 Coronavirus 2019 Source Nasopharynx 10/29/23 13:46 Influenza Virus Type A (PCR) Negative (Negative) 10/29/23 13:46 Influenza Virus Type B (PCR) Negative (Negative) 10/29/23 13:46 Respiratory Syncytial Virus (PCR) Negative (Negative) 10/29/23 13:46 Blood Cultures: No Data to Display Toxicology Panel: Ethyl Alcohol Level < 3.0 mg/dL (<10) 10/29/23 13:22 Urine Amphetamines Screen Negative (Negative) 10/29/23 13:41 Urine Benzodiazepines Screen Negative (Negative) 10/29/23 13:41 Urine Barbiturates Screen Negative (Negative) 10/29/23 13:41 Urine Cocaine Screen Negative (Negative) 10/29/23 13:41 Urine Methadone Screen Negative (Negative) 10/29/23 13:41 Urine Opiates Screen Negative (Negative) 10/29/23 13:41 Ur Tricyclic Antidepressants Screen Negative (Negative) 10/29/23 13:41 Ur Tetrahydrocannabinol (THC) Scrn Negative (Negative) 10/29/23 13:41 Imaging and Studies Imaging and Studies Study information below may be from another EMR and interpreted by another provider. Please see original notes in EMR for more complete details. EKG Summary: EKG PATIENT NAME: Samia Forrester UNIT #: [id number] ORDERING PROVIDER: Hubert Ibarra PRIMARY CARE PROVIDER: HUBERT CHRISTINE DO DATE/TIME OF SERVICE: 11/07/232001 : 1940 PERFORMING LOCATION: [place] APPROVED REPORT Exam: Resting ECG Reason for Exam: rhythm change Patient Location: I HR:134 bpm ECG Measurements Heart Rate 134 AXIS [place] [id number] P [id number] QRSd 82 QRS 1 QT 309 T191 QTc 462 Conclusion Atrial fibrillation...? atrial activity Anteroseptal infarct, age indeterminate...Q >35mS, T neg, V1-V2 Lateral leads are also involved...lat Q or ST-T abnormalities <Electronically signed by LUIS MASTERSON MD in OV> E-Sign Date: 11/08/23 E-Sign Time: 833 Echocardiogram Summary: Study present but could not find a read of the ECHO. Anesthesia Assessment and Plan Anesthesia History Personal History: No History of Anesthesia Complications Family History: No Family History of Anesthesia Complications Exercise Tolerance Exercise Tolerance: Metabolic Equivalents>4 Cardiac & Pulmonary Exam Cardiac Exam: Normal S1/S2 Heart Sounds Pulmonary Exam: Clear Bilateral Breath Sounds Implantable Cardiac Device Does patient have a Pacemaker or an ICD?: No Airway Exam Known Difficult Airway: No Mallampati Class: Unable to Assess Mouth Opening: Unable to Assess Thyromental Distance: Greater than 3 cm Neck Range of Motion: Unable to Assess Neck Circumference: Normal Teeth Condition: Generalized Poor Dentition Airway Comments: Patient unable to fully follow commands ASA Classification ASA Score: ASA 4 Emergency Case?: No NPO Status NPO Status: NPO Clears >2 hours, Solids >8 hours (High risk of aspiration) Anesthesia Plan Resuscitation Status: Full Code (Discussed code status at length. Patients son wishes to proceed as full code. ) Anesthesia Technique: General Anesthesia Airway Planned: Endotracheal Tube Monitors Used: Standard Monitors
[2023-11-12] MEDS: Travoprost 0.004% Ophth Sol 2.5 ML BTL OP (20:13)
[2023-11-12] MEDS: Insulin Glargine 300 UNITS/3 ML PEN 12 UNITS SC (20:14)
[2023-11-13] VITALS (18 sets, daily range): BP systolic 138–183; BP diastolic 54–83; PULSE 55–79; RESP 16–19; TEMP 36.3–36.5; O2SAT 98–100
[2023-11-13] MEDS: Metoprolol 5 MG/5 ML VIAL IVP ×6 (00:06→20:30)
[2023-11-13] MEDS: Refresh PLUS Eye Drops 0.4ml OP ×6 (00:10→23:55)
[2023-11-13 05:54] LABS: HCT 28.6 % (36.0-46.0); HGB 9.5 g/dL (11.2-15.7); MCH 30.9 pg (27.0-33.0); MCHC 33.2 % (32.0-36.0); MCV 93 fL (80-95); MPV 9.6 fL (8.0-11.0); Platelet Count 382 10^3/uL (130-400); RBC 3.07 10^6/uL (3.93-5.22); RDW-SD 56.1 fL; WBC 8.05 10^3/uL (4.4-10.8)
[2023-11-13 06:11] LABS: Anion Gap 4.3 mmol/L (3-11); BUN 35 mg/dL (7-18); CO2 28.7 mmol/L (21.0-32.0); CREATININE 0.6 mg/dL (0.55-1.02); Chloride 107 mmol/L (98-107); Estimated GFR 88.45 (mL/min/1.73m2); Glucose 127 mg/dL (74-106); Potassium 3.9 mmol/L (3.5-5.1); Sodium 140 mmol/L (136-145)
[2023-11-13 06:14] LABS: Magnesium 1.7 mg/dL (1.8-2.4); PHOSPHORUS 2.8 mg/dL (2.6-4.7)
[2023-11-13] MEDS: hydrALAZINE 20 MG/ML VIAL 10 MG IVP (06:14)
[2023-11-13] MEDS: Hydrocortisone SOD SUC. 100 MG VIAL 25 MG IVP ×2 (08:50→20:42)
[2023-11-13] MEDS: Pantoprazole 40 MG VIAL IVP (08:50)
[2023-11-13] MEDS: Normal Saline Flush 10 ML SYR IVP ×4 (08:51→17:59)
[2023-11-13] MEDS: MAGNESIUM SULFATE 1 GM/100 ML BAG IVINF (08:51)
[2023-11-13] MEDS: Timolol 0.5% 5 ML BTL OP (08:55)
[2023-11-13] MEDS: cloNIDine 0.1 MG PATCH TD (08:56)
[2023-11-13] MEDS: Normal Saline 10 ML VIAL ×2 (09:14→22:52)
--- NOTE | 2023-11-13 09:20 | CMPROGNOTE_ITS ---
Date of service: 11/13/23 Time of Service: 09:20 Care Management Progress Note Progress Note Text Progress Note Text: Samia continues to show improvement. Since her visit with her son yesterday she has been more awake and is again eating and drinking. She ate about 1/4 to half of each of her meals today and has been responding to her . Referrals had been sent last week to SNFs closer to the family home in [place], [place]. A bed offer was received today from [facility] in [place], [place]. CM contacted Samia Dinh's son, who happily accepted the bed offer. Samia is not quite ready for discharge as she needs to continue to demonstrate the ability to eat and drink and take her medications orally. The TPN has been discontinued and the decision to insert a G-tube is no longer a consideration at this time. Discharge Potential Discharge Needs: Other (SNF) Anticipated Barriers to Discharge: Medical Status Patient/Family Education Needs: Review discharge instructions, discuss Ask Me Three Transportation: EMS Plan: Samia will likely be transferred to [facility] in [place] when she is medically ready for discharge. A bed offer was made and accepted today. She will follow up with facility providers and plan of care and transport via EMS coordinated by CM. CM will continue to assess for discharge needs. SDOH(Care Management) Screening Will the Patient Participate in the Screening?: Unable to obtain Social Determinants of Health Comments(SDOH Details): lives in jail
--- NOTE | 2023-11-13 11:58 | PGE_ITS ---
Date of Service Date of service: 11/13/23 Time of Service: 11:58 Assessment and Plan Assessment and plan (1) Decreased oral intake: Status: Acute Assessment and plan: This is in setting of her acute illness, but also advancing dementia with poor oral intake and weight loss preceding her acute illness but clearly worse since. -DRAWER UPFITTER on 11/03 and 11/04 some imrpovement but still recommended strict NPO as patient was unable to initiate swallow -also consulted Nutrition; rec TPN (see note for details) 11/07- -Miraculous response to Son's prompting, now much more alert and engaged, took oral liquids with swallow so PEG cancelled. -Now on pureed/thickened diet per DRAWER UPFITTER, try to resume oral medicatoins (2) Impacted stool in intestine: Status: Resolved Assessment and plan: -stool impaction has resolved as per CT scan findings. -patient was likely septic from either stercocolitis or possible her gall bladder given her findings on her CT scan. -See Dr. Sheth note from 11/01 regarding surgical input -s/p Cefepime #10 days (10/28-), she also had been on vancomycin (10/28 -10/30) but was DC ed after negative MRSA screen and clinical improvement. -CRP 11/09 improved -We would like to resume stool softeners and laxatives in her to prevent impaction again once she is eating well again, (3) Paroxysmal atrial fibrillation: Status: Acute Assessment and plan: -patient has hx of frequent falls at the [facility], therefore deemed not a good candidate for [facility] anticoagulation. -had been on currently on lopressor 25 mg QID and diltiazem 30 mg TID, both of which are held as patient is NPOe -now on IV diltiazem and metoprolol and in sinus with good rate control on tele. -If she is tolerating other medications orally, will resume her home rate control (4) Adrenal insufficiency: Status: Suspected Assessment and plan: -suspected but no random cortisol was done and no cosyntropin study was done. -However, her hypotension resolved quickly after getting on hydrocortisone. -will continue hydrocortisone weaning -decreased dose and frequency of hydrocortisone to 25 mg IV Q8h on 11/02, change to BID 11/09 (early am and afternoon to more mimic physiologic) -transition to PO prednisone, equivalent to current dosing would be around 12-1 5mg, can taper from there back to 5mg -get AM cortisol. With short half live, PM dose we are given should be out of her system, this should allow us to know if she is indeed adrenally suppressed. (5) Hypokalemia due to excessive gastrointestinal loss of potassium: Status: Resolved Assessment and plan: -initially had hyperkalemia w/ JUAN JOSÉ on admission, has been low since 11/03 -K+ and Mg++ better, additional Mg++ today, off TPN. (6) Altered mental status: Status: Acute Assessment and plan: -In the setting of a progressive dementia over months to years -mental status much improved 11/11 after son able to visit. -likely cause is metabolic encephalopathy superimposed on her dementia, CTA/MRI did not show CVA or occlusive disease. -She has also been off of her oral thyroid and antidepressants, resuming these Qualifiers: Altered mental status type: delirium Qualified Code(s): R41.0 - Disorientation, unspecified (7) Dementia: Status: Chronic Assessment and plan: -see above Qualifiers: Dementia type: Alzheimer's Alzheimer's disease onset: unspecified onset Dementia severity: moderate Dementia behavioral or psychological symptom: without behavioral, psychotic, or mood disturbance or anxiety Qualified Code(s): G30.9 - Alzheimer's disease, unspecified; F02.B0 - Dementia in other diseases classified elsewhere, moderate, without behavioral disturbance, psychotic disturbance, mood disturbance, and anxiety (8) Rheumatoid arthritis: Status: Chronic Assessment and plan: -No active disease. -Holding methotrexate, giving hydrocortisone as above. -resume methotrexate at discharge Qualifiers: Rheumatoid arthritis location: multiple sites Rheumatoid factor presence: unspecified presence Qualified Code(s): M06.9 - Rheumatoid arthritis, unspecified (9) Diabetes: Status: Chronic Assessment and plan: -On GLP-1 and some insulin as outpatient. -A1c is below goal, outpatient insulin should be less aggressive chronically -Lantus was stopped d/t low glucose readings in the morning, but sugars were in 2-300s since, resumed 11/08, improving Qualifiers: Diabetes mellitus type: type 2 Diabetes mellitus technician terminal and repeater insulin use: without technician terminal and repeater use Diabetes mellitus complication status: without complication Qualified Code(s): E11.9 - Type 2 diabetes mellitus without complications (10) Hypertension: Status: Chronic Assessment and plan: Resume clonidine patch and ARB. Still getting IV metoprolol and diltiazem. BP running high, follow as meds transition. (11) Muscle weakness (generalized): Status: Acute Assessment and plan: She is has had progressive weakness with declining function over months to years, but worse since acute illness. MRI not c/w CVA, more of a diffuse process. Could be myopathy from ICU and steroids. Cutting back steroids. Get CPK. Work with PT/OT (12) DVT prophylaxis: Status: Acute Assessment and plan: -h/o pAFib but not on anticoagulation. Using LMWH. Subjective Subjective Patient reports: denies vomiting, shortness of breath or fever Interval history since last seen: PEG cancelled yesterday after patient became more alert, spoke, and swallowed fluids in presense of son She was started on pureed/mod thick diet per DRAWER UPFITTER with aspiration precautions. TPN stopped Kwon out Eating some this morning with [employer]. She denies pain. She is incontinent of urine, but no skin breakdown around genitals. Exam Narrative Exam Narrative: General: Older adult female, sitting up in bed, eating; no actue distress. Responds to questions. Respirations: Even and unlabored, clear to ascultation bilaterally CV: regular in 60s, no murmur. ABD: Soft, NT/ND, +BS NEURO: still not grasping with hands on command, slight movement but does not lift arms Edema: 1+ pitting edema generalized throughout Skin: no rash, skin breakdown over elbows, heels bandaged. Objective Last Vital Signs Temp 36.5 C 11/13/23 07:45 Pulse 73 11/13/23 08:52 Resp 17 11/13/23 07:45 BP 158/63 H 11/13/23 08:52 Pulse Ox 98 11/13/23 07:45 Laboratory Results - last 24 hr 11/13/23 05:30 WBC 8.05 RBC 3.07 L Hgb 9.5 L Hct 28.6 L MCV 93 MCH 30.9 MCHC 33.2 RDW 17.0 H Plt Count 382 MPV 9.6 Sodium 140 Potassium 3.9 Chloride 107 Carbon Dioxide 28.7 Anion Gap 4.3 BUN 35 H Creatinine 0.6 Est GFR (CKD-EPI 2020) 88.45 Glucose 127 H Calcium 8.0 L Phosphorus 2.8 Magnesium 1.7 L Time Spent with Patient Time Spent with Patient: >50 minutes Time was spent: preparing to see the patient(eg.review tests), obtaining and/or reviewing separately otained hiistory, ordering medications,tests, procedures, referring, communicating with other health administrator health care facility, indepentently interpreting results, counseling the patient and care coordination
[2023-11-13] MEDS: dilTIAZem 25 MG/5 ML VIAL 20 MG IVP (12:53)
[2023-11-13] MEDS: Enoxaparin 40 MG/0.4 ML SYR SC (12:54)
[2023-11-13] MEDS: Insulin Aspart 300 UNITS/3 ML PEN SC ×3 (12:55→22:46)
--- NOTE | 2023-11-13 13:53 | OT.INIE ---
Occupational Therapy Notes Inpatient Occupational Therapy Evaluation Date: 11/13/23 Referring Doctor: Dr. Randolph OT Orders: Non urgent Precautions: Fall, Standard, full PATIENT PROFILE/ADMITTING DIAGNOSIS: Pt is a 83 year old female who is admitted on Med Surg with the following dx of muscle weakness, unintentional weight loss, deficit in ADLs, swallowing dysfunction, palliative care, decreased oral intake, ACO, gallbladder abomaly, adrenal insufficiency, pneumonia, hyperkalemia, alertered mental status, chronic hyponatremia, chronic UTI, overactice bladder, paroxysmal atrial fibrillation, dementia, depression, HTN, rhematoid arthritis, diabetes, altered mental status. Past Medical History: All Active Problems DVT prophylaxis (Acute) Impacted stool in intestine (Acute) Septic shock (Acute) Altered mental status (Acute) Acute hypotension (Acute) Chronic hyponatremia (Acute) Laceration of scalp (Acute) Fall (Acute) Acute UTI (Acute) Hyponatremia (Acute) Chronic UTI (Acute) Overactive bladder (Acute) Paroxysmal atrial fibrillation (Acute) Dementia (Chronic) Depression (Chronic) Hypertension (Chronic) Rheumatoid arthritis (Chronic) Diabetes (Chronic) Elevated troponin (Acute) Altered mental status (Acute) Non-ST elevation [place] (NSTEMI) (Acute) Elevated troponin I level (Acute) Social History/Home Situation: Was living prior at the [facility] with all DME needs met. SUBJECTIVE: Pt was sitting in bed with her present. She was shaking her head yes and no at todays session. OBJECTIVE: General Observation: remakrable edema noted in (B) UE, PICC line in (R) side of neck, IV in (L) UE Mental Status: Alert to name PROM: Right Upper Extremity: Shoulder flexion 95*. ER 20*. IR allows hand to abdomen. Elbow flexion 10-100*. Tolerates passive hand opening with increased edema throughout digits and hand Left Upper Extremity: Shoulder flexion 80*. ER 20*. IR allows hand to abdomen. Elbow flexion 0-100*. Tolerates passive hand opening with increased edema throughout digits and hand Strength: Samia does not demonstrate any volitional movement outside of turning head and opening eyes. Limbs flaccid during ROM assessment no AROM of digits FUNCTIONAL MOBILITY/ADLS: BATHING sitting in bed max (A) Set up/clean up Bathing UE max (A) face, able to hold washcloth in (L) UE Bathing LE NT DRESSING sitting in bed with full support to trunk and core Dressing UE Max (A) Dressing LE Max (A) GROOMING seated max (A) TOILETING max (A) EATING sitting in bed with max (A) BALANCE: Static sitting Normal Dynamic Sitting Fair SPECIAL TESTS: Daily Activity Limitations Standardized Measure [facility] AM -PAC ?6 clicks? Daily Activity Inpatient Short Form: Raw score: 7 Standardized score: 20.13 CMS score: 92.44% INFORMED CONSENT/EDUCATION: Pt instructed in purpose of OT Consult and plan of care. ASSESSMENT: Patient is a 83-year-old female referred to occupational therapy services with diagnosis of muscle weakness, unintentional weight loss, deficit in ADLs, swallowing dysfunction, palliative care, decreased oral intake, ACO, gallbladder abomaly, adrenal insufficiency, pneumonia, hyperkalemia, alertered mental status, chronic hyponatremia, chronic UTI, overactice bladder, paroxysmal atrial fibrillation, dementia, depression, HTN, rhematoid arthritis, diabetes, altered mental status. Patient presents with clinical signs and symptoms consistent with dx, as demonstrated by the following impairment level findings/functional limitations: Impairments in ADL/IADL and leisure activities, decreased gross and fine motor control, decreased functional activity tolerance, decreased congitive d/t dementia, minimal use of (B) UE, increased chornic (B) UE edema, decreased functional activity tolerance required for functional mobility and ADL performance, impairments in ADLs, requires max (A) for ADLs. AMPAC score 7 Patient is assessed as a high 82240 complexity based on the following: History: see above Examination: see functional limitations as noted above Presentation: evolving Decision Making: AMPAC Score 7 GOALS Goals x1 week 1. Pt will be able to hold objects in her (L) UE 2. Pt will be able to bring hand to mouth for eating with mod (A) PLAN OF CARE/TREATMENT PLAN: 1x/day, 2-3 days/ week x 1week Initiate Occupational Therapy Services for bathing, dressing, grooming, toileting, eating, transfer training. DISCHARGE RECOMMENDATIONS OT recommends that pt return to SNF when medically cleared per MD. TREATMENT TIME/MINUTES/CODES [id number] Deepthi Valiente OTR/Tiffanie Espinosa [facility] & [place], [place]
--- NOTE | 2023-11-13 16:32 | SPP_ITS ---
Date of service: 11/13/23 Time of Service: 15:00 Subjective Attempting to see Samia during late morning and mid-day, but she was somnolent and difficult to rouse during that time. Returned mid-afternoon and patient was much more responsive and alert. She provided y/n responses and responded to instructions. Even asking question in Croatian of her at one point. Her was present for entirety of today's session. WRAPPER STEMMER OPERATOR also observing patient to lift her left hand up as if to say stop at end of session. Objective/Assessment/Plan Objective Treatment Techniques & Outcomes: Positioning: HOB raised to ~80 degrees for PO trials. Respiratory status: Tolerating room air. Dry breath sounds at baseline. Oral Care: Appearing good at baseline with minimal buildup on tongue. Tolerated swab well, holding mouth open and following instructions. Minimal placque/buildup removed from mouth indicating good oral care. PO Trials Assessed: Moderately thick liquids via full vs 1/2 tsp x 10 Puree (pudding) cup via 1/2 tsp x 1/2 serving Oral Phase Findings: Slow bolus manipulation/A-P transport but with only minimal lingual residue for solid>puree>liquid trials Pharyngeal Phase findings: Mildly delayed, appears effortful but much improved, on average <5 second delayed pharyngeal initiation with solids and liquids Remains with mild reduced hyolaryngeal movement Weak/non productive cough x1-2, improved when rate was slowed and allowed for secondary swallows (spontaneous) with puree Overall cough is more dry sounding than last week. No wet breathing/coughing sounds noted today. Goals: Template Clerk Goals: Patient will remain free from aspiration-related illness, malnutrition, and dehydration. Short Term Goals: Patient will tolerate PO trials for consideration of diet initiation without overt s/s aspiration across 2/2 visits. Assessment Although too somnolent upon initial attempts at PO intake, Samia remained with improved alertness this date over previous sessions, and remains with improved tolerance of purees and moderately thickened liquids this date. She has reportedly had good tolerance of small amounts of PO for breakfast and lunch thi s date, and this continued during my session this date. While she remains with mild delays, her pharyngeal initiation is greatly improved this date and correlates with improvements in alertness, engagement, and PO tolerance of certain textures. Recommend to continue PO diet as ordered at this time. Given she has now been tolerating diet well for almost 24 hrs, it is OK for nursing to trial crushable PO medications in tsp puree. Recommend to wait before trialing any whole pills until WRAPPER STEMMER OPERATOR is present. Recommend continued close following by nutrition, palliative, WRAPPER STEMMER OPERATOR and revisit feeding recommendations daily. WRAPPER STEMMER OPERATOR will attempt another session with Samia tomorrow morning. Samia remains at very high risk of aspiration-related illness from PO intake as well as secretions, especially if fluctuations in mental status continue, as well as bedridden status, poor tolerance of friction toothbrush. Please continue strict oral hygeine recommendations and aspiration precautions as recommended below. Will continue to re-assess daily and collaborate with Palliative Care to educate family of feeding recommendations as indicated by overall clinical picture. Plan Plan: Frequency: 5x/week for 1-2 weeks; Discharge: Recommend WRAPPER STEMMER OPERATOR services at [facility]. She should be placed somewhere with WRAPPER STEMMER OPERATOR on site and trained staff who can help feed her with adequate slow pace. Recommendations Recommendations: Diet recommendation: IDDSI Level 4-Pureed Solids (THICK puree, nursing please thicken any runny/liquid food items to at least pudding thickness 3-Moderately Thick Liquids OK to provide 2-3 trials ice chips between meals if good oral care completed. -Please see further details at www.iddsi.org Medication Administration: Recommend continue non-oral medications until several days of PO tolerance is established. Oral hygiene before/after PO intake using suction swab kits on all oral structures as tole rated Level of Assistance/Supervision: Assistive feeding only by trained staff/family or WRAPPER STEMMER OPERATOR at this time PO intake only when awake/alert? Risk Management: Reduced auditory/visual distractions when eating Slow rate of intake Provide bites puree via 1/2 tsp Provide small sips thickened liquid via 1/2 tsp Alternate solids/liquids as able Multiple swallows per bolus (2) to encourage clearance of pharyngeal stasis/residue Small+frequent meals throughout day If consistent coughing/wet breath sounds occur, STOP po intake and try again later. Alert WRAPPER STEMMER OPERATOR. Total Time Spent: 30 minutes (15:00 - 15:30)
[2023-11-13] MEDS: dilTIAZem 25 MG/5 ML VIAL 10 MG IVP (18:00)
[2023-11-13] MEDS: Travoprost 0.004% Ophth Sol 2.5 ML BTL OP (22:51)
[2023-11-13] MEDS: Insulin Glargine 300 UNITS/3 ML PEN 12 UNITS SC (22:52)
[2023-11-14] VITALS (11 sets, daily range): BP systolic 133–175; BP diastolic 45–64; PULSE 56–67; RESP 16–18; TEMP 36.4–36.8; O2SAT 94–100
[2023-11-14] MEDS: dilTIAZem 25 MG/5 ML VIAL 10 MG IVP ×2 (00:35→06:09)
[2023-11-14] MEDS: Refresh PLUS Eye Drops 0.4ml OP ×5 (04:58→19:58)
[2023-11-14] MEDS: Metoprolol 5 MG/5 ML VIAL IVP (04:58)
[2023-11-14] MEDS: Levothyroxine 100 MCG TAB PO (06:06)
[2023-11-14] MEDS: Levothyroxine 25 MCG TAB PO (06:06)
[2023-11-14 07:02] LABS: Creatine Kinase 34 U/L (26-192); Magnesium 1.7 mg/dL (1.8-2.4)
[2023-11-14] MEDS: Normal Saline Flush 10 ML SYR IVP (07:41)
[2023-11-14] MEDS: Pantoprazole 40 MG VIAL IVP (07:41)
[2023-11-14] MEDS: Clopidogrel 75 MG TAB PO (07:42)
[2023-11-14] MEDS: Lisinopril 20 MG TAB PO (07:42)
[2023-11-14] MEDS: Sertraline 100 MG TAB PO (07:42)
[2023-11-14] MEDS: Psyllium PKT 1 EACH NG ×2 (07:43→19:58)
[2023-11-14] MEDS: Timolol 0.5% 5 ML BTL OP (07:43)
[2023-11-14] MEDS: MAGNESIUM SULFATE 2 GM/50 ML BAG IVINF (07:46)
[2023-11-14] MEDS: predniSONE 5 MG TAB 15 MG PO (07:46)
[2023-11-14] MEDS: Metoprolol 50 MG TAB PO ×2 (08:33→19:58)
--- NOTE | 2023-11-14 10:39 | W.SPSTP ---
Date of service: 11/14/23 Time of Service: 10:00 Subjective Subjective: Patient received alert and awake in bed. Eyes remained open for 30 minute session, responsive with single word responses/gestures. Objective: Patient Positioning: upright in bed ~80 degrees. Patient expressed discomfort with attempts at 90 degree position. Oxygen Tolerance: tolerating room air Oral Hygiene: completed before & after with swab; well tolerated PO Trials Assessed: IDDSI 2 Mildly Thick Liquid (1/2 tsp x2) IDDSI 3 Moderately Thick Liquid (~1 oz cran juice) IDDSI 4 Puree Solid (~2 oz chocolate ice cream) Oral Phase Findings: Slow bolus manipulation and A-P transport No lingual residue Pharyngeal Phase Findings: Mildly delayed swallow initiation Reduced hyolaryngeal movement Weak non-productive cough appreciated with trial of mildly thick liquid only Breathing/voice remained dry Assessment/Impression: Samia was alert and responsive today, responding to simple questions in single word responses (yes/no, ok) and head gestures (shake/nod). She accepted PO trials of chocolate ice cream and thickened juice with good tolerance from an aspiration-standpoint, demonstrating weak cough with trials of mildly thick liquid only (not appreciated with moderately thick liquid). She does not appear ready for diet upgrade today. While she remains at significant risk for aspiration-related illness, she appears to be tolerating current consistency well from a safety standpoint. However she continues with very poor endurance for PO, accepting a total of ~2oz chocolate ice cream and ~1oz juice across 30 minute period, with patient then closing mouth/shaking head indicating 'no more'. Per nursing, she accepted similar quantity PO (1-2oz chocolate pudding and 1-2 oz thickened water) earlier this morning for breakfast around 8am (current snack at 10am). Continue to offer small snacks throughout the day and recommend thickening a Boost/Ensure for future PO trials to optimize nutrition input. Please ensure all puree food items are thickened to applesauce/pudding consistency and not liquified. Continue strict aspiration precautions. Samia remains at very high risk for aspiration-related illness from PO intake as well as secretions, exacerbated by fluctuations in mental status/weakness as well as bedridden status, poor tolerance of friction toothrbush. Please continue strict oral hygiene recommendations and aspiration precautions as listed below. ANTIQUE FURNITURE REPAIRER to continue to follow 5days/week and collaborate with care team. Plan: Frequency: 5 x week for 2 weeks Recommendation at Discharge: To be determined; ANTIQUE FURNITURE REPAIRER at [facility] Diet Recommendations: SOLIDS: 4-Pureed Solids LIQUIDS: 3-Moderately Thick Liquids Ice chips OK between meals if after oral care completed, if preferred Medication Administration: Crushed in pudding (ONLY IF ALERT) Oral hygiene before/after PO intake using suction swab kits on all oral structures as tolerated Level of Assistance/Supervision: Assistive feeding only by trained staff/family or ANTIQUE FURNITURE REPAIRER at this time PO intake only when awake/alert? Risk Management: Reduced auditory/visual distractions when eating Slow rate of intake Provide bites puree via 1/2 tsp Provide small sips thickened liquid via 1/2 tsp Alternate solids/liquids as able Multiple swallows per bolus (2) to encourage clearance of pharyngeal stasis/residue Small+frequent meals throughout day If consistent coughing/wet breath sounds occur, STOP po intake and try again later. Alert ANTIQUE FURNITURE REPAIRER. Education Provided to: Nursing Topics Addressed: ANTIQUE FURNITURE REPAIRER findings and recommendations, aspiration precautions Total Time: 30 minutes swallow treatment [id number] 10:00-10:30 AM
--- NOTE | 2023-11-14 10:50 | CMPROGNOTE_ITS ---
Date of service: 11/14/23 Time of Service: 10:51 Care Management Progress Note Progress Note Text Progress Note Text: Samia was sitting up in bed with her feeding her lunch when CM visited. Per report, Samia continues to progress with eating and drinking. Per MD, she may be ready for discharge as early as tomorrow, if she continues to improve. Samia has a bed offer at [facility]. CM will continue to follow. Discharge Potential Discharge Needs: Other (SNF placement) Anticipated Barriers to Discharge: Medical Status Patient/Family Education Needs: Review discharge instructions, discuss Ask Me Three Transportation: EMS Plan: Samia will likely be transferred to [facility] in [place] when she is medically ready for discharge. A bed offer was made and accepted today. She will follow up with facility providers and plan of care and transport via EMS coordinated by CM. CM will continue to assess for discharge needs. SDOH(Care Management) Screening Will the Patient Participate in the Screening?: Unable to obtain Social Determinants of Health Comments(SDOH Details): lives in correction
[2023-11-14] MEDS: Enoxaparin 40 MG/0.4 ML SYR SC (11:19)
--- NOTE | 2023-11-14 11:25 | PT.INTREAT ---
PT Notes Visit Reasons: Septic shock Inpatient Physical Therapy Treatment Note Date: 11/14/2023 PRECAUTIONS: Bed-bound, prone to skin breakdown, on patient positioning schedule with nursing. Non-verbal. [id number], online director of respiratory therapy services available when needed. HOB to at least 30 degrees at all times per GOVERNMENT INSTRUCTOR. SUBJECTIVE: in room and agreeable to performing range of motion to both upper and lower extremities. Able to nod/shake head when asked. Verbalized expression of discomfort tomy jacobs each LE was moved gently at the hip. OBJECTIVE: present in room throughout session. Kwon catheter in place. Patient slid down in bed and needed to be scooted up in bed by JODIE Gifford and this PT. PT adjusted pillows to maximize safe and comfortable bed quarterturned positioning to her L side. Positioners placed to elavate B UE to minimize edema. B ankle placed in neutral with use of pillow/positioners. ? KALIE EX: Worked on performing UE and LE PNF D1/D2 flexion and extension patterns x 10 reps/patterns to maintain joint flexibility and range of motion that will facilitate easier and and more efficient provision of care by nursing staff while in bed. THERA ACT: Optimized positioning for neutral joint alignment, comfort, and pressure relief for this session using pillows as positioners: 1) B UE elevated to reduce swelling--2 pillows on R UE, 1 under L UE; 2) Pilows under each leg to allow for neutral hip rotation and minimal flexion at the hips and knees; 3) Rolled bed sheet for neutral B ankle positioning PROM: Right Upper Extremity: Shoulder flexion 95*. ER 20*. IR allows hand to abdomen. Elbow flexion 10-100*. Tolerates passive hand opening. Left Upper Extremity: Shoulder flexion 80*. ER 20*. IR allows hand to abdomen. Elbow flexion 0-100*. Tolerates passive hand opening. Right Lower Extremity: Hip flexion 95*. Knee motion 0-100*. Ankle DF allows 5*. Left Lower Extremity: Hip flexion 95*. Knee motion 0-100*. Ankle DF allows 5*. Strength: Samia does not demonstrate any volitional movement outside of turning head and opening eyes. Limbs flaccid during ROM assessment. Sensation: Unable to assess ASSESSMENT:? Goal of care for PT is to prevent contracture formation in all B UE/LE joints, maximize joint and muscle flexibility, and increase circulation to all B UE/LE joints and muscles to maintain overall function and prevent further decline while ensuring skin integrity. Retrograde massege also added today to minimize swelling in B UE/LE. Patient is an 83 year old female referred to physical therapy services for mobility assessment. Patient presents with severe impairments in cognition and communication, with inability to meaningfully participate in PT intervention. Per nursing, her mobility was significantly better, although not independent, as of last week. She'll benefit from PT intervention for PROM to prevent contracture during management of acute medical issues, with continued attempts at improving participation in transfers as she improves medically. If her ability to participate does not significantly improve, PT intervention will not be further indicated, and treatment will instead focus on training family in care and providing recommendations to user support analyst supervisor at the [facility]. She continues to demonstrate the following impairment level findings: 1. non-communicative 2. unable to follow single-step commands 3. unable to assess strength 4. altered mental status Impairments are contributing to the following functional limitations: 1. unable to participate in transfers 2. unable to demonstrate volitional movement 3. dependent for all ADLs and bed mobility Patient is assessed as High [id number] complexity based on the following: History: As above Examination: Limited in all functional mobility. Dependent for all bed mobility, transfers and ADLs Presentation: unstable Decision Making: high complexity Plan of Care/Treatment Plan: 1.PROM to AAROM to B UE as tolerated. 2.Work with nursing to ensure that patient positioning is fully enforced and complied with. 3.Elevate B forearms and hands after session to assist with edema control. 4.Ensure that bony landmarks are well relieved. 5.Continue with 1x/day 3x/week for these intervention. 6.Added as of 11/14/2023: Gentle retrograde massage to B UE to help assist with swelling reduction in B UE. 7.Positioning techniques: Optimized positioning for neutral joint alignment, comfort, and pressure relief for this session using pillows as positioners: 1) B UE elevated to reduce swelling--2 pillows on R UE, 1 under L UE; 2) Pilows under each leg to allow for neutral hip rotation and minimal flexion at the hips and knees; 3) Rolled bed sheet for neutral B ankle positioning DISCHARGE RECOMMENDATIONS: Return to SNF whenever medically cleared to discharge TREATMENT CODE/TIME: 48263 x 38 minutes for 3 units (11:25-12:03).
[2023-11-14] MEDS: Insulin Aspart 300 UNITS/3 ML PEN SC ×3 (12:01→21:54)
--- NOTE | 2023-11-14 16:20 | W.PM.PROGNOT ---
Date of Service Date of service: 11/14/23 Time of Service: 16:20 Assessment and Plan Assessment and plan (1) Decreased oral intake: Status: Acute Assessment and plan: This is in setting of her acute illness, but also advancing dementia with poor oral intake and weight loss preceding her acute illness but clearly worse since. -INSPECTOR CIRCUITRY NEGATIVE on 11/03 and 11/04 some imrpovement but still recommended strict NPO as patient was unable to initiate swallow, had NGT but needed to be restrained/sedated to not pull -also consulted Nutrition; was on TPN 11/07- -Miraculous response to Son's prompting on 11/11, now much more alert and engaged, took oral liquids with swallow so PEG cancelled. -Now on pureed/thickened diet per INSPECTOR CIRCUITRY NEGATIVE, was able to resume oral medications -Appreciate ongoing INSPECTOR CIRCUITRY NEGATIVE input, she will need INSPECTOR CIRCUITRY NEGATIVE at SNF (2) Impacted stool in intestine: Status: Resolved Assessment and plan: -stool impaction on admission has resolved as per CT scan findings. -patient was likely septic from either stercocolitis or possible her gall bladder given her findings on her CT scan. -See Dr. Sheth note from 11/01 regarding surgical input -s/p Cefepime #10 days (10/28-), she also had been on vancomycin (10/28 -10/30) but was DC ed after negative MRSA screen and clinical improvement. -CRP 11/09 improved -Resume psyllium, PEG, and laxatives in her to prevent impaction again now that taking po (3) Paroxysmal atrial fibrillation: Status: Acute Assessment and plan: -patient has hx of frequent falls at the long term, therefore deemed not a good candidate for termination clerk anticoagulation. -was on lopressor 25 mg QID and diltiazem 30 mg TID prior to NPO. -was on IV diltiazem and metoprolol while NPO. -BP has been stable on just oral metoprolol for rate control, can d/c telemetry (4) Adrenal insufficiency: Status: Suspected Assessment and plan: -suspected but no random cortisol was done and no cosyntropin study was done. -However, her hypotension resolved quickly after getting on hydrocortisone. -will continue hydrocortisone weaning -decreased dose and frequency of hydrocortisone to 25 mg IV Q8h on 11/02, change to BID 11/09 (early am and afternoon to more mimic physiologic) -transitioned to PO prednisone, equivalent to current dosing would be at 15mg, plan taper from there back to 5mg slowly -sent AM cortisol. With short half live, PM dose we are given should be out of her system, this should allow us to know if she is indeed adrenally suppressed. If not she may not need such a slow taper. (5) Hypokalemia due to excessive gastrointestinal loss of potassium: Status: Resolved Assessment and plan: -initially had hyperkalemia w/ JUAN JOSÉ on admission, has been low since 11/03 -K+ and Mg++ better, additional Mg++ today. Follow. (6) Altered mental status: Status: Acute Assessment and plan: -In the setting of a progressive dementia over months to years -mental status much improved 11/11 after son able to visit. -likely cause is metabolic encephalopathy superimposed on her dementia, CTA/MRI did not show CVA or occlusive disease. -She has also been off of her oral thyroid and antidepressants, she is back on these Qualifiers: Altered mental status type: delirium Qualified Code(s): R41.0 - Disorientation, unspecified (7) Dementia: Status: Chronic Assessment and plan: -see above -she was on quetiapine and mirtazipine as outpatient. We will not resume these as I don't want her oversedated. Qualifiers: Dementia type: Alzheimer's Alzheimer's disease onset: unspecified onset Dementia severity: moderate Dementia behavioral or psychological symptom: without behavioral, psychotic, or mood disturbance or anxiety Qualified Code(s): G30.9 - Alzheimer's disease, unspecified; F02.B0 - Dementia in other diseases classified elsewhere, moderate, without behavioral disturbance, psychotic disturbance, mood disturbance, and anxiety (8) Rheumatoid arthritis: Status: Chronic Assessment and plan: -No active disease. -Holding methotrexate, tapering oral prednisone. -resume methotrexate at discharge Qualifiers: Rheumatoid arthritis location: multiple sites Rheumatoid factor presence: unspecified presence Qualified Code(s): M06.9 - Rheumatoid arthritis, unspecified (9) Diabetes: Status: Chronic Assessment and plan: -On GLP-1 and some insulin as outpatient. -A1c is below goal, outpatient insulin should be less aggressive chronically -Lantus was stopped d/t low glucose readings in the morning, but sugars were in 2-300s since, resumed 11/08, improved. Will cut dose now. -I would leave on low dose glargine rather than GLP-1 as she at this point we don't want to suppress appetite. Qualifiers: Diabetes mellitus type: type 2 Diabetes mellitus termination clerk insulin use: without termination clerk use Diabetes mellitus complication status: without complication Qualified Code(s): E11.9 - Type 2 diabetes mellitus without complications (10) Hypertension: Status: Chronic Assessment and plan: Resume clonidine patch and ARB. Still getting IV metoprolol and diltiazem. BP running high, follow as meds transition. (11) Muscle weakness (generalized): Status: Acute Assessment and plan: She is has had progressive weakness with declining function over months to years, but worse since acute illness. MRI not c/w CVA, more of a diffuse process. Could be myopathy from ICU and steroids. Cutting back steroids. CPK normal. She is improving. Continue to work with PT/OT (12) DVT prophylaxis: Status: Acute Assessment and plan: -h/o pAFib but not on anticoagulation. Using LMWH. Subjective Subjective Patient reports: no new complaints; denies bowel movement, nausea, vomiting, shortness of breath or fever Interval history since last seen: Events: Stopped IV metoprolol/diltizem, started on oral metoprolol (home beta lauren not available) Took her oral medication without aspirating today. She is eating and drinking, but not a lot. Seen by PT and INSPECTOR CIRCUITRY NEGATIVE. Exam Narrative Exam Narrative: General: Older adult female, sitting up in bed no actue distress. Responds to questions with a few words. Respirations: Even and unlabored, clear to auscultation bilaterally CV: RRR in 60s, no murmur. ABD: Soft, NT/ND, +BS NEURO: Now lifting arms. Leans forward for lung exam with assistance. Edema: 1-2+ pitting edema right arm, minimal in left arm and trace in coty legs. Skin: no rash, skin breakdown over elbows, heels bandaged. Objective Last Vital Signs Temp 36.5 C 11/14/23 16:01 Pulse 61 11/14/23 16:01 Resp 16 11/14/23 16:01 BP 154/64 H 11/14/23 16:01 Pulse Ox 99 11/14/23 16:01 Laboratory Results - last 24 hr 11/14/23 11/14/23 06:33 06:33 Magnesium 1.7 L Cancelled Creatine Kinase 34 Time Spent with Patient Time Spent with Patient: >50 minutes Time was spent: preparing to see the patient(eg.review tests), obtaining and/or reviewing separately otained hiistory, ordering medications,tests, procedures, referring, communicating with other health customer care voice consultant, indepentently interpreting results, counseling the patient and care coordination
[2023-11-14] MEDS: Bacitracin 1 PACKET TP (18:45)
[2023-11-14] MEDS: Insulin Glargine 300 UNITS/3 ML PEN 10 UNITS SC (19:58)
[2023-11-14] MEDS: Travoprost 0.004% Ophth Sol 2.5 ML BTL OP (19:58)
--- NOTE | 2023-11-15 | DI.US_ITS ---
Exam(s) US UPPER EXTREMITY VENOUS RT EXAM: US UPPER EXTREMITY VENOUS RT CLINICAL HISTORY: focal swelling in right arm, central line R side. TECHNIQUE: Ultrasound examination of the right upper extremity venous system(s) is performed using g rayscale, color-flow, and spectral Doppler analysis. COMPARISON: No exams were available for comparison FINDINGS: Examination was limited due to soft tissue injury and swelling of the right upper extremity. The bra chial vein, basilic vein, portions of the cephalic vein and the median cubital vein could not be visu alized. Right Deep Veins:The visualized internal jugular and subclavian veins are patent. The axillary vein is patent and display normal color flow, augmentation and compressibility. Superficial Veins:Portions of the proximal cephalic vein show incompressibility suggesting superficia l thrombus. Soft tissues: Unremarkable. IMPRESSION: 1. Examination limited as described above. 2. No evidence of a deep venous thrombus in the internal jugular, subclavian or axillary veins. 3. Superficial thrombus seen in the cephalic vein. DATA REPOSITORY:
[2023-11-15 02:41] VITALS: BP 181/54; PULSE 57; RESP 17; TEMP 36.8; O2SAT 100
[2023-11-15] MEDS: Refresh PLUS Eye Drops 0.4ml OP ×5 (05:10→21:14)
[2023-11-15] MEDS: Levothyroxine 100 MCG TAB PO (05:51)
[2023-11-15] MEDS: Levothyroxine 25 MCG TAB PO (05:51)
[2023-11-15 06:48] LABS: BUN 26 mg/dL (7-18); CREATININE 0.7 mg/dL (0.55-1.02); Calcium 7.9 mg/dL (8.5-10.1); Chloride 104 mmol/L (98-107); Estimated GFR 85.23 (mL/min/1.73m2); Glucose 146 mg/dL (74-106); Magnesium 1.7 mg/dL (1.8-2.4); Potassium 3.9 mmol/L (3.5-5.1); Sodium 138 mmol/L (136-145)
[2023-11-15 07:43] VITALS: BP 183/47; PULSE 68; RESP 15; TEMP 36.3; O2SAT 100
[2023-11-15] MEDS: Folic Acid 1 MG TAB PO (09:29)
[2023-11-15] MEDS: Insulin Aspart 300 UNITS/3 ML PEN SC ×4 (09:29→21:15)
[2023-11-15] MEDS: Pantoprazole 40 MG TABCR PO (09:29)
[2023-11-15] MEDS: Mirabegron 25 MG TABCR PO (09:29)
[2023-11-15] MEDS: Metoprolol 50 MG TAB PO ×2 (09:30→21:15)
[2023-11-15] MEDS: Clopidogrel 75 MG TAB PO (09:30)
[2023-11-15] MEDS: Lisinopril 20 MG TAB PO (09:30)
[2023-11-15] MEDS: Sertraline 100 MG TAB PO (09:30)
[2023-11-15] MEDS: predniSONE 5 MG TAB 15 MG PO (09:31)
[2023-11-15] MEDS: Psyllium PKT 1 EACH NG ×2 (09:32→21:14)
[2023-11-15] MEDS: Polyethylene Glycol 3350 17 GM PACKET PO (09:32)
[2023-11-15] MEDS: Timolol 0.5% 5 ML BTL OP (10:05)
[2023-11-15] MEDS: Enoxaparin 40 MG/0.4 ML SYR SC (11:51)
--- NOTE | 2023-11-15 12:55 | CMPROGNOTE_ITS ---
Date of service: 11/15/23 Time of Service: 12:55 Care Management Progress Note Progress Note Text Progress Note Text: Samia continues to show improvement. She has been eating and drinking and is awake much more of the time. Samia's has been visiting and generally feed her at mealtime. Samia's family has accepted a bed offer at [facility], however prior authorization from her insurance company is needed before she can transfer. Dr. Chen called the insurance company and conducted a [id number] to discuss her course and current care needs. As it is late on a Saturday afternoon, it is unlikely that a determination will be made in time for her to discharge today. Discharge Potential Discharge Needs: Other (SNF) Anticipated Barriers to Discharge: Medical Status and Other (insurance authorization) Patient/Family Education Needs: Review discharge instructions, discuss Ask Me Three Transportation: EMS Plan: Samia will likely be transferred to [facility] in [place] when she is medically ready for discharge. A bed offer was made and accepted today. She wi ll follow up with facility providers and plan of care and transport via EMS coordinated by CM. CM will continue to assess for discharge needs. SDOH(Care Management) Screening Will the Patient Participate in the Screening?: Unable to obtain Social Determinants of Health Comments(SDOH Details): lives in retirement
--- NOTE | 2023-11-15 14:40 | W.PM.PROGNOT ---
Date of Service Date of service: 11/15/23 Time of Service: 14:40 Assessment and Plan Assessment and plan (1) Decreased oral intake: Status: Acute Assessment and plan: occurring in acute setting of sepsis, advanced dementia MANAGER UNIVERSAL on 11/03 and 11/04 recommended NPO status adn NGT placed but patient had to be restrainted to prevent removal nutrition consult obtained and TPN begun 11/07 to 11/11 Patient began to respond to son's prompting of her to eat, and patient now on thickened liquids and pureed foods, and prior planned PEG tube placement was cancelled. patient will need ongoing MANAGER UNIVERSAL both here and at SNF (2) Impacted stool in intestine: Status: Resolved Assessment and plan: -stool impaction on admission has resolved as per CT scan findings. -patient was likely septic from either stercocolitis or possible her gall bladder given her findings on her CT scan. -See Dr. Sheth note from 11/01 regarding surgical input -s/p Cefepime #10 days (10/28-), she also had been on vancomycin (10/28 -10/30) but was DC ed after negative MRSA screen and clinical improvement. -CRP 11/09 improved -Resume psyllium, PEG, and laxatives in her to prevent impaction again now that taking po (3) Paroxysmal atrial fibrillation: Status: Acute Assessment and plan: patient now off telemetry; regular pulse now PAF occurred in setting of sepsis, treated w/ iv diltiazem and metoprolol and was switched to oral but had to be put back on iv forms while NPO but now back on just metoprolol w/ good rate control (4) Adrenal insufficiency: Status: Suspected Assessment and plan: -suspected but no random cortisol was done and no cosyntropin study was done. -However, her hypotension resolved quickly after getting on hydrocortisone. -will continue hydrocortisone weaning -decreased dose and frequency of hydrocortisone to 25 mg IV Q8h on 11/02, change to BID 11/09 (early am and afternoon to more mimic physiologic) -transitioned to PO prednisone, equivalent to current dosing would be at 15mg, plan taper from there back to 5mg slowly -sent AM cortisol. With short half live, PM dose we are given should be out of her system, this should allow us to know if she is indeed adrenally suppressed. If not she may not need such a slow taper. Random cortisol from 10/28 was low at 32 and suggestive of adrenal insufficiency given her presentation of bradycardia (preceded her PAF) and hypotension on admission.I would perform slow taper of her prednisone. Baseline dose was prednisone 5 mg daily; currently on 15 mg daily (has been on this dose since 11/13), I would continue this for 10 days then decrease to 12.5 mg daily for 10 days then 10 mg/d x 10 days then 7.5 mg/d x 10 days then 5 mg/d. (5) Hypokalemia due to excessive gastrointestinal loss of potassium: Status: Resolved Assessment and plan: -initially had hyperkalemia w/ JUAN JOSÉ on admission, has been low since 11/03 -K+ and Mg++ better last checked 11/13; will monitor 2 to 3x per week while hospitalized (6) Altered mental status: Status: Acute Assessment and plan: -In the setting of a progressive dementia over months to years -mental status much improved 11/11 after son able to visit. -likely cause is metabolic encephalopathy superimposed on her dementia, CTA/MRI did not show CVA or occlusive disease. -She has also been off of her oral thyroid and antidepressants, she is back on these She has been off her remeron and seroquel since admission, although I reordered them when she became alert and responsive intiially after recovering from sepsis and adrenal insufficiency. I will reorder her remeron at reduced dosing at night. this may help stimulate her appetite, improve her mood. I will hold on the Seroquel Qualifiers: Altered mental status type: delirium Qualified Code(s): R41.0 - Disorientation, unspecified (7) Dementia: Status: Chronic Assessment and plan: -see above -she was on quetiapine and mirtazipine as outpatient. dc Seroquel but resume low dose remeron at night Qualifiers: Dementia type: Alzheimer's Alzheimer's disease onset: unspecified onset Dementia severity: moderate Dementia behavioral or psychological symptom: without behavioral, psychotic, or mood disturbance or anxiety Qualified Code(s): G30.9 - Alzheimer's disease, unspecified; F02.B0 - Dementia in other diseases classified elsewhere, moderate, without behavioral disturbance, psychotic disturbance, mood disturbance, and anxiety (8) Rheumatoid arthritis: Status: Chronic Assessment and plan: -No active disease. -Holding methotrexate, tapering oral prednisone. -resume methotrexate at discharge Qualifiers: Rheumatoid arthritis location: multiple sites Rheumatoid factor presence: unspecified presence Qualified Code(s): M06.9 - Rheumatoid arthritis, unspecified (9) Diabetes: Status: Chronic Assessment and plan: -On GLP-1 and some insulin as outpatient. -A1c is below goal, outpatient insulin should be less aggressive chronically -Lantus was stopped d/t low glucose readings in the morning, but sugars were in 2-300s since, resumed 11/08, improved. Will cut dose now. -I would leave on low dose glargine rather than GLP-1 as she at this point we don't want to suppress appetite. Qualifiers: Diabetes mellitus type: type 2 Diabetes mellitus penitentiary insulin use: without terminal operations supervisor use Diabetes mellitus complication status: without complication Qualified Code(s): E11.9 - Type 2 diabetes mellitus without complications (10) Hypertension: Status: Chronic Assessment and plan: Resume clonidine patch and ARB. Still getting IV metoprolol and diltiazem. BP running high, follow as meds transition. (11) Muscle weakness (generalized): Status: Acute Assessment and plan: She is has had progressive weakness with declining function over months to years, but worse since acute illness. MRI not c/w CVA, more of a diffuse process. Could be myopathy from ICU and steroids. Cutting back steroids. CPK normal. She is improving. Continue to work with PT/OT (12) DVT prophylaxis: Status: Acute Assessment and plan: -h/o pAFib but not on anticoagulation. Using LMWH. Subjective Subjective Interval history since last seen: Patient is awake and looked at me and when I greeted her w/ hello in Luxembourgish, she responded in kind. However, she made no other efforts at speech or attempts at movement. When I entered the room the [place] tech was coming into the room to perform RUE [place]. to r/o DVT. Exam Narrative Exam Narrative: Awake and responsive to her name and greeting but because of the language barrier and her dementia I cannot assess any other orientation. She did follow me in the health physics technician with her eyes but otherwise made no other efforts to communicate or made no movements with her arms or her legs. 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 Right eyes open and she tracks my movements around the room. Lungs are clear to auscultation Heart is regular rate and rhythm Abdomen soft nondistended Extremities right upper extremity with 3+ edema worse in the forearm and the upper arm, palpable pulses although right forearm is cool compared to upper arm; capillary refill <3 seconds Objective Last Vital Signs Temp 36.3 C L 11/15/23 07:43 Pulse 68 11/15/23 07:43 Resp 15 11/15/23 07:43 BP 183/47 H 11/15/23 07:43 Pulse Ox 100 11/15/23 07:43 Laboratory Results - last 24 hr 11/14/23 11/15/23 11/15/23 06:33 06:13 06:13 Sodium 138 Potassium 3.9 Chloride 104 Carbon Dioxide 28.0 Anion Gap 6.0 BUN 26 H Creatinine 0.7 Est GFR (CKD-EPI 2020) 85.23 Glucose 146 H Calcium 7.9 L Magnesium Cancelled 1.7 L Cortisol 19 Time Spent with Patient Time Spent with Patient: 35-49 minutes Time was spent: preparing to see the patient(eg.review tests), ordering medications,tests, procedures, referring, communicating with other health skin care specialist (discussed w/ JULIA and w/ Dr. Leon from her insurance review), indepentently interpreting results, counseling the patient and care coordination
[2023-11-15 15:06] VITALS: BP 183/60; PULSE 60; RESP 15; TEMP 36.3; O2SAT 99
[2023-11-15] MEDS: Acetaminophen 325 MG TAB PO (15:40)
--- NOTE | 2023-11-15 16:24 | W.SPSTP ---
Date of service: 11/15/23 Time of Service: 16:25 Subjective Samia was contacted at bedside for today's exam. Remains with similar vs mildly improved alertness over prior sessions this week. She provided y/n responses and responded to instructions. Her was present for entirety of today's session and assisted in feeding her at session end. Objective/Assessment/Plan Objective Treatment Techniques & Outcomes: Positioning: HOB raised to ~80 degrees for PO trials. Respiratory status: Tolerating room air. Dry breath sounds at baseline. Oral Care: Appearing good at baseline with minimal buildup on tongue. Tolerated swab well, holding mouth open and following instructions. Minimal plaque/buildup removed from mouth indicating good oral care. PO Trials Assessed: IDDSI 2 Mildly Thick Liquid (1/2 tsp x3) IDDSI 3 Moderately thick liquids via full vs 1/2 tsp x 8 IDDSI 4 Puree (pudding) cup via 1/2 tsp x 6 IDDSI 5 Minced Moist (tapioca pudding) via 1/2 tsp x3 Oral Phase Findings: Slow bolus manipulation and A-P transport No lingual residue Pharyngeal Phase Findings: Mildly delayed swallow initiation Reduced hyolaryngeal movement Weak non-productive cough appreciated with trial of mildly thick liquid only Breathing/voice remained dry Assessment Samia remains alert/responsive today, responding to simple questions with Y/N responses and head shake & nod. Accepting PO intake for trials of current diet consistencies as well as modest upgrades. She remains with good tolerance of L4/L3 (puree solid, moderately thickened liquids) via 1/2 tsp, frequently with spontaneous secondary swallows and only mild-moderate delays in pharyngeal initiation. She appeared with significant increased effort with upgraded trials of L5 minced/moist (tapioca pudding) and demonstrating cough x2 with L2 Mild thick liquids. She does not appear ready for diet upgrade but will benefit from continuing with therapeutic trials of these textures with VENEER DRIER TAILER to work toward increasing available options for PO offerings. Per nursing she continues to take only small amounts of PO at a time and will benefit from frequent offerings of small snacks. Cont. to recommend thickening a Boost/Ensure for future PO trials to optimize nutrition input. Please ensure all puree food items are thickened to applesauce/pudding consistency and not liquified. Continue strict aspiration precautions. Samia remains at very high risk for aspiration-related illness from PO intake as well as secretions, exacerbated by fluctuations in mental status/weakness as well as bedridden status, poor tolerance of friction toothrbush. Please continue strict oral hygiene recommendations and aspiration precautions as listed below. VENEER DRIER TAILER to continue to follow 5days/week and collaborate with care team. Plan: Frequency: 5 x week for 2 weeks Recommendation at Discharge: To be determined; VENEER DRIER TAILER at [facility] Diet Recommendations: SOLIDS: 4-Pureed Solids LIQUIDS: 3-Moderately Thick Liquids Ice chips OK between meals if after oral care completed, if preferred Medication Administration: Crushed in pudding (ONLY IF ALERT) Oral hygiene before/after PO intake using suction swab kits on all oral structures as tolerated Level of Assistance/Supervision: Assistive feeding only by trained staff/family or VENEER DRIER TAILER at this time PO intake only when awake/alert? Risk Management: Reduced auditory/visual distractions when eating Slow rate of intake Provide bites puree via 1/2 tsp Provide small sips thickened liquid via 1/2 tsp Alternate solids/liquids as able Multiple swallows per bolus (2) to encourage clearance of pharyngeal stasis/residue Small+frequent meals throughout day If consistent coughing/wet breath sounds occur, STOP po intake and try again later. Alert VENEER DRIER TAILER. Education Provided to: Nursing Topics Addressed: VENEER DRIER TAILER findings and recommendations, aspiration precautions Total Time: 30 minutes swallow treatment [id number] 2:25- PM-2:55 PM
[2023-11-15] MEDS: Mirtazapine 15 MG TAB 7.5 MG PO (21:15)
[2023-11-15] MEDS: Insulin Glargine 300 UNITS/3 ML PEN 10 UNITS SC (21:15)
[2023-11-15] MEDS: Travoprost 0.004% Ophth Sol 2.5 ML BTL OP (21:16)
[2023-11-15 22:59] VITALS: BP 197/60; PULSE 58; RESP 15; TEMP 36.2; O2SAT 100
[2023-11-16] MEDS: Refresh PLUS Eye Drops 0.4ml OP ×4 (00:17→11:43)
[2023-11-16] MEDS: Levothyroxine 100 MCG TAB PO (05:55)
[2023-11-16] MEDS: Levothyroxine 25 MCG TAB PO (05:55)
[2023-11-16] MEDS: Psyllium PKT 1 EACH NG (08:34)
[2023-11-16] MEDS: Mirabegron 25 MG TABCR PO (08:34)
[2023-11-16] MEDS: Polyethylene Glycol 3350 17 GM PACKET PO (08:34)
[2023-11-16] MEDS: Pantoprazole 40 MG TABCR PO (08:34)
[2023-11-16] MEDS: Lisinopril 20 MG TAB PO (08:35)
[2023-11-16] MEDS: predniSONE 5 MG TAB 15 MG PO (08:35)
[2023-11-16] MEDS: Metoprolol 50 MG TAB PO (08:35)
[2023-11-16] MEDS: Folic Acid 1 MG TAB PO (08:35)
[2023-11-16] MEDS: Sertraline 100 MG TAB PO (08:35)
[2023-11-16] MEDS: Clopidogrel 75 MG TAB PO (08:35)
--- NOTE | 2023-11-16 08:56 | PDOC.CMDIS ---
Date of service: 11/16/23 Time of Service: 08:56 LACE Index Scoring Tool Questions: Length of Stay (in days): 14 or more Was the patient admitted via the E.D.?: Yes Comorbidities: Previous M.I., Diabetes w/o Complication and Dementia E.D. Visits: 4 Answers: Total Score: 19 Risk of Readmission: High Risk Care Management Discharge Plan Reason for Hospitalization: acute hypotension Discharge Plan: Samia will be transferred to [facility] in [place]. She will follow up with facility providers and plan of care and transport via EMS coordinated by CM. Patient/Family Education Needs: Review discharge instructions, discuss Ask Me Three Services Needed at Discharge: Detention Facility SDOH Health Related Social Needs: No Data to Display
[2023-11-16] MEDS: Timolol 0.5% 5 ML BTL OP (09:15)
[2023-11-16 09:36] VITALS: BP 202/74
[2023-11-16 09:39] VITALS: BP 150/65; PULSE 55; O2SAT 95
[2023-11-16] MEDS: Insulin Aspart 300 UNITS/3 ML PEN SC (11:42)
[2023-11-16] MEDS: Enoxaparin 40 MG/0.4 ML SYR SC (11:43)
--- NOTE | 2023-11-16 12:02 | DSE_ITS ---
Date of service: 11/16/23 Time of Service: 12:02 DS: Diagnosis Discharge Diagnosis (1) Impacted stool in intestine: Status: Resolved (2) Paroxysmal atrial fibrillation: Status: Chronic (3) Adrenal insufficiency: Status: Suspected (4) Hypokalemia due to excessive gastrointestinal loss of potassium: Status: Resolved Asessment and Plan: please obtain follow up chemistry labs within the next week (5) Altered mental status: Status: Resolved Asessment and Plan: secondary to septic encephalopathy (6) Dementia: Status: Chronic Asessment and Plan: advanced dementia (7) Chronic hyponatremia: Status: Resolved Asessment and Plan: serum sodium on dc was 138. and had been between 136 and 142 since 11/03. the lowest her sodium [id number] on admission on 10/29/23. (8) Rheumatoid arthritis: Status: Chronic Asessment and Plan: continue methotrexate and prednisone w/ appropriate follow up w/ rheumatology and obtain appropriate monitoring labs (i.e. thyroid function tests, liver function tests, annual eye exams). (9) Diabetes: Status: Chronic Asessment and Plan: glucose at dc was running 120's to 190's; continue to titrate her insulin and add basal insulin as her po intake improves. Her glycohemoglobin A1C was acceptable at 6.6% on 10/29/23 (10) Swallowing dysfunction: Status: Acute Asessment and Plan: multifactorial d/t baseline dementia and acute critical illness causing encephalopathy, general weakness. No CVA found on MRI brain. patient was scheduled for PEG tube but cancelled when she began to tolerate pureed foods w/ thickened liquids. She has been seen by ENERGY TRADING ANALYST jeremyple times. see their consult notes for details. Please consult w/ an ENERGY TRADING ANALYST while at the intermediate. (11) Palliative care encounter: Status: Chronic Asessment and Plan: patient and her family were visited multiple times by the Palliative Care team to hold discussions on goals of care, control of chronic pain, and to discuss her code status. Family continues to request that she be maintained on full code status at this time. 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 Asessment and Plan: distended gallbladder w/ sludge per CT scan but no evidence of acute cholecystitis Discharge Plan Disposition Patient Disposition: [facility] Facility(SNF) Condition: Improving Discharge Details Reason For Visit: Septic shock Admit Date/Time: 10/29/23 17:44 Admit Provider: Margarito Randolph Attending Provider: Margarito Randolph Primary Care Provider: Atif Bustillo Hospital Course Hospital Course: 83 yo F with history of type 2 DM, CAD, RA on methotrexate and prednisone, recurrent UTIs on nitrofurantoin, CAD who was found during routine rounds at the [facility] to be unresponsive. 10/29/23. She was bradycardic in the 40s with BP as low as 40/23 per EMS. Given 2 doses of epinephrine in the field. She was still hypotensive in the ED, evaluation only significant for stool impaction on CT C/A/P. She was treated for septic shock and admitted to the ICU. Cultures were never positive, but it was felt that patient was likely septic from either stercocolitis. She had a distended gallbladder with sludge vs constrast on repeat CT scan on 11/01, impaction resolved with aggrssive bowel regimen. Dr. Sheth was consulted from surgery. She was initially on cefepime and vancomycin, vanco stopped after negative MRSA screen and clinical improvement. She completed Cefepime for 10 days (10/28-) and vancomycin (10/28 -10/30). Resumed psyllium, PEG, and laxatives in her to prevent impaction prior to discharge. Samia was not able to tolerate po in setting of her acute illness. It was noted her baseline was advancing dementia with poor oral intake and weight loss preceding her acute illness but clearly worse since with this admission. ENERGY TRADING ANALYST consulted, recommended strict NPO as patient was unable to initiate swallow. She had NGT placed but needed to be restrained/sedated to not pull this so nutrition consulted and she was on TPN 11/07- PEG tube was planned per Son's request after palliative care and ethics consult. However, she had a miraculous response to Son Fabrizio's prompting on 11/11 (he had been hospitalized and unable to visit until then), became much more alert and engaged, took oral liquids with swallow so PEG cancelled. ENERGY TRADING ANALYST reconsulted and started on pureed/thickened diet per ENERGY TRADING ANALYST, was able to resume oral medication. She will need ongoing speech pathology at SNF patient has hx of frequent falls at the intermediate, therefore has not been on anticoagulation. She was on lopressor 25 mg QID and diltiazem 30 mg TID prior to NPO, and was on IV diltiazem and metoprolol while NPO. She resumed oral medications and blood pressure and pulse stable on just oral metoprolol for rate control (nebivolol not available) along with clonidine patch and her oral lisinopril. Adrenal insufficiency was suspected based on hypotension and electrolytes on admission in setting of chronic prednisone, but no random cortisol or cosyntropin study was done. However, her hypotension resolved quickly after getting on hydrocortisone. Hydrocortisone was weaned, then transitioned back to prednisone. Plan is slow taper of prednisone from 15 mg back to 5mg, but 1mg week. On 11/12 sent AM cortisol (should be valid as was getting last dose of hydrocortisone in afternoon). This should help determine if she is indeed adrenally suppressed. If not she may not need such a slow taper. Please continue a slow taper of prednisone 15 mg daily x 10 day, then 12.5 mg daily x 10 day then 10 mg daily x 10 days then 7.5 mg daily x 10 days then 5 mg daily. She was initially hyperkalemic with some JUAN JOSÉ, but later was hypokalemic and hypomagnesemic. These were supplumented. Her methotrexate was held, and she was on steroids during her admission. She did not have active RA. MTX and folate should be resumed upon discharge. Her mental status remained depressed after her acute illness. She did not respond to caregivers, did not talk, did not eat, and barely moved for several days (see above re: feeding). MRI of brain was negative. She improved miraculously when her son Fabrizio was able to visit with his direct prompting, and continued to improve, though still not at baseline with muscle weakness upon discharge. She was also off of her oral SSRI and thyroid when NPO and resuming these seemed to help. Her mirtazipine and quetiapine were held, these were not resumed as she was still relatively sedate. She was on chronic nitrofurantoin for h/o UTI, but given this can have neuropsychiatric side effects in elderly, this was not resumed. Her Trulicity was held during admission. Glargine insulin along with sliding scale. Trulicity was not resumed as her appetite was poor. She had diffuse swelling while on TPN, then ongoing swelling more in her right arm. Vascular ultrasound was negative for DVT although she has a superficial thromobosis of the cephalic vein. She should wear an antilymphedema stocking or IVET wraps over the right arm and keep the arm elevated for the next week to reduce the edema in her arm. Home Meds and New Rx's Prescriptions: New polyethylene glycol 3350 17 gram Powder In Packet 17 g PO DAILY Qty: 0 0RF dextrose [Glutose-15] 40 % Gel 30 g PO DIRECTED PRNQty: 0 0RF Rx Instructions: give SL/PO prn hypoglycemia metoprolol tartrate 50 mg Tablet 50 mg PO BID Qty: 60 0RF insulin aspart U-100 100 unit/mL (3 mL) Insulin Pen 0 - 27 unit subcut 0800,1200,1700,2200 Qty: 0 0RF Metamucil Sugar-Free (aspart) 3.4 gram/5.8 gram Powder See Rx Instructions .ROUTE .COMPLEX Qty: 1040 0RF Rx Instructions: 1 tablespoon mixed in beverage of choice give po bid Continued sertraline 100 mg Tablet 100 mg PO DAILY travoprost 0.004 % Drops 1 drp ophthalmic (eye) DAILY Rx Instructions: administer in left eye for glaucoma clopidogrel 75 mg Tablet 75 mg PO DAILY methotrexate sodium 2.5 mg Tablet 2.5 mg PO QWEEK Rx Instructions: given on saturday pantoprazole 40 mg Tablet,Delayed Release (Dr/Ec) 40 mg PO DAILY timolol maleate 0.5 % Drops 1 drp OPHTHALMIC (EYE) DAILY Rx Instructions: administer in left eye for glaucoma Systane Gel 0.4-0.3 % Drops,Gel 1 drp OPHTHALMIC (EYE) Q4H Rx Instructions: while awake acetaminophen 500 mg tablet 1,000 mg PO TID PRN bisacodyl [Dulcolax (bisacodyl)] 5 mg tablet,delayed release (DR/EC) 5 mg PO BID levothyroxine 100 mcg Tablet 125 mcg PO .QHS mirabegron [Myrbetriq] 50 mg Tablet Extended Release 24 Hr 50 mg PO DAILY lisinopril 30 mg Tablet 30 mg PO DAILY Qty: 0 0RF clonidine [Rekddjmk-SGT-5] 0.1 mg/24 hr patch weekly 1 patch transdermal QWEEK folic acid 1 mg tablet 1 mg PO DAILY Changed prednisone 5 mg Tablet See Taper PO DAILY Qty: 0 0RF Taper: Prednisone 10mg taper 15 mg Daily for 10 Days and 0 Hour 12.5 mg Daily for 10 Days and 0 Hour 10 mg Daily for 10 Days and 0 Hour 7.5 mg Daily for 10 Days 5 mg Daily for 30 Days mirtazapine 15 mg Tablet,Disintegrating 7.5 mg PO QHS Qty: 0 0RF Discontinued nitrofurantoin 50 mg capsule 50 mg PO .qd quetiapine 25 mg tablet 75 mg PO QHS cyclobenzaprine 5 mg tablet 5 mg PO BID Trulicity 0.75 mg/0.5 mL pen injector 0.75 mg subcut QWEEK insulin lispro 100 unit/mL solution 3 unit subcut AC & HS Patient Comments: Inject 3 unit subcutaneously single dose nebivolol [Bystolic] 10 mg tablet 10 mg PO DAILY Discharge Instructions Stand Alone Forms: Nursing Discharge Form Activity:: Activity as Tolerated Equipment/Supplies:: No Equipment Needed Diet:: see ENERGY TRADING ANALYST recommendations Discharge Orders Discharge Orders: Discharge Order (Routine); Ordered 11/16/23 Ordered By: Kayden Chen DS: Summary Time Spent with Patient providing and/or coordinating discharge services: Greater than 30 minutes Specific discharge activities: Interview/exam of patient; review of discharge instructions, completion of prescriptions/discharge instructions; discussion w/ nursing and CM; documentation of hospital visit Status at Discharge Functional status at discharge: bed bound Overall status at discharge: patient is progressing back to baseline Mental Status: mental status grossly normal Speech and Movement: speech clear Mood: congruent mood Affect: normal affect Quality:SDOH Health Related Social Needs: No Data to Display Exam Narrative Exam Narrative: Samia is alert, she is verbal (in [place]), she greeted me w/ saying good morning. She denies any pain Lungs: clear Heart: RRR Abdomen: soft, nondistended, nontender Right forearm and hand remain edematous but improving Psych Mental Status: mental status grossly normal Speech and Movement: speech clear Mood: congruent mood Affect: normal affect DS: Data Vitals/I&O Vitals and I&O: Vital Signs Temperature 36.2 C L 11/15/23 22:59 Temperature Source Skin 11/15/23 22:59 Pulse 55 L 11/16/23 09:39 Pulse Rhythm Regular 11/16/23 09:46 Pulse 69 11/03/23 19:02 Respiratory Rate 15 11/15/23 22:59 Respiratory Effort Normal, Non-Labored 11/16/23 09:46 Respiratory Depth Normal 11/16/23 09:46 Respiratory Pattern Normal 11/16/23 09:46 Blood Pressure 150/65 H 11/16/23 09:39 Blood Pressure Mean 98 11/03/23 19:02 Blood Pressure Position Supine 11/03/23 07:10 Pulse Oximetry 95 11/16/23 09:39 Respiratory End-tidal CO2 39 10/29/23 14:46 Oxygen Delivery Method Room Air 11/16/23 09:39 Oxygen Flow Rate 0 11/16/23 09:39 Pain Level 0 11/15/23 15:06 Comment RN Notified 11/15/23 22:59 Comment with morphine on board 11/03/23 00:17 Intake & Output 11/15/23 11/16/23 11/16/23 23:59 11:59 23:59 Intake Total 240 / 240 Balance 240 / 240 Intake: Oral 240 / 240 Other: Urine Color Yellow Yellow Urine Appearance Clear Clear Urine Odor Normal Strong Comment nurse changed pt dry at this time Voiding Methods Diaper Diaper Incontinent PFSH All Active Problems (Updated 11/16/23 @ 12:16 by Kayden Chen MD) Muscle weakness (generalized) (Acute) Unintentional weight loss (Acute) Deficit in activities of daily living (ADL) (Acute) Full code status (Acute) Swallowing dysfunction (Acute) Palliative care encounter (Chronic) Decreased oral intake (Acute) Lives in intermediate (Acute) ACP (advance care planning) (Acute) Gallbladder anomaly (Chronic) DVT prophylaxis (Acute) Chronic UTI (Acute) Overactive bladder (Acute) Paroxysmal atrial fibrillation (Chronic) Dementia (Chronic) Depression (Chronic) Hypertension (Chronic) Rheumatoid arthritis (Chronic) Diabetes (Chronic) Altered mental status (Acute) Non-ST elevation [place] (NSTEMI) (Acute) Medical History Acute hypotension Social History Smoking/Tobacco Use Status: Never Smoking risk assessment performed?: Yes Alcohol Intake: never Substance use type: does not use Details: Unable to obtain Housing: intermediate Additional Social history: From [place], [place] speaker. Has lived in [facility] for the past year after stopped walking. and son in [facility] Time Spent with Patient Time Spent with Patient: 45-69 minutes Time was spent: preparing to see the patient(eg.review tests), ordering medications,tests, procedures, referring, communicating with other health rn wound care, indepentently interpreting results and care coordination
== END 2023-11-16 13:00 | disposition skilled nursing facility (03) | DRG 871 ==
LOC: ER 17:18 → ICU 19:16 → MS 11-03 19:26
PROVIDERS: Family Medicine; General Practice; Internal Medicine; Admitting Provider Family Medicine; Emergency Provider Emergency Medicine; PCP Family Medicine; Visit Provider Family Medicine
DX: A41.9 Sepsis, unspecified organism (principal); E43 Unspecified severe protein-calorie malnutrition; G93.41 Metabolic encephalopathy; J69.0 Pneumonitis due to inhalation of food and vomit; R65.21 Severe sepsis with septic shock; E87.1 Hypo-osmolality and hyponatremia; D84.821 Immunodeficiency due to drugs; E27.3 Drug-induced adrenocortical insufficiency; N17.9 Acute kidney failure, unspecified; I82.611 Acute embolism and thrombosis of superficial veins of right upper extremity; K56.41 Fecal impaction; E87.5 Hyperkalemia; N32.81 Overactive bladder; I48.0 Paroxysmal atrial fibrillation; F32.A Depression, unspecified; I10 Essential (primary) hypertension; E11.9 Type 2 diabetes mellitus without complications; Z79.52 Long term (current) use of systemic steroids; I25.10 Atherosclerotic heart disease of native coronary artery without angina pectoris; Z79.4 Long term (current) use of insulin; Z79.631 Long term (current) use of antimetabolite agent; M48.061 Spinal stenosis, lumbar region without neurogenic claudication; R29.6 Repeated falls; W19.XXXA Unspecified fall, initial encounter; H54.62 Unqualified visual loss, left eye, normal vision right eye; S00.83XA Contusion of other part of head, initial encounter; E87.6 Hypokalemia; G30.9 Alzheimer's disease, unspecified; F02.B0 Dementia in other diseases classified elsewhere, moderate, without behavioral disturbance, psychotic disturbance, mood disturbance, and anxiety; M06.89 Other specified rheumatoid arthritis, multiple sites; K52.89 Other specified noninfective gastroenteritis and colitis; R11.11 Vomiting without nausea; R74.8 Abnormal levels of other serum enzymes; R13.10 Dysphagia, unspecified; R63.4 Abnormal weight loss; M62.81 Muscle weakness (generalized); R32 Unspecified urinary incontinence; R93.2 Abnormal findings on diagnostic imaging of liver and biliary tract; Z68.32 Body mass index [BMI] 32.0-32.9, adult
CPT/HCPCS: 00123; 36415; 36416; 36556; 36591; 70496; 70498; 71045; 71275; 74177; 80048; 80053; 80307; 82533; 82550; 82805; 82962; 83690; 84145; 85027; 87040; 87449; 87493; 87637; 87641; 92526; 92610; 93005; 96365; 96366; 96367; 97110; 97140; 97163; 97530; 99222; 99231; 99232; 99233; 99285; J1650; 70450; 70551; 74018; 74019; 80202; 80320; 80329; 81003; 81015; 82270; 82272; 83036; 83605; 83735; 83880; 84100; 84439; 84443; 84484; 85025; 85610; 85730; 86140; 87070; 87086; 87205; 87581; 87899; 93010; 93306; 93971; 94667; 99223; 99239; 99291; J0131; J0360; J0692; J1720; J1815; J1836; J2270; J2470; J2997; J3372; J3475; J3480; J3490; J7512; Q9967